=== PATIENT | female | born 1940 | race Two or more races ===

== ENCOUNTER 2021-09-07 09:07 | Outpatient (AMB) | payer OTHER, MEDICAID, SELFPAY ==
--- NOTE | 2021-09-07 09:08 | UROVISIT ---
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 Required: No Is patient in pain?: No Allergy Allergies amoxicillin Allergy (Severe, Verified 09/07/21 09:09) Rash Home Meds Medication Reconciliation atorvastatin 80 mg tablet 80 mg PO HS 04/15/18 [History Confirmed 09/07/21] calcitriol 0.25 mcg capsule 0.25 mcg PO EVERYOTHERDAY 04/15/18 [History Confirmed 09/07/21] clonidine HCl 0.2 mg tablet 0.2 mg PO BID 04/15/18 [History Confirmed 09/07/21] doxazosin 2 mg tablet 1 mg PO HS 04/15/18 [History Confirmed 09/07/21] glipizide 10 mg tablet 5 mg PO BID 04/16/18 [History Confirmed 09/07/21] allopurinol 300 mg tablet 300 mg PO QDAY 03/27/19 [History Confirmed 09/07/21] tramadol 50 mg tablet 50 mg PO PRN PRN 03/27/19 [History Confirmed 09/07/21] furosemide 40 mg tablet (Lasix) 40 mg PO EVERYOTHERDAY 05/02/19 [History Confirmed 09/07/21] docusate sodium 100 mg capsule (Colace) 100 mg PO DAILY 10/04/20 [History Confirmed 09/07/21] ferrous sulfate 325 mg (65 mg iron) tablet 325 mg PO DAILY 10/04/20 [History Confirmed 09/07/21] insulin glargine U-300 conc 300 unit/mL (3 mL) subcutaneous pen (Toujeo Max U-300 SoloStar) 40 unit SUBCUT DAILY 10/04/20 [History Confirmed 09/07/21] labetalol 200 mg tablet 200 mg PO BID 10/04/20 [History Confirmed 09/07/21] pantoprazole 40 mg tablet,delayed release 40 mg PO QDAY 10/04/20 [History Confirmed 09/07/21] dulaglutide 3 mg/0.5 mL subcutaneous pen injector (Trulicity) 3 mg SUBCUT QWEEK 10/06/20 [History Confirmed 09/07/21] amiodarone 200 mg tablet 200 mg PO BID 06/09/21 [History Confirmed 09/07/21] apixaban 2.5 mg tablet (Eliquis) 2.5 mg PO BID 06/09/21 [History Confirmed 09/07/21] aspirin 81 mg tablet,delayed release 81 mg PO QDAY 06/09/21 [History Confirmed 09/07/21] clopidogrel 75 mg tablet 75 mg PO DAILY 06/09/21 [History Confirmed 09/07/21] diltiazem HCl 30 mg tablet 30 mg PO QID 06/09/21 [History Confirmed 09/07/21] estradiol 10 mcg vaginal tablet (Vagifem) 10 mcg VAGINAL DIRECTED tab 09/07/21 [History Confirmed 09/07/21] gabapentin 100 mg capsule 100 mg PO QDAY 09/07/21 [History Confirmed 09/07/21] Nurse Note: Patient and daughter had phone consult with Dr Schwab. Patient to be scheduled for kidney ultrasound in 3 months. mvp Fall Screening Do you have a fear of falling?: Yes Have you had a fall in the last 2 months?: No Do you use an assistive device for ambulation?: Yes (walker) Current Vital Signs Height Height Method Weight Weight Measurement Method Body Mass Index 1.57 m Stated 77.111 kg Estimated by Patient 31.1 09/07/21 09:10 09/07/21 09:10 09/07/21 09:10 09/07/21 09:10 09/07/21 09:10 Nursing Documentation Social History Living Situation History Lives With: Children and Family Housing: House Tobacco History Smoking Status: Former smoker Second Hand Smoke Exposure: No Alcohol History Alcohol Intake: Never Alcohol Intake Frequency: holidays/special occasions only Office Procedures Uro Level of Care Nursing/Assessment/Reassessment Patient Status: Established Patient Nursing Assessment/Reassessment: Update [facility] data in EMR and Medication Reconciliation Coordination of Care: Ref for ancillary service Established Patient Point Assignment: 35 Uro Telephone call w/Clinical staff: 21-30 min Urology Clinic Office Visit Office Visit Urology Verbal Consent obtained for Telemed Visit: Yes Date of visit:: September 07, 2021 09:07 Allergies & Home Medications: Allergies amoxicillin Allergy (Severe, Verified 06/09/21 16:13) Rash Visit: Reason for visit: [] Office Visit findings: []
[2021-09-07 09:10] VITALS: BMI 31.1
--- NOTE | 2021-09-08 05:55 | URONOTEN_ITS ---
RE: AMINATA VALIENTE : 1940 DATE: 09/07/2021 Because of emergency mandate, a [id number] visit is not possible; therefore, this medical necessary visit is conducted via a telephonic communication. ESTABLISHED DIAGNOSES: 1. N184, chronic kidney disease. 2. E782, mixed hyperlipidemia. 3. E11.22, diabetes mellitus type 2 with diabetic chronic kidney disease. 4. R809, proteinuria. 5. N250, renal osteodystrophy. 6. E875, hyperkalemia. 7. R600, localized edema. 8. F330, major depressive disorder, recurrent. 9. I129, hypertensive chronic kidney disease. 10. 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 11. Urgency incontinence and recurrent urinary tract infection. HISTORY OF PRESENT ILLNESS: Ms. Valiente is an 81-year-old female. I was talking to her daughter and this patient has history of urinary tract infection, which was treated with antibiotics. She has frequency of urination x4 at night, 2-3 times during the day. This patient is COVID positive at this time. She is 4, para 4, no hysterectomy. There is no bulge in the vaginal area. She had UTI, which was treated with antibiotics. Past medical history, family history, review of systems, and personal history, please refer to patient history form dated, 09/07/2021. It is in HPI, in EMR. VARIOUS LABS: BUN is 27, creatinine is 2.0, GFR is 26. She had CAT scan done in 2019. It was reviewed by me. She had small stone in both kidneys without hydronephrosis. Renal parenchyma and cortex is good. IMPRESSION: 1. Urgency incontinence. 2. Urinary tract infection. RECOMMENDATION: 1. Literature regarding prevention of UTI has been sent to the patient. 2. I am doing ultrasound of the kidney to make sure the stones are not causing hydronephrosis. 3. For her recurrent UTI, I am putting her on Vagifem 2 grams per vagina twice a week. All above issues were discussed with daughter in great detail. I answered her questions to her satisfaction. She verbalized understanding. Half an hour was spent in counseling and coordination of the care of the patient. It was a telephone encounter and the patient is COVID positive. DT: 10:21:47 TT: 11:19:00 Ref: [id number] - TID: [id number]
== END 2021-09-07 10:01 | disposition home or self-care (01) ==
LOC: HODURO 09:07
PROVIDERS: PCP Family Medicine; Visit Provider Urology

== ENCOUNTER 2024-07-02 09:57 | Observation (INO) | payer OTHER, SELFPAY ==
[2024-07-02] VITALS (10 sets, daily range): BP systolic 125–184; BP diastolic 52–80; PULSE 51–67; RESP 14–99; TEMP 36.4–36.7; O2SAT 95–99; BMI 23.4
--- NOTE | 2024-07-02 11:54 | EKG_ITS ---
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
--- NOTE | 2024-07-02 11:56 | XR_ITS ---
Examination: AP chest single view Technique one AP portable semiupright chest single view Exam date and time: July 02, 2024 1221 hours INDICATIONS: Chest pain today. FINDINGS: Normal heart size Moderate elevation right hemidiaphragm. No pneumonia or pulmonary edema Prominent osteopenia IMPRESSION: No pneumonia or pulmonary edema
--- NOTE | 2024-07-02 12:02 | EDNOTE_ITS ---
ED General RME/HPI General Chief complaint: General Adult/Misc Complain Stated complaint: WEAKNESS Time Seen by Provider: 07/02/24 11:31 Arrival date/time: 07/02/24 09:57 RME / HPI RME / HPI narrative: An 83-year-old female patient with past medical history of ESRD on dialysis, following up with Kori Barry on Eliquis, hypertension, coronary artery disease, hyperlipidemia, diabetes mellitus, hypothyroidism, was brought from the dialysis center after she felt warm and sweaty. Her symptoms started suddenly toward the end of her dialysis session. Patient also reported palpitation and chest pressure however she denied any chest pain. She also reported that she was shaking vigorously however she did not loss of consciousness. Patient reported that she has never had such symptoms in the past. Related Data Home Medications ?Medication ?Instructions ?Recorded ?Confirmed aspirin 81 mg tablet,delayed 81 mg PO QDAY 12/29/21 08/23/22 release ergocalciferol (vitamin D2) 1,250 1 cap PO QWEEK 03/21/22 08/23/22 mcg (50,000 unit) capsule (Vitamin D2) levothyroxine 50 mcg tablet 1 tab PO DAILY 03/21/22 08/23/22 furosemide 40 mg tablet 1 tab PO QDAY 05/02/22 08/23/22 valsartan 160 mg tablet 1 tab PO QDAY 05/11/22 08/23/22 pantoprazole 40 mg tablet,delayed 40 mg PO HS 05/29/22 08/23/22 release amiodarone 200 mg tablet 200 mg PO BID 08/07/22 08/23/22 dulaglutide 1.5 mg/0.5 mL 4.5 mg subcut QWEEK 08/07/22 08/23/22 subcutaneous pen injector (Trulicity) insulin glargine U-300 conc 300 14 unit subcut QDAY 08/07/22 08/23/22 unit/mL (3 mL) subcutaneous pen (Toujeo Max U-300 SoloStar) midodrine 10 mg tablet See Rx Instructions .Route .COMPLEX 08/07/22 08/23/22 albuterol sulfate 90 mcg/actuation 1 puff inhalation Q4HR PRN 08/08/22 08/23/22 aerosol inhaler BREATHING apixaban 2.5 mg tablet (Eliquis) 2.5 mg PO BID 08/08/22 08/23/22 benzonatate 100 mg capsule 100 mg PO BID PRN Cough 08/08/22 08/23/22 lactulose 10 gram/15 mL oral 30 ml PO TID PRN Constipation 08/08/22 08/23/22 solution (Constulose) tramadol 50 mg tablet 50 mg PO Q8HR PRN Pain 08/08/22 08/23/22 atorvastatin 80 mg tablet 80 mg DAILY 08/23/22 08/23/22 docusate sodium 100 mg tablet 100 mg PO BID 08/23/22 08/23/22 ferrous sulfate 325 mg (65 mg 325 mg DAILY 08/23/22 08/23/22 iron) tablet (FeroSul) zolpidem 5 mg tablet 2.5 mg HS PRN Insomnia 08/23/22 08/23/22 Allergies Allergy/AdvReac Type Severity Reaction Status Date / Time amoxicillin Allergy Severe Rash Verified 07/25/22 15:01 ED Exam Narrative Physical exam: GEN: AOx3, able to speak full sentences HEENT: NC/AC, oral mucosa moist, neck supple CVS: RRR, S1-S2 present, no murmurs appreciated, normal JVD RESP: CTAB GI: soft,non distended, non tender, NBS MSK: able to move all 4 limbs, no lower extremity edema SKIN: warm and dry MAINTENANCE SHOP WELDER: CN II-XII and Sensation grossly intact. Course Quality Measures none Orders Category Date Time Status Application Dba STAT Care 07/02/24 11:56 Active Continuous Pulse Oximetry ONCE Care 07/02/24 11:56 Active EKG (ED ONLY) *Do not use* NOW Care 07/02/24 11:55 Completed Insert IV NOW Care 07/02/24 11:56 Active Diet Cardiac Diet 07/02/24 Lunch Active EKG (ED Only) Stat Exams 07/02/24 11:54 Draft XR chest 1V portable Stat Exams 07/02/24 11:56 Completed BNP [B-Type Natriuretic Peptide] Stat Lab 07/02/24 12:05 Completed CBC Stat Lab 07/02/24 12:05 Completed Comprehensive Metabolic Panel Stat Lab 07/02/24 12:05 Completed Mag [Magnesium] Stat Lab 07/02/24 12:05 Completed Phosphorous Stat Lab 07/02/24 12:05 Completed Troponin I Stat Lab 07/02/24 12:05 Completed Ondansetron Inj [Zofran Inj] Med 07/02/24 11:56 Discontinued 4 mg IV Q1HR PRN Oxygen Delivery NOW RT 07/02/24 11:56 Active Vital Signs Vital signs: Vital Signs Temperature 98.0 F 07/02/24 10:49 Pulse Rate 64 07/02/24 10:49 Respiratory Rate 18 07/02/24 10:49 Blood Pressure 184/80 H 07/02/24 10:49 Pulse Oximetry (%) 95 07/02/24 10:49 Oxygen Delivery Method Room Air 07/02/24 10:49 [facility] Patient data External records reviewed:: [facility] previous records Clinical information provided by:: patient and family Social determinants that could affect healthcare access:: none Patient has the following chronic illnesses:: ESRD CVA Coronary artery disease status post 4 stents placements A-fib Hypothyroidism Diabetes mellitus Hypertension How is presenting disease/condition affected by chronic disease/condition?: c aused by Evaluation data The following diagnostics were reviewed and interpreted by me:: lab results, radiology exam(s) and EKG tracing(s) Lab and/or radiology exams considered but not ordered:: None Interpretation Summary: Heart block Medications Medications considered but not ordered:: None Medication administrations:: Medication Administration History Discontinued Medications Ondansetron HCl (Ondansetron Inj 2 Mg/Ml Inj 2 Ml) 4 mg IV Q1HR PRN PRN Reason: PERSISTENT NAUSEA OR VOMITING None Consultations Consultation(s) initiated? (list below): Yes Diagnosis Differential Diagnosis ED Complaint MDM: Symptomatic bradycardia, hypovolemic hypotension, electrolyte imbalance Most likely diagnosis given after review of the tests above:: Symptomatic bradycardia Admission Indicated Admission indicated?: indicated Explain why admission is indicated or not indicated:: For observation for symptomatic bradycardia Admission Request Was there a request for admission?: Yes Admission Attestation Admission request attestation: Discussed case with [] from Hospitalist service regarding admission. Discussed patients ED course, exam findings, labs, and radiology results. The Hospitalist [agrees,declines] to accept the patient for admission. Disposition Plan Disposition Plan: Admit Medical Decision Making MDM Narrative MDM Narrative: On evaluation patient was found to have blood pressure of 162/64, pulse rate of 57, CBC within normal limits, sodium, potassium, magnesium, phosphate are all within normal limits, BMP was found to be 328, troponin within normal limits, we believe that the patient symptoms most likely secondary to episodes of bradycardia. On review of the patient's chart we noticed that she has multiple EKGs with heart rate below 60 at the history of admission secondary to bradycardia. Today's EKG showed sinus bradycardia with first-degree heart block, possible right bundle branch block, and prolonged QTc interval to 527. We contacted the parachute accessories attacher Dr. Moore and he recommended to admit the patient for observation for 24 hours. The hospitalist team was contacted and the patient will be admitted in telemetry. Differential Diagnosis Differential Diagnosis: Symptomatic bradycardia, hypovolemic hypotension, electrolyte imbalance Lab Data 07/02/24 12:05 07/02/24 12:05 Labs: Lab Results 07/02/24 Range/Units 12:05 WBC 6.4 (3.6-11.0) Thou/mm3 RBC 3.87 L (4.00-5.20) Miln/mm3 Hgb 12.1 (12.0-16.0) g/dL Hct 37.0 (36.0-46.0) % MCV 96 (80-100) fL MCH 31.3 (25.0-35.0) pg MCHC 32.7 (31.0-37.0) g/dl RDW Std Deviation 58.6 H (36.4-46.3) fL Plt Count 161 (140-440) Thou/mm3 Neut % (Auto) 75 (37-80) % Lymph % (Auto) 16 (10-50) % Wake % (Auto) 8 (0-12) % Eos % (Auto) 0 (0-10) % Baso % (Auto) 1 (0-2.5) % Neut # (Auto) 4.8 (1.8-7.7) Thou/mm3 Lymph # (Auto) 1.0 (1.0-4.8) Thou/mm3 Wake # (Auto) 0.5 (0.0-0.8) Thou/mm3 Eos # (Auto) 0.0 (0.0-0.5) Thou/mm3 Baso # (Auto) 0.1 (0.0-0.2) Thou/mm3 Immature Gran # (Auto) 0.01 H (0.00-0.00) Thou/mm3 Absolute Nucleated RBC 0.00 (0.00-0.00) Thou/mm3 Immature Gran % 0 (0-0) % Nucleated RBC % 0 (0) /100 WBC Sodium 136 (136-145) mMol/L Potassium 4.3 (3.4-5.1) mMol/L Chloride 101 (98-107) mMol/L Carbon Dioxide 32.7 H (20.0-31.0) mMol/L Anion Gap 2 L (7-16) BUN 12 (9-23) mg/dL Creatinine 2.4 H (0.6-1.3) mg/dL Estim Creat Clear Calc 13.6 L (>60) mL/min eGFR 20 L (60 - ) See Note BUN/Creatinine Ratio 5 L (12-20) Ratio Glucose 114 H (74-106) mg/dL Calculated Osmolality 272 L (275-295) Calcium 9.4 (8.3-10.6) mg/dL Corrected Calcium 9.4 (8.5-10.1) mg/dL Phosphorus 2.5 (2.4-5.1) mg/dL Magnesium 2.1 (1.6-2.6) mg/dL Total Bilirubin 0.9 (0.3-1.2) mg/dL AST 18 (0-34) U/L ALT 12 (10-49) U/L Alkaline Phosphatase 118 H (46-116) U/L Troponin I < 0.020 (0.0-0.045) ng/mL B-Natriuretic Peptide 328 H (0-100) pg/mL Total Protein 7.0 (5.7-8.2) gm/dL Albumin 4.3 (3.4-4.8) gm/dL Globulin 2.7 (2.3-3.5) gm/dL Albumin/Globulin Ratio 1.6 (1.2-2.2) Discharge Plan Plan Patient Disposition: Admit Acute Care w/in Hospital Prescriptions/Referrals Prescriptions/Med Rec: No Action aspirin 81 mg Tablet,Delayed Release (Dr/Ec) 81 mg PO QDAY levothyroxine 50 mcg tablet 1 tab PO DAILY ergocalciferol (vitamin D2) [Vitamin D2] 1,250 mcg (50,000 unit) capsule 1 cap PO QWEEK Patient Comments: take 1 capsule by mouth every week Rx Instructions: SATURDAY furosemide 40 mg tablet 1 tab PO QDAY pantoprazole 40 mg tablet,delayed release (DR/EC) 40 mg PO HS amiodarone 200 mg Tablet 200 mg PO BID midodrine 10 mg Tablet See Rx Instructions .ROUTE .COMPLEX Rx Instructions: 10 mg orally ;//-DAIALYSIS DAYS ONLY Trulicity 1.5 mg/0.5 mL Pen Injector 4.5 mg SUBCUT QWEEK Rx Instructions: SATURDAY MORNING Toujeo Max U-300 SoloStar 300 unit/mL (3 mL) Insulin Pen 14 unit SUBCUT QDAY benzonatate 100 mg Capsule 100 mg PO BID PRN (Reason: Cough) Eliquis 2.5 mg Tablet 2.5 mg PO BID tramadol 50 mg Tablet 50 mg PO Q8HR PRN (Reason: Pain) albuterol sulfate 90 mcg/actuation HFA aerosol inhaler 1 puff INHALATION Q4HR PRN (Reason: BREATHING) Patient Comments: inhale 1 puff by mouth and INTO THE LUNGS every 4 hours if needed lactulose [Constulose] 10 gram/15 mL solution 30 ml PO TID PRN (Reason: Constipation) Rx Instructions: UP TO 3X A DAY NEEDED FOR CONTIPATION valsartan 160 mg tablet 1 tab PO QDAY Patient Comments: take 1 tablet by mouth once daily atorvastatin 80 mg tablet 80 mg DAILY Patient Comments: take 1 tablet by mouth once daily ferrous sulfate [FeroSul] 325 mg (65 mg iron) tablet 325 mg DAILY zolpidem 5 mg tablet 2.5 mg HS PRN (Reason: Insomnia) Patient Comments: 1/2 tablet by mouth at bedtime if needed for insomnia docusate sodium 100 mg Tablet 100 mg PO BID Referrals: Andrew Zhou MD [Primary Care Provider] - In 1 week Problem List Clinical Impression: Bradycardia Patient/Caregiver Discharge Instructions Print Language: Yoruba Stand Alone Forms: Rachel Award Info., Patient Portal Info Letter
[2024-07-02 12:13] LABS: Basophils # (Auto) 0.1 Thou/mm3 (0.0-0.2); Basophils % (Auto) 1 % (0-2.5); Eosinophils % (Auto) 0 % (0-10); Hemoglobin 12.1 g/dL (12.0-16.0); Immature Granulocytes % (Auto) 0 % (0-0); Immature Granulocytes Auto 0.01 Thou/mm3 (0.00-0.00); Lymphocytes % (Auto) 16 % (10-50); Mean Corpuscular HGB Conc 32.7 g/dl (31.0-37.0); Mean Corpuscular Hemoglobin 31.3 pg (25.0-35.0); Mean Corpuscular Volume 96 fL (80-100); Monocytes # (Auto) 0.5 Thou/mm3 (0.0-0.8); Monocytes % (Auto) 8 % (0-12); Neutrophils # (Auto) 4.8 Thou/mm3 (1.8-7.7); Neutrophils % (Auto) 75 % (37-80); Nucleated Red Blood Cell % 0 /100 WBC (0); Platelet Count 161 Thou/mm3 (140-440); RDW Standard Deviation 58.6 fL (36.4-46.3); Red Blood Count 3.87 Miln/mm3 (4.00-5.20); White Blood Count 6.4 Thou/mm3 (3.6-11.0)
[2024-07-02 12:38] LABS: B-Type Natriuretic Peptide 328 pg/mL (0-100)
[2024-07-02 12:53] LABS: Alanine Aminotransferase 12 U/L (10-49); Albumin, Serum 4.3 gm/dL (3.4-4.8); Albumin/Globulin Ratio 1.6 (1.2-2.2); Alkaline Phosphatase 118 U/L (46-116); Anion Gap 2 (7-16); Aspartate Amino Transferase 18 U/L (0-34); BUN/Creatinine Ratio 5 Ratio (12-20); Bilirubin,Total 0.9 mg/dL (0.3-1.2); Blood Urea Nitrogen 12 mg/dL (9-23); Calcium 9.4 mg/dL (8.3-10.6); Calcium (Corrected) 9.4 mg/dL (8.5-10.1); Carbon Dioxide 32.7 mMol/L (20.0-31.0); Chloride 101 mMol/L (98-107); Creatinine (Component) 2.4 mg/dL (0.6-1.3); Estimated Creatinine Clearance 13.6 mL/min (>60); Globulin 2.7 gm/dL (2.3-3.5); Glucose 114 mg/dL (74-106); Magnesium 2.1 mg/dL (1.6-2.6); Osmolality,Calculated 272 (275-295); Phosphorous 2.5 mg/dL (2.4-5.1); Potassium 4.3 mMol/L (3.4-5.1); Sodium 136 mMol/L (136-145); Troponin I < 0.020 ng/mL (0.0-0.045); eGFR 20 See Note
--- NOTE | 2024-07-02 14:28 | ESHP_ITS ---
<Statement entered by Belen Childers DO - 07/02/24 20:42> Senior attestation: Patient was examined and case was reviewed with team including attending physician. Note reviewed, I agree with most of its contents and agree with the patient's care. Belen Childers DO PGY-3 <Statement entered by Donis Beck MD - 07/02/24 18:37> Senior Resident Attestation: I supervised/discussed management plan with academic intern physician Dr. Alan, and was involved in the care of this patient. I personally saw and examined the patient and discussed the assessment and plan with the entire medicine team, including my attending. I agree with the assessment and plan as documented. Patient is a 83 years old female with past medical history of ESRD on HD, A-fib on Eliquis, DM type 2, hypothyroidism, hypertension, CAD, and hyperlipidemia presented to the ED after she developed shakiness and weakness during HD session. Her HR was noted to be in 50s. EKG showed QTc prolongation and first degree AV block. Her amiodarone and lasix were held and she was started on amlodipine for BP control. Patient's care was discussed with attending physician, Dr. León. Donis Beck MD PGY-2. Documentation for date of: 07/02/24 HPI History of Present Illness Chief complaint: Weakness, dizzyness, nausea History of present illness: 83-year-old female with past medical history of ESRD (dialysis Saturday, , Saturdays), A-fib (on Eliquis), DM 2, hypothyroidism, hypertension, CAD, and hyperlipidemia was admitted to the hospital after coming to the ED from dialysis center due to feeling of weakness, dizziness, nausea, sweating, and flushing around 15 minutes before her dialysis was done. Patient mentioned that she also felt some mild chest pain and palpitations during this time as well and had dry heaves, but did not vomit. She mentioned that yesterday she got VERONA and had been with poor oral intake since the day prior until yesterday at evening around 4 to 5 PM. She she also stated that she did not take her medications yesterday morning as she could not have anything by mouth as she was going to have the VERONA, therefore she did not take her levothyroxine or amiodarone yesterday. She denied any loss of conscious during this episode in dialysis today and took her midodrine this morning as well as her amiodarone. ER spoke with patient's auto [employer] travel counselor Dr. Moore given that patient's EKG showed a first-degree AV block and patient's blood pressure initially was 184/80. [employer] Supervisor recommendation was to place patient under observation and to hold all QTc prolonging medication at this time given the patient's QTc was prolonged at 521. ED course: Initially patient came in hypertensive and afebrile. Vital signs were BP 184/80, pulse 64, O2 sats 95% on room air. Initial labs were relevant for mild metabolic alkalosis, azotemia, and mildly elevated BNP at 328. Initial imaging included chest x-ray which was negative for any active disease and EKG which showed first-degree AV block with sinus bradycardia. ER contacted auto club travel counselor Dr. Moore who recommended to admit the patient for observation and a telemetry bed. PMH: As above Allergies: Amoxicillin Review of Systems Review of Systems Narrative Review of Systems: Constitutional: Admits sweats, Denies weight loss/gain, Denies fever, Denies chills. HEENT: Denies hearing loss, Denies ear pain, Denies postnasal drip, Denies double vision, Denies blurry vision. Respiratory: Denies shortness of breath, Denies cough, Denies wheezing. Cardiovascular: Admits chest pain, Admits palpitations, Denies sudden loss of consciousness. GI: Denies blood in stool, Denies constipation, Denies abdominal pain, Denies difficulty swallowing, Admits nausea, Denies vomit. : Denies urinary incontinence, Denies pain while urinating, Denies increased urinary frequency. MSK: Denies joint pain, Denies joint swelling, Denies numbness. Skin: Denies rash, Denies itching, Denies easy bruising. Neuro: Denies headaches, Admits dizziness, Denies seizures. Past Medical History Past Medical History NEUROLOGIC: Positive Neurological Disorders, Cerebrovascular Accident and Transient Ischemic Attacks (TIA); Negative Dementia, Alzheimer's Disease, Parkinson's Disease, Brain Tumor, Meningitis, Seizures, Epilepsy, Multiple Sclerosis, Cerebral Palsy, Amyotrophic Lateral Sclerosis (ALS/Erna Gehrig's), Guillain-Deadwood Syndrome, Spina Bifida, Paralysis, Peripheral Neuropathy, Stark's Palsy, Subdural Hematoma, Migraine, Head Trauma, Spinal Cord Injury or Traumatic Brain Injury CARDIAC: Positive Cardiac Disorders, Myocardial Infarction, Cardiac Arrhythmia, Atrial Fibrillation, Angina, Heart Murmur, Coronary Artery Disease, Peripheral Vascular Disease, Hypercholesterolemia, Congestive Heart Failure, Edema and Hypertension; Negative Atherosclerotic Heart Disease, Aneurysm, Congenital Heart Disease, Valvular Heart Disease, Rheumatic Fever, Cardiomyopathy, Pericarditis, Cellulitis, Deep Vein Thrombosis, Hypotension or Varicose Veins RESPIRATORY: Positive Pneumonia; Negative Chronic Obstructive Pulmonary Disease (COPD), Asthma, Bronchitis, Emphysema, Pulmonary Fibrosis, Cystic Fibrosis, Tuberculosis, Pulmonary Embolism, Pulmonary Edema or Sleep Apnea GASTROINTESTINAL: Negative Gastrointestinal Disorders, Hepatitis, Cirrhosis, Pancreatitis, Celiac Disease, Gall Bladder Disease, Gastrointestinal Bleed, Esophageal Varices, Huerta's Esophagus, Colitis, Ulcerative Colitis, Diverticulitis, Diverticulosis, Ulcer, Colorectal Cancer, Irritable Bowel, Crohn's Disease, Obstructive Bowel, Hiatal Hernia, Hemorrhoids, Gastroesophageal Reflux Disease or Obesity GENITOURINARY: Positive Genitourinary Disorders, Renal Disease and Dialysis; Negative Kidney Stones, Polycystic Kidney Disease, Neurogenic Bladder or Inguinal Hernia REPRODUCTIVE: Positive Previous Pregnancies; Negative Breast Cancer, Endometriosis, Pelvic Inflammatory Disease or Uterine Prolapse MUSCULOSKELETAL: Positive Musculoskeletal Disorders, Arthritis, Rheumatoid Arthritis, Degenerative Disk Disease and Gout; Negative Muscular Dystrophy, Myasthenia Gravis, Marfan's Syndrome, Bone Cancer, Osteoporosis, Scoliosis, Carpal Tunnel Syndrome, Fibromyalgia, Fractures, Degenerative Joint Disease, Osteomyelitis or Poliovirus ENT: Positive Cataracts; Negative Glaucoma, Blind, Retinal Detachment, Macular Degeneration, Ear Infection, Deafness, Head Trauma or Eye Prosthesis ENDOCRINE: Positive Endocrine Disorders, Diabetes Mellitus Type 2 and Hypothyroidism; Negative Diabetes Mellitus Type 1, Hypoglycemia, Stanislav's Syndrome, Alexander's Disease, Hyperthyroidism, Parathyroid Disease, Pituitary Disease, Systemic Lupus Erythematosus, Syndrome of Inappropriate Antidiuretic Hormone (SIADH), Adrenal Disease or Graves' Disease HEMATOLOGIC: Negative Blood Disorders, Anemia, Leukemia, Hemophilia, Thalassemia, Sickle Cell Disease or Clotting Problems PSYCHO/SOCIAL: Negative Psychiatric Problems, Schizophrenia, Recreational Drug Use, Bipolar Disorder, Depression, Anxiety, Behavior Problems, Self-Mutilation, Attention Deficit Disorder, Attention Deficit Hyperactivity Disorder, Depression, Post Traumatic Stress Disorder or Eating Disorder OTHER HISTORY: Positive Hospitalization, Chicken Pox, Measles, Mumps and Clostridium Difficile; Negative Autoimmune Disease, Down Syndrome, Autism, Developmental Delay, Shingles, Falls, Blood Transfusions, Blood Transfusion Reaction, Anesthesia Reactions, Organ Transplant, Chemotherapy, Radiation Therapy, Hyperbaric Therapy, MRSA, VRSA, Vancomycin-Resistant Enterococci, Human Immunodeficiency Virus (HIV), Rubella (Maldivian Measles), Pertussis, Cancer, Breast Cancer, Cervical Cancer, Colorectal Cancer, Lung Cancer or Ovarian Cancer Family History FAMILY HISTORY: Positive Family Cardiac Disorders, Family Cancer and Family Surgery; Negative Family Psychiatric Problems, Family Respiratory Disorders, Family Gastrointestinal Problems or Family Anesthesia Reaction Surgical History SURGICAL: Positive Cardiac Surgery, Coronary Stent, Cardiac Catheterization, Angiogram and Eye Surgery; Negative Open Heart Surgery, Coronary Artery Bypass Graft, Valve Replacement, Vascular Surgery, Pacemaker, Auto Implanted Cardiovert Defib, Carotid Endarterectomy, Endocrine Surgery, Thyroidectomy, Ear Surgery, Tympanostomy Tube, Nose Surgery, Oral Surgery, Tonsillectomy, Adenoidectomy, Cochlear Implant, Corneal Transplant, Throat Surgery, Abdominal Surgery, Tracheostomy, Gastric Bypass Surgery, Gastrostomy, Bowel Surgery, Nephrectomy, Transurethral Resection, Joint Replacement, Amputation, Open Reduction Internal Fixation, Arthroscopy, Neurologic Surgery, Brain Shunt, Mastectomy, Lumpectomy, Hysterectomy, Tubal Ligation, Section or Organ Transplant Social History SMOKING STATUS: Never smoker SECOND HAND EXPOSURE: No SUBSTANCE USE: does not use Exam Vital Signs Temp Pulse Resp BP Pulse Ox O2 Del Method 98.0 F 58 L 16 161/61 H 99 Room Air 07/02/24 12:17 07/02/24 13:16 07/02/24 13:16 07/02/24 12:17 07/02/24 12:17 07/02/24 12:17 Narrative Exam General: A/O x3, no acute distress, thin Eyes: PERRL, EOMI. Anicteric, vision grossly intact. Ears: No ear pain, no ear discharge, Hearing grossly intact. Nose: No nasal discharge. Mouth/Throat: Moist mucous membranes with dentures, no redness, no lesions. Neck: Neck supple, non-tender, no cervical lymphadenopathy. Lungs: Clear MILAGROS to auscultation and percussion, No accessory muscle use. Cardio: Normal S1/S2, regular rhythm, no murmurs, no JVD Abdomen: Soft, non-tender, no palpable masses, peristalsis present, no guarding or rebound. Extremities: Symmetrical, no significant deformities, no peripheral edema , non-tender, peripheral pulses presents. dialysis fistula in L UE Skin: No rashes, no lesions, warm to touch. Neuro: No focal neurological deficits. motor and sensory intact Psych: Cooperative, appropriate mood and effect. Results: Labs 07/03/24 04:20 07/03/24 04:20 Labs: Short CBC 07/02/24 Range/Units 12:05 WBC 6.4 (3.6-11.0) Thou/mm3 Hgb 12.1 (12.0-16.0) g/dL Hct 37.0 (36.0-46.0) % Plt Count 161 (140-440) Thou/mm3 BMP 07/02/24 12:05 Sodium 136 Potassium 4.3 Chloride 101 Carbon Dioxide 32.7 H BUN 12 Creatinine 2.4 H Glucose 114 H Calcium 9.4 Cardiac Enzymes 07/02/24 Range/Units 12:05 Troponin I < 0.020 (0.0-0.045) ng/mL Liver Function 07/02/24 Range/Units 12:05 Total Bilirubin 0.9 (0.3-1.2) mg/dL AST 18 (0-34) U/L ALT 12 (10-49) U/L Alkaline Phosphatase 118 H (46-116) U/L Albumin 4.3 (3.4-4.8) gm/dL Quality Measures Quality Measures none Advance care planning discussed with:: patient Medications Home Medications and Allergies Home Medications ?Medication ?Instructions ?Recorded ?Confirmed ?Type levothyroxine 50 mcg tablet 1 tab PO DAILY 03/21/22 07/03/24 History furosemide 40 mg tablet 1 tab PO QDAY 05/02/22 07/03/24 History pantoprazole 40 mg tablet,delayed 40 mg PO HS 05/29/22 07/03/24 History release insulin glargine U-300 conc 300 14 unit subcut QDAY 08/07/22 07/03/24 History unit/mL (3 mL) subcutaneous pen (Toujeo Max U-300 SoloStar) albuterol sulfate 90 mcg/actuation 1 puff inhalation Q4HR PRN 08/08/22 07/03/24 History aerosol inhaler BREATHING apixaban 2.5 mg tablet (Eliquis) 2.5 mg PO HS 08/08/22 07/02/24 History lactulose 10 gram/15 mL oral 30 ml PO TID PRN Constipation 08/08/22 07/02/24 History solution (Constulose) tramadol 50 mg tablet 50 mg PO Q8HR PRN Pain 08/08/22 07/03/24 History docusate sodium 100 mg tablet 100 mg PO DAILY 08/23/22 07/03/24 History dulaglutide 1.5 mg/0.5 mL 0.5 mg subcut QWEEK 07/03/24 07/03/24 History subcutaneous pen injector (Trulicity) galcanezumab-gnlm 120 mg/mL 120 mg subcut Q1M 07/03/24 07/03/24 History subcutaneous pen injector (Emgality Pen) Allergies Allergy/AdvReac Type Severity Reaction Status Date / Time amoxicillin Allergy Severe Rash Verified 07/25/22 15:01 Visit Medications Acetaminophen (Acetaminophen 325 Mg Tablet) 650 mg PO Q6H PRN PRN Reason: pain and Fever >100.4 Stop: 08/01/24 14:20 Discontinued Medications Ondansetron HCl (Ondansetron Inj 2 Mg/Ml Inj 2 Ml) 4 mg IV Q1HR PRN PRN Reason: PERSISTENT NAUSEA OR VOMITING Assessment & Plan Plan 83-year-old female with past medical history of ESRD (dialysis Saturday, , Saturdays), A-fib (on ), DM 2, hypothyroidism, hypertension, CAD, and hyperlipidemia was admitted to the hospital on 07/02/2024 for symptomatic bradycardia with first-degree AV block and hypertensive urgency #Symptomatic bradycardia #First-degree AV block #Presyncope ?Patient stated that she was feeling weak and dizzy about 15 minutes prior to finishing her dialysis today. She also mentions she felt palpitations as well as swelling. ?DDx medication induced given patient uses amiodarone for A-fib and had anesthesia day prior for VERONA versus due to thyroid hormone imbalance versus poor oral intake as patient was n.p.o. day prior to dialysis given that she had a VERONA. ?EKG showed first-degree AV block and sinus bradycardia with a prolonged QTc Plan: ?Avoid QTc prolongation medications such as amiodarone and Zofran ?Holding amiodarone for now ?TSH ordered ?Keep potassium above 4 and magnesium above 2 ?Cardiology consulted Dr. Moore, recommended to place patient in observation telemetry bed. #Hypertensive urgency #Hx of HTN ?Patient's initial blood pressure on admission was 184/80 ?This could have been a component of patient taking midodrine today in the morning given that she was cannot have dialysis. ?Blood pressure a before my assessment was 161/61 Plan: ?Start amlodipine 5 mg daily ?Holding Lasix for now #ESRD (HD Saturday, , Saturday) ?Patient received last hemodialysis on day of admission ?BUN 12, creatinine 2.4 on admission ?Patient takes midodrine on the days that he gets dialysis, therefore she took midodrine today Plan: ?IV fluids ?Avoid nephrotoxic agents ?Renally dose medications ?Nephrology consulted (Dr. Alvarado), appreciate recommendations ?Continue to monitor #Hx of DM2 ?Patient last A1c 6.4 Plan: ?ISS ? Accu-Cheks and hypoglycemic protocol ordered ? Will continue to monitor #Hx of hypothyroidism ?Restarted patient's levothyroxine 50 mcg daily ?TSH ordered ?Will continue to monitor #Hx of A-fib ?Restarted patient's Eliquis 2.5 mg twice daily ?Holding amiodarone given patient's first-degree block and symptomatic bradycardia Disposition: Patient admitted to telemetry for observation of symptomatic bradycardia and 1st degree AV block. Diet: Carb consistent low GI prophylaxis: protonix DVT prophylaxis: Already on Eliquis 2.5mg BID Code:DNR Case disclosed with Attending Dr. León and My senior Dr. Beck PGY2, and Dr. Childers PGY3. Vishnu Mancini PGY1 Attending Provider Attestation/Addendum I reviewed labs, imaging, EKG, home medications and prior available records. Face to face evaluation was performed by me. I have personally examined the patient and discussed assessment and plan with the IM team. I reviewed the resident note and agree with the plan with exceptions as below. Please see my addendum in the separate note for the date of 07/02.
--- NOTE | 2024-07-02 15:14 | ESHP_ITS ---
Addendum History & Physical Addendum Date of report being addended: 07/02/24 Narrative: Attending's attestation: I reviewed labs, imaging, EKG, home medications and prior available records. Face to face evaluation was performed by me. I have personally examined the patient and discussed assessment and plan with the IM team. I reviewed the resident note and agree with the plan with exceptions as below. 83-year-old female with history of ESRD on hemodialysis, CAD status post stentin g, A-fib on Eliquis, and hypertension, who presented with a chief complaint of near syncope, weakness, sweating, and nausea. She was found to have hypertensive crisis and symptomatic bradycardia. Presyncope/sweating/nausea: Differential diagnosis includes symptomatic bradycardia versus hypertensive encephalopathy. Patient did not eat well for the last 24 hours prior to her symptoms and the symptoms happened at the end of dialysis. Both factors can also be contributing. She had VERONA yesterday with anesthesia which could be contributing. Management of the underlying conditions as below. Symptomatic bradycardia: Heart rate is in the 50s. EKG showed sinus bradycardia with first-degree AV block. QTc is prolonged. Consulted cardiology Dr. Moore: Recommended admitting the patient to observation/telemetry and will consult. Avoid beta-blockers. Stop home amiodarone. Avoid QTc prolonging agents. Send TSH. Hypertensive crisis: SBP was in the 220s on presentation. Improved to 160?180 at the time of my evaluation. In the setting of known history of hypertension however patient is also on midodrine during dialysis. Stop midodrine. Restart oral home BP medications. Monitor BP. Hypothyroidism: Resume home levothyroxine. Order TSH as hypothyroidism can cause bradycardia. ESRD on hemodialysis: Consult nephrology for the next session of hemodialysis. Dose medications based on ESRD.
--- NOTE | 2024-07-02 16:00 | PC.CC ---
Patient is an 83 year-old female BIBA from Dialysis for 1st Degree Block, QTC Prolong, Presyncope. Deepti CAGE introduced self, role, and reason for visit to the patient and discussed limits of confidentiality. At bedside was patient's daughter Cheryl Catalan who patient provided consent to remain in the room. Patient confirmed information on demographics and reports to living with daughter Cheryl and her family. Per patient, prior to hospitalization she would ambulate with a 4-wheel walker and is able to complete her own ADLs. The patient's daughter reported the patient has a walk-in bath tub to bathe herself. Patient's primary care provider is Dr. Zhou and for medication uses [facility] on [address]. Upon discharge patient plans to return home with her family. volunteer services coordinator to remain available for any discharge needs.
--- NOTE | 2024-07-02 18:04 | ESCONSULT_ITS ---
HPI Data of Consult Consult date: 07/02/24 Requesting Physician: Edin León MD Admitting Provider: Edin León MD Attending Provider: José Alvarado MD Primary Care Provider: Andrew Zhou MD Consult Narrative Reason for consult: ESRD requiring dialysis History of present illness: 83 y/o F with PMHx significant for ESRD (dialysis Saturday, , Saturdays), A-fib (on Eliquis), DM 2, hypothyroidism, hypertension, CAD, and hyperlipidemia was admitted to the hospital after coming to the ED from dialysis center due to feeling of weakness, dizziness, nausea, sweating, and flushing around 15 minutes before her dialysis was done. Patient mentioned that she also felt some mild chest pain and palpitations during this time as well and had dry heaves, but did not vomit. She mentioned that yesterday she got VERONA and had been with poor oral intake since the day prior until yesterday at evening around 4 to 5 PM. She she also stated that she did not take her medications yesterday morning as she could not have anything by mouth as she was going to have the VERONA, therefore she did not take her levothyroxine or amiodarone yesterday. She denied any loss of conscious during this episode in dialysis today and took her midodrine this morning as well as her amiodarone. ER spoke with patient's metal forger's assistant Dr. Moore given that patient's EKG showed a first-degree AV block and patient's blood pressure initially was 184/80. Education Analyst recommendation was to place patient under observation and to hold all QTc prolonging medication at this time given the patient's QTc was prolonged at 521. Initially patient came in hypertensive and afebrile. Vital signs were BP 184/80, pulse 64, O2 sats 95% on room air. Initial labs were relevant for mild metabolic alkalosis, azotemia, and mildly elevated BNP at 328. Initial imaging included chest x-ray which was negative for any active disease and EKG which showed first-degree AV block with sinus bradycardia. ER contacted metal forger's assistant Dr. Moore who recommended to admit the patient for observation and a telemetry bed. Nephrology was consulted due to patient's ESRD on dialysis. Patient seen and examined in ED. Patient resting comfortably, in no distress. No edema, patient lungs clear to auscultation. Labs showed sodium 136, potassium 4.3, bicarb 32.7, creatinine 2.4, BUN 12, eGFR 20. No plans for further dialysis today, will keep to patient's regular dialysis schedule. Patient mucous membranes dry, will give patient half liter D5W half-normal saline. cc:: cc: Edin León MD Review of Systems Review of Systems Systems Reviewed: All systems reviewed, normal except as documented Past Medical History Past Medical History NEUROLOGIC: Positive Neurological Disorders, Cerebrovascular Accident and Transient Ischemic Attacks (TIA); Negative Dementia, Alzheimer's Disease, Parkinson's Disease, Brain Tumor, Meningitis, Seizures, Epilepsy, Multiple Sclerosis, Cerebral Palsy, Amyotrophic Lateral Sclerosis (ALS/Enra Gehrig's), Guillain-[place] Syndrome, Spina Bifida, Paralysis, Peripheral Neuropathy, Stark's Palsy, Subdural Hematoma, Migraine, Head Trauma, Spinal Cord Injury or Traumatic Brain Injury CARDIAC: Positive Cardiac Disorders, Myocardial Infarction, Cardiac Arrhythmia, Atrial Fibrillation, Angina, Heart Murmur, Coronary Artery Disease, Peripheral Vascular Disease, Hypercholesterolemia, Congestive Heart Failure, Edema and Hypertension; Negative Atherosclerotic Heart Disease, Aneurysm, Congenital Heart Disease, Valvular Heart Disease, Rheumatic Fever, Cardiomyopathy, Pericarditis, Cellulitis, Deep Vein Thrombosis, Hypotension or Varicose Veins RESPIRATORY: Positive Pneumonia; Negative Chronic Obstructive Pulmonary Disease (COPD), Asthma, Bronchitis, Emphysema, Pulmonary Fibrosis, Cystic Fibrosis, Tuberculosis, Pulmonary Embolism, Pulmonary Edema or Sleep Apnea GASTROINTESTINAL: Negative Gastrointestinal Disorders, Hepatitis, Cirrhosis, Pancreatitis, Celiac Disease, Gall Bladder Disease, Gastrointestinal Bleed, Esophageal Varices, Huerta's Esophagus, Colitis, Ulcerative Colitis, Diverticulitis, Diverticulosis, Ulcer, Colorectal Cancer, Irritable Bowel, Crohn's Disease, Obstructive Bowel, Hiatal Hernia, Hemorrhoids, Gastroesophageal Reflux Disease or Obesity GENITOURINARY: Positive Genitourinary Disorders, Renal Disease and Dialysis; Negative Kidney Stones, Polycystic Kidney Disease, Neurogenic Bladder or Inguinal Hernia REPRODUCTIVE: Positive Previous Pregnancies; Negative Breast Cancer, Endometriosis, Pelvic Inflammatory Disease or Uterine Prolapse MUSCULOSKELETAL: Positive Musculoskeletal Disorders, Arthritis, Rheumatoid Arthritis, Degenerative Disk Disease and Gout; Negative Muscular Dystrophy, Myasthenia Gravis, Marfan's Syndrome, Bone Cancer, Osteoporosis, Scoliosis, Carpal Tunnel Syndrome, Fibromyalgia, Fractures, Degenerative Joint Disease, Osteomyelitis or Poliovirus ENT: Positive Cataracts; Negative Glaucoma, Blind, Retinal Detachment, Macular Degeneration, Ear Infection, Deafness, Head Trauma or Eye Prosthesis ENDOCRINE: Positive Endocrine Disorders, Diabetes Mellitus Type 2 and Hypothyroidism; Negative Diabetes Mellitus Type 1, Hypoglycemia, Wainwright's Syndrome, Otis's Disease, Hyperthyroidism, Parathyroid Disease, Pituitary Disease, Systemic Lupus Erythematosus, Syndrome of Inappropriate Antidiuretic Hormone (SIADH), Adrenal Disease or Graves' Disease HEMATOLOGIC: Negative Blood Disorders, Anemia, Leukemia, Hemophilia, Thalassemia, Sickle Cell Disease or Clotting Problems PSYCHO/SOCIAL: Negative Psychiatric Problems, Schizophrenia, Recreational Drug Use, Bipolar Disorder, Depression, Anxiety, Behavior Problems, Self-Mutilation, Attention Deficit Disorder, Attention Deficit Hyperactivity Disorder, Depression, Post Traumatic Stress Disorder or Eating Disorder OTHER HISTORY: Positive Hospitalization, Chicken Pox, Measles, Mumps and Clostridium Difficile; Negative Autoimmune Disease, Down Syndrome, Autism, Developmental Delay, Shingles, Falls, Blood Transfusions, Blood Transfusion Reaction, Anesthesia Reactions, Organ Transplant, Chemotherapy, Radiation Therapy, Hyperbaric Therapy, MRSA, VRSA, Vancomycin-Resistant Enterococci, Human Immunodeficiency Virus (HIV), Rubella (Upper [place] Measles), Pertussis, Cancer, Breast Cancer, Cervical Cancer, Colorectal Cancer, Lung Cancer or Ovarian Cancer Family History FAMILY HISTORY: Positive Family Cardiac Disorders, Family Cancer and Family Surgery; Negative Family Psychiatric Problems, Family Respiratory Disorders, Family Gastrointestinal Problems or Family Anesthesia Reaction Surgical History SURGICAL: Positive Cardiac Surgery, Coronary Stent, Cardiac Catheterization, Angiogram and Eye Surgery; Negative Open Heart Surgery, Coronary Artery Bypass Graft, Valve Replacement, Vascular Surgery, Pacemaker, Auto Implanted Cardiovert Defib, Carotid Endarterectomy, Endocrine Surgery, Thyroidectomy, Ear Surgery, Tympanostomy Tube, Nose Surgery, Oral Surgery, Tonsillectomy, Adenoidectomy, Cochlear Implant, Corneal Transplant, Throat Surgery, Abdominal Surgery, Tracheostomy, Gastric Bypass Surgery, Gastrostomy, Bowel Surgery, Nephrectomy, Transurethral Resection, Joint Replacement, Amputation, Open Reduction Internal Fixation, Arthroscopy, Neurologic Surgery, Brain Shunt, Mastectomy, Lumpectomy, Hysterectomy, Tubal Ligation, Section or Organ Transplant Social History SMOKING STATUS: Never smoker SECOND HAND EXPOSURE: No SUBSTANCE USE: does not use Exam Vital Signs Temp Pulse Resp BP Pulse Ox O2 Del Method 98.0 F 58 L 16 161/61 H 99 Room Air 07/02/24 12:17 07/02/24 13:16 07/02/24 13:16 07/02/24 12:17 07/02/24 12:17 07/02/24 12:17 Narrative Exam PE: Gen: Well-developed and well-nourished. HEENT: NCAT, PERRLA, EOMI, anicteric conjunctivae. Dry mucous membranes. CVS: normal S1 and S2. RRR. No M/R/G. Resp: CTA B/L. No rhonchi, rales, crackles or wheezing. Abd: soft, non-tender, non-distended. MSK: Good ROM in BUE & BLE. No edema or rash. Left upper arm fistula. Neuro: CN II-XII grossly intact. Strength 5/5 in BUE & BLE. Alert and oriented x3. Psych: appropriate mood and affect. Results Labs 07/02/24 12:05 07/02/24 12:05 Labs: Short CBC 07/02/24 Range/Units 12:05 WBC 6.4 (3.6-11.0) Thou/mm3 Hgb 12.1 (12.0-16.0) g/dL Hct 37.0 (36.0-46.0) % Plt Count 161 (140-440) Thou/mm3 BMP 07/02/24 12:05 Sodium 136 Potassium 4.3 Chloride 101 Carbon Dioxide 32.7 H BUN 12 Creatinine 2.4 H Glucose 114 H Calcium 9.4 Cardiac Enzymes 07/02/24 Range/Units 12:05 Troponin I < 0.020 (0.0-0.045) ng/mL Liver Function 07/02/24 Range/Units 12:05 Total Bilirubin 0.9 (0.3-1.2) mg/dL AST 18 (0-34) U/L ALT 12 (10-49) U/L Alkaline Phosphatase 118 H (46-116) U/L Albumin 4.3 (3.4-4.8) gm/dL Quality Measures Quality Measures VTE prophylaxis Advance care planning discussed with:: patient and child Medications Home Medications and Allergies Home Medications ?Medication ?Instructions ?Recorded ?Confirmed ?Type aspirin 81 mg tablet,delayed 81 mg PO QDAY 12/29/21 08/23/22 History release ergocalciferol (vitamin D2) 1,250 1 cap PO QWEEK 03/21/22 08/23/22 History mcg (50,000 unit) capsule (Vitamin D2) levothyroxine 50 mcg tablet 1 tab PO DAILY 03/21/22 08/23/22 History furosemide 40 mg tablet 1 tab PO QDAY 05/02/22 08/23/22 History valsartan 160 mg tablet 1 tab PO QDAY 05/11/22 08/23/22 History pantoprazole 40 mg tablet,delayed 40 mg PO HS 05/29/22 08/23/22 History release amiodarone 200 mg tablet 200 mg PO BID 08/07/22 08/23/22 History dulaglutide 1.5 mg/0.5 mL 4.5 mg subcut QWEEK 08/07/22 08/23/22 History subcutaneous pen injector (Trulicity) insulin glargine U-300 conc 300 14 unit subcut QDAY 08/07/22 08/23/22 History unit/mL (3 mL) subcutaneous pen (Toujeo Max U-300 SoloStar) midodrine 10 mg tablet See Rx Instructions .Route .COMPLEX 08/07/22 08/23/22 History albuterol sulfate 90 mcg/actuation 1 puff inhalation Q4HR PRN 08/08/22 08/23/22 History aerosol inhaler BREATHING apixaban 2.5 mg tablet (Eliquis) 2.5 mg PO BID 08/08/22 08/23/22 History benzonatate 100 mg capsule 100 mg PO BID PRN Cough 08/08/22 08/23/22 History lactulose 10 gram/15 mL oral 30 ml PO TID PRN Constipation 08/08/22 08/23/22 History solution (Constulose) tramadol 50 mg tablet 50 mg PO Q8HR PRN Pain 08/08/22 08/23/22 History atorvastatin 80 mg tablet 80 mg DAILY 08/23/22 08/23/22 History docusate sodium 100 mg tablet 100 mg PO BID 08/23/22 08/23/22 History ferrous sulfate 325 mg (65 mg 325 mg DAILY 08/23/22 08/23/22 History iron) tablet (FeroSul) zolpidem 5 mg tablet 2.5 mg HS PRN Insomnia 08/23/22 08/23/22 History Allergies Allergy/AdvReac Type Severity Reaction Status Date / Time amoxicillin Allergy Severe Rash Verified 07/25/22 15:01 Visit Medications Acetaminophen (Acetaminophen 325 Mg Tablet) 650 mg PO Q6H PRN PRN Reason: pain and Fever >100.4 Stop: 08/01/24 14:20 Amlodipine Besylate (Amlodipine Besylate 5 Mg Tablet) 5 mg PO QDAY ALL Stop: 08/01/24 15:59 Apixaban (Apixaban 2.5 Mg Tablet) 2.5 mg PO BID ALL Stop: 08/01/24 20:59 Dextrose (Dextrose 50%-Water Inj 50 Ml Syringe) 25 ml IV Q15MIN PRN PRN Reason: BG 50-70 responsive npo pt Stop: 08/01/24 17:10 Dextrose (Dextrose 50%-Water Inj 50 Ml Syringe) 50 ml IV Q15MIN PRN PRN Reason: BG <50 OR BG <70 & pt unresponsive Stop: 08/01/24 17:10 Glucagon (Glucagon Inj 1 Mg Vial) 1 mg IM Q15MIN PRN PRN Reason: BG <70, and no IV access Dextrose/Sodium Chloride (D5-1/2ns) 500 mls @ 100 mls/hr IV X1 ONE Stop: 07/02/24 23:02 Insulin Human Lispro (Insulin Lispro (Admelog) 1 Unit/0.01 Ml Unit) 0 unit SC [facility]; Protocol Stop: 08/01/24 20:59 Lactulose (Lactulose Syrup 20 Gm/30 Ml Udc) 30 gm PO TID PRN; Protocol PRN Reason: constipation Stop: 08/01/24 21:59 Levothyroxine Sodium (Levothyroxine Sodium 25 Mcg Tablet) 50 mcg PO ACBR [facility] Stop: 08/02/24 05:59 Pantoprazole Sodium (Pantoprazole 40 Mg Tablet) 40 mg PO QDAY [facility] Stop: 08/02/24 08:59 Prochlorperazine Maleate (Prochlorperazine Maleate 5 Mg Tablet) 5 mg PO Q6HR PRN PRN Reason: NAUSEA OR VOMITING Stop: 08/01/24 17:02 Discontinued Medications Ondansetron HCl (Ondansetron Inj 2 Mg/Ml Inj 2 Ml) 4 mg IV Q1HR PRN PRN Reason: PERSISTENT NAUSEA OR VOMITING Assessment & Plan Plan 83 y/o F with PMHx significant for ESRD (dialysis Saturday, , Saturdays), A-fib (on Eliquis), DM 2, hypothyroidism, hypertension, CAD, and hyperlipidemia was admitted to the hospital on 07/02/2024 for symptomatic bradycardia with first-degree AV block and hypertensive urgency #ESRD (HD Saturday, , Saturday) Patient received last hemodialysis on day of admission. BUN 12, creatinine 2.4 on admission. Patient takes midodrine on the days that he gets dialysis, therefore she took midodrine today. Plan: ?IVF: D5W/half NS at 100 mL/h x 500 mL -Dialysis as per patient's usual schedule ?Avoid nephrotoxic agents ?Renally dose medications ?Continue to monitor #Symptomatic bradycardia #First-degree AV block #Presyncope #Hypertensive urgency #Hx of HTN #Hx of DM2 #Hx of hypothyroidism #Hx of A-fib DVT prophylaxis: Eliquis GI prophylaxis: Protonix Diet: Cardiac/diabetic Lines: Peripheral IV Code status: DNR Thank you for allowing me to participate in the care of this patient. Plan of care discussed with attending Dr. Alvarado. Tye Elizondo MD PGY-1 Attending Provider Attestation/Addendum Patient seen and examined with resident physician Dr. Elizondo. Note reviewed, agree with findings and recommendations. Patient clinically looks rather dehydrated. Had 2.4 L of fluid removed today. Will give her gentle IV fluids. Plan of care discussed with daughter at bedside. Thank you Dr. León for allowing me to participate in the care of Ms. Catalan
[2024-07-02] MEDS: DEXTROSE 5%-0.45% NS 500 ML 100 ML IV (19:25)
--- NOTE | 2024-07-02 19:28 | PC.NURSE ---
rEPORT CALLED TO ][facility]
[2024-07-02] MEDS: APIXABAN 2.5 MG TABLET PO (21:00)
[2024-07-02] MEDS: INSULIN LISPRO (AdmeLOG) 1 UNIT/0.01 ML UNIT SC (21:00)
[2024-07-03] VITALS (8 sets, daily range): BP systolic 124–152; BP diastolic 55–70; PULSE 50–69; RESP 15–97; TEMP 36.1–36.5; O2SAT 95–99; BMI 23.3
[2024-07-03] MEDS: LEVOTHYROXINE SODIUM 25 MCG TABLET 50 MCG PO (05:17)
[2024-07-03 06:00] LABS: Basophils % (Auto) 1 % (0-2.5); Eosinophils # (Auto) 0.1 Thou/mm3 (0.0-0.5); Eosinophils % (Auto) 2 % (0-10); Hematocrit 33.7 % (36.0-46.0); Hemoglobin 10.8 g/dL (12.0-16.0); Immature Granulocytes % (Auto) 0 % (0-0); Immature Granulocytes Auto 0.01 Thou/mm3 (0.00-0.00); Lymphocytes # (Auto) 1.6 Thou/mm3 (1.0-4.8); Lymphocytes % (Auto) 38 % (10-50); Mean Corpuscular Hemoglobin 30.9 pg (25.0-35.0); Mean Corpuscular Volume 97 fL (80-100); Monocytes # (Auto) 0.5 Thou/mm3 (0.0-0.8); Monocytes % (Auto) 11 % (0-12); Neutrophils % (Auto) 48 % (37-80); Nucleated Red Blood Cell % 0 /100 WBC (0); Platelet Count 145 Thou/mm3 (140-440); RDW Standard Deviation 59.8 fL (36.4-46.3); Red Blood Count 3.49 Miln/mm3 (4.00-5.20); White Blood Count 4.3 Thou/mm3 (3.6-11.0)
[2024-07-03 06:27] LABS: Alanine Aminotransferase 10 U/L (10-49); Albumin, Serum 3.7 gm/dL (3.4-4.8); Albumin/Globulin Ratio 1.6 (1.2-2.2); Alkaline Phosphatase 102 U/L (46-116); Anion Gap 5 (7-16); Aspartate Amino Transferase 19 U/L (0-34); BUN/Creatinine Ratio 7 Ratio (12-20); Bilirubin,Total 0.8 mg/dL (0.3-1.2); Blood Urea Nitrogen 23 mg/dL (9-23); Calcium 8.7 mg/dL (8.3-10.6); Calcium (Corrected) 8.9 mg/dL (8.5-10.1); Carbon Dioxide 32.3 mMol/L (20.0-31.0); Chloride 98 mMol/L (98-107); Creatinine (Component) 3.4 mg/dL (0.6-1.3); Estimated Creatinine Clearance 9.6 mL/min (>60); Globulin 2.3 gm/dL (2.3-3.5); Glucose 99 mg/dL (74-106); Magnesium 2.2 mg/dL (1.6-2.6); Osmolality,Calculated 273 (275-295); Phosphorous 4.4 mg/dL (2.4-5.1); Sodium 135 mMol/L (136-145); eGFR 13 See Note
--- NOTE | 2024-07-03 08:26 | PD.IMCONS ---
HPI Data of Consult Requesting Physician: Edin León MD Primary Care Provider: Andrew Zhou MD Consult Narrative History of present illness: This is a 83-year-old female with past medical history of ESRD (dialysis Saturday, , Saturdays), A-fib (on Eliquis), DM 2, hypothyroidism, hypertension, CAD, and hyperlipidemia pt was admitted form dialysis ; she says during dialysis she felt dizzy and shakey with nausea , diaphoresis with flushing and was brought to the ER pt is know to me form out pt f/u EKG shows HR 57 with BBB pt denies chest pain or sob cc:: cc: Edin León MD Meds Home Medications and Allergies Home Medications ?Medication ?Instructions ?Recorded ?Confirmed ?Type levothyroxine 50 mcg tablet 1 tab PO DAILY 03/21/22 07/03/24 History furosemide 40 mg tablet 1 tab PO QDAY 05/02/22 07/03/24 History pantoprazole 40 mg tablet,delayed 40 mg PO HS 05/29/22 07/03/24 History release amiodarone 200 mg tablet 200 mg PO DAILY 08/07/22 07/02/24 History insulin glargine U-300 conc 300 14 unit subcut QDAY 08/07/22 07/03/24 History unit/mL (3 mL) subcutaneous pen (Toujeo Max U-300 SoloStar) midodrine 10 mg tablet See Rx Instructions .Route .COMPLEX 08/07/22 07/03/24 History albuterol sulfate 90 mcg/actuation 1 puff inhalation Q4HR PRN 08/08/22 07/03/24 History aerosol inhaler BREATHING apixaban 2.5 mg tablet (Eliquis) 2.5 mg PO HS 08/08/22 07/02/24 History lactulose 10 gram/15 mL oral 30 ml PO TID PRN Constipation 08/08/22 07/02/24 History solution (Constulose) tramadol 50 mg tablet 50 mg PO Q8HR PRN Pain 08/08/22 07/03/24 History docusate sodium 100 mg tablet 100 mg PO DAILY 08/23/22 07/03/24 History dulaglutide 1.5 mg/0.5 mL 0.5 mg subcut QWEEK 07/03/24 07/03/24 History subcutaneous pen injector (Trulicity) galcanezumab-gnlm 120 mg/mL 120 mg subcut Q1M 07/03/24 07/03/24 History subcutaneous pen injector (Emgality Pen) Allergies Allergy/AdvReac Type Severity Reaction Status Date / Time amoxicillin Allergy Severe Rash Verified 07/25/22 15:01 Exam Vital Signs Temp Pulse Resp BP Pulse Ox O2 Del Method 97.4 F 69 16 128/64 97 Room Air 07/03/24 04:00 07/03/24 07:56 07/03/24 07:56 07/03/24 04:00 07/03/24 04:00 07/03/24 04:00 Routine HEENT Exam Head: Present normocephalic and atraumatic Eye: Present EOMI and PERRL ENT: Present mucous membranes moist Routine Neck Exam Neck: Present supple and trachea midline Routine Respiratory Exam Respiratory: Present chest non-tender, lungs clear, normal breath sounds and no resp distress Routine Cardiovascular Exam Cardiovascular: Present RRR Routine Abdominal Exam Abdominal: Present soft and normoactive bowel sounds Routine Extremities Exam Extremities: Present full ROM Routine Skin Exam Skin: Present intact, dry and warm Routine Neurological Exam Neurological: Present alert, oriented X3 and CN II-XII intact Routine Psychiatric Exam Psychiatric: Present normal affect and normal thought process Results Labs 07/03/24 04:20 07/03/24 04:20 Labs: Short CBC 07/02/24 07/03/24 Range/Units 12:05 04:20 WBC 6.4 4.3 (3.6-11.0) Thou/mm3 Hgb 12.1 10.8 L (12.0-16.0) g/dL Hct 37.0 33.7 L (36.0-46.0) % Plt Count 161 145 (140-440) Thou/mm3 BMP 07/02/24 07/03/24 12:05 04:20 Sodium 136 135 L Potassium 4.3 4.0 Chloride 101 98 Carbon Dioxide 32.7 H 32.3 H BUN 12 23 Creatinine 2.4 H 3.4 H D Glucose 114 H 99 Calcium 9.4 8.7 Cardiac Enzymes 07/02/24 Range/Units 12:05 Troponin I < 0.020 (0.0-0.045) ng/mL Liver Function 11/14/24 11/15/24 Range/Units 12:05 04:20 Total Bilirubin 0.9 0.8 (0.3-1.2) mg/dL AST 18 19 (0-34) U/L ALT 12 10 (10-49) U/L Alkaline Phosphatase 118 H 102 (46-116) U/L Albumin 4.3 3.7 D (3.4-4.8) gm/dL Assessment and Plan Assessment and plan (1) ESRD on dialysis: Status: Acute (2) Carotid stenosis: Status: Acute Additional Assessment & Plan Additional Plan: pt feels well today hemodynamically stable troponin negative EKG unremarkable ok to d/c home for out pt f/u
[2024-07-03] MEDS: PANTOPRAZOLE 40 MG TABLET PO (09:00)
[2024-07-03] MEDS: APIXABAN 2.5 MG TABLET PO (09:00)
[2024-07-03] MEDS: amLODIPine BESYLATE 5 MG TABLET PO (09:00)
[2024-07-03] MEDS: INSULIN LISPRO (AdmeLOG) 1 UNIT/0.01 ML UNIT SC (12:11)
[2024-07-03 15:24] LABS: Thyroid Stimulating Hormone 1.03 uIU/mL (0.55-4.78)
--- NOTE | 2024-07-03 16:20 | ESDS_ITS ---
<Statement entered by Jr Godwin MD - 07/09/24 17:30> Attending attestation: I reviewed above note and agree with findings and plans. I have also personally examined the patient with medicine team and went over assessment and plan with medical team including international specialist and resident physician. <Statement entered by Belen Childers DO - 07/03/24 21:49> Senior attestation: Patient was examined and case was reviewed with team including attending physician. Note reviewed, I agree with most of its contents and agree with the patient's care. Belen Childers DO PGY-3 Planned Discharge Date 07/03/24 DS: Providers Provider Date of admission: 07/02/24 14:22 Primary care physician: Andrew Zhou MD Admitting Provider: Edin León MD Attending Provider on Admission: Edin León MD Consults: 07/02/24 14:35 Consult to Cardiology Routine Comment: Consulting Provider: Iliana Moore Consult to Nephrology Routine Comment: Consulting Provider: José Alvarado Attending Provider on DC: Isidro Molina MD Discharging Provider: Isidro Molina MD DS: Diagnosis Problem List Completed Was Problem List Reviewed/Reconciled?: Yes Hospital Course Hospital Course Hospital course: Ms. Catalan is a 83-year-old female with past medical history significant for hypertension, hyperlipidemia, diabetes, CAD, A-fib, ESRD, hypothyroidism presented to [facility] ED from dialysis clinic because of weakness, dizziness, nausea, sweating. Patient underwent VERONA on July 01, 2014 and had poor oral intake since the procedure and n.p.o. prior to the procedure. Her peoplesoft programmer Dr. Moore was consulted and recommended for the patient to be admitted for observation given that patient's EKG showed a first- degree AV block and patient's blood pressure initially was 184/80 and to hold all QTc prolonging medication at this time given the patient's QTc was prolonged at 521. Initial imaging included chest x-ray which was negative for any active disease and EKG which showed first-degree AV block with sinus bradycardia. During hospitalization patient's amiodarone and midodrine was held and patient underwent a session of dialysis. Patient is back to baseline and hemodynamically stable and ready to be discharged home. Follow up with PCP within 1 week. Follow up with peoplesoft programmer Dr. Moore within 2 weeks of discharge. Continue home medications as prescribed. Continue hemodialysis as scheduled. Stop taking Midodrine due to high risk of bradycardia. #Hypertensive urgency #Hx of HTN #Hx of A-fib #Hx of DM2 #ESRD (HD Saturday, , Saturday) #Hx of hypothyroidism Assessment and plan discussed with my senior resident Dr. Childers & attending physician Dr. Tato Molina (PGY-1)- Internal medicine resident Time Spent with Patient Time attestation: Total time spent providing and/or coordinating discharge services: Exam Vital Signs Temp Pulse Resp BP Pulse Ox O2 Del Method 97.7 F 59 L 17 124/56 L 96 Room Air 07/03/24 11:58 07/03/24 12:00 07/03/24 11:58 07/03/24 11:58 07/03/24 11:58 07/03/24 11:58 Narrative Exam GENERAL: A&Ox3 . Awake, Not in acute distress NEURO: harvest crew supervisor grossly intact, moves extremities x4 HEENT: Atraumatic, Normocephalic. mucous membranes moist. Eyes open, symmetrical, & clear HEART: Normal Heart Sounds LUNGS: Clear to auscultation with no wheezing or crackles. ABDOMEN: soft, non-distended, non-tender, bowel sounds heard, no guarding or rebound tenderness SKIN: No Rash or ecchymoses EXTREMITIES: No edema, tenderness, able to move all 4 extremities, pedal pulses palpated Discharge Plan Plan Patient Disposition: HOME (Self Care) Prescriptions/Referrals Prescriptions/Med Rec: Continued levothyroxine 50 mcg tablet 1 tab PO DAILY furosemide 40 mg tablet 1 tab PO QDAY pantoprazole 40 mg tablet,delayed release (DR/EC) 40 mg PO HS insulin glargine U-300 conc [Toujeo Max U-300 SoloStar] 300 unit/mL (3 mL) Insulin Pen 14 unit SUBCUT QDAY Eliquis 2.5 mg Tablet 2.5 mg PO HS tramadol 50 mg Tablet 50 mg PO Q8HR PRN (Reason: Pain) albuterol sulfate 90 mcg/actuation HFA aerosol inhaler 1 puff INHALATION Q4HR PRN (Reason: BREATHING) Patient Comments: inhale 1 puff by mouth and INTO THE LUNGS every 4 hours if needed lactulose [Constulose] 10 gram/15 mL solution 30 ml PO TID PRN (Reason: Constipation) Rx Instructions: UP TO 3X A DAY NEEDED FOR CONTIPATION Emgality Pen 120 mg/mL pen injector 120 mg SUBCUT Q1M Trulicity 1.5 mg/0.5 mL pen injector 0.5 mg SUBCUT QWEEK Patient Comments: INJECT 1.5MG SUBCUTANEOUSLY ONCE A WEEK amiodarone 200 mg Tablet 200 mg PO DAILY Qty: 30 0RF docusate sodium 100 mg Tablet 100 mg PO DAILY Discontinued midodrine 10 mg Tablet See Rx Instructions .ROUTE .COMPLEX Rx Instructions: 10 mg orally ;//-DAIALYSIS DAYS ONLY Referrals: Andrew Zhou MD [Primary Care Provider] - Iliana Moore MD [Physician] - Patient/Caregiver Discharge Instructions Discharge Activity: activity as tolerated Other Discharge Activity Instructions:: Follow up with PCP within 1 week. Follow up with peoplesoft programmer Dr. Moore within 2 weeks of discharge. Continue home medications as prescribed. Continue hemodialysis as scheduled. Stop taking Midodrine due to high risk of bradycardia. Education Materials: Checking Your Own Blood Pressure, Understanding Bradycardia Print Language: [place] Stand Alone Forms: Rachel Award Info., Patient Portal Info Letter, Work/Release Restrictions Discharge Order Discharge Orders: Discharge (Routine); Ordered 07/03/24 Ordered By: Donis Beck Quality Discharge Quality Measures VTE therapy
--- NOTE | 2024-07-03 16:24 | PC.NURSE ---
Patient and family verbalized understanding of follow up appointments with cardiology and PCP. Will follow up with Dr. Alvarado at dialysis.
== END 2024-07-03 14:15 | disposition home or self-care (01) ==
LOC: SERX 13:18 → SERHOLD 07-03 06:39 → S2NX 07-03 06:41
PROVIDERS: Student in an Organized Health Care Education/Training Program; Admitting Provider Student in an Organized Health Care Education/Training Program; Emergency Provider Emergency Medicine; PCP Family Medicine; Visit Provider Student in an Organized Health Care Education/Training Program
DX: I16.0 Hypertensive urgency (principal); I44.0 Atrioventricular block, first degree; I48.91 Unspecified atrial fibrillation; E11.22 Type 2 diabetes mellitus with diabetic chronic kidney disease; I13.2 Hypertensive heart and chronic kidney disease with heart failure and with stage 5 chronic kidney disease, or end stage renal disease; I50.9 Heart failure, unspecified; N18.6 End stage renal disease; Z99.2 Dependence on renal dialysis; R01.1 Cardiac murmur, unspecified; E11.51 Type 2 diabetes mellitus with diabetic peripheral angiopathy without gangrene; E78.00 Pure hypercholesterolemia, unspecified; I25.2 Old myocardial infarction; I25.10 Atherosclerotic heart disease of native coronary artery without angina pectoris; E03.9 Hypothyroidism, unspecified; E78.5 Hyperlipidemia, unspecified; Z79.52 Long term (current) use of systemic steroids; E87.3 Alkalosis; E86.0 Dehydration; E11.36 Type 2 diabetes mellitus with diabetic cataract
CPT/HCPCS: 36415; 71045; 80053; 83735; 83880; 84100; 84443; 84484; 85025; 87081; 93005; 99285; G0378; J1815; J7042; A9270

== ENCOUNTER → 2024-07-20 | Outpatient (CLI) | payer OTHER, MEDICAID, SELFPAY ==
[2024-07-20 10:59] LABS: Basophils % (Auto) 1 % (0-2.5); Eosinophils # (Auto) 0.1 Thou/mm3 (0.0-0.5); Eosinophils % (Auto) 1 % (0-10); Hematocrit 31.2 % (36.0-46.0); Hemoglobin 9.8 g/dL (12.0-16.0); Immature Granulocytes % (Auto) 0 % (0-0); Immature Granulocytes Auto 0.02 Thou/mm3 (0.00-0.00); Lymphocytes # (Auto) 1.6 Thou/mm3 (1.0-4.8); Lymphocytes % (Auto) 30 % (10-50); Mean Corpuscular HGB Conc 31.4 g/dl (31.0-37.0); Mean Corpuscular Hemoglobin 31.8 pg (25.0-35.0); Mean Corpuscular Volume 101 fL (80-100); Monocytes # (Auto) 0.4 Thou/mm3 (0.0-0.8); Monocytes % (Auto) 8 % (0-12); Neutrophils # (Auto) 3.2 Thou/mm3 (1.8-7.7); Neutrophils % (Auto) 60 % (37-80); Nucleated Red Blood Cell % 0 /100 WBC (0); Platelet Count 153 Thou/mm3 (140-440); RDW Standard Deviation 60.3 fL (36.4-46.3); Red Blood Count 3.08 Miln/mm3 (4.00-5.20); White Blood Count 5.3 Thou/mm3 (3.6-11.0)
[2024-07-20 11:08] LABS: Partial Thromboplastin Time 26.6 Seconds (22.0-36.0); Prothrombin Time 11.2 Seconds (9.0-12.2)
[2024-07-20 12:11] LABS: BUN/Creatinine Ratio 9 Ratio (12-20); Blood Urea Nitrogen 38 mg/dL (9-23); Calcium 9.1 mg/dL (8.3-10.6); Carbon Dioxide 31.1 mMol/L (20.0-31.0); Creatinine (Component) 4.2 mg/dL (0.6-1.3); Glucose 342 mg/dL (74-106); eGFR 10 See Note
[2024-07-20 12:14] LABS: Anion Gap 6 (7-16); Chloride 105 mMol/L (98-107); Osmolality,Calculated 306 (275-295); Sodium 142 mMol/L (136-145)
== END | disposition home or self-care (01) ==
PROVIDERS: PCP Family Medicine; Referring Provider Internal Medicine; Visit Provider Internal Medicine
DX: I25.10 Atherosclerotic heart disease of native coronary artery without angina pectoris (principal); I48.91 Unspecified atrial fibrillation
CPT/HCPCS: 36415; 80048; 85025; 85610; 85730

== ENCOUNTER 2024-07-26 22:06 | Emergency (ER) | payer OTHER, MEDICAID, SELFPAY ==
[2024-07-26 22:12] VITALS: BMI 23.6
[2024-07-26 22:14] VITALS: BP 146/64; PULSE 65; RESP 18; TEMP 36.7; O2SAT 98
--- NOTE | 2024-07-26 22:23 | PC.NURSE ---
Pt BIBA from home for c/o left chest pressure like pain, (points to her L breast area) that began after she ate dinner and laid down, now 40 mins ago. Pt also endorsed nausea that has now subsided. Pt had cardiac stent placed on in [place]. Last dialysis was Saturday.
--- NOTE | 2024-07-26 22:25 | EDNOTE_ITS ---
ED Chest Pain RME/HPI General Chief Complaint: Chest Pain Stated Complaint: ISAAC PAIN Time Seen by Provider: 07/26/24 22:22 Arrival date/time: 07/26/24 22:06 Limitations: no limitations RME / HPI RME / HPI narrative: Dr. León's Main ED Evaluation: 83yo female with pmhx hypertension, hyperlipidemia, diabetes, CAD with stent placement, A-fib, ESRD (T//Sat), hypothyroidism BIBA presents to the ED for a chief complaint of constant chest pain. Patient states she's had chest heaviness for the last 3 hours, reporting it radiates to her left arm. She states her pain was a 6-7 out of 10 in severit y, so she came in for evaluation. She denies any cough, shortness of breath, fever, chills or any other associated symptoms. She states she has experienced similar symptoms in the past. Patient is on blood thinners, but did not take them today (Plavix and Aspirin). Patient was just discharged from [facility] on Saturday. Related Data Home Medications ?Medication ?Instructions ?Recorded ?Confirmed levothyroxine 50 mcg tablet 1 tab PO DAILY 03/21/22 07/03/24 furosemide 40 mg tablet 1 tab PO QDAY 05/02/22 07/03/24 pantoprazole 40 mg tablet,delayed 40 mg PO HS 05/29/22 07/03/24 release insulin glargine U-300 conc 300 14 unit subcut QDAY 08/07/22 07/03/24 unit/mL (3 mL) subcutaneous pen (Toujeo Max U-300 SoloStar) albuterol sulfate 90 mcg/actuation 1 puff inhalation Q4HR PRN 08/08/22 07/03/24 aerosol inhaler BREATHING apixaban 2.5 mg tablet (Eliquis) 2.5 mg PO HS 08/08/22 07/02/24 lactulose 10 gram/15 mL oral 30 ml PO TID PRN Constipation 08/08/22 07/02/24 solution (Constulose) tramadol 50 mg tablet 50 mg PO Q8HR PRN Pain 08/08/22 07/03/24 docusate sodium 100 mg tablet 100 mg PO DAILY 08/23/22 07/03/24 dulaglutide 1.5 mg/0.5 mL 0.5 mg subcut QWEEK 07/03/24 07/03/24 subcutaneous pen injector (Trulicity) galcanezumab-gnlm 120 mg/mL 120 mg subcut Q1M 07/03/24 07/03/24 subcutaneous pen injector (Emgality Pen) Previous Rx's ?Medication ?Instructions ?Recorded amiodarone 200 mg tablet 200 mg PO DAILY #30 tabs 07/03/24 Allergies Allergy/AdvReac Type Severity Reaction Status Date / Time amoxicillin Allergy Severe Rash Verified 07/25/22 15:01 Review of Systems Review of Systems Systems Reviewed: All systems reviewed, normal except as documented Past Medical History Past Medical History NEUROLOGIC: Positive Neurological Disorders, Cerebrovascular Accident and Transient Ischemic Attacks (TIA); Negative Dementia, Alzheimer's Disease, Parkinson's Disease, Brain Tumor, Me ningitis, Seizures, Epilepsy, Multiple Sclerosis, Cerebral Palsy, Amyotrophic Lateral Sclerosis (ALS/Erna Gehrig's), Guillain-[place] Syndrome, Spina Bifida, Paralysis, Peripheral Neuropathy, Stark's Palsy, Subdural Hematoma, Migraine, Head Trauma, Spinal Cord Injury or Traumatic Brain Injury CARDIAC: Positive Cardiac Disorders, Myocardial Infarction, Cardiac Arrhythmia, Atrial Fibrillation, Angina, Heart Murmur, Coronary Artery Disease, Peripheral Vascular Disease, Hypercholesterolemia, Congestive Heart Failure, Edema and Hypertension; Negative Atherosclerotic Heart Disease, Aneurysm, Congenital Heart Disease, Valvular Heart Disease, Rheumatic Fever, Cardiomyopathy, Pericarditis, Cellulitis, Deep Vein Thrombosis, Hypotension or Varicose Veins RESPIRATORY: Positive Pneumonia; Negative Chronic Obstructive Pulmonary Disease (COPD), Asthma, Bronchitis, Emphysema, Pulmonary Fibrosis, Cystic Fibrosis, Tuberculosis, Pulmonary Embolism, Pulmonary Edema or Sleep Apnea GASTROINTESTINAL: Negative Gastrointestinal Disorders, Hepatitis, Cirrhosis, Pancreatitis, Celiac Disease, Gall Bladder Disease, Gastrointestinal Bleed, Esophageal Varices, Huerta's Esophagus, Colitis, Ulcerative Colitis, Dive rticulitis, Diverticulosis, Ulcer, Colorectal Cancer, Irritable Bowel, Crohn's Disease, Obstructive Bowel, Hiatal Hernia, Hemorrhoids, Gastroesophageal Reflux Disease or Obesity GENITOURINARY: Positive Genitourinary Disorders, Renal Disease and Dialysis (TUE/THUR/SAT); Negative Kidney Stones, Polycystic Kidney Disease, Neurogenic Bladder or Inguinal Hernia REPRODUCTIVE: Positive Previous Pregnancies; Negative Breast Cancer, Endometriosis, Pelvic Inflammatory Disease or Uterine Prolapse MUSCULOSKELETAL: Positive Musculoskeletal Disorders, Arthritis, Rheumatoid Arthritis, Degenerative Disk Disease and Gout; Negative Muscular Dystrophy, Myasthenia Gravis, Marfan's Syndrome, Bone Cancer, Osteoporosis, Scoliosis, Carpal Tunnel Syndrome, Fibromyalgia, Fractures, Degenerative Joint Disease, Osteomyelitis or Poliovirus ENT: Positive Cataracts; Negative Glaucoma, Blind, Retinal Detachment, Macular Degeneration, Ear Infection, Deafness, Head Trauma or Eye Prosthesis ENDOCRINE: Positive Endocrine Disorders, Diabetes Mellitus Type 2 and Hypothyroidism; Negative Diabetes Mellitus Type 1, Hypoglycemia, Stanislav's Syndrome, Alexander's Disease, Hyperthyroidism, Parathyroid Disease, Pituitary Disease, Systemic Lupus Erythematosus, Syndrome of Inappropriate Antidiuretic Hormone (SIADH), Adrenal Disease or Graves' Disease HEMATOLOGIC: Negative Blood Disorders, Anemia, Leukemia, Hemophilia, Baltazar lassemia, Sickle Cell Disease or Clotting Problems PSYCHO/SOCIAL: Negative Psychiatric Problems, Schizophrenia, Recreational Drug Use, Bipolar Disorder, Depression, Anxiety, Behavior Problems, Self-Mutilation, Attention Deficit Disorder, Attention Deficit Hyperactivity Disorder, Depression, Post Traumatic Stress Disorder or Eating Disorder OTHER HISTORY: Positive Hospitalization, Chicken Pox, Measles, Mumps and Clostridium Difficile; Negative Autoimmune Disease, Down Syndrome, Autism, Developmental Delay, Shingles, Falls, Blood Transfusions, Blood Transfusion Reaction, Anesthesia R eactions, Organ Transplant, Chemotherapy, Radiation Therapy, Hyperbaric Therapy, MRSA, VRSA, Vancomycin-Resistant Enterococci, Human Immunodeficiency Virus (HIV), Rubella (Swedish Measles), Pertussis, Cancer, Breast Cancer, Cervical Cancer, Colorectal Cancer, Lung Cancer or Ovarian Cancer Family History FAMILY HISTORY: Positive Family Cardiac Disorders, Family Cancer and Family Surgery; Negative Family Psychiatric Problems, Family Respiratory Disorders, Family Gastrointestinal Problems or Family Anesthesia Reaction Surgical History SURGICAL: Positive Cardiac Surgery, Coronary Stent, Cardiac Catheterization, Angiogram and Eye Surgery; Negative Open Heart Surgery, Coronary Artery Bypass Graft, Valve Replacement, Vascular Surgery, Pacemaker, Auto Implanted Cardiovert Defib, Carotid Endarterectomy, Endocrine Surgery, Thyroidectomy, Ear Surgery, Tympanostomy Tube, Nose Surgery, Oral Surgery, Tonsillectomy, Adenoidectomy, Cochlear Implant, Corneal Transplant, Throat Surgery, Abdominal Surgery, Tracheostomy, Gastric Bypass Surgery, Gastrostomy, Bowel Surgery, Nephrectomy, Transurethral Resection, Joint Replacement, Amputation, Open Reduction Internal Fixation, Arthroscopy, Neurologic Surgery, Brain Shunt, Mastectomy, Lumpectomy, Hysterectomy, Tubal Ligation, Section or Organ Transplant Social History SMOKING STATUS: Never smoker SECOND HAND EXPOSURE: No SUBSTANCE USE: does not use ED Exam General Limitations: Present no limitations General appearance: Present alert and in no apparent distress Head Head exam: Present atraumatic Eye Eye exam: Present normal appearance, PERRL and EOMI ENT ENT exam: Present normal exam, normal oropharynx and mucous membranes moist Neck Neck exam: Present normal inspection, full ROM and trachea midline Chest Chest inspection: Present normal inspection and symmetric chest wall rise Respiratory Respiratory exam: Present normal lung sounds bilaterally Cardiovascular Cardiovascular exam: Present regular rate, normal rhythm and normal heart sounds Abdominal Exam Abdominal exam: Present soft and normal bowel sounds Extremities Exam Extremities exam: Present normal inspection and full ROM Back Exam Back exam: Present normal inspection and full ROM Neurological Exam Neurological exam: Present alert, oriented X3 and CN II-XII intact Psychiatric Psychiatric exam: Present normal affect and normal mood Skin Skin exam: Present warm, dry, intact and normal color Course Course Course Narrative: CXR is ordered for determining the etiology of chest pain. Quality Measures none Orders Category Date Time Status Karate Teacher STAT Care 07/26/24 22:23 Active EKG (ED ONLY) *Do not use* NOW Care 07/26/24 22:16 Completed EKG (ED ONLY) *Do not use* NOW Care 07/26/24 22:23 Completed EKG (ED Only) Stat Exams 07/26/24 22:16 Ordered EKG (ED Only) Stat Exams 07/26/24 22:23 Ordered XR chest 1V portable Stat Exams 07/26/24 22:23 Completed B-Type Natriuretic Peptide Stat Lab 07/26/24 22:57 Completed CBC Stat Lab 07/27/24 01:49 Completed Comprehensive Metabolic Panel Stat Lab 07/26/24 22:57 Completed Lipase Stat Lab 07/26/24 22:57 Completed Magnesium Stat Lab 07/26/24 22:57 Completed Partial Thromboplastin Time Stat Lab 07/26/24 22:57 Completed Troponin I Stat Lab 07/26/24 22:57 Completed Troponin I Stat Lab 07/27/24 01:49 Completed Aspirin Chew Med 07/27/24 03:03 Discontinued 81 mg PO X1 ONE Clopidogrel [Plavix] Med 07/27/24 03:03 Discontinued 75 mg PO X1 ONE Ondansetron Inj [Zofran Inj] Med 07/26/24 22:23 Active 4 mg IV Q1HR PRN Vital Signs Vital signs: Vital Signs Temperature 98.1 F 07/26/24 22:14 Pulse Rate 65 07/26/24 22:14 Respiratory Rate 18 07/26/24 22:14 Blood Pressure 146/64 H 07/26/24 22:14 Pulse Oximetry (%) 98 07/26/24 22:14 Oxygen Delivery Method Room Air 07/26/24 22:14 Pulse ox is 98% on room air, which is normal according to my interpretation. Chest Pain MDM Narrative MDM Narrative:: 83-year-old female with multiple medical problems to include end-stage renal disease, atrial fibrillation, CHF, diabetes status post stent 3 days ago at [facility], who presents to the emergency department with chest pain. The patient states that she is not sure if she should take her Plavix and aspirin and did not take her dose today. Patient and the daughter report that they do not feel comfortable taking the Plavix and aspirin unless Dr. Moore okays it . In the emergency department the patient is pain-free. Patient states she took aspirin tonight after EMS gave it to her. Patient data External records reviewed:: [facility] previous records (Per chart review, patient was seen and admitted here on 07/02/24 for bradycardia.) Clinical information provided by:: patient and family (daughter) Social determinants that could affect healthcare access:: none Patient has the following chronic illnesses:: hypertension, hyperlipidemia, diabetes, CAD, A-fib, ESRD, hypothyroidism How is presenting disease/condition affected by chronic disease/condition?: uneffected by Evaluation data The following diagnostics were reviewed and interpreted by me:: lab results, radiology exam(s) and EKG tracing(s) Lab and/or radiology exams considered but not ordered:: none Interpretation Summary: WBC count is normal, HnH is stable, Potassium is slightly elevated at 5.2, Creatinine is elevated at 4.5, Troponin is elevated at 0.817, Repeat troponin is slightly lower at 0.815, BNP is elevated at 299, Lipase is slightly elevated at 83, according to my interpretation. EKG done at 2218, NSR, rate of 62, RBBB, no ST elevations or depressions, according to my interpretation. --------- [facility] Report Signed Patient: [place]ABLAIRISA Machado. Record#: [id number] Birthdate: 1940 Age/Sex: 83 / F Location: [facility] Attending Dr: Ordering Physician: Yuridia Aggarwal MD Date of Service: 07/26/24 Procedure(s): XR chest 1V portable Accession Number(s): [id number] cc: Adonis Damon MD; Yuridia Aggarwal MD~ Examination: AP chest single view Technique one AP portable upright chest single view Exam date and time: July 26, 2024 10:40 PM Comparison July 02, 2024 Indications: Chest pain today. Findings: Normal heart size Mild to moderate elevation right hemidiaphragm with subsegmental atelectasis right base No lobar pneumonia or pulmonary edema Prominent osteopenia Impression: No interval pneumonia or pulmonary edema Dictated By: Adonis Damon MD Signed By: <Electronically signed by Adonis Damon MD in OV> 07/26/24 2300 Medications / Prescriptions Medications or Prescriptions considered but not ordered:: none Medication administrations:: Medication Administration History Ondansetron HCl (Ondansetron Inj 2 Mg/Ml Inj 2 Ml) 4 mg IV Q1HR PRN PRN Reason: PERSISTENT NAUSEA OR VOMITING Discontinued Medications Aspirin (Aspirin 81 Mg Chew) 81 mg PO X1 ONE Stop: 07/27/24 03:04 Last Admin: 07/27/24 03:14 Dose: Not Given Documented By: AC Non-Admin Reason: Cancelled by Provider Clopidogrel Bisulfate (Clopidogrel Bisulfate 75 Mg Tablet) 75 mg PO X1 ONE Stop: 07/27/24 03:04 Last Admin: 07/27/24 03:16 Dose: 75 mg Documented By: GB see above Consultations Consultation(s) initiated? (list below): Yes Consultation #1 (Physician, Specialty, Details): Discussed case with [Dr. Moore] from [cardiology] regarding [consultation]. Discussed patients ED course, exam findings, labs, and radiology results. States the patient needs to continue her medications. Time: 03:02 Diagnosis Chest Pain Differential Diagnosis: st elevation myocardial infarction and other (NSTEMI, coronary artery syndrome, pneumonia) Most likely diagnosis given after review of the tests above:: see below Admission Indicated Admission indicated?: not indicated Admission Request Was there a request for admission?: No Disposition Plan Disposition Plan: Discharge Discharge Attestation Discharge Attestation: The patient and all family members were given an opportunity to ask questions and understood the discharge instructions. Discharge instructions specifically effects, indications for sooner follow up or return to the emergency department, and the expected course of current diagnosis. Patient condition: Stable Critical Care Time Critical Care Time Critical Care Time: Yes Total Critical Care Time (min.): 35 Attestation: The high probability of sudden, clinically significant deterioration in the patient?s condition required the highest level of my preparedness to intervene urgently. The services I provided to this patient were to treat and/or prevent clinically significant deterioration. Services included the following: chart data review, r eviewing nursing notes and/or old charts, documentation time, databases software consultant collaboration regarding findings and treatment options, medication orders and management, direct patient care, vital sign assessments and ordering, interpreting and reviewing diagnostic studies and lab tests. Aggregate critical care time includes only time during which I was engaged in work directly related to the patient?s care, as described above, whether at bedside or elsewhere in the Emergency Department. It did not include time spent performing other reported procedures or the services of residents, students, nurses or physician assistants. Discharge Plan Plan Patient Disposition: HOME (Self Care) Patient condition on transfer: Stable Prescriptions/Referrals Prescriptions/Med Rec: No Action levothyroxine 50 mcg tablet 1 tab PO DAILY furosemide 40 mg tablet 1 tab PO QDAY pantoprazole 40 mg tablet,delayed release (DR/EC) 40 mg PO HS insulin glargine U-300 conc [Toujeo Max U-300 SoloStar] 300 unit/mL (3 mL) Insulin Pen 14 unit SUBCUT QDAY Eliquis 2.5 mg Tablet 2.5 mg PO HS tramadol 50 mg Tablet 50 mg PO Q8HR PRN (Reason: Pain) albuterol sulfate 90 mcg/actuation HFA aerosol inhaler 1 puff INHALATION Q4HR PRN (Reason: BREATHING) Patient Comments: inhale 1 puff by mouth and INTO THE LUNGS every 4 hours if needed lactulose [Constulose] 10 gram/15 mL solution 30 ml PO TID PRN (Reason: Constipation) Rx Instructions: UP TO 3X A DAY NEEDED FOR CONTIPATION Emgality Pen 120 mg/mL pen injector 120 mg SUBCUT Q1M Trulicity 1.5 mg/0.5 mL pen injector 0.5 mg SUBCUT QWEEK Patient Comments: INJECT 1.5MG SUBCUTANEOUSLY ONCE A WEEK amiodarone 200 mg Tablet 200 mg PO DAILY Qty: 30 0RF docusate sodium 100 mg Tablet 100 mg PO DAILY Referrals: Andrew Zhou MD [Primary Care Provider] - In 1 week Problem List Clinical Impression: Atypical chest pain Patient/Caregiver Discharge Instructions Education Materials: ED Chest Pain, Uncertain Cause Additional Instructions: I spoke to your securities analyst who would like you to restart your Plavix and aspirin and take it so that your stent does not close. Please follow-up with your securities analyst as scheduled. Return to emergency department worsening symptoms or any other concerns. Print Language: Malay Stand Alone Forms: Rachel Award Info., Patient Portal Info Letter
[2024-07-26 23:36] LABS: Partial Thromboplastin Time 27.8 Seconds (22.0-36.0)
[2024-07-26 23:40] LABS: B-Type Natriuretic Peptide 299 pg/mL (0-100)
[2024-07-26 23:45] LABS: Alanine Aminotransferase 11 U/L (10-49); Albumin, Serum 3.6 gm/dL (3.4-4.8); Albumin/Globulin Ratio 1.4 (1.2-2.2); Alkaline Phosphatase 105 U/L (46-116); Anion Gap 6 (7-16); Aspartate Amino Transferase 23 U/L (0-34); BUN/Creatinine Ratio 6 Ratio (12-20); Bilirubin,Total 0.4 mg/dL (0.3-1.2); Blood Urea Nitrogen 29 mg/dL (9-23); Calcium 8.9 mg/dL (8.3-10.6); Calcium (Corrected) 9.2 mg/dL (8.5-10.1); Carbon Dioxide 30.8 mMol/L (20.0-31.0); Chloride 102 mMol/L (98-107); Creatinine (Component) 4.5 mg/dL (0.6-1.3); Estimated Creatinine Clearance 7.3 mL/min (>60); Globulin 2.5 gm/dL (2.3-3.5); Glucose 100 mg/dL (74-106); Lipase 83 U/L (12-53); Magnesium 2.1 mg/dL (1.6-2.6); Osmolality,Calculated 283 (275-295); Potassium 5.2 mMol/L (3.4-5.1); Sodium 139 mMol/L (136-145); Total Protein 6.1 gm/dL (5.7-8.2); eGFR 9 See Note
[2024-07-26 23:55] LABS: Troponin I 0.817 ng/mL (0.0-0.045)
[2024-07-27 00:30] VITALS: BP 109/54; PULSE 53; RESP 13; O2SAT 95
[2024-07-27 02:16] VITALS: BP 136/54; PULSE 51; RESP 13; O2SAT 94
[2024-07-27 02:43] LABS: Troponin I 0.815 ng/mL (0.0-0.045)
[2024-07-27 02:47] LABS: Basophils % (Auto) 1 % (0-2.5); Eosinophils # (Auto) 0.1 Thou/mm3 (0.0-0.5); Eosinophils % (Auto) 2 % (0-10); Hematocrit 28.9 % (36.0-46.0); Hemoglobin 9.2 g/dL (12.0-16.0); Immature Granulocytes % (Auto) 0 % (0-0); Immature Granulocytes Auto 0.01 Thou/mm3 (0.00-0.00); Lymphocytes % (Auto) 34 % (10-50); Mean Corpuscular HGB Conc 31.8 g/dl (31.0-37.0); Mean Corpuscular Hemoglobin 31.7 pg (25.0-35.0); Mean Corpuscular Volume 100 fL (80-100); Monocytes # (Auto) 0.6 Thou/mm3 (0.0-0.8); Monocytes % (Auto) 10 % (0-12); Neutrophils # (Auto) 3.2 Thou/mm3 (1.8-7.7); Neutrophils % (Auto) 54 % (37-80); Nucleated Red Blood Cell % 0 /100 WBC (0); Platelet Count 121 Thou/mm3 (140-440); RDW Standard Deviation 58.4 fL (36.4-46.3); White Blood Count 5.9 Thou/mm3 (3.6-11.0)
[2024-07-27] MEDS: CLOPIDOGREL BISULFATE 75 MG TABLET PO (03:16)
[2024-07-27 04:05] VITALS: BP 139/57; PULSE 51; RESP 15; O2SAT 94
== END 2024-07-27 04:06 | disposition home or self-care (01) ==
PROVIDERS: Emergency Provider Emergency Medicine; PCP Family Medicine
DX: R07.89 Other chest pain (principal); I13.2 Hypertensive heart and chronic kidney disease with heart failure and with stage 5 chronic kidney disease, or end stage renal disease; E11.22 Type 2 diabetes mellitus with diabetic chronic kidney disease; N18.6 End stage renal disease; I48.91 Unspecified atrial fibrillation; I25.10 Atherosclerotic heart disease of native coronary artery without angina pectoris; Z95.5 Presence of coronary angioplasty implant and graft; Z79.01 Long term (current) use of anticoagulants; Z79.4 Long term (current) use of insulin; Z79.85 Long-term (current) use of injectable non-insulin antidiabetic drugs
CPT/HCPCS: 36415; 71045; 80053; 83690; 83735; 83880; 84484; 85025; 85730; 93005; 99291; A9270

== ENCOUNTER 2024-10-14 09:45 | Day surgery (SDC) | payer OTHER, MEDICAID, SELFPAY ==
[2024-10-14] VITALS (10 sets, daily range): BP systolic 96–166; BP diastolic 44–65; PULSE 60–75; RESP 11–18; TEMP 36.1–36.7; O2SAT 93–100; BMI 23.6
[2024-10-14] MEDS: fentaNYL CIT INJ 50 mCg/ML AMP 2ML (ASD USE ONLY) IV (11:36)
[2024-10-14] MEDS: MIDAZOLAM INJ 1 MG/ML VIAL 2 ML (ASD USE ONLY) 2 MG IV (11:37)
[2024-10-14] MEDS: ONDANSETRON INJ 2 MG/ML INJ 2 ML 4 MG IV (11:55)
== END 2024-10-14 12:55 | disposition home or self-care (01) ==
PROVIDERS: PCP Family Medicine; Referring Provider Specialist; Visit Provider Specialist
PROC: (CPT 43239; principal; 2024-10-14 12:00)
DX: K22.11 Ulcer of esophagus with bleeding (principal); K29.71 Gastritis, unspecified, with bleeding; K31.7 Polyp of stomach and duodenum; K29.51 Unspecified chronic gastritis with bleeding; K31.89 Other diseases of stomach and duodenum
CPT/HCPCS: 43251; 43239; A4649; J2250; J2405; J3010

== ENCOUNTER → 2024-11-02 | Outpatient (CLI) | payer MEDICARE, MEDICAID, SELFPAY ==
[2024-11-02 08:28] LABS: Basophils % (Auto) 1 % (0-2.5); Eosinophils # (Auto) 0.1 Thou/mm3 (0.0-0.5); Eosinophils % (Auto) 1 % (0-10); Hematocrit 36.2 % (36.0-46.0); Hemoglobin 11.3 g/dL (12.0-16.0); Immature Granulocytes % (Auto) 0 % (0-0); Immature Granulocytes Auto 0.02 Thou/mm3 (0.00-0.00); Lymphocytes # (Auto) 1.8 Thou/mm3 (1.0-4.8); Lymphocytes % (Auto) 33 % (10-50); Mean Corpuscular HGB Conc 31.2 g/dl (31.0-37.0); Mean Corpuscular Hemoglobin 30.1 pg (25.0-35.0); Mean Corpuscular Volume 97 fL (80-100); Monocytes # (Auto) 0.5 Thou/mm3 (0.0-0.8); Monocytes % (Auto) 9 % (0-12); Neutrophils % (Auto) 56 % (37-80); Nucleated Red Blood Cell % 0 /100 WBC (0); Platelet Count 162 Thou/mm3 (140-440); RDW Standard Deviation 58.1 fL (36.4-46.3); Red Blood Count 3.75 Miln/mm3 (4.00-5.20); White Blood Count 5.3 Thou/mm3 (3.6-11.0)
[2024-11-02 08:40] LABS: Glucose Estimated Average 134 mg/dL (80-131); Hemoglobin A1C 6.3 % Hgb (4.8-6.0)
[2024-11-02 09:18] LABS: Alanine Aminotransferase 26 U/L (10-49); Albumin, Serum 3.8 gm/dL (3.4-4.8); Albumin/Globulin Ratio 1.6 (1.2-2.2); Alkaline Phosphatase 124 U/L (46-116); Anion Gap 11 (7-16); Aspartate Amino Transferase 36 U/L (0-34); BUN/Creatinine Ratio 9 Ratio (12-20); Bilirubin,Total 0.6 mg/dL (0.3-1.2); Blood Urea Nitrogen 38 mg/dL (9-23); Calcium 8.6 mg/dL (8.3-10.6); Calcium (Corrected) 8.8 mg/dL (8.5-10.1); Cardiac Risk Estimate 1.8 RATIO (3.7-5.6); Chloride 101 mMol/L (98-107); Cholesterol 115 mg/dL (132-200); Creatinine (Component) 4.1 mg/dL (0.6-1.3); Globulin 2.4 gm/dL (2.3-3.5); Glucose 102 mg/dL (74-106); HDL Cholesterol 64 mg/dL (40-60); LDL Cholesterol,Calculated 40 mg/dL (0-130); Osmolality,Calculated 292 (275-295); Potassium 4.6 mMol/L (3.4-5.1); Sodium 142 mMol/L (136-145); Total Protein 6.2 gm/dL (5.7-8.2); Triglycerides 53 mg/dL (30-150); eGFR 10 See Note
[2024-11-02 09:45] LABS: Creatinine MALB Rnd Ur 109 mg/dL (30-125); Microalbumin Creat Ratio 109 mg/gCrea (<30); Microalbumin, Random Urine 119 mg/L (0-300)
== END | disposition home or self-care (01) ==
PROVIDERS: PCP Family Medicine; Referring Provider Internal Medicine Endocrinology, Diabetes & Metabolism; Visit Provider Internal Medicine Endocrinology, Diabetes & Metabolism
DX: E11.22 Type 2 diabetes mellitus with diabetic chronic kidney disease (principal)
CPT/HCPCS: 36415; 80053; 80061; 82043; 82570; 83036; 85025

== ENCOUNTER 2024-12-01 23:20 | Emergency (ER) | payer MEDICARE, MEDICAID, SELFPAY ==
[2024-12-01 23:25] VITALS: BP 175/64; PULSE 71; RESP 19; TEMP 36.9; O2SAT 97; BMI 24.0
--- NOTE | 2024-12-02 00:09 | PD.EDADULT ---
ED General RME/HPI General Chief complaint: General Adult/Misc Complain Stated complaint: LEFT UPPER ARM FISTULA BLEEDING Time Seen by Provider: 12/02/24 00:03 Arrival date/time: 12/01/24 23:20 84F with extensive PMH including Afib (on blood thinner) and ESRD presents to ED with L dialysis fistula bleeding. Patient had dialysis today. Limitations: no limitations Related Data Home Medications ?Medication ?Instructions ?Recorded ?Confirmed levothyroxine 50 mcg tablet 1 tab PO DAILY 03/21/22 10/14/24 pantoprazole 40 mg tablet,delayed 40 mg PO HS 05/29/22 10/14/24 release insulin glargine U-300 conc 300 10 unit subcut QDAY 08/07/22 10/14/24 unit/mL (3 mL) subcutaneous pen (Toujeo Max U-300 SoloStar) albuterol sulfate 90 mcg/actuation 1 puff inhalation Q4HR PRN 08/08/22 10/14/24 aerosol inhaler BREATHING lactulose 10 gram/15 mL oral 30 ml PO TID PRN Constipation 08/08/22 10/14/24 solution (Constulose) tramadol 50 mg tablet 50 mg PO Q6H PRN Pain 08/08/22 10/14/24 docusate sodium 100 mg tablet 100 mg PO DAILY 08/23/22 10/14/24 dulaglutide 1.5 mg/0.5 mL 0.5 mg subcut QWEEK 07/03/24 10/14/24 subcutaneous pen injector (Trulicity) galcanezumab-gnlm 120 mg/mL 120 mg subcut Q1M 07/03/24 10/14/24 subcutaneous pen injector (Emgality Pen) aspirin 81 mg chewable tablet 1 tab PO DAILY 10/14/24 10/14/24 atorvastatin 80 mg tablet 80 mg PO DAILY 10/14/24 10/14/24 clopidogrel 75 mg tablet 75 mg PO DAILY 10/14/24 10/14/24 Held on 10/14/24. Instructions: Resume on 10/19/24. please hold for 5 days. furosemide 40 mg tablet (Lasix) 40 mg PO QDAY 10/14/24 10/14/24 insulin glargine U-300 conc 300 30 unit subcut Q24H 10/14/24 10/14/24 unit/mL (3 mL) subcutaneous pen (Toujeo Max U-300 SoloStar) isosorbide mononitrate 60 mg 60 mg PO DAILY 10/14/24 10/14/24 tablet,extended release 24 hr nitroglycerin 0.4 mg sublingual See Rx Instructions buccal .COMPLEX 10/14/24 10/14/24 tablet Previous Rx's ?Medication ?Instructions ?Recorded amiodarone 200 mg tablet 200 mg PO DAILY #30 tabs 07/03/24 Allergies Allergy/AdvReac Type Severity Reaction Status Date / Time amoxicillin Allergy Severe Rash Verified 10/14/24 10:20 Review of Systems Review of Systems Systems Reviewed: All systems reviewed, normal except as documented Constitutional Constitutional: Reports system reviewed and no additional complaints, except as documented, Denies fever(s) and Denies headache(s) ENT Ears, Nose, Mouth, and Throat: Denies disequilibrium and Denies headache(s) Cardiovascular Cardiovascular: Reports system reviewed and no additional complaints, except as documented, Denies chest pain and Denies dyspnea Respiratory Respiratory: Reports system reviewed and no additional complaints, except as documented, Denies cough and Denies dyspnea Gastrointestinal Gastrointestinal: Reports system reviewed and no additional complaints, except as documented, Denies abdominal pain, Denies nausea and Denies vomiting Integumentary/Breasts Skin/Breast: Reports as per HPI Neurologic Neurologic: Reports system reviewed and no additional complaints, except as documented, Denies confusion, Denies disequilibrium and Denies headache(s) Psychiatric Psychiatric: Denies confusion Past Medical History Past Medical History NEUROLOGIC: Positive Neurological Disorders, Cerebrovascular Accident and Transient Ischemic Attacks (TIA); Negative Dementia, Alzheimer's Disease, Parkinson's Disease, Brain Tumor, Meningitis, Seizures, Epilepsy, Multiple Sclerosis, Cerebral Palsy, Amyotrophic Lateral Sclerosis (ALS/Erna Gehrig's), Guillain-[place] Syndrome, Spina Bifida, Paralysis, Peripheral Neuropathy, Stark's Palsy, Subdural Hematoma, Migraine, Head Trauma, Spinal Cord Injury or Traumatic Brain Injury CARDIAC: Positive Cardiac Disorders, Myocardial Infarction, Cardiac Arrhythmia (BRADYCARDIA), Atrial Fibrillation, Angina, Heart Murmur, Coronary Artery Disease, Peripheral Vascular Disease, Hypercholesterolemia, Edema and Hypertension; Negative Atherosclerotic Heart Disease, Aneurysm, Congestive Heart Failure, Congenital Heart Disease, Valvular Heart Disease, Rheumatic Fever, Cardiomyopathy, Pericarditis, Cellulitis, Deep Vein Thrombosis, Hypotension or Varicose Veins RESPIRATORY: Positive Asthma and Pneumonia; Negative Chronic Obstructive Pulmonary Disease (COPD), Bronchitis, Emphysema, Pulmonary Fibrosis, Cystic Fibrosis, Tuberculosis, Pulmonary Embolism, Pulmonary Edema or Sleep Apnea GASTROINTESTINAL: Positive Gastrointestinal Disorders (CONSTIPATION) and Gastroesophageal Reflux Disease; Negative Hepatitis, Cirrhosis, Pancreatitis, Celiac Disease, Gall Bladder Disease, Gastrointestinal Bleed, Esophageal Varices, Huerta's Esophagus, Colitis, Ulcerative Colitis, Diverticulitis, Diverticulosis, Ulcer, Colorectal Cancer, Irritable Bowel, Crohn's Disease, Obstructive Bowel, Hiatal Hernia, Hemorrhoids or Obesity GENITOURINARY: Positive Genitourinary Disorders, Renal Disease and Dialysis (T,Th,S); Negative Kidney Stones, Polycystic Kidney Disease, Neurogenic Bladder or Inguinal Hernia REPRODUCTIVE: Positive Previous Pregnancies; Negative Breast Cancer, Endometriosis, Pelvic Inflammatory Disease or Uterine Prolapse MUSCULOSKELETAL: Positive Musculoskeletal Disorders, Arthritis, Rheumatoid Arthritis, Degenerative Disk Disease and Gout; Negative Muscular Dystrophy, Myasthenia Gravis, Marfan's Syndrome, Bone Cancer, Osteoporosis, Scoliosis, Carpal Tunnel Syndrome, Fibromyalgia, Fractures, Degenerative Joint Disease, Osteomyelitis or Poliovirus ENT: Positive Cataracts; Negative Glaucoma, Blind, Retinal Detachment, Macular Degeneration, Ear Infection, Deafness, Head Trauma or Eye Prosthesis ENDOCRINE: Positive Endocrine Disorders, Diabetes Mellitus Type 2 and Hypothyroidism; Negative Diabetes Mellitus Type 1, Hypoglycemia, Stanislav's Syndrome, [place]'s Disease, Hyperthyroidism, Parathyroid Disease, Pituitary Disease, Systemic Lupus Erythematosus, Syndrome of Inappropriate Antidiuretic Hormone (SIADH), Adrenal Disease or Graves' Disease HEMATOLOGIC: Positive Clotting Problems; Negative Blood Disorders, Anemia, Leukemia, Hemophilia, Thalassemia or Sickle Cell Disease PSYCHO/SOCIAL: Negative Psychiatric Problems, Schizophrenia, Recreational Drug Use, Bipolar Disorder, Depression, Anxiety, Behavior Problems, Self-Mutilation, Attention Deficit Disorder, Attention Deficit Hyperactivity Disorder, Depression, Post Traumatic Stress Disorder or Eating Disorder OTHER HISTORY: Positive Hospitalization, Chicken Pox, Measles, Mumps and Clostridium Difficile; Negative Autoimmune Disease, Down Syndrome, Autism, Developmental Delay, Shingles, Falls, Blood Transfusions, Anesthesia Reactions, Organ Transplant, Chemotherapy, Radiation Therapy, Hyperbaric Therapy, MRSA, VRSA, Vancomycin-Resistant Enterococci, Human Immunodeficiency Virus (HIV), Rubella ([place] Measles), Pertussis, Cancer, Breast Cancer, Cervical Cancer, Colorectal Cancer, Lung Cancer or Ovarian Cancer Family History FAMILY HISTORY: Positive Family Cardiac Disorders, Family Cancer and Family Surgery; Negative Family Psychiatric Problems, Family Respiratory Disorders, Family Gastrointestinal Problems or Family Anesthesia Reaction Surgical History SURGICAL: Positive Cardiac Surgery, Coronary Stent (X6), Cardiac Catheterization, Angiogram and Eye Surgery; Negative Open Heart Surgery, Coronary Artery Bypass Graft, Valve Replacement, Vascular Surgery, Pacemaker, Auto Implanted Cardiovert Defib, Carotid Endarterectomy, Endocrine Surgery, Thyroidectomy, Ear Surgery, Tympanostomy Tube, Nose Surgery, Oral Surgery, Tonsillectomy, Adenoidectomy, Cochlear Implant, Corneal Transplant, Throat Surgery, Abdominal Surgery, Tracheostomy, Gastric Bypass Surgery, Gastrostomy, Bowel Surgery, Nephrectomy, Transurethral Resection, Joint Replacement, Amputation, Open Reduction Internal Fixation, Arthroscopy, Neurologic Surgery, Brain Shunt, Mastectomy, Lumpectomy, Hysterectomy, Tubal Ligation, Section or Organ Transplant Social History SMOKING STATUS: Never smoker SECOND HAND EXPOSURE: No SUBSTANCE USE: does not use ED Exam General Limitations: Present no limitations General appearance: Present alert and in no apparent distress Head Head exam: Present atraumatic Eye Eye exam: Present normal appearance, PERRL and EOMI ENT ENT exam: Present normal exam, normal oropharynx and mucous membranes moist Neck Neck exam: Present normal inspection, full ROM and trachea midline Chest Chest inspection: Present normal inspection and symmetric chest wall rise Respiratory Respiratory exam: Present normal lung sounds bilaterally Cardiovascular Cardiovascular exam: Present regular rate, normal rhythm and normal heart sounds Abdominal Exam Abdominal exam: Present soft and normal bowel sounds Extremities Exam Extremities exam: Present normal inspection and full ROM Back Exam Back exam: Present normal inspection and full ROM Neurological Exam Neurological exam: Present alert, oriented X3 and CN II-XII intact Psychiatric Psychiatric exam: Present normal affect and normal mood Skin Skin exam: Present warm, dry, intact and normal color Course Course Course Narrative: 84F with extensive PMH including Afib (on blood thinner) and ESRD presents to ED with L dialysis fistula bleeding. Patient had dialysis today. Physical exam reveals wrap around L upper arm, which was in place for 30 min. Patient is afebrile, calm, and alert. After bandage removed, no more active bleeding. New dressing put in place. Quality Measures none Orders Category Date Time Status Wound Care NOW Care 12/02/24 00:03 Active Vital Signs Vital signs: Vital Signs Temperature 98.4 F 12/01/24 23:25 Pulse Rate 71 12/01/24 23:25 Respiratory Rate 19 12/01/24 23:25 Blood Pressure 175/64 H 12/01/24 23:25 Pulse Oximetry (%) 97 12/01/24 23:25 Oxygen Delivery Method Room Air 12/01/24 23:25 O2 at 97% on RA and WNLs MDM Patient data External records reviewed:: [facility] previous records Clinical information provided by:: patient Social determinants that could affect healthcare access:: none Patient has the following chronic illnesses:: ESRD and afib How is presenting disease/condition affected by chronic disease/condition?: exacerbated by Evaluation data The following diagnostics were reviewed and interpreted by me:: other (specify) (none) Lab and/or radiology exams considered but not ordered:: not ordered Interpretation Summary: n/a Medications Medications considered but not ordered:: not ordered Medication administrations:: n/a Consultations Consultation(s) initiated? (list below): No Diagnosis Differential Diagnosis ED Complaint MDM: fistula disorder, ESRD, medical screening Most likely diagnosis given after review of the tests above:: fistula disorder Admission Indicated Admission indicated?: not indicated Explain why admission is indicated or not indicated:: not ordered Admission Request Was there a request for admission?: No Disposition Plan Disposition Plan: Discharge Discharge Attestation Discharge Attestation: The patient and all family members were given an opportunity to ask questions and understood the discharge instructions. Discharge instructions specifically effects, indications for sooner follow up or return to the emergency department, and the expected course of current diagnosis. Patient condition: Stable Medical Decision Making Differential Diagnosis Differential Diagnosis: fistula disorder, ESRD, medical screening Discharge Plan Plan Patient Disposition: HOME (Self Care) Disposition Comment: Stable Prescriptions/Referrals Prescriptions/Med Rec: No Action levothyroxine 50 mcg tablet 1 tab PO DAILY pantoprazole 40 mg tablet,delayed release (DR/EC) 40 mg PO HS insulin glargine U-300 conc [Toujeo Max U-300 SoloStar] 300 unit/mL (3 mL) Insulin Pen 10 unit SUBCUT QDAY tramadol 50 mg Tablet 50 mg PO Q6H PRN (Reason: Pain) albuterol sulfate 90 mcg/actuation HFA aerosol inhaler 1 puff INHALATION Q4HR PRN (Reason: BREATHING) Patient Comments: inhale 1 puff by mouth and INTO THE LUNGS every 4 hours if needed lactulose [Constulose] 10 gram/15 mL solution 30 ml PO TID PRN (Reason: Constipation) Rx Instructions: UP TO 3X A DAY NEEDED FOR CONTIPATION Emgality Pen 120 mg/mL pen injector 120 mg SUBCUT Q1M Trulicity 1.5 mg/0.5 mL pen injector 0.5 mg SUBCUT QWEEK Patient Comments: INJECT 1.5MG SUBCUTANEOUSLY ONCE A WEEK amiodarone 200 mg Tablet 200 mg PO DAILY Qty: 30 0RF docusate sodium 100 mg Tablet 100 mg PO DAILY aspirin 81 mg tablet,chewable 1 tab PO DAILY atorvastatin 80 mg tablet 80 mg PO DAILY Patient Comments: take 1 tablet by mouth once daily clopidogrel 75 mg tablet 75 mg PO DAILY Patient Comments: take 1 tablet by mouth once daily isosorbide mononitrate 60 mg tablet extended release 24 hr 60 mg PO DAILY Patient Comments: take 1 tablet by mouth every morning furosemide [Lasix] 40 mg tablet 40 mg PO QDAY nitroglycerin 0.4 mg tablet, sublingual See Rx Instructions BUCCAL .COMPLEX Patient Comments: place 1 tablet under the tongue AT FIRST SIGN OF ATTACK; MAY REPE... (REFER TO PRESCRIPTION NOTES). 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 Print Language: Yemeni Stand Alone Forms: Patient Portal Info Letter EVA/KILO Supervising Physician EVA/KILO Supervising Physician: Dr. Rosales
[2024-12-02 00:43] VITALS: RESP 18; O2SAT 98
== END 2024-12-02 00:45 | disposition home or self-care (01) ==
LOC: SERX 12-02 00:27
PROVIDERS: Emergency Provider Emergency Medicine; PCP Family Medicine
DX: T82.838A Hemorrhage due to vascular prosthetic devices, implants and grafts, initial encounter (principal); I12.0 Hypertensive chronic kidney disease with stage 5 chronic kidney disease or end stage renal disease; N18.6 End stage renal disease; Z99.2 Dependence on renal dialysis
CPT/HCPCS: 99281

== ENCOUNTER 2024-12-22 14:20 | Inpatient (IN) | payer MEDICARE, MEDICAID, SELFPAY ==
[2024-12-22] VITALS (8 sets, daily range): BP systolic 58–162; BP diastolic 31–69; PULSE 58–70; RESP 14–98; TEMP 36.6–37.2; O2SAT 96–99; BMI 24.5
--- NOTE | 2024-12-22 15:03 | PD.EDRECHK ---
ED Recheck Abnl Lab Rx-RME/HPI General Chief Complaint: General Adult/Misc Complain Stated Complaint: BLEEDING FROM DIALYSIS PORT Time Seen by Provider: 12/22/24 14:43 Arrival date/time: 12/22/24 14:20 Limitations: no limitations RME / HPI RME / HPI narrative: DR. LARA MAIN ED EVALUATION: 84 year old female presents to the Emergency Department with complaint of left arm dialysis fistula bleed today at 1010 AM upon completion of dialysis session. Patient goes to dialysis T//SAT. Today, she had a full session lasting 3 hours that ended at 1010 AM, since it has bleeding. Per daughter, patient is on Eliquis 5 mg and ASA. No other complaints reported. PMHx: Hypertension, hyperlipidemia, diabetes, CAD with stent placement, A-fib, ESRD (//Sat), and hypothyroidism. Social Hx: No tobacco, alcohol, or substance use. Related Data Home Medications ?Medication ?Instructions ?Recorded ?Confirmed levothyroxine 50 mcg tablet 1 tab PO DAILY 03/21/22 10/14/24 pantoprazole 40 mg tablet,delayed 40 mg PO HS 05/29/22 10/14/24 release insulin glargine U-300 conc 300 10 unit subcut QDAY 08/07/22 10/14/24 unit/mL (3 mL) subcutaneous pen (Toujeo Max U-300 SoloStar) albuterol sulfate 90 mcg/actuation 1 puff inhalation Q4HR PRN 08/08/22 10/14/24 aerosol inhaler BREATHING lactulose 10 gram/15 mL oral 30 ml PO TID PRN Constipation 08/08/22 10/14/24 solution (Constulose) tramadol 50 mg tablet 50 mg PO Q6H PRN Pain 08/08/22 10/14/24 docusate sodium 100 mg tablet 100 mg PO DAILY 08/23/22 10/14/24 dulaglutide 1.5 mg/0.5 mL 0.5 mg subcut QWEEK 07/03/24 10/14/24 subcutaneous pen injector (Trulicity) galcanezumab-gnlm 120 mg/mL 120 mg subcut Q1M 07/03/24 10/14/24 subcutaneous pen injector (Emgality Pen) aspirin 81 mg chewable tablet 1 tab PO DAILY 10/14/24 10/14/24 atorvastatin 80 mg tablet 80 mg PO DAILY 10/14/24 10/14/24 clopidogrel 75 mg tablet 75 mg PO DAILY 10/14/24 10/14/24 Held on 10/14/24. Instructions: Resume on 10/19/24. please hold for 5 days. furosemide 40 mg tablet (Lasix) 40 mg PO QDAY 10/14/24 10/14/24 insulin glargine U-300 conc 300 30 unit subcut Q24H 10/14/24 10/14/24 unit/mL (3 mL) subcutaneous pen (Toujeo Max U-300 SoloStar) isosorbide mononitrate 60 mg 60 mg PO DAILY 10/14/24 10/14/24 tablet,extended release 24 hr nitroglycerin 0.4 mg sublingual See Rx Instructions buccal .COMPLEX 10/14/24 10/14/24 tablet Previous Rx's ?Medication ?Instructions ?Recorded amiodarone 200 mg tablet 200 mg PO DAILY #30 tabs 07/03/24 Allergies Allergy/AdvReac Type Severity Reaction Status Date / Time amoxicillin Allergy Severe Rash Verified 12/22/24 14:34 Review of Systems Review of Systems Systems Reviewed: All systems reviewed, normal except as documented Narrative Review of Systems: GEN: No fever, no chills, no weight loss, + left arm fistula bleed (see HPI) EYES: No discharge, no visual changes, no pain HEENT: No ear pain, no congestion, no sore throat PULM: No shortness of breath, no cough, no congestion CV: No chest pain, no dyspnea on exertion, no palpitations GI: No nausea, no vomiting, no diarrhea, no pain, no constipation : No frequency, no urgency and no dysuria MUSC/SKEL: No joint pain, no back pain SKIN: No rash PSYCH: No hallucinations, no depression HEME/LYMPH: No easy bleeding or bruising tendencies NEURO: No weakness, no headache Past Medical History Past Medical History NEUROLOGIC: Positive Neurological Disorders, Cerebrovascular Accident and Transient Ischemic Attacks (TIA) CARDIAC: Positive Cardiac Disorders, Myocardial Infarction, Cardiac Arrhythmia (BRADYCARDIA), Atrial Fibrillation, Angina, Heart Murmur, Coronary Artery Disease, Peripheral Vascular Disease, Hypercholesterolemia, Edema and Hypertension RESPIRATORY: Positive Asthma and Pneumonia GASTROINTESTINAL: Positive Gastrointestinal Disorders (CONSTIPATION) and Gastroesophageal Reflux Disease GENITOURINARY: Positive Genitourinary Disorders, Renal Disease and Dialysis (T,Th,S) REPRODUCTIVE: Positive Previous Pregnancies MUSCULOSKELETAL: Positive Musculoskeletal Disorders, Arthritis, Rheumatoid Arthritis, Degenerative Disk Disease and Gout ENT: Positive Cataracts ENDOCRINE: Positive Endocrine Disorders, Diabetes Mellitus Type 2 and Hypothyroidism HEMATOLOGIC: Positive Clotting Problems OTHER HISTORY: Positive Hospitalization, Chicken Pox, Measles, Mumps and Clostridium Difficile Family History FAMILY HISTORY: Positive Family Cardiac Disorders, Family Cancer and Family Surgery Surgical History SURGICAL: Positive Cardiac Surgery, Coronary Stent (X6), Cardiac Catheterization, Angiogram and Eye Surgery Social History SMOKING STATUS: Never smoker SECOND HAND EXPOSURE: No SUBSTANCE USE: does not use ALCOHOL: Never ED Exam General Limitations: Present no limitations General appearance: Present alert and in no apparent distress Head Head exam: Present atraumatic, normocephalic and normal inspection Eye Eye exam: Present normal appearance, PERRL and EOMI ENT ENT exam: Present normal exam, normal oropharynx and mucous membranes moist Neck Neck exam: Present normal inspection, full ROM and trachea midline Chest Chest inspection: Present normal inspection and symmetric chest wall rise Respiratory Respiratory exam: Present normal lung sounds bilaterally Cardiovascular Cardiovascular exam: Present regular rate, normal rhythm and normal heart sounds Abdominal Exam Abdominal exam: Present soft and normal bowel sounds Extremities Exam Extremities exam: Present other (Left arm dialysis fistula bleed) Back Exam Back exam: Present normal inspection and full ROM Neurological Exam Neurological exam: Present alert, oriented X3 and CN II-XII intact Psychiatric Psychiatric exam: Present normal affect and normal mood Skin Skin exam: Present warm, dry, intact and normal color Course Quality Measures none Orders Category Date Time Status EKG (ED ONLY) *Do not use* NOW Care 12/22/24 15:42 Completed EKG (ED Only) Stat Exams 12/22/24 15:42 Draft CBC [CBC] Stat Lab 12/22/24 15:36 Completed CMP [Comprehensive Metabolic Panel] Stat Lab 12/22/24 15:36 Completed PT [Prothrombin Time with INR] Stat Lab 12/22/24 15:36 Completed PTT [Partial Thromboplastin Time] Stat Lab 12/22/24 15:36 Completed Troponin I Stat Lab 12/22/24 15:36 Completed Sodium Chloride 0.9% 500 ml [Ns] 500 ml Med 12/22/24 15:56 Discontinued IV 999 mls/hr Sodium Chloride 0.9% 500 ml [Ns] 500 ml Med 12/22/24 15:57 Discontinued IV 999 mls/hr Vital Signs Vital signs: Vital Signs Temperature 98.3 F 12/22/24 14:38 Pulse Rate 70 12/22/24 14:38 Respiratory Rate 18 12/22/24 14:38 Blood Pressure 162/69 H 12/22/24 14:38 Pulse Oximetry (%) 96 12/22/24 14:38 Oxygen Delivery Method Room Air 12/22/24 14:38 Procedures -ED Procedure Comment Left arm dialysis fistula bleed was closed with 3 rows of sutures, 3-0 ethilon. Tourniquet applied and bleeding controlled, reduced. EKG Interpretation #1: Date of EK12/22/24 Time of EK:58 Rate: 59 Interpretation: Interpreted by me Additional EKG comment: sinus bradycardia, rate 59, right bundle branch block, LVH changes, right axis deviation, no ischemia Recheck / Abnormal Lab / Rx MDM Narrative MDM Narrative:: I, Debbie Marino am scribing for and in the presence of Dr. Lara. Left arm dialysis fistula bleed was closed with 3 rows of sutures, 3-0 ethilon. Tourniquet applied and bleeding controlled, reduced. Plan to order CBCs, CMPs, PTT, PT, and reevaluate. 1551: Patient is hypertensive likely secondary to bleeding prior to arrival. Tourniquet was removed and no more bleeding. 500cc saline will be given. Elevated troponin Patient workup showed no anemia She does have elevated troponin which is out of the range which she used to be at Troponin can be elevated in ESRD patient but her level today is higher than before This could be explained upon hypotension and due to the bleeding This could be just troponin leak due to demand ischemia secondary to the hypotensive episode that she had possibly due to the bleeding She did have episode episode of hypotension here in the ER However we will need to monitor her troponin level during next 24 hours Suturing was enough to stop the bleeding I will keep the dressing for now until tomorrow Patient needs to have her fistula looked at by IR and do fistulogram and open the central stenosis I spoke with the hospitalist to admit the patient to monitor her troponin Blood pressure was controlled after the fluid bolus of 500 cc Please also to watch her CBC to make sure that she does not drop She did not bleed profusely here in the ER but she might have lost a lot of blood prior to coming here to the ER Final assessment Hypertensive episode secondary to bleeding Elevated troponin AV fistula bleeding Plan Admit for troponin and CBC monitoring Patient will need fistulogram Total critical care time for this patient was 90 minutes Patient data External records reviewed:: [facility] previous records (Reviewed last ED visit dated 12/02/24 discharged with the following: Disorder as sequela of surgically created arteriovenous fistula) Clinical information provided by:: patient and family Social determinants that could affect healthcare access:: none Patient has the following chronic illnesses:: Hypertension, hyperlipidemia, diabetes, CAD with stent placement, A-fib, ESRD (T//Sat), and hypothyroidism. How is presenting disease/condition affected by chronic disease/condition?: exacerbated by Evaluation data The following diagnostics were reviewed and interpreted by me:: lab results and EKG tracing(s) Lab and/or radiology exams considered but not ordered:: none Interpretation Summary: See above under MDM narrative. Medications / Prescriptions Medications or Prescriptions considered but not ordered:: none Medication administrations:: Medication Administration History Discontinued Medications Sodium Chloride (Ns) 500 mls @ 999 mls/hr IV .Q31M ONE Stop: 12/22/24 16:26 Last Infusion: 12/22/24 16:30 Dose: Infused Documented By: Admin: 12/22/24 15:58 Dose: 999 mls/hr Documented By: YUE Sodium Chloride (Ns) 500 mls @ 999 mls/hr IV .Q31M ONE Stop: 12/22/24 16:20 Last Admin: 12/22/24 16:53 Dose: Not Given Documented By: VG Non-Admin Reason: Duplicate Medication on eMAR see above if any Consultations Consultation(s) initiated? (list below): Yes Consultation #1 (Physician, Specialty, Details): Discussed test HPI, PMHx, lab, radiology results and/or management with hospitalist. Will admit for further evaluation and management. Accepts patient for admission. Time: 17:54 Diagnosis Recheck Differential Diagnosis: other (stenosis, infection, or aneurysm formation) Most likely diagnosis given after review of the tests above:: Troponin elevation Fistula bleed Admission Indicated Admission indicated?: indicated Admission Request Was there a request for admission?: Yes Admission Attestation Admission request attestation: Discussed case with [] from Hospitalist service regarding admission. Discussed patients ED course, exam findings, labs, and radiology results. The Hospitalist [agrees,declines] to accept the patient for admission. Disposition Plan Disposition Plan: Admit Critical Care Time Critical Care Time Critical Care Time: Yes Total Critical Care Time (min.): 60 Attestation: The high probability of sudden, clinically significant deterioration in the patient?s condition required the highest level of my preparedness to intervene urgently. The services I provided to this patient were to treat and/or prevent clinically significant deterioration. Services included the following: chart data review, reviewing nursing notes and/or old charts, documentation time, security sales consultant collaboration regarding findings and treatment options, medication orders and management, direct patient care, vital sign assessments and ordering, interpreting and reviewing diagnostic studies and lab tests. Aggregate critical care time includes only time during which I was engaged in work directly related to the patient?s care, as described above, whether at bedside or elsewhere in the Emergency Department. It did not include time spent performing other reported procedures or the services of residents, students, nurses or physician assistants. Discharge Plan Prescriptions/Referrals Prescriptions/Med Rec: No Action levothyroxine 50 mcg tablet 1 tab PO DAILY pantoprazole 40 mg tablet,delayed release (DR/EC) 40 mg PO HS insulin glargine U-300 conc [Toujeo Max U-300 SoloStar] 300 unit/mL (3 mL) Insulin Pen 10 unit SUBCUT QDAY tramadol 50 mg Tablet 50 mg PO Q6H PRN (Reason: Pain) albuterol sulfate 90 mcg/actuation HFA aerosol inhaler 1 puff INHALATION Q4HR PRN (Reason: BREATHING) Patient Comments: inhale 1 puff by mouth and INTO THE LUNGS every 4 hours if needed lactulose [Constulose] 10 gram/15 mL solution 30 ml PO TID PRN (Reason: Constipation) Rx Instructions: UP TO 3X A DAY NEEDED FOR CONTIPATION Emgality Pen 120 mg/mL pen injector 120 mg SUBCUT Q1M Trulicity 1.5 mg/0.5 mL pen injector 0.5 mg SUBCUT QWEEK Patient Comments: INJECT 1.5MG SUBCUTANEOUSLY ONCE A WEEK amiodarone 200 mg Tablet 200 mg PO DAILY Qty: 30 0RF docusate sodium 100 mg Tablet 100 mg PO DAILY aspirin 81 mg tablet,chewable 1 tab PO DAILY atorvastatin 80 mg tablet 80 mg PO DAILY Patient Comments: take 1 tablet by mouth once daily clopidogrel 75 mg tablet 75 mg PO DAILY Patient Comments: take 1 tablet by mouth once daily isosorbide mononitrate 60 mg tablet extended release 24 hr 60 mg PO DAILY Patient Comments: take 1 tablet by mouth every morning furosemide [Lasix] 40 mg tablet 40 mg PO QDAY nitroglycerin 0.4 mg tablet, sublingual See Rx Instructions BUCCAL .COMPLEX Patient Comments: place 1 tablet under the tongue AT FIRST SIGN OF ATTACK; DECEMBER REPE... (REFER TO PRESCRIPTION NOTES). Rx Instructions: buccally; insulin glargine U-300 conc [Toujeo Max U-300 SoloStar] 300 unit/mL (3 mL) insulin pen 30 unit subcut Q24H Referrals: Andrew Zhou MD [Primary Care Provider] - In 1 week Problem List Clinical Impression: Elevated troponin, Hemorrhage of arteriovenous fistula Patient/Caregiver Discharge Instructions Print Language: Chinese
--- NOTE | 2024-12-22 15:42 | EKG_ITS ---
[facility] Test Date: 2024-12-22 Pat Name: BLAIR VALIENTE Department: Room: - Gender: Female Research Administrator: : 1940 Requested By: Keyonna Rincon Order Number: [id number] Reading MD: Keyonna Rincon Measurements Intervals [place] Rate: 59 P: 105 MD: 229 QRS: 111 QRSD: 158 T: 0 QT: 492 QTc: 490 Interpretive Statements SINUS BRADYCARDIA WITH FIRST DEGREE AV BLOCK ARM LEADS REVERSED [INVERTED P AND QRS IN I] Compared to ECG 07/02/2024 12:19:52 Intraventricular conduction delay no longer present /store/S0/[id number]/ecg/[id number].pdf
--- NOTE | 2024-12-22 15:45 | PC.NURSE ---
pt c/o numbness to right arm and seeing black , bp dropped to 105/54, HR dropped to 58. provider notified.
--- NOTE | 2024-12-22 15:49 | PC.NURSE ---
pt diaphoretic, bp dropped to 58/31, provider notified. orders received and initiated.
[2024-12-22 15:51] LABS: Basophils % (Auto) 1 % (0-2.5); Eosinophils % (Auto) 1 % (0-10); Hematocrit 28.1 % (36.0-46.0); Hemoglobin 9.3 g/dL (12.0-16.0); Immature Granulocytes % (Auto) 0 % (0-0); Immature Granulocytes Auto 0.01 Thou/mm3 (0.00-0.00); Lymphocytes # (Auto) 1.6 Thou/mm3 (1.0-4.8); Lymphocytes % (Auto) 31 % (10-50); Mean Corpuscular HGB Conc 33.1 g/dl (31.0-37.0); Mean Corpuscular Hemoglobin 30.5 pg (25.0-35.0); Mean Corpuscular Volume 92 fL (80-100); Monocytes # (Auto) 0.5 Thou/mm3 (0.0-0.8); Monocytes % (Auto) 9 % (0-12); Neutrophils % (Auto) 58 % (37-80); Nucleated Red Blood Cell % 0 /100 WBC (0); Platelet Count 148 Thou/mm3 (140-440); RDW Standard Deviation 59.5 fL (36.4-46.3); Red Blood Count 3.05 Miln/mm3 (4.00-5.20); White Blood Count 5.2 Thou/mm3 (3.6-11.0)
[2024-12-22] MEDS: SODIUM CHLORIDE 0.9% 500 ML 500 ML 999 ML IV (15:58)
[2024-12-22 16:06] LABS: INR 1.1 (0.9-1.3); Partial Thromboplastin Time 31.3 Seconds (22.0-36.0); Prothrombin Time 11.5 Seconds (9.0-12.2)
[2024-12-22 16:17] LABS: Alanine Aminotransferase 20 U/L (10-49); Albumin, Serum 3.8 gm/dL (3.4-4.8); Albumin/Globulin Ratio 1.7 (1.2-2.2); Alkaline Phosphatase 128 U/L (46-116); Anion Gap 7 (7-16); Aspartate Amino Transferase 45 U/L (0-34); BUN/Creatinine Ratio 9 Ratio (12-20); Bilirubin,Total 0.6 mg/dL (0.3-1.2); Blood Urea Nitrogen 22 mg/dL (9-23); Calcium 8.4 mg/dL (8.3-10.6); Calcium (Corrected) 8.6 mg/dL (8.5-10.1); Carbon Dioxide 29.8 mMol/L (20.0-31.0); Chloride 97 mMol/L (98-107); Creatinine (Component) 2.5 mg/dL (0.6-1.3); Estimated Creatinine Clearance 14.1 mL/min (>60); Globulin 2.2 gm/dL (2.3-3.5); Glucose 230 mg/dL (74-106); Osmolality,Calculated 278 (275-295); Potassium 3.5 mMol/L (3.4-5.1); Sodium 134 mMol/L (136-145); eGFR 19 See Note
[2024-12-22 16:23] LABS: Troponin I 3.507 ng/mL (0.0-0.045)
--- NOTE | 2024-12-22 18:35 | PD.RESHP ---
Documentation for date of: 12/22/24 HPI History of Present Illness Chief complaint: Bleeding from dialysis fistula History of present illness: HPI: A 84-year-old female patient with past medical history of coronary artery disease status post 5 stent placement, A-fib on Eliquis, hypertension, ESRD on dialysis T/TH/S following up with Dr. Alvarado, diabetes mellitus type 2, was brought to the ED after she had bleeding from her dialysis fistula this morning. Patient reported that she finished her session of dialysis today and when she got home she noticed there was bleeding from the fistula site. She went back to the dialysis center in which they applied pressure and and was wrapped. Patient continued to bleed and went back to the dialysis center 2 times third time she became dizzy and had blurry vision in which she was informed to go to the ED immediately.. Patient reported that last week she reported that she was on aspirin and Plavix and her Plavix was switched to Eliquis. She reported that she is taking Eliquis for her A-fib as she was scheduled for Watchman however she still pending for her casing wringer operator to do the procedure. Patient denied any chest pain, palpitation, abdominal pain, however she reported mild nausea. Patient reported that she is scheduled for a visit with her vascular surgeon as she has had previous episode of bleeding from dialysis fistula. Home medications: Pending med [facility] ED course: On presentation patient was noticed to have blood pressure of 58/31, pulse was 70, respiratory rate of 18, her labs showed hemoglobin level of 9.3 which is her baseline, platelets 148, coagulation panel was within normal limits, CMP showed sodium of 134, potassium 3.5, serum creatinine 2.5, glucose 230, AST 45, troponin 3.507, EKG showed sinus bradycardia with first-degree AV block. Patient was given 1L of IV fluids in the ED. Repeat blood pressure was 141/60. PMH: As above Social hx: Alcohol: Denied Tobacco: Denied Illicit drugs: Denied Allergies: No known allergies Review of Systems Review of Systems Systems Reviewed: All systems reviewed, normal except as documented Exam Vital Signs Temp Pulse Resp BP Pulse Ox O2 Del Method 98.2 F 65 17 141/60 H 99 Room Air 12/22/24 18:26 12/22/24 18:26 12/22/24 18:26 12/22/24 18:26 12/22/24 18:26 12/22/24 18:26 Narrative Exam GEN: AOx3, able to speak full sentences her left side of the upper body covered with dry blood. HEENT: NC/AC, oral mucosa moist, neck supple CVS: RRR, S1-S2 present, no murmurs appreciated RESP: CTAB GI: soft,non distended, non tender, NBS MSK: Left-sided fistula, wrapped with gauze, bleeding all over her close. Able to move all 4 limbs, no lower extremity edema SKIN: warm and dry, pulse intact bilaterally, upper and lower extremities. SOLAR PANEL INSTALLER: CN II-XII and Sensation grossly intact. Results: Labs 12/23/24 02:29 12/23/24 02:29 Labs: Short CBC 12/22/24 Range/Units 15:36 WBC 5.2 (3.6-11.0) Thou/mm3 Hgb 9.3 L (12.0-16.0) g/dL Hct 28.1 L (36.0-46.0) % Plt Count 148 (140-440) Thou/mm3 BMP 12/22/24 15:36 Sodium 134 L Potassium 3.5 Chloride 97 L Carbon Dioxide 29.8 BUN 22 Creatinine 2.5 H Glucose 230 H Calcium 8.4 Cardiac Enzymes 12/22/24 Range/Units 15:36 Troponin I 3.507 H* (0.0-0.045) ng/mL Liver Function 12/22/24 Range/Units 15:36 Total Bilirubin 0.6 (0.3-1.2) mg/dL AST 45 H (0-34) U/L ALT 20 (10-49) U/L Alkaline Phosphatase 128 H (46-116) U/L Albumin 3.8 (3.4-4.8) gm/dL Quality Measures Quality Measures none Advance care planning discussed with:: patient and spouse Medications Home Medications and Allergies Home Medications ?Medication ?Instructions ?Recorded ?Confirmed ?Type levothyroxine 50 mcg tablet 1 tab PO DAILY 03/21/22 12/23/24 History pantoprazole 40 mg tablet,delayed 40 mg PO HS 05/29/22 12/23/24 History release insulin glargine U-300 conc 300 10 unit subcut QDAY 08/07/22 12/23/24 History unit/mL (3 mL) subcutaneous pen (Toujeo Max U-300 SoloStar) albuterol sulfate 90 mcg/actuation 1 puff inhalation Q4HR PRN 08/08/22 12/23/24 History aerosol inhaler BREATHING lactulose 10 gram/15 mL oral 30 ml PO TID PRN Constipation 08/08/22 12/23/24 History solution (Constulose) tramadol 50 mg tablet 50 mg PO Q6H PRN Pain 08/08/22 12/23/24 History docusate sodium 100 mg tablet 100 mg PO DAILY 08/23/22 12/23/24 History dulaglutide 1.5 mg/0.5 mL 0.5 mg subcut QWEEK 07/03/24 12/23/24 History subcutaneous pen injector (Trulicity) galcanezumab-gnlm 120 mg/mL 120 mg subcut Q1M 07/03/24 12/23/24 History subcutaneous pen injector (Emgality Pen) aspirin 81 mg chewable tablet 1 tab PO DAILY 10/14/24 12/23/24 History atorvastatin 80 mg tablet 80 mg PO DAILY 10/14/24 12/23/24 History clopidogrel 75 mg tablet 75 mg PO DAILY 10/14/24 12/23/24 History Held on 10/14/24. Instructions: Resume on 10/19/24. please hold for 5 days. furosemide 40 mg tablet (Lasix) 40 mg PO QDAY 10/14/24 12/23/24 History insulin glargine U-300 conc 300 30 unit subcut Q24H 10/14/24 12/23/24 History unit/mL (3 mL) subcutaneous pen (Toujeo Max U-300 SoloStar) isosorbide mononitrate 60 mg 60 mg PO DAILY 10/14/24 12/23/24 History tablet,extended release 24 hr nitroglycerin 0.4 mg sublingual See Rx Instructions buccal .COMPLEX 10/14/24 12/23/24 History tablet Allergies Allergy/AdvReac Type Severity Reaction Status Date / Time amoxicillin Allergy Severe Rash Verified 12/22/24 14:34 Visit Medications Acetaminophen (Acetaminophen 325 Mg Tablet) 650 mg PO Q6H PRN PRN Reason: Fever >101.5 Stop: 01/21/25 18:27 Acetaminophen (Acetaminophen 325 Mg Tablet) 650 mg PO Q6H PRN PRN Reason: PAIN SCALE 1-3 (mild Stop: 01/21/25 18:27 Dextrose (Dextrose 50%-Water Inj 50 Ml Syringe) 25 ml IV Q15MIN PRN PRN Reason: BG 50-70 responsive npo pt Stop: 01/21/25 18:31 Dextrose (Dextrose 50%-Water Inj 50 Ml Syringe) 50 ml IV Q15MIN PRN PRN Reason: BG <50 OR BG <70 & pt unresponsive Stop: 01/21/25 18:31 Glucagon (Glucagon Inj 1 Mg Vial) 1 mg IM Q15MIN PRN PRN Reason: BG <70, and no IV access Hydralazine HCl (Hydralazine Inj 20 Mg/Ml Vial) 10 mg IV Q2H PRN PRN Reason: SBP >180 Stop: 01/21/25 18:33 Insulin Human Lispro (Insulin Lispro (Admelog) 1 Unit/0.01 Ml Unit) 0 unit SC AC ALL; Protocol Stop: 01/22/25 07:29 Ondansetron HCl (Ondansetron Inj 2 Mg/Ml Inj 2 Ml) 4 mg IV Q6H PRN; Protocol PRN Reason: NAUSEA OR VOMITING Stop: 01/21/25 18:27 Pantoprazole Sodium (Pantoprazole Inj 40 Mg Vial) 40 mg IVP QDAY ALL Stop: 01/22/25 08:59 Discontinued Medications Sodium Chloride (Ns) 500 mls @ 999 mls/hr IV .Q31M ONE Stop: 12/22/24 16:26 Last Infusion: 12/22/24 16:30 Dose: Infused Sodium Chloride (Ns) 500 mls @ 999 mls/hr IV .Q31M ONE Stop: 12/22/24 16:20 Last Admin: 12/22/24 16:53 Dose: Not Given Assessment & Plan Plan Assessment and plan Summary: A 84-year-old female patient with past medical history of coronary artery disease status post 5 stent placement, A-fib on Eliquis, heart block, hypertension, ESRD on dialysis T// following up with Dr. Alvarado, diabetes mellitus type 2, was brought to the ED after she had bleeding from her dialysis fistula this morning. Patient was found to have troponin of 3.547, patient was admitted for monitoring of elevated troponin and further observation for any blood loss. Assessment and plan #Elevated troponin #History of CAD #History of A-fib #History of sinus bradycardia/heart block Patient is history of CAD status post 5 stents placements, following up with Dr. Moore On presentation blood pressure was low, labs showed troponin of 3.507, patient denied any chest pain, palpitation, shortness of breath. EKG showed sinus bradycardia with first-degree AV block, no ischemic changes. Patient reported that she is scheduled for Watchman procedure in [place]. Plan ? Admit to telemetry ? Troponin every 6 hours ? Repeat EKG after 2 hours ? Consider consulting casing wringer operator if troponin continue to increase or patient started experiencing chest pain. #Left dialysis fistula bleeding #History of ESRD T//S follow-up with Dr. Alvarado Patient presented with multiple episode of bleeding after she finished her dialysis today. Hemoglobin stable at 9.3, however patient reported dizziness, blurry vision and nausea. Blood pressure was on the soft side it was 58/31 however all the blood pressure reads after that was within normal limits. 1 week ago patient reported switching her blood thinners from aspirin and Plavix to aspirin and Eliquis. She is pending Watchman procedure. Plan ? Hold Eliquis and aspirin for now ? Repeat H&H at 12 AM ? Continue to apply pressure without compromising peripheral circulation ? Consider consulting fire crew worker Dr. Alvarado if the patient continues to stay in the hospital for dialysis. ? Upon discharge consider changing her blood thinners. #History of diabetes mellitus type 2 Plan ? Put patient on insulin sliding scale ? Hypoglycemia protocol in place #History of hypothyroidism Plan ? Resume home medication after med reconciliation Hospital Maintenance: FEN: Carb consistent diet DVT ppx: SCD GI ppx: Protonix IV lines: PIV Merrill: None Code status: Full code Dispo: Telemetry - Patient's plan and care discussed with my attending, Dr. Blair Valdez MD Internal Medicine PGY-2 Attending Provider Attestation/Addendum I attest that I was physically present for the evaluation, physical examination, lab and imaging review of the patient with the residents. I discussed the case with the residents and agree with the findings and plans of care as documented above. Patient is an 84 years old female with past medical history of CAD status post 5 stents, A-fib on Eliquis, hypertension, ESRD on hemodialysis, diabetes who presented to the ED after she had bleeding from her fistula. After finishing her dialysis session, patient went home and started having bleeding from the fistula for which she went back to the dialysis center, pressure was applied and wound was wrapped, patient went back home and had another bleeding episode. After the third episode, she started feeling dizzy and decided to visit the ED. Patient was previously on dual antiplatelets, and was recently switched to clopidogrel and Eliquis as patient has A-fib. In the ED, her blood pressure was low, 58/31. Lab results show hemoglobin of 9.3, potassium 3.5, creatinine 2.5, glucose 230, troponin 3.507. EKG showed sinus bradycardia with first-degree AV block and patient denied any chest pain or palpitation at that time. Patient received IV fluid bolus in the ED following which her blood pressure improved. She also received sutures and pressure bandage in the ED following which hemostasis was obtained on her fistula. We will admit the patient for further evaluation and management of elevated troponin. We will trend the troponin and EKG, monitor closely for any symptoms. We will hold her Eliquis and antiplatelet for now because of the bleeding from fistula. Also started on insulin regimen for diabetes. Brooke Manuel MD
--- NOTE | 2024-12-22 20:00 | EKG_ITS ---
[facility] Test Date: 2024-12-22 Pat Name: BLAIR VALIENTE Department: Room: - Gender: Female Voice Network Administrator: : 1940 Requested By: Eyal Valdez Order Number: [id number] Reading MD: Eyal Valdez Measurements Intervals [place] Rate: 66 P: 93 NE: 219 QRS: 118 QRSD: 159 T: -59 QT: 501 QTc: 527 Interpretive Statements SINUS RHYTHM WITH FIRST DEGREE AV BLOCK RIGHT BUNDLE BRANCH BLOCK [120+ ms QRS DURATION, UPRIGHT V1, 40+ ms S IN I/aVL/V4/V5/V6] LEFT POSTERIOR FASCICULAR BLOCK [QRS AXIS > 109, INFERIOR Q] Compared to ECG 12/22/2024 15:58:15 Right bundle-branch block now present Left posterior fascicular block now present Sinus bradycardia no longer present /store/S0/[id number].pdf
[2024-12-22 21:45] LABS: Troponin I 3.273 ng/mL (0.0-0.045)
[2024-12-23] VITALS (15 sets, daily range): BP systolic 109–150; BP diastolic 54–76; PULSE 58–76; RESP 14–96; TEMP 36–37.1; O2SAT 97–99; BMI 23.3
[2024-12-23 00:38] LABS: Hematocrit 31.6 % (36.0-46.0); Hemoglobin 11.1 g/dL (12.0-16.0)
[2024-12-23 02:38] LABS: Basophils # (Auto) 0.1 Thou/mm3 (0.0-0.2); Basophils % (Auto) 1 % (0-2.5); Eosinophils # (Auto) 0.1 Thou/mm3 (0.0-0.5); Eosinophils % (Auto) 1 % (0-10); Hematocrit 23.8 % (36.0-46.0); Immature Granulocytes % (Auto) 0 % (0-0); Immature Granulocytes Auto 0.02 Thou/mm3 (0.00-0.00); Lymphocytes # (Auto) 1.5 Thou/mm3 (1.0-4.8); Lymphocytes % (Auto) 30 % (10-50); Mean Corpuscular HGB Conc 33.2 g/dl (31.0-37.0); Mean Corpuscular Volume 91 fL (80-100); Monocytes # (Auto) 0.5 Thou/mm3 (0.0-0.8); Monocytes % (Auto) 10 % (0-12); Neutrophils # (Auto) 2.9 Thou/mm3 (1.8-7.7); Neutrophils % (Auto) 58 % (37-80); Nucleated Red Blood Cell % 0 /100 WBC (0); Platelet Count 102 Thou/mm3 (140-440); RDW Standard Deviation 57.8 fL (36.4-46.3); Red Blood Count 2.63 Miln/mm3 (4.00-5.20)
[2024-12-23 02:43] LABS: Hemoglobin 7.9 g/dL (12.0-16.0)
[2024-12-23 03:05] LABS: Alanine Aminotransferase 16 U/L (10-49); Albumin, Serum 3.3 gm/dL (3.4-4.8); Albumin/Globulin Ratio 1.7 (1.2-2.2); Alkaline Phosphatase 112 U/L (46-116); Anion Gap 8 (7-16); Aspartate Amino Transferase 36 U/L (0-34); BUN/Creatinine Ratio 9 Ratio (12-20); Bilirubin,Total 0.4 mg/dL (0.3-1.2); Blood Urea Nitrogen 28 mg/dL (9-23); Calcium 7.7 mg/dL (8.3-10.6); Calcium (Corrected) 8.3 mg/dL (8.5-10.1); Carbon Dioxide 29.9 mMol/L (20.0-31.0); Chloride 101 mMol/L (98-107); Creatinine (Component) 3.2 mg/dL (0.6-1.3); Glucose 185 mg/dL (74-106); Magnesium 2.1 mg/dL (1.6-2.6); Osmolality,Calculated 288 (275-295); Phosphorous 3.8 mg/dL (2.4-5.1); Sodium 139 mMol/L (136-145); Thyroid Stimulating Hormone 1.61 uIU/mL (0.55-4.78); Total Protein 5.3 gm/dL (5.7-8.2); eGFR 14 See Note
--- NOTE | 2024-12-23 03:14 | PC.NURSE ---
accessed pt's chart to assist main RN, main RN taking lunch. Lab called to let main RN know that pt's troponin is 3.280. Dr. Miguel was made aware, no new orders for pt at this time.
--- NOTE | 2024-12-23 08:58 | PC.SS ---
Follow up note: Trending troponins. Will receive 1 unit of blood.
[2024-12-23] MEDS: AMIODARONE HCL 200 MG TABLET PO (09:30)
[2024-12-23] MEDS: LEVOTHYROXINE SODIUM 25 MCG TABLET 50 MCG PO (09:30)
--- NOTE | 2024-12-23 09:30 | PC.PT ---
PT eval witheld. Patient will be receiving Blood transfusion today. Will try tomorrow.
[2024-12-23] MEDS: PANTOPRAZOLE INJ 40 MG VIAL IVP (09:34)
--- NOTE | 2024-12-23 09:36 | PC.NURSE ---
Called to check pts right upper arm fistula, good bruit and thrill. Hand swolled and cold. Rewrapped fistula loosely due to small amount of bleeding. Informed MADELINE Riddle to call vascular surgeon to follow up on plan of action.
[2024-12-23] MEDS: ACETAMINOPHEN 325 MG TABLET 650 MG PO (09:38)
--- NOTE | 2024-12-23 09:57 | EKG_ITS ---
[facility] Test Date: 2024-12-23 Pat Name: BLAIR VALIENTE Department: Room: S261A Gender: Female Clinical Psychology Professor: GURINDER : 1940 Requested By: Eyal Valdez Order Number: [id number] Reading MD: Eyal Valdez Measurements Intervals [place] Rate: 79 P: 48 SC: 212 QRS: 212 QRSD: 173 T: 30 QT: 437 QTc: 503 Interpretive Statements SINUS RHYTHM WITH FIRST DEGREE AV BLOCK MARKED RIGHT AXIS DEVIATION RIGHT BUNDLE BRANCH BLOCK ST DEPRESSION, CONSIDER SUBENDOCARDIAL INJURY Compared to ECG 12/22/2024 19:59:27 Right-axis deviation now present ST (T wave) deviation now present Left posterior fascicular block no longer present /store/S0/[id number].pdf
--- NOTE | 2024-12-23 10:15 | PC.NURSE ---
After receiving morning medications pt complaining of new onset chest pain at center/epigastric of chest. Dr. Valdez notified and ordered troponin and ekg. Notified Dr. Valdez when ekg finished. Pt still complaining of chest pain but subsiding.
--- NOTE | 2024-12-23 11:22 | EKG_ITS ---
[facility] Test Date: 2024-12-23 Pat Name: BLAIR VALIENTE Department: Room: 61A Gender: Female Drone Operator: GURINDER : 1940 Requested By: Eyal Valdez Order Number: [id number] Reading MD: Eyal Valdez Measurements Intervals [place] Rate: 72 P: [place]: QRS: 210 QRSD: 158 T: 30 QT: 459 QTc: 504 Interpretive Statements UNCERTAIN REGULAR RHYTHM RIGHT BUNDLE BRANCH BLOCK LEFT POSTERIOR FASCICULAR BLOCK Compared to ECG 12/23/2024 10:14:18 Left posterior fascicular block now present Sinus rhythm no longer present First degree AV block no longer present Right-axis deviation no longer present ST (T wave) deviation no longer present /store/S0/[id number]
[2024-12-23 11:33] LABS: Troponin I 3.005 ng/mL (0.0-0.045)
[2024-12-23] MEDS: HYDROmorphone INJ 2 MG/ML VIAL 0.25 MG IVP (11:43)
--- NOTE | 2024-12-23 11:51 | ESPR_ITS ---
<Statement entered by Eyal Valdez MD - 12/24/24 17:10> Patient was seen and examined at bedside. Agree on the assessment and plan on this note. - Patient's plan and care discussed with my attending, Dr. Blair Valdez MD Internal Medicine PGY-2 Documentation for date of: 12/23/24 Subjective Subjective Interval history: Patient was seen and examined at bedside this AM. No acute exents overnight. Patient tolerating diet, no urine output and mentation is at baseline. Patient complains of central crushing chest pain radiating to bilateral shoulders. Started approximately 9 AM this a.m. and constant. EKG showed rate 92, first-degree AV block, ST depression in lateral leads. No acute ST elevation noted Troponin down trended to 3.005 from 3.28. Dilaudid 0.25 Mg IV x 1 given. Cardiology, Dr. Moore consulted. Her left arm swollen and decreased radial pulse. Minimal oozing of blood from left AV fistula. On-call vascular surgery, Dr. Nova Kiran was consulted. Around 2 PM patient complained of new onset headache and dizziness. Was found to have left-sided facial droop, NIHSS +1. Stroke protocol was activated Exam Vital Signs Temp Pulse Resp BP Pulse Ox O2 Del Method 98.8 F 72 17 138/68 H 97 Room Air 12/23/24 11:30 12/23/24 11:30 12/23/24 11:30 12/23/24 11:30 12/23/24 11:30 12/23/24 08:00 Narrative Exam Constitutional Alert, oriented x 3 and comfortable. Elderly female. HEENT Vision grossly intact. Patent nares. Trachea midline Respiratory Chest normal on inspection and clear auscultation bilaterally Cardiovascular S1 and S2 audible, RRR. No murmurs carotid bruit. No gross JVD. Abdominal Soft and non tender to palpation in all quadrants. BS + Genitourinary No bladder tenderness, no flank pain. Normal to palpation Musculoskeletal Extremities tone within normal limits. No LE edema. Left arm edema Skin Warm, dry and intact. Left brachial cephalic fistula with [address], minimal slow ooze of blood, weak radial pulse on left Psychiatric Patient has good affect, is cooperative Neurological CN II - XII grossly intact. Extremity motor and sensation grossly intact. 1A: Level of Consciousness - Appropriate + 0 1B: Ask Month and Age -both correct + 0 1C: Blink Eyes & Squeeze Hands - Performs Both Tasks + 0 2: Test Horizontal Extraocular Movements - Normal + 0 3: Test Visual Perla -intact + 0 4: Test Facial Palsy (Use Grimace if Obtunded) - Minor paralysis (flat nasolabial fold, smile asymmetry) + 1 5A: Test Left Arm Motor Drift - No Drift for 10 Seconds + 0 5B: Test Right Arm Motor Drift - No Drift for 10 Seconds + 0 6A: Test Left Leg Motor Drift - No Drift for 5 Seconds + 0 6B: Test Right Leg Motor Drift - No Drift for 5 Seconds + 0 7: Test Limb Ataxia (FNF/Heel-Brewer) - No Ataxia + 0 8: Test Sensation - Normal; No sensory loss + 0 9: Test Language/Aphasia -no aphasia + 0 10: Test Dysarthria - Normal + 0 11: Test Extinction/Inattention - No abnormality + 0 NIHSS Score: 1 Objective Labs 12/24/24 05:10 12/24/24 05:10 Labs: Laboratory Results - last 24 hr 12/22/24 12/22/24 12/22/24 00:25 15:36 20:55 WBC 5.2 RBC 3.05 L Hgb 11.1 L 9.3 L Hct 31.6 L 28.1 L MCV 92 MCH 30.5 MCHC 33.1 RDW Std Deviation 59.5 H Plt Count 148 Neut % (Auto) 58 Lymph % (Auto) 31 Amelia % (Auto) 9 Eos % (Auto) 1 Baso % (Auto) 1 Neut # (Auto) 3.0 Lymph # (Auto) 1.6 Amelia # (Auto) 0.5 Eos # (Auto) 0.0 Baso # (Auto) 0.0 Immature Gran # (Auto) 0.01 H Absolute Nucleated RBC 0.00 Immature Gran % 0 Nucleated RBC % 0 PT 11.5 INR 1.1 APTT 31.3 Sodium 134 L Potassium 3.5 Chloride 97 L Carbon Dioxide 29.8 Anion Gap 7 BUN 22 Creatinine 2.5 H Estim Creat Clear Calc 14.1 L eGFR 19 L BUN/Creatinine Ratio 9 L Glucose 230 H Calculated Osmolality 278 Calcium 8.4 Corrected Calcium 8.6 Phosphorus Magnesium Total Bilirubin 0.6 AST 45 H ALT 20 Alkaline Phosphatase 128 H Troponin I 3.507 H* 3.273 H* D Total Protein 6.0 Albumin 3.8 Globulin 2.2 L Albumin/Globulin Ratio 1.7 TSH Blood Type Antibody Screen Crossmatch Blood Bank Wristband ID 12/23/24 12/23/24 12/23/24 02:29 09:06 10:39 WBC 5.0 RBC 2.63 L Hgb 7.9 L Hct 23.8 L MCV 91 MCH 30.0 MCHC 33.2 RDW Std Deviation 57.8 H Plt Count 102 L D Neut % (Auto) 58 Lymph % (Auto) 30 Amelia % (Auto) 10 Eos % (Auto) 1 Baso % (Auto) 1 Neut # (Auto) 2.9 Lymph # (Auto) 1.5 Amelia # (Auto) 0.5 Eos # (Auto) 0.1 Baso # (Auto) 0.1 Immature Gran # (Auto) 0.02 H Absolute Nucleated RBC 0.00 Immature Gran % 0 Nucleated RBC % 0 PT INR APTT Sodium 139 Potassium 4.0 D Chloride 101 Carbon Dioxide 29.9 Anion Gap 8 BUN 28 H Creatinine 3.2 H D Estim Creat Clear Calc 11.0 L eGFR 14 L* BUN/Creatinine Ratio 9 L Glucose 185 H Calculated Osmolality 288 Calcium 7.7 L Corrected Calcium 8.3 L Phosphorus 3.8 Magnesium 2.1 Total Bilirubin 0.4 AST 36 H ALT 16 Alkaline Phosphatase 112 Troponin I 3.280 H* 3.005 H* D Total Protein 5.3 L Albumin 3.3 L D Globulin 2.0 L Albumin/Globulin Ratio 1.7 TSH 1.61 Blood Type A Positive Antibody Screen NEGATIVE Crossmatch See Detail Blood Bank Wristband ID Yes Quality Measures Quality Measures none Advance care planning discussed with:: patient Assessment & Plan Assessment Current Active Medications: Generic Name Dose Route Start Last Admin Trade Name Freq PRN Reason Stop Dose Admin Acetaminophen 650 mg 12/22/24 18:28 Acetaminophen 325 Mg Tablet PO 01/21/25 18:27 Q6H PRN Fever >101.5 Acetaminophen 650 mg 12/22/24 18:28 12/23/24 09:38 Acetaminophen 325 Mg Tablet PO 01/21/25 18:27 650 mg Q6H PRN Administration PAIN SCALE 1-3 (mild Amiodarone HCl 200 mg 12/23/24 09:00 12/23/24 09:30 Amiodarone Hcl 200 Mg Tablet PO 01/22/25 08:59 200 mg DAILY ALL Administration Atorvastatin Calcium 80 mg 12/23/24 21:00 Atorvastatin Calcium 20 Mg Tablet PO 01/22/25 20:59 HS ALL Dextrose 25 ml 12/22/24 18:32 Dextrose 50%-Water Inj 50 Ml Syringe IV 01/21/25 18:31 Q15MIN PRN BG 50-70 responsive npo pt Dextrose 50 ml 12/22/24 18:32 Dextrose 50%-Water Inj 50 Ml Syringe IV 01/21/25 18:31 Q15MIN PRN BG <50 OR BG <70 & pt unresponsive Glucagon 1 mg 12/22/24 18:32 Glucagon Inj 1 Mg Vial IM Q15MIN PRN BG <70, and no IV access Hydralazine HCl 10 mg 12/23/24 08:04 Hydralazine Inj 20 Mg/Ml Vial IV 01/21/25 18:33 Q6HR PRN SBP >180 Insulin Human Lispro 0 unit 12/23/24 07:30 12/23/24 07:25 Insulin Lispro (Admelog) 1 Unit/0.01 Ml Unit SC 01/22/25 07:29 Not Given AC ALL Protocol Levothyroxine Sodium 50 mcg 12/23/24 07:45 12/23/24 09:30 Levothyroxine Sodium 25 Mcg Tablet PO 01/22/25 07:44 50 mcg ACBR ALL Administration Ondansetron HCl 4 mg 12/22/24 18:28 Ondansetron Inj 2 Mg/Ml Inj 2 Ml IV 01/21/25 18:27 Q6H PRN NAUSEA OR VOMITING Protocol Pantoprazole Sodium 40 mg 12/23/24 09:00 12/23/24 09:34 Pantoprazole Inj 40 Mg Vial IVP 01/22/25 08:59 40 mg QDAY ALL Administration Plan A 84-year-old female patient with past medical history of coronary artery disease status post 5 stent placement, A-fib on Eliquis, heart block, hypertension, ESRD on dialysis T//S following up with Dr. Alvarado, diabetes mellitus type 2, was brought to the ED after she had bleeding from her dialysis fistula this morning. Patient was found to have troponin of 3.547, patient was admitted for monitoring of elevated troponin and further observation for any blood loss. #Acute blood loss anemia secondary to anticoagulation and access of AV fistula #Symptomatic anemia Following patient's dialysis session last Saturday she had profuse bleeding from her AV fistula access site. She began to feel dizzy and had blurry vision On admission Hb 11.1. This a.m. Hb 7.9 As patient has CAD to maintain adequate cardiac perfusion is recommended to maintain her hemoglobin greater than 8 Plan: ? Type and screen stat ? 2 units PRBC ordered ? Will transfuse 1 unit PRBC - Post transfusion H&H ordered #Left arm edema #Bleeding AV fistula DDx: Dependent edema, stenosis of AV fistula, upper limb DVT This a.m. patient's AV fistula site has minimal blood oozing. Left arm is swollen and radial pulses weaker on the left. Plan: ? Elevate arm ? Change compressive dressing ? On-call vascular surgeon, Dr. Nova Kiran consulted. Appreciate recommendations #Stroke rule out #Facial droop DDx: Stark's palsy, stroke,GBS, multiple sclerosis Around 2 PM patient was eating her lunch when she complained of a posterior headache and dizziness. On exam NIHSS was +1 for facial droop on the left. 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 Negative for acute hemorrhage, mass effect or midline shift. Plan: - Patient is started on stroke protocol - Neuro checks q 4H - Head of bed elevated to 30 degrees - Swallow eval and bedside swallow screen ordered - PT/OT referrals placed - Seizure precautions in place - ECHO with bubble study ordered - PRN Acetaminophen 650mg to avoid hyperthermia - DVT Prophylaxis with Heparin 5000 U SC BID - ASA 300mg NH x 1 - Dr Mattson consulted, pending in-house Neurology recommendations #ACS rule out [place] #Elevated troponin?resolving #History of CAD s/p 5 stents #History of A-fib previously on Eliquis #History of sinus bradycardia/heart block Patient complains of central crushing chest pain radiating to bilateral shoulders. Started approximately 9 AM this a.m. and constant. EKG showed rate 92, first-degree AV block, ST depression in lateral leads. No acute ST elevation noted Troponin down trended to 3.005 from 3.28. Dilaudid 0.25 Mg IV x 1 given. Cardiology, Dr. Moore consulted. Plan ? No need to further trend tropes as it is down trended. ? To consider restarting anticoagulation once hemoglobin stable and no further episodes of bleeding. ? Cardiology, Dr. Moore consulted and closely following the case. Appreciate recommendations # ESRD on HD via left AV fistula T// follow-up with Dr. Alvarado Patient presented with multiple episode of bleeding after she finished her dialysis today. Hemoglobin stable at 9.3, however patient reported dizziness, blurry vision and nausea. Blood pressure was on the soft side it was 58/31 however all the blood pressure reads after that was within normal limits. 1 week ago patient reported switching her blood thinners from aspirin and Plavix to aspirin and Eliquis. She is pending Watchman procedure. Plan ? Continue to hold Eliquis and aspirin for now ? Nephrology, Dr. Al consulted. Appreciate recommendations #History of diabetes mellitus type 2 Plan ? Insulin sliding scale ? Hypoglycemia protocol in place #History of hypothyroidism Plan ? Continue home medication levothyroxine 50 mcg p.o. daily Health maintenance: Disposition: Pending in-house neuro recs. PT and speech eval. Cardiac echo Diet: Consistent carb Lines: pIVs GI Prophylaxis: Pantoprazole Thrombo Prophylaxis: SCDs Code status: FULL CODE Plan of care discussed with Attending Dr. Manuel and PGY 2 Dr. José Miguel Shankar MD PGY 1 Disclaimer: This note was dictated by speech recognition. Minor errors in gas meter prover may be present due to voice recognition software. Attending Provider Attestation/Addendum I attest that I was physically present for the evaluation, physical examination, lab and imaging review of the patient with the residents. I discussed the case with the residents and agree with the findings and plans of care as documented above. Patient had a rapid response this afternoon, due to new onset headache and dizziness. Patient was alert and oriented but complaining of persistent and new onset severe headache, the at bedside stated that her face also looks a symmetrical on the left side. Stroke alert was called, CT brain, CTA head/neck and teleneurology consult were obtained. Unable to start antiplatelets in setting of bleeding fistula, we will obtain echocardiography, MRI and obtain in- house neurology consult. Patient also complained of chest pain this morning, with radiation to her bilateral shoulders. EKG was obtained shows first-degree AV block, ST depression in lateral leads. Troponin noted to be 3.005, down trended from prior studies. Consulted cardiology. Unable to start anticoagulation due to bleeding. Left arm was swollen, decreased radial pulse on the left side but warm to touch, minimal bleeding from AV fistula. We will obtain vascular surgery consult, elevate arm and change the dressing. Patient noted to have decrease in hemoglobin, 7.9 today, we will transfuse her 1 unit of PRBC with goal of hemoglobin more than 8 due to history of CAD. Also consulted nephrology for continuation of dialysis. Continues to be on levothyroxine and insulin regimen for hypothyroidism and diabetes. Brooke Manuel MD
[2024-12-23] MEDS: INSULIN LISPRO (AdmeLOG) 1 UNIT/0.01 ML UNIT SC ×2 (12:16→17:30)
--- NOTE | 2024-12-23 14:21 | PD.IMCONS ---
HPI Data of Consult Requesting Physician: Brooke Manuel MD Primary Care Provider: Andrew Zhou MD Consult Narrative History of present illness: This is a 84-year-old female patient with past medical history of coronary artery disease status post 5 stent placement, A-fib on Eliquis, hypertension, ESRD on dialysis T//S following up with Dr. Alvarado, diabetes mellitus type 2, Recent PCI-RCA in 08/11 seen in the ER with bleeding form the A-V fistula today she complained of chest pain ; EKG non specific Troponin increased to 3 currently c/o of chest pain cc:: cc: Brooke Manuel MD Meds Home Medications and Allergies Home Medications ?Medication ?Instructions ?Recorded ?Confirmed ?Type levothyroxine 50 mcg tablet 1 tab PO DAILY 03/21/22 12/23/24 History pantoprazole 40 mg tablet,delayed 40 mg PO HS 05/29/22 12/23/24 History release insulin glargine U-300 conc 300 10 unit subcut QDAY 08/07/22 12/23/24 History unit/mL (3 mL) subcutaneous pen (Toujeo Max U-300 SoloStar) albuterol sulfate 90 mcg/actuation 1 puff inhalation Q4HR PRN 08/08/22 12/23/24 History aerosol inhaler BREATHING lactulose 10 gram/15 mL oral 30 ml PO TID PRN Constipation 08/08/22 12/23/24 History solution (Constulose) tramadol 50 mg tablet 50 mg PO Q6H PRN Pain 08/08/22 12/23/24 History docusate sodium 100 mg tablet 100 mg PO DAILY 08/23/22 12/23/24 History dulaglutide 1.5 mg/0.5 mL 0.5 mg subcut QWEEK 07/03/24 12/23/24 History subcutaneous pen injector (Trulicity) galcanezumab-gnlm 120 mg/mL 120 mg subcut Q1M 07/03/24 12/23/24 History subcutaneous pen injector (Emgality Pen) aspirin 81 mg chewable tablet 1 tab PO DAILY 10/14/24 12/23/24 History atorvastatin 80 mg tablet 80 mg PO DAILY 10/14/24 12/23/24 History clopidogrel 75 mg tablet 75 mg PO DAILY 10/14/24 12/23/24 History Held on 10/14/24. Instructions: Resume on 10/19/24. please hold for 5 days. furosemide 40 mg tablet (Lasix) 40 mg PO QDAY 10/14/24 12/23/24 History insulin glargine U-300 conc 300 30 unit subcut Q24H 10/14/24 12/23/24 History unit/mL (3 mL) subcutaneous pen (Toujeo Max U-300 SoloStar) isosorbide mononitrate 60 mg 60 mg PO DAILY 10/14/24 12/23/24 History tablet,extended release 24 hr nitroglycerin 0.4 mg sublingual See Rx Instructions buccal .COMPLEX 10/14/24 12/23/24 History tablet Allergies Allergy/AdvReac Type Severity Reaction Status Date / Time amoxicillin Allergy Severe Rash Verified 12/22/24 14:34 Exam Vital Signs Temp Pulse Resp BP Pulse Ox O2 Del Method 97.4 F 64 17 125/63 97 Room Air 12/23/24 14:00 12/23/24 14:00 12/23/24 14:00 12/23/24 14:00 12/23/24 14:00 12/23/24 12:00 Routine HEENT Exam Head: Present normocephalic and atraumatic Eye: Present EOMI and PERRL ENT: Present mucous membranes moist Routine Neck Exam Neck: Present supple and trachea midline Routine Respiratory Exam Respiratory: Present chest non-tender, lungs clear, normal breath sounds and no resp distress Routine Cardiovascular Exam Cardiovascular: Present RRR Routine Abdominal Exam Abdominal: Present soft and normoactive bowel sounds Routine Extremities Exam Extremities: Present full ROM Routine Skin Exam Skin: Present intact, dry and warm Routine Neurological Exam Neurological: Present alert, oriented X3 and CN II-XII intact Routine Psychiatric Exam Psychiatric: Present normal affect and normal thought process Results Labs 12/23/24 02:29 12/23/24 02:29 Labs: Short CBC 12/22/24 12/22/24 12/23/24 Range/Units 00:25 15:36 02:29 WBC 5.2 5.0 (3.6-11.0) Thou/mm3 Hgb 11.1 L 9.3 L 7.9 L (12.0-16.0) g/dL Hct 31.6 L 28.1 L 23.8 L (36.0-46.0) % Plt Count 148 102 L D (140-440) Thou/mm3 BMP 12/22/24 12/23/24 15:36 02:29 Sodium 134 L 139 Potassium 3.5 4.0 D Chloride 97 L 101 Carbon Dioxide 29.8 29.9 BUN 22 28 H Creatinine 2.5 H 3.2 H D Glucose 230 H 185 H Calcium 8.4 7.7 L Cardiac Enzymes 12/22/24 12/22/24 12/23/24 Range/Units 15:36 20:55 02:29 Troponin I 3.507 H* 3.273 H* D 3.280 H* (0.0-0.045) ng/mL 12/23/24 Range/Units 10:39 Troponin I 3.005 H* D (0.0-0.045) ng/mL Liver Function 12/22/24 12/23/24 Range/Units 15:36 02:29 Total Bilirubin 0.6 0.4 (0.3-1.2) mg/dL AST 45 H 36 H (0-34) U/L ALT 20 16 (10-49) U/L Alkaline Phosphatase 128 H 112 (46-116) U/L Albumin 3.8 3.3 L D (3.4-4.8) gm/dL Assessment and Plan Assessment and plan (1) Hemorrhage of arteriovenous fistula: Status: Acute (2) Elevated troponin: Status: Acute (3) ESRD on dialysis: Status: Acute (4) Atrial fibrillation with rapid ventricular response: Status: Acute Additional Assessment & Plan Additional Plan: continue current treatment hold eliquis may need heart cath
--- NOTE | 2024-12-23 14:38 | XR_ITS ---
Examination: AP chest single view Technique one AP portable sitting chest single view Exam date and time: December 23, 2024 1516 hours Comparison July 26, 2024 INDICATIONS: Stroke alert today FINDINGS: Normal heart size. No aspiration pneumonia Moderate elevation right hemidiaphragm Prominent osteopenia IMPRESSION: No aspiration pneumonia
--- NOTE | 2024-12-23 14:39 | XR_ITS ---
Examination: CT brain head without contrast. 2-D sagittal coronal reconstructions Date and time of exam:December 23, 2024 1446 hours Comparison January 24, 2022 INDICATIONS: Onset stroke alert, left-sided facial numbness and paresthesias today CTDI: vol (mGy):7.6 DLP: (mGycm):951 Technique: Multiple CT axial sections of the brain have been obtained, 5 mm slice thickness. Contrast has not been administered. 2-D sagittal, coronal reconstructions have been obtained Low dose protocols were performed. One or more of the following dose reduction techniques were used; automated exposure control, adjustment of the mA and/or KV according to patient size, use of iterative reconstruction technique. Findings: No significant ventricular enlargement. Again noted old infarcts right and left cerebellar hemispheres and right parietal lobe Intra-axial or extra-axial hemorrhage density is not seen. No mass effect or midline shift Basal cisterns are not remarkable. Fourth ventricle is midline. Cranial vault intact. Impression: Negative for acute hemorrhage, mass effect or midline shift
--- NOTE | 2024-12-23 14:49 | EVENTNT_ITS ---
Documentation for date of: 12/23/24 Event Note Event Note: At approximately 2 PM I was informed by the nurse that patient started to experience new onset headaches and dizziness. Upon arrival and assessment of the patient she was alert and oriented x 3, however she complained of a persistent new onset posterior headache. On exam she had a noticeable left facial droop. NIHSS +1 for facial droop. Plan: ? Rapid response team called ? Stroke alert called ? CT brain without contrast and CTA head/neck ordered ? Teleneurology consulted Plan of care discussed with Attending Dr. Manuel and PGY 2 Dr. José Miguel Shankar MD PGY 1 Disclaimer: This note was dictated by speech recognition. Minor errors in mercerizing range controller may be present due to voice recognition software.
--- NOTE | 2024-12-23 15:17 | PD.TNEURO ---
Tele Neuro Consultation Consultation Date 12/23/24 Most Recent Vital Signs Last Vital Signs Temp 97.4 F 12/23/24 14:00 Pulse 64 12/23/24 14:00 Resp 17 12/23/24 14:00 BP 125/63 12/23/24 14:00 Pulse Ox 97 12/23/24 14:00 O2 Del Method Room Air 12/23/24 12:00 Laboratory-Coagulation Panel PT 11.5 Seconds (9.0-12.2) 12/22/24 15:36 INR 1.1 (0.9-1.3) 12/22/24 15:36 APTT 31.3 Seconds (22.0-36.0) 12/22/24 15:36 Consultation Narrative [facility] Tele[facility]urology Consult Services Patient Name:???Yenni Catalan Date of :???1940 Identification Number:??? Date of Service:???12/23/2024 14:37:17 Diagnosis:?I69.392 - Facial weakness following cerebral infarction Impression: ?Left facial weakness in the setting of prior history of right parietal ischemic stroke; clinical presentation is most consistent with recrudescence. IV thrombolysis was not recommended due to low NIHSS score, suspected non-acute stroke etiology, and Xarelto in the past 48 hours. ? ?Recommendations: ?- Check ESR given headaches ?- Metabolic/infectious workup ?- Continue vascular risk factor management. Resume antithrombotic/anticoagulation when otherwise medically appropriate Our recommendations are outlined below. Recommendations: ? Stroke/Telemetry Floor ? Neuro Checks ? Bedside Swallow Eval ? DVT Prophylaxis ? IV Fluids, Normal Saline ? Head of Bed 30 Degrees ? Euglycemia and Avoid Hyperthermia (PRN Acetaminophen) Sign Out: ? Discussed with Rapid Response Team Advanced Imaging: Advanced Imaging Deferred because: Stroke not suspected with clinical presentation and exam Metrics: Last Known Well: 12/23/2024 14:00:00 Dispatch Time: 12/23/2024 14:37:17 Initial Response Time: 12/23/2024 14:45:15Symptoms: dizziness, chest pain, headache, left facial droop. Initial patient interaction: 12/23/2024 14:52:57 NIHSS Assessment Completed: 12/23/2024 14:59:34Patient is not a candidate for Thrombolytic. Thrombolytic Medical Decision: 12/23/2024 15:00:44Patient was not deemed candidate for Thrombolytic because of following reasons: Use of NOAC in last 48 hrs. . I personally Reviewed the CT Head and it Showed no acute hemorrhage. Chronic right parietal encephalomalacia, chronic bilateral cerebellar infarcts Primary Provider Notified of Diagnostic Impression and Management Plan on: 12/23/2024 15:02:00 Spoke With: Dr. Shankar at bedside Able to Reach 12/23/2024 15:02:00 History of Present Illness:Patient is a 84 year old Female. Inpatient stroke alert was called for symptoms of dizziness, chest pain, headache, left facial droop. Patient is an 84 year old woman admitted 12/22/24 due to bleeding from her AV fistula after dialysis. She had recently been changed from clopidogrel to Eliquis due to atrial fibrillation. She was hypotensive on arrival to the ED. She was last known to be at her neurological baseline at 2pm today, however shortly after that reported worsening headache, and was found to have left facial droop on exam. No other weakness, no visual changes, no aphasia. She reported having had significant chest pain at about 9am today. Hgb 7.9 this morning (from 11.1 on admission) Past Medical History: ?Hypertension ?Diabetes Mellitus ?Atrial Fibrillation ?Coronary Artery Disease ?Stroke Other PMH:? ESRD on HD Medications: Anticoagulant use:??Yes?Eliquis - held on admission but less than 48 hours Antiplatelet use:?Yes?aspirin - on hold Reviewed EMR for current medications Other Medications Pertinent To Assessment Include: Dilaudid 0.25mg IV at 11:43am, insulin, pantoprazole, levothyroxine, amiodarone, atorvastatin Allergies:? Reviewed Description:?amoxicillin Social History: Smoking: No Alcohol Use: No Drug Use: No Family History: There is no family history of premature cerebrovascular disease pertinent to this consultation ROS : 14 Points Review of Systems was performed and was negative except mentioned in HPI. Past Surgical History: There Is No Surgical History Contributory To Today?s Visit There Is Surgical History of:? PCI, AV fistula Examination: BP(125/63),?Pulse(64),?Blood Glucose(230) 1A: Level of Consciousness - Alert; keenly responsive?+ 0 1B: Ask Month and Age - Both Questions Right?+ 0 1C: Blink Eyes & Squeeze Hands - Performs Both Tasks?+ 0 2: Test Horizontal Extraocular Movements - Normal?+ 0 3: Test Visual Perla - No Visual Loss?+ 0 4: Test Facial Palsy (Use Grimace if Obtunded) - Minor paralysis (flat nasolabial fold, smile asymmetry)?+ 1 5A: Test Left Arm Motor Drift - No Drift for 10 Seconds?+ 0 5B: Test Right Arm Motor Drift - No Drift for 10 Seconds?+ 0 6A: Test Left Leg Motor Drift - No Drift for 5 Seconds?+ 0 6B: Test Right Leg Motor Drift - No Drift for 5 Seconds?+ 0 7: Test Limb Ataxia (FNF/Heel-Brewer) - No Ataxia?+ 0 8: Test Sensation - Normal; No sensory loss?+ 0 9: Test Language/Aphasia - Normal; No aphasia?+ 0 10: Test Dysarthria - Normal?+ 0 11: Test Extinction/Inattention - No abnormality?+ 0 NIHSS Score:?1 NIHSS Free Text :?mild left facial droop Pre-Morbid Modified [place] Scale:2 Points = Slight disability; unable to carry out all previous activities, but able to look after own affairs without assistance Spoke with :?Dr. Shankar at bedside This consult was conducted in real time using interactive audio and video technology. Patient was informed of the technology being used for this visit and agreed to proceed. Patient located in hospital and provider located at home/office setting. Patient is being evaluated for possible acute neurologic impairment and high probability of imminent or life-threatening deterioration. I spent total of 35 minutes providing care to this patient, including time for face to face visit via telemedicine, review of medical records, imaging studies and discussion of findings with providers, the patient and/or family. Dr Roslyn He [facility] For Inpatient follow-up with [facility] physician please call [facility] at . As we are not an outpatient service for any post hospital discharge needs please contact the hospital for assistance. If you have any questions for the [facility] physicians or need to reconsult for clinical or diagnostic changes please contact us via [facility] at .
[2024-12-23 15:39] LABS: Hematocrit 29.5 % (36.0-46.0); Hemoglobin 10.1 g/dL (12.0-16.0)
[2024-12-23 15:54] LABS: Sed Rate (ESR) 14 mm/hr (0-30)
--- NOTE | 2024-12-23 16:08 | ESCONSULT_ITS ---
HPI Data of Consult Patient: new to practice Consult date: 12/23/24 Requesting Physician: Brooke Manuel MD Admitting Provider: Brooke Manuel MD Attending Provider: Brooke Manuel MD Primary Care Provider: Andrew Zhou MD Consult Narrative History of present illness: A 84-year-old female patient with past medical history of coronary artery disease status post 5 stent placement, A-fib on Eliquis, hypertension, ESRD on dialysis T// following up with Dr. Alvarado, diabetes mellitus type 2, was brought to the ED after she had bleeding from her dialysis fistula this morning. Patient reported that she finished her session of dialysis today and when she got home she noticed there was bleeding from the fistula site. She went back to the dialysis center in which they applied pressure and and was wrapped. Patient continued to bleed and went back to the dialysis center 2 times third time she became dizzy and had blurry vision in which she was informed to go to the ED immediately.. Patient reported that last week she reported that she was on aspirin and Plavix and her Plavix was switched to Eliquis. She reported that she is taking Eliquis for her A-fib as she was scheduled for Watchman however she still pending for her coin machine operator to do the procedure. Patient denied any chest pain, palpitation, abdominal pain, however she reported mild nausea. Patient reported that she is scheduled for a visit with her vascular surgeon as she has had previous episode of bleeding from dialysis fistula. ED course: On presentation patient was noticed to have blood pressure of 58/31, pulse was 70, respiratory rate of 18, her labs showed hemoglobin level of 9.3 which is her baseline, platelets 148, coagulation panel was within normal limits, CMP showed sodium of 134, potassium 3.5, serum creatinine 2.5, glucose 230, AST 45, troponin 3.507, EKG showed sinus bradycardia with first-degree AV block. Patient was given 1L of IV fluids in the ED. Repeat blood pressure was 141/60. Nephrology consulted in setting of ESRD on hemodialysis with left AV fistula. Patient is awaiting vascular consult. cc:: cc: Brooke Manuel MD Review of Systems Review of Systems Systems Reviewed: All systems reviewed, normal except as documented Past Medical History Past Medical History NEUROLOGIC: Positive Neurological Disorders, Cerebrovascular Accident and Transient Ischemic Attacks (TIA) CARDIAC: Positive Cardiac Disorders, Myocardial Infarction, Cardiac Arrhythmia (BRADYCARDIA), Atrial Fibrillation, Angina, Heart Murmur, Coronary Artery Disease, Peripheral Vascular Disease, Hypercholesterolemia, Edema and Hypertension RESPIRATORY: Positive Asthma and Pneumonia GASTROINTESTINAL: Positive Gastrointestinal Disorders (CONSTIPATION) and Gastroesophageal Reflux Disease GENITOURINARY: Positive Genitourinary Disorders, Renal Disease and Dialysis (T,Th,S) REPRODUCTIVE: Positive Previous Pregnancies MUSCULOSKELETAL: Positive Musculoskeletal Disorders, Arthritis, Rheumatoid Arthritis, Degenerative Disk Disease and Gout ENT: Positive Cataracts ENDOCRINE: Positive Endocrine Disorders, Diabetes Mellitus Type 2 and Hypothyroidism HEMATOLOGIC: Positive Clotting Problems OTHER HISTORY: Positive Hospitalization, Chicken Pox, Measles, Mumps and Clostridium Difficile Family History FAMILY HISTORY: Positive Family Cardiac Disorders, Family Cancer and Family Surgery Surgical History SURGICAL: Positive Cardiac Surgery, Coronary Stent (X6), Cardiac Catheterization, Angiogram and Eye Surgery Social History SMOKING STATUS: Never smoker SECOND HAND EXPOSURE: No SUBSTANCE USE: does not use ALCOHOL: Never Exam Vital Signs Temp Pulse Resp BP Pulse Ox O2 Del Method 97.4 F 64 17 125/63 97 Room Air 12/23/24 14:00 12/23/24 14:00 12/23/24 14:12/23/24 14:12/23/24 14:12/23/24 12:00 Narrative Exam Constitutional: Alert, oriented x 3 and comfortable. Elderly female. HEENT: Vision grossly intact. Patent nares. Trachea midline Respiratory: Chest normal on inspection and clear auscultation bilaterally Cardiovascular: S1 and S2 audible, RRR. No murmurs carotid bruit. No gross JVD. Abdominal: Soft and non tender to palpation in all quadrants. BS + Genitourinary: No bladder tenderness, no flank pain. Normal to palpation Musculoskeletal: Extremities tone within normal limits. No LE edema. Left arm edema Skin: Warm, dry and intact. Left brachial cephalic fistula with [address], minimal slow ooze of blood, weak radial pulse on left Psychiatric: Patient has good affect, is cooperative Neurological: CN II - XII grossly intact. Extremity motor and sensation grossly intact. Results Labs 12/26/24 05:56 12/26/24 05:56 Labs: Short CBC 12/22/24 12/22/24 12/23/24 Range/Units 00:25 15:36 02:29 WBC 5.0 (3.6-11.0) Thou/mm3 Hgb 11.1 L 9.3 L 7.9 L (12.0-16.0) g/dL Hct 31.6 L 28.1 L 23.8 L (36.0-46.0) % Plt Count 102 L D (140-440) Thou/mm3 12/23/24 Range/Units 15:15 WBC (3.6-11.0) Thou/mm3 Hgb 10.1 L D (12.0-16.0) g/dL Hct 29.5 L (36.0-46.0) % Plt Count (140-440) Thou/mm3 BMP 12/22/24 12/23/24 15:36 02:29 Sodium 134 L 139 Potassium 3.5 4.0 D Chloride 97 L 101 Carbon Dioxide 29.8 29.9 BUN 22 28 H Creatinine 2.5 H 3.2 H D Glucose 230 H 185 H Calcium 8.4 7.7 L Cardiac Enzymes 12/22/24 12/22/24 12/23/24 Range/Units 15:36 20:55 02:29 Troponin I 3.507 H* 3.273 H* D 3.280 H* (0.0-0.045) ng/mL 12/23/24 Range/Units 10:39 Troponin I 3.005 H* D (0.0-0.045) ng/mL Liver Function 12/22/24 12/23/24 Range/Units 15:36 02:29 Total Bilirubin 0.6 0.4 (0.3-1.2) mg/dL AST 45 H 36 H (0-34) U/L ALT 20 16 (10-49) U/L Alkaline Phosphatase 128 H 112 (46-116) U/L Albumin 3.8 3.3 L D (3.4-4.8) gm/dL Quality Measures Quality Measures none Advance care planning discussed with:: patient Medications Home Medications and Allergies Home Medications ?Medication ?Instructions ?Recorded ?Confirmed ?Type levothyroxine 50 mcg tablet 1 tab PO DAILY 03/21/22 History pantoprazole 40 mg tablet,delayed 40 mg PO HS 05/29/22 12/23/24 History release insulin glargine U-300 conc 300 10 unit subcut QDAY 12/23/24 History unit/mL (3 mL) subcutaneous pen (Toujeo Max U-300 SoloStar) albuterol sulfate 90 mcg/actuation 1 puff inhalation Q 4HR PRN 08/08/22 12/23/24 History aerosol inhaler BREATHING lactulose 10 gram/15 mL oral 30 ml PO TID PRN Constipa tion 08/08/22 12/23/24 History solution (Constulose) tramadol 50 mg tablet 50 mg PO Q6H PRN Pain 12/23/24 History docusate sodium 100 mg tablet 100 mg PO DAILY 08/23/22 12/23/24 History dulaglutide 1.5 mg/0.5 mL 0.5 mg subcut QWEEK 07/03/24 12/23/24 History subcutaneous pen injector (Trulicity) galcanezumab-gnlm 120 mg/mL 120 mg subcut Q1M 07/03/24 12/23/24 History subcutaneous pen injector (Emgality Pen) aspirin 81 mg chewable tablet 1 tab PO DAILY 10/14/24 12/23/24 History atorvastatin 80 mg tablet 80 mg PO DAILY 10/14/2403/12 History clopidogrel 75 mg tablet 75 mg PO DAILY 10/14/2403/12 History Held on 10/14/24. Instructions: Resume on 10/19/24. please hold for 5 days. furosemide 40 mg tablet (Lasix) 40 mg PO QDAY 10/14/24 12/23/24 History insulin glargine U-300 conc 300 30 unit subcut Q24H 12/23/24 History unit/mL (3 mL) subcutaneous pen (Toujeo Max U-300 SoloStar) isosorbide mononitrate 60 mg 60 mg PO DAILY 10/14/24 0 12/23/24 History tablet,extended release 24 hr nitroglycerin 0.4 mg sublingual See Rx Instructions bu ccal .COMPLEX 10/14/24 12/23/24 History tablet Allergies Allergy/AdvReac Type Severity Reaction Status Date / Time amoxicillin Allergy Severe Rash Verified 12/22/24 14:34 Visit Medications Acetaminophen (Acetaminophen 325 Mg Tablet) 650 mg PO Q6H PRN PRN Reason: Fever >101.5 Stop: 01/21/25 18:27 Acetaminophen (Acetaminophen 325 Mg Tablet) 650 mg PO Q6H PRN PRN Reason: PAIN SCALE 1-3 (mild Stop: 01/21/25 18:27 Last Admin: 12/23/24 09:38 Dose: 650 mg Amiodarone HCl (Amiodarone Hcl 200 Mg Tablet) 200 mg PO DAILY [facility] Stop: 01/22/25 08:59 Last Admin: 12/23/24 09:30 Dose: 200 mg Atorvastatin Calcium (Atorvastatin Calcium 20 Mg Tablet) 80 mg PO HS [facility] Stop: 01/22/25 20:59 Dextrose (Dextrose 50%-Water Inj 50 Ml Syringe) 25 ml IV Q15MIN PRN PRN Reason: BG 50-70 responsive npo pt Stop: 01/21/25 18:31 Dextrose (Dextrose 50%-Water Inj 50 Ml Syringe) 50 ml IV Q15MIN PRN PRN Reason: BG <50 OR BG <70 & pt unresponsive Stop: 01/21/25 18:31 Glucagon (Glucagon Inj 1 Mg Vial) 1 mg IM Q15MIN PRN PRN Reason: BG <70, and no IV access Hydralazine HCl (Hydralazine Inj 20 Mg/Ml Vial) 10 mg IV Q6HR PRN PRN Reason: SBP >180 Stop: 01/21/25 18:33 Insulin Human Lispro (Insulin Lispro (Admelog) 1 Unit/0.01 Ml Unit) 0 unit SC AC [facility]; Protocol Stop: 01/22/25 07:29 Last Admin: 12/23/24 12:16 Dose: 2 unit Levothyroxine Sodium (Levothyroxine Sodium 25 Mcg Tablet) [facility]cg [facility] Stop: 01/22/25 07:44 Last Admin: 12/23/24 09:30 Dose: 50 mcg Ondansetron HCl (Ondansetron Inj 2 Mg/Ml Inj 2 Ml) 4 mg IV Q6H PRN; Protocol PRN Reason: NAUSEA OR VOMITING Stop: 01/21/25 18:27 Pantoprazole Sodium (Pantoprazole Inj 40 Mg Vial) 40 mg IVP QDAY [facility] Stop: 01/22/25 08:59 Last Admin: 12/23/24 09:34 Dose: 40 mg Discontinued Medications Hydralazine HCl (Hydralazine Inj 20 Mg/Ml Vial) 10 mg IV Q2H PRN PRN Reason: SBP >180 Stop: 01/21/25 18:33 Hydromorphone HCl (Hydromorphone Inj 2 Mg/Ml Vial) 0.25 mg IVP X1 ONE Stop: 12/23/24 11:26 Last Admin: 12/23/24 11:43 Dose: 0.25 mg Sodium Chloride (Ns) 500 mls @ 999 mls/hr IV .Q31M ONE Stop: 12/22/24 16:26 Last Infusion: 12/22/24 16:30 Dose: Infused Sodium Chloride (Ns) 500 mls @ 999 mls/hr IV .Q31M ONE Stop: 12/22/24 16:20 Last Admin: 12/22/24 16:53 Dose: Not Given Assessment & Plan Plan A 84-year-old female patient with past medical history of coronary artery disease status post 5 stent placement, A-fib on Eliquis, heart block, hypertension, ESRD on dialysis T/TH/S following up with Dr. Alvarado, diabetes mellitus type 2, was brought to the ED after she had bleeding from her dialysis fistula this morning. Patient was found to have troponin of 3.547, patient was admitted for monitoring of elevated troponin and further observation for any blood loss. #ESRD on HD via left AV fistula T//S follow-up with Dr. 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 Hemoglobin stable at 9.3, however patient reported dizziness, blurry vision and nausea. Blood pressure was on the soft side it was 58/31 however all the blood pressure reads after that was within normal limits. 1 week ago patient reported switching her blood thinners from aspirin and Plavix to aspirin and Eliquis. She is pending Watchman procedure. Plan -Patient currently has nonfunctioning fistula, will possibly need dialysis catheter placement to continue dialysis while inpatient -Patient is scheduled for cardiac catheterization in a.m., will have IR place dialysis catheter post as needed -Will continue with inpatient dialysis -Avoid nephrotoxic agents -Renally dose medications #Left arm edema #Bleeding AV fistula Patient's AV fistula site has minimal blood oozing. Left arm is swollen and radial pulses weaker on the left. ? On-call vascular surgeon, Dr. Nova Kiran consulted. Appreciate recommendations #Acute blood loss anemia secondary to anticoagulation and access of AV fistula #Symptomatic anemia #Stroke rule out #Facial droop #ACS rule out NC #Elevated troponin?resolving #History of CAD s/p 5 stents #History of A-fib previously on Eliquis #History of sinus bradycardia/heart block #History of diabetes mellitus type 2 #History of hypothyroidism - Management as per primary team, cardiology and teleneurology were consulted Case discussed with Attending Dr. Al. Kenneth Bowers PGY1 Disclaimer: This note was dictated by speech recognition. Minor errors in pmp may be present due to voice recognition software. Attending Provider Attestation/Addendum Pt is seen and examined. Labs and investigations are reviewed. Agree witth assessment and plan by resident. agree with findings. Xavier Al MD
--- NOTE | 2024-12-23 16:13 | PC.SS ---
SS met with patient's dtr, Indigo regarding patient's d/c plan.? Pt is alert/oriented.? Pt was admitted for LT Dialysis Graft Bleed.? Dtr confirmed patient's demographic and contact information is correct on facesheet.? Pt resides with her dtr, Cheryl and son in law.? Pt ambulates independently without assistance or DME.? Pt is ok with all ADLs.? Pt has a 4 wheel with seat, rollator walker.? Pt utilizes [facility].? Dtr, Cherylsana Catalan is patient's medical decision maker if she is unable.? SS provided dtr with patient's d/c options.? Daughter's choice is for pt to return home upon d/c.? Pt is established with [facility] and chair time is Saturday, , and Saturday at 6am.? Son is law provides transportation.? Pt followed up last week with PCP.? [facility]tr[facility], phone# [phone] [place] provide transportation at [place] D/C plan:? Return home Next of Kin:? Cheryl Catalan, daughter, phone# [phone] PCP:? Dr. Andrew Zhou Address:? Correct on facesheet
[2024-12-23] MEDS: ATORVASTATIN CALCIUM 20 MG TABLET 80 MG PO (20:12)
[2024-12-23] MEDS: MG HYD/AL HYD/SIME (Maalox Reg) SUSP 30 ML UDC 15 ML PO (20:18)
[2024-12-24] VITALS (9 sets, daily range): BP systolic 112–160; BP diastolic 50–70; PULSE 58–70; RESP 16–96; TEMP 36.1–36.7; O2SAT 94–98; BMI 24.6
[2024-12-24] MEDS: ONDANSETRON INJ 2 MG/ML INJ 2 ML 4 MG IV (04:07)
[2024-12-24] MEDS: MG HYD/AL HYD/SIME (Maalox Reg) SUSP 30 ML UDC 15 ML PO ×2 (04:07→21:14)
[2024-12-24] MEDS: LEVOTHYROXINE SODIUM 25 MCG TABLET 50 MCG PO (05:45)
[2024-12-24 06:46] LABS: Basophils # (Auto) 0.1 Thou/mm3 (0.0-0.2); Basophils % (Auto) 1 % (0-2.5); Eosinophils # (Auto) 0.1 Thou/mm3 (0.0-0.5); Eosinophils % (Auto) 2 % (0-10); Hematocrit 29.6 % (36.0-46.0); Hemoglobin 9.9 g/dL (12.0-16.0); Immature Granulocytes % (Auto) 0 % (0-0); Immature Granulocytes Auto 0.01 Thou/mm3 (0.00-0.00); Lymphocytes # (Auto) 1.4 Thou/mm3 (1.0-4.8); Lymphocytes % (Auto) 27 % (10-50); Mean Corpuscular HGB Conc 33.4 g/dl (31.0-37.0); Mean Corpuscular Hemoglobin 30.7 pg (25.0-35.0); Mean Corpuscular Volume 92 fL (80-100); Monocytes # (Auto) 0.5 Thou/mm3 (0.0-0.8); Monocytes % (Auto) 9 % (0-12); Neutrophils # (Auto) 3.4 Thou/mm3 (1.8-7.7); Neutrophils % (Auto) 62 % (37-80); Nucleated Red Blood Cell % 0 /100 WBC (0); Platelet Count 103 Thou/mm3 (140-440); RDW Standard Deviation 56.7 fL (36.4-46.3); Red Blood Count 3.22 Miln/mm3 (4.00-5.20); White Blood Count 5.4 Thou/mm3 (3.6-11.0)
[2024-12-24 07:14] LABS: Alanine Aminotransferase 16 U/L (10-49); Albumin, Serum 3.4 gm/dL (3.4-4.8); Albumin/Globulin Ratio 1.5 (1.2-2.2); Alkaline Phosphatase 116 U/L (46-116); Anion Gap 9 (7-16); Aspartate Amino Transferase 31 U/L (0-34); BUN/Creatinine Ratio 12 Ratio (12-20); Bilirubin,Total 0.6 mg/dL (0.3-1.2); Blood Urea Nitrogen 45 mg/dL (9-23); Calcium 8.1 mg/dL (8.3-10.6); Calcium (Corrected) 8.6 mg/dL (8.5-10.1); Carbon Dioxide 28.5 mMol/L (20.0-31.0); Chloride 100 mMol/L (98-107); Creatinine (Component) 3.9 mg/dL (0.6-1.3); Globulin 2.2 gm/dL (2.3-3.5); Glucose 179 mg/dL (74-106); Magnesium 2.2 mg/dL (1.6-2.6); Osmolality,Calculated 289 (275-295); Phosphorous 4.1 mg/dL (2.4-5.1); Potassium 4.3 mMol/L (3.4-5.1); Sodium 137 mMol/L (136-145); Total Protein 5.6 gm/dL (5.7-8.2); eGFR 11 See Note
[2024-12-24] MEDS: INSULIN LISPRO (AdmeLOG) 1 UNIT/0.01 ML UNIT SC ×3 (07:35→17:07)
--- NOTE | 2024-12-24 07:48 | ESPR_ITS ---
Documentation for date of: 12/24/24 Subjective Subjective Interval history: no facscial weakness CT negative pt says she is ok ; c/o of chestt pain troponin Positive will plan for heart cath tomorrow Exam Vital Signs Temp Pulse Resp BP Pulse Ox O2 Del Method 97.1 F 66 17 143/60 H 97 Room Air 12/24/24 04:00 12/24/24 04:00 12/24/24 04:00 12/24/24 04:00 12/24/24 04:00 12/24/24 04:00 Routine HEENT Exam Head: Present normocephalic and atraumatic Eye: Present EOMI and PERRL ENT: Present mucous membranes moist Routine Neck Exam Neck: Present supple and trachea midline Routine Respiratory Exam Respiratory: Present chest non-tender, lungs clear, normal breath sounds and no resp distress Routine Cardiovascular Exam Cardiovascular: Present RRR Routine Abdominal Exam Abdominal: Present soft and normoactive bowel sounds Routine Extremities Exam Extremities: Present full ROM Routine Skin Exam Skin: Present intact, dry and warm Routine Neurological Exam Neurological: Present alert, oriented X3 and CN II-XII intact Routine Psychiatric Exam Psychiatric: Present normal affect and normal thought process Objective Labs 12/24/24 05:10 12/24/24 05:10 Labs: Laboratory Results - last 24 hr 12/23/24 12/23/24 12/23/24 09:06 10:39 15:15 WBC RBC Hgb 10.1 L D Hct 29.5 L MCV MCH MCHC RDW Std Deviation Plt Count Neut % (Auto) Lymph % (Auto) [place] % (Auto) Eos % (Auto) Baso % (Auto) Neut # (Auto) Lymph # (Auto) [place] # (Auto) Eos # (Auto) Baso # (Auto) Immature Gran # (Auto) Absolute Nucleated RBC Immature Gran % Nucleated RBC % ESR 14 Sodium Potassium Chloride Carbon Dioxide Anion Gap BUN Creatinine Estim Creat Clear Calc eGFR BUN/Creatinine Ratio Glucose Calculated Osmolality Calcium Corrected Calcium Phosphorus Magnesium Total Bilirubin AST ALT Alkaline Phosphatase Troponin I 3.005 H* D Total Protein Albumin Globulin Albumin/Globulin Ratio Blood Type A Positive Antibody Screen NEGATIVE Crossmatch See Detail Blood Bank Wristband ID Yes 12/24/24 05:10 WBC 5.4 RBC 3.22 L Hgb 9.9 L Hct 29.6 L MCV 92 MCH 30.7 MCHC 33.4 RDW Std Deviation 56.7 H Plt Count 103 L Neut % (Auto) 62 Lymph % (Auto) 27 [place] % (Auto) 9 Eos % (Auto) 2 Baso % (Auto) 1 Neut # (Auto) 3.4 Lymph # (Auto) 1.4 [place] # (Auto) 0.5 Eos # (Auto) 0.1 Baso # (Auto) 0.1 Immature Gran # (Auto) 0.01 H Absolute Nucleated RBC 0.00 Immature Gran % 0 Nucleated RBC % 0 ESR Sodium 137 Potassium 4.3 Chloride 100 Carbon Dioxide 28.5 Anion Gap 9 BUN 45 H Creatinine 3.9 H D Estim Creat Clear Calc 9.0 L eGFR 11 L* BUN/Creatinine Ratio 12 Glucose 179 H Calculated Osmolality 289 Calcium 8.1 L Corrected Calcium 8.6 Phosphorus 4.1 Magnesium 2.2 Total Bilirubin 0.6 AST 31 ALT 16 Alkaline Phosphatase 116 Troponin I Total Protein 5.6 L Albumin 3.4 Globulin 2.2 L Albumin/Globulin Ratio 1.5 Blood Type Antibody Screen Crossmatch Blood Bank Wristband ID Assessment & Plan A&P Narrative continue current treatment hold eliquis may need heart cath Time Spent With Patient Time: Total time spent is greater than 50% in coordination of care (as documented) at patient's floor/unit and/or counseling patient:
[2024-12-24] MEDS: PANTOPRAZOLE INJ 40 MG VIAL IVP (08:30)
[2024-12-24] MEDS: AMIODARONE HCL 200 MG TABLET PO (08:30)
--- NOTE | 2024-12-24 09:40 | ESPR_ITS ---
<Statement entered by Eyal Valdez MD - 12/24/24 16:22> Patient was seen and examined at bedside. Patient reported significant improvement of her headache and dizziness from yesterday, she denied any chest pain at this time. She denied any weakness or sensory abnormalities and denied any double vision or dizziness. Her facial droop still apparent however she denied any salivary drooling and denied any choking. Dr Mattson was consulted after she had she had facial droop she mentions that does not need any MRI. At this time patient is scheduled for cardiac catheterization by Dr Moore, and also possible dialysis catheter placement by Dr. Meraz and decision of dialysis if indicated by Dr. Meraz, patient after that will be transferred to vascular surgical services to reassess and possible another placement of vascular graft. For dialysis. - Patient's plan and care discussed with my attending, Dr. Blair Valdez MD Internal Medicine PGY-2 Documentation for date of: 12/24/24 Subjective Subjective Interval history: Patient was seen and examined at bedside this AM. No acute exents overnight. Patient tolerating diet, adequate urine output and mentation is at baseline. Patient endorses improvement of headache. Still has mild left facial droop. Pending in-house neurology recommendations. Cardiology, Dr. Moore schedule patient for cardiac catheterization tomorrow. Nephrology, Dr. Meraz assessed patient's AV fistula and deemed it to be nonfunctional. He Sided vascular surgeon, Dr. Mai who recommended patient be transferred to a tertiary center for repair of nonfunctional/bleeding AV fistula. For placement of IR guided dialysis catheter tomorrow Exam Vital Signs Temp Pulse Resp BP Pulse Ox O2 Del Method 97.2 F 68 18 127/54 L 96 Room Air 12/24/24 07:42 12/24/24 09:38 12/24/24 09:38 12/24/24 08:30 12/24/24 07:42 12/24/24 07:42 Narrative Exam Constitutional Alert, oriented x 3 and comfortable. Elderly female. HEENT Vision grossly intact. Patent nares. Trachea midline Respiratory Chest normal on inspection and clear auscultation bilaterally Cardiovascular S1 and S2 audible, RRR. No murmurs carotid bruit. No gross JVD. Abdominal Soft and non tender to palpation in all quadrants. BS + Genitourinary No bladder tenderness, no flank pain. Normal to palpation Musculoskeletal Extremities tone within normal limits. No LE edema. Left arm edema - improving Skin Warm, dry and intact. Left brachial cephalic fistula with [address], thrill palpated, minimal slow ooze of blood Psychiatric Patient has good affect, is cooperative Neurological CN II - XII grossly intact. Extremity motor and sensation grossly intact. 1A: Level of Consciousness - Appropriate + 0 1B: Ask Month and Age -both correct + 0 1C: Blink Eyes & Squeeze Hands - Performs Both Tasks + 0 2: Test Horizontal Extraocular Movements - Normal + 0 3: Test Visual Perla -intact + 0 4: Test Facial Palsy (Use Grimace if Obtunded) - Minor paralysis (flat nasolabial fold, smile asymmetry) + 1 5A: Test Left Arm Motor Drift - No Drift for 10 Seconds + 0 5B: Test Right Arm Motor Drift - No Drift for 10 Seconds + 0 6A: Test Left Leg Motor Drift - No Drift for 5 Seconds + 0 6B: Test Right Leg Motor Drift - No Drift for 5 Seconds + 0 7: Test Limb Ataxia (FNF/Heel-Brewer) - No Ataxia + 0 8: Test Sensation - Normal; No sensory loss + 0 9: Test Language/Aphasia -no aphasia + 0 10: Test Dysarthria - Normal + 0 11: Test Extinction/Inattention - No abnormality + 0 NIHSS Score: 1 Objective Labs 12/24/24 05:10 12/24/24 05:10 Labs: Laboratory Results - last 24 hr 12/23/24 12/23/24 12/23/24 09:06 10:39 15:15 WBC RBC Hgb 10.1 L D Hct 29.5 L MCV MCH MCHC RDW Std Deviation Plt Count Neut % (Auto) Lymph % (Auto) [place] % (Auto) Eos % (Auto) Baso % (Auto) Neut # (Auto) Lymph # (Auto) [place] # (Auto) Eos # (Auto) Baso # (Auto) Immature Gran # (Auto) Absolute Nucleated RBC Immature Gran % Nucleated RBC % ESR 14 Sodium Potassium Chloride Carbon Dioxide Anion Gap BUN Creatinine Estim Creat Clear Calc eGFR BUN/Creatinine Ratio Glucose Calculated Osmolality Calcium Corrected Calcium Phosphorus Magnesium Total Bilirubin AST ALT Alkaline Phosphatase Troponin I 3.005 H* D Total Protein Albumin Globulin Albumin/Globulin Ratio Blood Type A Positive Antibody Screen NEGATIVE Crossmatch See Detail Blood Bank Wristband ID Yes 12/24/24 05:10 WBC 5.4 RBC 3.22 L Hgb 9.9 L Hct 29.6 L MCV 92 MCH 30.7 MCHC 33.4 RDW Std Deviation 56.7 H Plt Count 103 L Neut % (Auto) 62 Lymph % (Auto) 27 [place] % (Auto) 9 Eos % (Auto) 2 Baso % (Auto) 1 Neut # (Auto) 3.4 Lymph # (Auto) 1.4 [place] # (Auto) 0.5 Eos # (Auto) 0.1 Baso # (Auto) 0.1 Immature Gran # (Auto) 0.01 H Absolute Nucleated RBC 0.00 Immature Gran % 0 Nucleated RBC % 0 ESR Sodium 137 Potassium 4.3 Chloride 100 Carbon Dioxide 28.5 Anion Gap 9 BUN 45 H Creatinine 3.9 H D Estim Creat Clear Calc 9.0 L eGFR 11 L* BUN/Creatinine Ratio 12 Glucose 179 H Calculated Osmolality 289 Calcium 8.1 L Corrected Calcium 8.6 Phosphorus 4.1 Magnesium 2.2 Total Bilirubin 0.6 AST 31 ALT 16 Alkaline Phosphatase 116 Troponin I Total Protein 5.6 L Albumin 3.4 Globulin 2.2 L Albumin/Globulin Ratio 1.5 Blood Type Antibody Screen Crossmatch Blood Bank Wristband ID Quality Measures Quality Measures none Advance care planning discussed with:: patient Assessment & Plan Assessment Current Active Medications: Generic Name Dose Route Start Last Admin Trade Name Freq PRN Reason Stop Dose Admin Acetaminophen 650 mg 12/22/24 18:28 Acetaminophen 325 Mg Tablet PO 01/21/25 18:27 Q6H PRN Fever >101.5 Acetaminophen 650 mg 12/22/24 18:28 12/23/24 09:38 Acetaminophen 325 Mg Tablet PO 01/21/25 18:27 650 mg Q6H PRN Administration PAIN SCALE 1-3 (mild Amiodarone HCl 200 mg 12/23/24 09:00 12/24/24 08:30 Amiodarone Hcl 200 Mg Tablet PO 01/22/25 08:59 200 mg DAILY ALL Administration Atorvastatin Calcium 80 mg 12/23/24 21:00 12/23/24 20:12 Atorvastatin Calcium 20 Mg Tablet PO 01/22/25 20:59 80 mg HS ALL Administration Dextrose 25 ml 12/22/24 18:32 Dextrose 50%-Water Inj 50 Ml Syringe IV 01/21/25 18:31 Q15MIN PRN BG 50-70 responsive npo pt Dextrose 50 ml 12/22/24 18:32 Dextrose 50%-Water Inj 50 Ml Syringe IV 01/21/25 18:31 Q15MIN PRN BG <50 OR BG <70 & pt unresponsive Glucagon 1 mg 12/22/24 18:32 Glucagon Inj 1 Mg Vial IM Q15MIN PRN BG <70, and no IV access Hydralazine HCl 10 mg 12/23/24 08:04 Hydralazine Inj 20 Mg/Ml Vial IV 01/21/25 18:33 Q6HR PRN SBP >180 Insulin Glargine 5 unit 12/24/24 09:30 Insulin Glargine (Lantus) 5 Unit/0.05 Ml (Per 5 Units) SC 01/23/25 09:29 QDAY ALL Insulin Human Lispro 0 unit 12/23/24 07:30 12/24/24 07:35 Insulin Lispro (Admelog) 1 Unit/0.01 Ml Unit SC 01/22/25 07:29 1 unit AC ALL Administration Protocol Levothyroxine Sodium 50 mcg 12/23/24 07:45 12/24/24 05:45 Levothyroxine Sodium 25 Mcg Tablet PO 01/22/25 07:44 50 mcg ACBR ALL Administration Ondansetron HCl 4 mg 12/22/24 18:28 12/24/24 04:07 Ondansetron Inj 2 Mg/Ml Inj 2 Ml IV 01/21/25 18:27 4 mg Q6H PRN Administration NAUSEA OR VOMITING Protocol Pantoprazole Sodium 40 mg 12/23/24 09:00 12/24/24 08:30 Pantoprazole Inj 40 Mg Vial IVP 01/22/25 08:59 40 mg QDAY ALL Administration Plan A 84-year-old female patient with past medical history of coronary artery disease status post 5 stent placement, A-fib on Eliquis, heart block, hypertension, ESRD on dialysis T// following up with Dr. Alvarado, diabetes mellitus type 2, was brought to the ED after she had bleeding from her dialysis fistula this morning. Patient was found to have troponin of 3.547, patient was admitted for monitoring of elevated troponin and further observation for any blood loss. #Acute blood loss anemia secondary to anticoagulation and access of AV fistula - resolving #Symptomatic anemia - resolving Following patient's dialysis session last Saturday she had profuse bleeding from her AV fistula access site. She began to feel dizzy and had blurry vision On admission Hb 11.1. This a.m. Hb 7.9 As patient has CAD to maintain adequate cardiac perfusion is recommended to maintain her hemoglobin greater than 8 Post transfusion Hb 9.9 Plan: ? Monitor hemoglobin on a.m. labs #Left arm edema?resolving #Bleeding AV fistula?resolving DDx: Dependent edema, stenosis of AV fistula, upper limb DVT Nephrology, Dr. Meraz assessed patient's AV fistula and deemed it to be nonfunctional. He curb-sided vascular surgeon, Dr. Mai who recommended patient be transferred to a tertiary center for repair of nonfunctional/bleeding AV fistula. Plan: ? Continue to elevate arm ? On-call vascular surgeon, Dr. Nova Kiran consulted. Still awaiting recommendations - Transfer initiated to tertiary center for vascular surgery intervention after placement of dialysis catheter tomorrow. # ESRD on HD via left AV fistula T// follow-up with Dr. Alvarado Patient presented with multiple episode of bleeding after she finished her dialysis today. Hemoglobin stable at 9.3, however patient reported dizziness, blurry vision and nausea. Blood pressure was on the soft side it was 58/31 however all the blood pressure reads after that was within normal limits. 1 week ago patient reported switching her blood thinners from aspirin and Plavix to aspirin and Eliquis. She is pending Watchman procedure. Plan ? Continue to hold Eliquis and aspirin for now - Nephrology, Dr. Al assessed patient's AV fistula and deemed it to be nonfunctional. He curb-sided vascular surgeon, Dr. Mai who recommended patient be transferred to a tertiary center for repair of nonfunctional/bleeding AV fistula. #Stroke rule out #Facial droop DDx: Recrudescence of stroke, Stark's palsy, stroke,GBS, multiple sclerosis Around 2 PM patient was eating her lunch when she complained of a posterior headache and dizziness. On exam NIHSS was +1 for facial droop on the left. 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 Negative for acute hemorrhage, mass effect or midline shift. Patient passed speech eval. Pending PT and echo Plan: - Neuro checks q 4H - Head of bed elevated to 30 degrees - Swallow eval and bedside swallow screen ordered - PT/OT referrals placed - Seizure precautions in place - ECHO with bubble study ordered - PRN Acetaminophen 650mg to avoid hyperthermia - Dr Mattson consulted, pending in-house Neurology recommendations #ACS -resolved #Elevated troponin?resolving #History of CAD s/p 5 stents #History of A-fib previously on Eliquis #History of sinus bradycardia/heart block Patient complains of central crushing chest pain radiating to bilateral shoulders. Started approximately 9 AM this a.m. and constant. EKG showed rate 92, first-degree AV block, ST depression in lateral leads. No acute ST elevation noted Troponin down trended to 3.005 from 3.28. Dilaudid 0.25 Mg IV x 1 given. Cardiology, Dr. Moore consulted. Plan ? No need to further trend trops as it is down trended. ? To consider restarting anticoagulation once hemoglobin stable and no further episodes of bleeding. - For left heart catheterization tomorrow ? Cardiology, Dr. Moore consulted and closely following the case. Appreciate recommendations #History of diabetes mellitus type 2 Plan ? Insulin sliding scale ? Hypoglycemia protocol in place #History of hypothyroidism Plan ? Continue home medication levothyroxine 50 mcg p.o. daily Health maintenance: Disposition: Pending in-house neuro recs. Echo. IR dialysis catheter tomorrow, heart cath. Pending transfer to tertiary center Diet: Consistent carb Lines: pIVs GI Prophylaxis: Pantoprazole Thrombo Prophylaxis: SCDs Code status: FULL CODE Plan of care discussed with Attending Dr. Manuel and PGY 2 Dr. José Miguel Shankar MD PGY 1 Disclaimer: This note was dictated by speech recognition. Minor errors in diesel motor mechanic may be present due to voice recognition software. Attending Provider Attestation/Addendum I attest that I was physically present for the evaluation, physical examination, lab and imaging review of the patient with the residents. I discussed the case with the residents and agree with the findings and plans of care as documented above. At bedside today, patient states he is feeling better compared to yesterday. Her dizziness have resolved and headache has improved. Continues to be alert and oriented, able to answer questions and follow commands appropriately. Cardiology following, patient is planned for cardiac catheterization tomorrow. Nephrology following regarding hemodialysis, stated that AV fistula is currently nonfunctional to be used for hemodialysis, he had discussion with vascular surgeon, Dr. Mai, who recommended transfer to tertiary center for repair of her AV fistula. We will plan for IR guided dialysis catheter placement tomorrow for continuation of hemodialysis. We will start the transfer process once patient gets IR dialysis catheter and cardiac catheterization tomorrow. Hemoglobin today is 9.9, stable after transfusion. Diabetes fistula has minimal bleeding/bruising. We will continue with pressure dressing. Awaiting neurology recommendation, brain MRI, echocardiography. Holding antiplatelets and anticoagulation due to concern for bleeding from AV fistula. Brooke Manuel MD
--- NOTE | 2024-12-24 09:40 | PC.SS ---
Upate: Neurology recommendations are pending. Angiogram pending.
[2024-12-24] MEDS: INSULIN GLARGINE (Lantus) 5 UNIT/0.05 ML (PER 5 UNITS) SC (10:20)
--- NOTE | 2024-12-24 10:48 | PD.RESPRO ---
Documentation for date of: 12/24/24 Subjective Subjective Interval history: A 84-year-old female patient with past medical history of coronary artery disease status post 5 stent placement, A-fib on Eliquis, hypertension, ESRD on dialysis T// following up with Dr. Alvarado, diabetes mellitus type 2, was brought to the ED after she had bleeding from her dialysis fistula this morning. Patient reported that she finished her session of dialysis today and when she got home she noticed there was bleeding from the fistula site. She went back to the dialysis center in which they applied pressure and and was wrapped. Patient continued to bleed and went back to the dialysis center 2 times third time she became dizzy and had blurry vision in which she was informed to go to the ED immediately.. Patient reported that last week she reported that she was on aspirin and Plavix and her Plavix was switched to Eliquis. She reported that she is taking Eliquis for her A-fib as she was scheduled for Watchman however she still pending for her nut blanker operator to do the procedure. Patient denied any chest pain, palpitation, abdominal pain, however she reported mild nausea. Patient reported that she is scheduled for a visit with her vascular surgeon as she has had previous episode of bleeding from dialysis fistula. ED course: On presentation patient was noticed to have blood pressure of 58/31, pulse was 70, respiratory rate of 18, her labs showed hemoglobin level of 9.3 which is her baseline, platelets 148, coagulation panel was within normal limits, CMP showed sodium of 134, potassium 3.5, serum creatinine 2.5, glucose 230, AST 45, troponin 3.507, EKG showed sinus bradycardia with first-degree AV block. Patient was given 1L of IV fluids in the ED. Repeat blood pressure was 141/60. Nephrology consulted in setting of ESRD on hemodialysis with left AV fistula. Patient is awaiting vascular consult. 12/24/2024: Patient seen and examined at bedside, patient resting comfortably in bed, eating lunch. Patient's left AV fistula examined, had a stitch placed on the left arm in the emergency department on 12/22/2024, called patient's vascular surgeon in [place], vascular surgery recommended not to use the fistula for now and transferred to [facility] for further evaluation. Patient is scheduled for dialysis today, made patient n.p.o. stat, ordered permanent tunneled dialysis catheter placement by interventional radiology today. Discussed with IR department, as staff is only available for limited time, might not be able to place catheter today. Patient is otherwise stable, catheter can be placed in a.m. as well. Patient is scheduled for cardiac catheterization in the morning, will keep n.p.o. after midnight. Exam Vital Signs Temp Pulse Resp BP Pulse Ox O2 Del Method 97.2 F 68 18 127/54 L 96 Room Air 12/24/24 07:42 12/24/24 09:38 12/24/24 09:38 12/24/24 08:30 12/24/24 07:42 12/24/24 07:42 Narrative Exam Constitutional: Alert, oriented x 3 and comfortable. Elderly female. HEENT: Vision grossly intact. Patent nares. Trachea midline Respiratory: Chest normal on inspection and clear auscultation bilaterally Cardiovascular: S1 and S2 audible, RRR. No murmurs carotid bruit. No gross JVD. Abdominal: Soft and non tender to palpation in all quadrants. BS + Genitourinary: No bladder tenderness, no flank pain. Normal to palpation Musculoskeletal: Extremities tone within normal limits. No LE edema. Left arm edema Skin: Warm, dry and intact. Left brachial cephalic fistula with [address], minimal slow ooze of blood, weak radial pulse on left Psychiatric: Patient has good affect, is cooperative Neurological: CN II - XII grossly intact. Extremity motor and sensation grossly intact. Objective Labs 12/26/24 05:56 12/26/24 05:56 Labs: Laboratory Results - last 24 hr 12/23/24 12/23/24 12/23/24 09:06 10:39 15:15 WBC RBC Hgb 10.1 L D Hct 29.5 L MCV MCH MCHC RDW Std Deviation Plt Count Neut % (Auto) Lymph % (Auto) [place] % (Auto) Eos % (Auto) Baso % (Auto) Neut # (Auto) Lymph # (Auto) [place] # (Auto) Eos # (Auto) Baso # (Auto) Immature Gran # (Auto) Absolute Nucleated RBC Immature Gran % Nucleated RBC % ESR 14 Sodium Potassium Chloride Carbon Dioxide Anion Gap BUN Creatinine Estim Creat Clear Calc eGFR BUN/Creatinine Ratio Glucose Calculated Osmolality Calcium Corrected Calcium Phosphorus Magnesium Total Bilirubin AST ALT Alkaline Phosphatase Troponin I 3.005 H* D Total Protein Albumin Globulin Albumin/Globulin Ratio Blood Type A Positive Antibody Screen NEGATIVE Crossmatch See Detail Blood Bank Wristband ID Yes 12/24/24 05:10 WBC 5.4 RBC 3.22 L Hgb 9.9 L Hct 29.6 L MCV 92 MCH 30.7 MCHC 33.4 RDW Std Deviation 56.7 H Plt Count 103 L Neut % (Auto) 62 Lymph % (Auto) 27 [place] % (Auto) 9 Eos % (Auto) 2 Baso % (Auto) 1 Neut # (Auto) 3.4 Lymph # (Auto) 1.4 [place] # (Auto) 0.5 Eos # (Auto) 0.1 Baso # (Auto) 0.1 Immature Gran # (Auto) 0.01 H Absolute Nucleated RBC 0.00 Immature Gran % 0 Nucleated RBC % 0 ESR Sodium 137 Potassium 4.3 Chloride 100 Carbon Dioxide 28.5 Anion Gap 9 BUN 45 H Creatinine 3.9 H D Estim Creat Clear Calc 9.0 L eGFR 11 L* BUN/Creatinine Ratio 12 Glucose 179 H Calculated Osmolality 289 Calcium 8.1 L Corrected Calcium 8.6 Phosphorus 4.1 Magnesium 2.2 Total Bilirubin 0.6 AST 31 ALT 16 Alkaline Phosphatase 116 Troponin I Total Protein 5.6 L Albumin 3.4 Globulin 2.2 L Albumin/Globulin Ratio 1.5 Blood Type Antibody Screen Crossmatch Blood Bank Wristband ID Quality Measures Quality Measures none Advance care planning discussed with:: patient Assessment & Plan Assessment Current Active Medications: Generic Name Dose Route Start Last Admin Trade Name Freq PRN Reason Stop Dose Admin Acetaminophen 650 mg 12/22/24 18:28 Acetaminophen 325 Mg Tablet PO 01/21/25 18:27 Q6H PRN Fever >101.5 Acetaminophen 650 mg 12/22/24 18:28 12/23/24 09:38 Acetaminophen 325 Mg Tablet PO 01/21/25 18:27 650 mg Q6H PRN Administration PAIN SCALE 1-3 (mild Amiodarone HCl 200 mg 12/23/24 09:00 12/24/24 08:30 Amiodarone Hcl 200 Mg Tablet PO 01/22/25 08:59 200 mg DAILY ALL Administration Atorvastatin Calcium 80 mg 12/23/24 21:00 12/23/24 20:12 Atorvastatin Calcium 20 Mg Tablet PO 01/22/25 20:59 80 mg HS ALL Administration Dextrose 25 ml 12/22/24 18:32 Dextrose 50%-Water Inj 50 Ml Syringe IV 01/21/25 18:31 Q15MIN PRN BG 50-70 responsive npo pt Dextrose 50 ml 12/22/24 18:32 Dextrose 50%-Water Inj 50 Ml Syringe IV 01/21/25 18:31 Q15MIN PRN BG <50 OR BG <70 & pt unresponsive Glucagon 1 mg 12/22/24 18:32 Glucagon Inj 1 Mg Vial IM Q15MIN PRN BG <70, and no IV access Hydralazine HCl 10 mg 12/23/24 08:04 Hydralazine Inj 20 Mg/Ml Vial IV 01/21/25 18:33 Q6HR PRN SBP >180 Insulin Glargine 5 unit 12/24/24 09:30 12/24/24 10:20 Insulin Glargine (Lantus) 5 Unit/0.05 Ml (Per 5 Units) SC 01/23/25 09:29 5 unit QDAY ALL Administration Insulin Human Lispro 0 unit 12/23/24 07:30 12/24/24 07:35 Insulin Lispro (Admelog) 1 Unit/0.01 Ml Unit SC 01/22/25 07:29 1 unit AC ALL Administration Protocol Levothyroxine Sodium 50 mcg 12/23/24 07:45 12/24/24 05:45 Levothyroxine Sodium 25 Mcg Tablet PO 01/22/25 07:44 50 mcg ACBR ALL Administration Ondansetron HCl 4 mg 12/22/24 18:28 12/24/24 04:07 Ondansetron Inj 2 Mg/Ml Inj 2 Ml IV 01/21/25 18:27 4 mg Q6H PRN Administration NAUSEA OR VOMITING Protocol Pantoprazole Sodium 40 mg 12/23/24 09:00 12/24/24 08:30 Pantoprazole Inj 40 Mg Vial IVP 01/22/25 08:59 40 mg QDAY ALL Administration Plan A 84-year-old female patient with past medical history of coronary artery disease status post 5 stent placement, A-fib on Eliquis, heart block, hypertension, ESRD on dialysis T//S following up with Dr. Alvarado, diabetes mellitus type 2, was brought to the ED after she had bleeding from her dialysis fistula this morning. Patient was found to have troponin of 3.547, patient was admitted for monitoring of elevated troponin and further observation for any blood loss. #ESRD on HD via left AV fistula T//S follow-up with Dr. 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 Hemoglobin stable at 9.3, however patient reported dizziness, blurry vision and nausea. Blood pressure was on the soft side it was 58/31 however all the blood pressure reads after that was within normal limits. 1 week ago patient reported switching her blood thinners from aspirin and Plavix to aspirin and Eliquis. She is pending Watchman procedure. Plan -Patient's AV fistula assessed at bedside, case discussed with vascular surgeon Dr. Lyle, Dr. Lyle recommends transfer to [facility] for possible fistulogram and further evaluation of AV fistula. -Ordered permanent dialysis catheter placement by interventional radiology, patient made n.p.o. patient to receive dialysis after catheter placement. -Patient is scheduled for cardiac catheterization in a.m., patient should have cardiac cath placed in a.m. if unable to place today. -Will continue with inpatient dialysis -Avoid nephrotoxic agents -Renally dose medications #Left arm edema #Bleeding AV fistula Patient's AV fistula site has minimal blood oozing. Left arm is swollen and radial pulses weaker on the left. ? On-call vascular surgeon, Dr. Nova Kiran consulted. ? Patient's AV fistula assessed at bedside, case discussed with vascular surgeon Dr. Lyle, Dr. Lyle recommends transfer to [facility] for possible fistulogram and further evaluation of AV fistula. #Acute blood loss anemia secondary to anticoagulation and access of AV fistula #Symptomatic anemia #Stroke rule out #Facial droop #ACS rule out [facility] #Elevated troponin?resolving #History of CAD s/p 5 stents #History of A-fib previously on Eliquis #History of sinus bradycardia/heart block #History of diabetes mellitus type 2 #History of hypothyroidism - Management as per primary team, cardiology and teleneurology were consulted Case discussed with Attending Dr. Al. Kenneth Bowers PGY1 Disclaimer: This note was dictated by speech recognition. Minor errors in instructor product inspection may be present due to voice recognition software. Attending Provider Attestation/Addendum Pt is seen and examined. Labs and investigations are reviewed. Agree witth assessment and plan by resident. agree with findings. Xavier Al MD
--- NOTE | 2024-12-24 11:00 | ESCONSULT_ITS ---
HPI Data of Consult Requesting Physician: Brooke Manuel MD Admitting Provider: Brooke Manuel MD Attending Provider: Brooke Manuel MD Primary Care Provider: Andrew Zhou MD Consult Narrative Reason for consult: left lower facial droop History of present illness: Patient is a 84-year-old female with a previous medical history of CAD status post stent placement, CVA with no residual deficits, A-fib on Eliquis, hypertension, type 2 diabetes, end-stage renal disease on dialysis T//sat who was admitted to the hospital due to bleeding from dialysis AV fistula. She reports that she has had bleeding from her fistula previously but it stopped after applying pressure or suturing. She finished her dialysis session and had bleeding from the fistula, which did not stop and patient was sent to the ED. she was initially on aspirin and Plavix but was recently changed to Eliquis. After admission, Eliquis was put on hold. On admission, Troponin I was elevated, peaked at 3.280, downtrended. She also had chest pain. Hat Marker Dr. Moore was consulted, pain. EKG showed sinus rhythm with right bundle branch block. Coronary angiogram is planned. Nephrology was also consulted, due to non- functioning fistula she would require dialysis catheter placement. On 12/23/24 patient was noted to have left lower facial droop. Stroke alert was caled, teleneuro consulted. Head CT was negative for acute intracranial pathology. Neurology was consulted for acute stroke rule out. cc:: cc: Brooke Manuel MD Review of Systems Review of Systems Systems Reviewed: All systems reviewed, normal except as documented Exam Vital Signs Temp Pulse Resp BP Pulse Ox O2 Del Method 97.2 F 68 18 127/54 L 96 Room Air 12/24/24 07:42 12/24/24 09:38 12/24/24 09:38 12/24/24 08:30 12/24/24 07:42 12/24/24 07:42 Narrative Exam Gen: Well-developed and well-nourished. HEENT: NCAT, PERRLA, EOMI, MMM, anicteric conjunctivae. CVS: normal S1 and S2. RRR. No M/R/G. Resp: CTA B/L. No rhonchi, rales, crackles or wheezing. Abd: soft, non-tender, non-distended. BS+ in all 4 quadrants. MSK: Good ROM in BUE & BLE. No edema or rash. Neuro: Mild left lower facial droop. Strength 5/5 in BUE & BLE. Alert and oriented x3. Psych: appropriate mood and affect. Results Labs 12/24/24 05:10 12/24/24 05:10 Labs: Short CBC 12/23/24 12/24/24 Range/Units 15:15 05:10 WBC 5.4 (3.6-11.0) Thou/mm3 Hgb 10.1 L D 9.9 L (12.0-16.0) g/dL Hct 29.5 L 29.6 L (36.0-46.0) % Plt Count 103 L (140-440) Thou/mm3 BMP 12/24/24 05:10 Sodium 137 Potassium 4.3 Chloride 100 Carbon Dioxide 28.5 BUN 45 H Creatinine 3.9 H D Glucose 179 H Calcium 8.1 L Cardiac Enzymes 12/23/24 Range/Units 10:39 Troponin I 3.005 H* D (0.0-0.045) ng/mL Liver Function 12/24/24 Range/Units 05:10 Total Bilirubin 0.6 (0.3-1.2) mg/dL AST 31 (0-34) U/L ALT 16 (10-49) U/L Alkaline Phosphatase 116 (46-116) U/L Albumin 3.4 (3.4-4.8) gm/dL Quality Measures Quality Measures VTE prophylaxis Advance care planning discussed with:: other Medications Home Medications and Allergies Home Medications ?Medication ?Instructions ?Recorded ?Confirmed ?Type levothyroxine 50 mcg tablet 1 tab PO DAILY 03/21/22 History pantoprazole 40 mg tablet,delayed 40 mg PO HS 05/29/22 12/23/24 History release insulin glargine U-300 conc 300 10 unit subcut QDAY 12/23/24 History unit/mL (3 mL) subcutaneous pen (Toujeo Max U-300 SoloStar) albuterol sulfate 90 mcg/actuation 1 puff inhalation Q 4HR PRN 08/08/22 12/23/24 History aerosol inhaler BREATHING lactulose 10 gram/15 mL oral 30 ml PO TID PRN Constipa tion 08/08/22 12/23/24 History solution (Constulose) tramadol 50 mg tablet 50 mg PO Q6H PRN Pain 12/23/24 History docusate sodium 100 mg tablet 100 mg PO DAILY 08/23/22 12/23/24 History dulaglutide 1.5 mg/0.5 mL 0.5 mg subcut QWEEK 07/03/24 12/23/24 History subcutaneous pen injector (Trulicity) galcanezumab-gnlm 120 mg/mL 120 mg subcut Q1M 07/03/24 12/23/24 History subcutaneous pen injector (Emgality Pen) aspirin 81 mg chewable tablet 1 tab PO DAILY 10/14/24 12/23/24 History atorvastatin 80 mg tablet 80 mg PO DAILY 10/14/2403/12 History clopidogrel 75 mg tablet 75 mg PO DAILY 10/14/2403/12 History Held on 10/14/24. Instructions: Resume on 10/19/24. please hold for 5 days. furosemide 40 mg tablet (Lasix) 40 mg PO QDAY 10/14/24 12/23/24 History insulin glargine U-300 conc 300 30 unit subcut Q24H 12/23/24 History unit/mL (3 mL) subcutaneous pen (Toujeo Max U-300 SoloStar) isosorbide mononitrate 60 mg 60 mg PO DAILY 10/14/24 0 12/23/24 History tablet,extended release 24 hr nitroglycerin 0.4 mg sublingual See Rx Instructions bu ccal .COMPLEX 10/14/24 12/23/24 History tablet Allergies Allergy/AdvReac Type Severity Reaction Status Date / Time amoxicillin Allergy Severe Rash Verified 12/22/24 14:34 Visit Medications Acetaminophen (Acetaminophen 325 Mg Tablet) 650 mg PO Q6H PRN PRN Reason: Fever >101.5 Stop: 01/21/25 18:27 Acetaminophen (Acetaminophen 325 Mg Tablet) 650 mg PO Q6H PRN PRN Reason: PAIN SCALE 1-3 (mild Stop: 01/21/25 18:27 Last Admin: 12/23/24 09:38 Dose: 650 mg Amiodarone HCl (Amiodarone Hcl 200 Mg Tablet) 200 mg PO DAILY [facility] Stop: 01/22/25 08:59 Last Admin: 12/24/24 08:30 Dose: 200 mg Atorvastatin Calcium (Atorvastatin Calcium 20 Mg Tablet) 80 mg PO HS [facility] Stop: 01/22/25 20:59 Last Admin: 12/23/24 20:12 Dose: 80 mg Dextrose (Dextrose 50%-Water Inj 50 Ml Syringe) 25 ml IV Q15MIN PRN PRN Reason: BG 50-70 responsive npo pt Stop: 01/21/25 18:31 Dextrose (Dextrose 50%-Water Inj 50 Ml Syringe) 50 ml IV Q15MIN PRN PRN Reason: BG <50 OR BG <70 & pt unresponsive Stop: 01/21/25 18:31 Glucagon (Glucagon Inj 1 Mg Vial) 1 mg IM Q15MIN PRN PRN Reason: BG <70, and no IV access Hydralazine HCl (Hydralazine Inj 20 Mg/Ml Vial) 10 mg IV Q6HR PRN PRN Reason: SBP >180 Stop: 01/21/25 18:33 Insulin Glargine (Insulin Glargine (Lantus) 5 Unit/0.05 Ml (Per 5 Units)) 5 unit SC QDAY [facility] Stop: 01/23/25 09:29 Last Admin: 12/24/24 10:20 Dose: 5 unit Insulin Human Lispro (Insulin Lispro (Admelog) 1 Unit/0.01 Ml Unit) 0 unit SC [facility]; Protocol Stop: 01/22/25 07:29 Last Admin: 12/24/24 07:35 Dose: 1 unit Levothyroxine Sodium (Levothyroxine Sodium 25 Mcg Tablet) 50 mcg PO [facility] Stop: 01/22/25 07:44 Last Admin: 12/24/24 05:45 Dose: 50 mcg Ondansetron HCl (Ondansetron Inj 2 Mg/Ml Inj 2 Ml) 4 mg IV Q6H PRN; Protocol PRN Reason: NAUSEA OR VOMITING Stop: 01/21/25 18:27 Last Admin: 12/24/24 04:07 Dose: 4 mg Pantoprazole Sodium (Pantoprazole Inj 40 Mg Vial) 40 mg IVP QDAY [facility] Stop: 01/22/25 08:59 Last Admin: 12/24/24 08:30 Dose: 40 mg Discontinued Medications Al Hydrox/Mg Hydrox/Simethicone (Mg Hyd/Al Hyd/Nikole (Maalox Reg) Susp 30 Ml Udc) 15 ml PO X1 ONE Stop: 12/23/24 20:12 Last Admin: 12/23/24 20:18 Dose: 15 ml Al Hydrox/Mg Hydrox/Simethicone (Mg Hyd/Al Hyd/Nikole (Maalox Reg) Susp 30 Ml Udc) 15 ml PO X1 ONE Stop: 12/24/24 03:58 Last Admin: 12/24/24 04:07 Dose: 15 ml Hydralazine HCl (Hydralazine Inj 20 Mg/Ml Vial) 10 mg IV Q2H PRN PRN Reason: SBP >180 Stop: 01/21/25 18:33 Hydromorphone HCl (Hydromorphone Inj 2 Mg/Ml Vial) 0.25 mg IVP X1 ONE Stop: 12/23/24 11:26 Last Admin: 12/23/24 11:43 Dose: 0.25 mg Sodium Chloride (Ns) 500 mls @ 999 mls/hr IV .Q31M ONE Stop: 12/22/24 16:26 Last Infusion: 12/22/24 16:30 Dose: Infused Sodium Chloride (Ns) 500 mls @ 999 mls/hr IV .Q31M ONE Stop: 12/22/24 16:20 Last Admin: 12/22/24 16:53 Dose: Not Given Assessment & Plan Plan Patient is a 84-year-old female with a previous medical history of CAD status post stent placement, A-fib on Eliquis, hypertension, type 2 diabetes, end-stage renal disease on dialysis T//sat who was admitted to the hospital due to bleeding from dialysis AV fistula. #Acute stroke rule out #S/p CVA #Left sided facial droop Ddx: acute stroke vs stroke recudescence in the setting of acute blood loss anemia On 12/24/24 patient was noted to have an left lower facial droop. CT head 12/24/24: Encephalomalacia in the right and left cerebellar hemispheres and right parietal lobe. Negative for acute intracranial pathology. Plan: - Will hold anticoagulation in the setting of acute bleeding - Telemetry - Euglycemia and nermothermia - HOB elevation 30 degrees - Continue atorvastatin 80 mg qday - Aspirin 81 mg qday and Eliquis 2.5 mg BID 72 hours after bleeding has stopped and if no contraindications to anticoagulation #Acute blood loss anemia secondary to anticoagulation and access of AV fistula #Symptomatic anemia #Left arm edema #Bleeding AV fistula - management per primary team Plan of care discussed with attending Dr. Mattson. Chrissie Whaley MD, PGY 1. Attending Provider Attestation/Addendum I personally have seen and examined the patient at the bedside and I agree with resident's findings, assessment and plan of care the facial weakness is not appreciated. She is going for angiogram and fistula replacement continuing hemodialysis. Will hold off on Eliquis until the fistula is redone.
--- NOTE | 2024-12-24 14:31 | PC.SS ---
Rounding Note: Transfer request submitted for vascular surgery. Plan is for the patient to obtain dialysis catheter and cardiac cath tomorrow.
--- NOTE | 2024-12-24 14:52 | PC.CC ---
Was made aware by Dr. Marcial patient will need transfer for vascular services for malfunctioning and bleeding dialysis fistula. Patient is scheduled to get dialysis catheter placed by IR tomorrow (12/25/24) and Cardiac cath done as well. After both procedures patient will then need to be transferred, would like to send to [facility] for Dr. Mai.
[2024-12-24] MEDS: ATORVASTATIN CALCIUM 20 MG TABLET 80 MG PO (20:04)
[2024-12-24] MEDS: ACETAMINOPHEN 325 MG TABLET 650 MG PO (23:24)
[2024-12-25] VITALS (38 sets, daily range): BP systolic 98–157; BP diastolic 34–100; PULSE 60–111; RESP 12–96; TEMP 36.3–37.2; O2SAT 93–100; BMI 24.5
--- NOTE | 2024-12-25 | XR_ITS ---
Ultrasound-guided needle placement left internal jugular vein Permanent tunneled dialysis catheter insertion, percutaneous Fluoroscopy AP chest, portable, single view. Date and time of procedure: December 25, 2024 1204 hours INDICATIONS: Renal failure, need for stat and long-term dialysis with permanent tunneled dialysis catheter Informed consent provided Technique: A timeout was completed verifying correct patient, procedure, site, positioning, and special equipment if applicable. The patient was placed in a dependent position appropriate for dialysis catheter placement based on the vein to be cannulated. The patient'sleft neck was prepped and draped in sterile fashion. Maximum Sterile Barrier Technique used including cap, mask, sterile gown, sterile gloves, and sterile full body drape. If ultrasound technique used: sterile gel and sterile probe covers. Hand Hygiene performed using proper scrub, soap and water, or alcohol-based hand rub. 1% lidocaine was used to anesthetize the surrounding skin area The [facility] [place] portable ultrasound apparatus utilized to confirm patency of the left internal jugular vein Utilizing ultrasonographic guidance successful 21-gauge needle puncture into the left internal jugular vein Ultrasound images were recorded and stored. Vessel micropuncture was performed with 21-gauge needle. 0.18 wire guide is introduced into the vein. 0.18 wire is introduced into the vena cava under fluoroscopy. Subcutaneous tunnel formed in the upper chest. Permanent tunneled dialysis catheter placed in the subcutaneous tunnel. Dilators were introduced over the J-wire guide. Tunneled dialysis catheter is introduced through a dilator with venous sheath into the superior vena cava under fluoroscopic guidance. The catheter is sutured in place to the skin and a sterile dressing applied. Perfusion to the extremity distal to the point of catheter insertion is checked and found to be adequate Attending radiologist was present for the entire procedure Estimated blood loss2 cc. The patient tolerated the procedure well and there were no complications Impression: Successful ultrasound-guided needle placement left internal jugular vein Successful permanent tunneled dialysis catheter insertion, percutaneous Fluoroscopy 0.1 minute radiation dose 0.48 milligray 1 spot fluoroscopic chest film. AP chest performed at completion procedure demonstrates satisfactory position dialysis catheter. May use dialysis catheter.
[2024-12-25] MEDS: LEVOTHYROXINE SODIUM 25 MCG TABLET 50 MCG PO (06:12)
[2024-12-25 06:23] LABS: Basophils % (Auto) 1 % (0-2.5); Eosinophils # (Auto) 0.1 Thou/mm3 (0.0-0.5); Eosinophils % (Auto) 1 % (0-10); Hemoglobin 9.5 g/dL (12.0-16.0); Immature Granulocytes % (Auto) 0 % (0-0); Immature Granulocytes Auto 0.02 Thou/mm3 (0.00-0.00); Lymphocytes # (Auto) 1.7 Thou/mm3 (1.0-4.8); Lymphocytes % (Auto) 27 % (10-50); Mean Corpuscular HGB Conc 32.8 g/dl (31.0-37.0); Mean Corpuscular Hemoglobin 30.4 pg (25.0-35.0); Mean Corpuscular Volume 93 fL (80-100); Monocytes # (Auto) 0.6 Thou/mm3 (0.0-0.8); Monocytes % (Auto) 10 % (0-12); Neutrophils % (Auto) 62 % (37-80); Nucleated Red Blood Cell % 0 /100 WBC (0); Platelet Count 102 Thou/mm3 (140-440); RDW Standard Deviation 56.9 fL (36.4-46.3); Red Blood Count 3.13 Miln/mm3 (4.00-5.20); White Blood Count 6.4 Thou/mm3 (3.6-11.0)
[2024-12-25 06:55] LABS: Alanine Aminotransferase 32 U/L (10-49); Albumin, Serum 3.6 gm/dL (3.4-4.8); Anion Gap 6 (7-16); Aspartate Amino Transferase 50 U/L (0-34); BUN/Creatinine Ratio 13 Ratio (12-20); Bilirubin,Total 0.5 mg/dL (0.3-1.2); Blood Urea Nitrogen 59 mg/dL (9-23); Calcium 8.3 mg/dL (8.3-10.6); Calcium (Corrected) 8.6 mg/dL (8.5-10.1); Carbon Dioxide 30.1 mMol/L (20.0-31.0); Chloride 101 mMol/L (98-107); Creatinine (Component) 4.6 mg/dL (0.6-1.3); Estimated Creatinine Clearance 7.6 mL/min (>60); Globulin 2.2 gm/dL (2.3-3.5); Glucose 189 mg/dL (74-106); Magnesium 2.5 mg/dL (1.6-2.6); Osmolality,Calculated 295 (275-295); Phosphorous 4.5 mg/dL (2.4-5.1); Potassium 5.4 mMol/L (3.4-5.1); Sodium 137 mMol/L (136-145); Total Protein 5.8 gm/dL (5.7-8.2); eGFR 9 See Note
[2024-12-25 06:56] LABS: Albumin/Globulin Ratio 1.6 (1.2-2.2); Alkaline Phosphatase 122 U/L (46-116)
[2024-12-25 07:25] LABS: Partial Thromboplastin Time 27.4 Seconds (22.0-36.0); Prothrombin Time 10.7 Seconds (9.0-12.2)
--- NOTE | 2024-12-25 07:47 | PC.NURSE ---
per Manager Reimbursement MADELINE MARCUS to give AM PO meds amiodarone and protonix. New order entered for Dialysis cath insertion
--- NOTE | 2024-12-25 07:50 | PC.NURSE ---
Dr. Manuel aware of potassium level 5.4, Dr. rider per lab manager RN Donna pt. will go for dialysis cath insertion around 1230, then cardiac cath, then dialysis. Cardiac cath was pushed back by Dr. Moore. Dr. Manuel calling down to IR to inquire about gettin dialysis cath now and then dialysis before cardiac cath.
[2024-12-25] MEDS: AMIODARONE HCL 200 MG TABLET PO (08:00)
[2024-12-25] MEDS: PANTOPRAZOLE 40 MG TABLET PO (08:00)
--- NOTE | 2024-12-25 08:00 | PC.NURSE ---
Pt. reports headache but denies tylenol at this time.
--- NOTE | 2024-12-25 08:37 | PC.NURSE ---
Called to RT campos to make aware of x1 albuterol, Chris coming to do treatment. Dr. Manuel confirms to only do D50 and insulin now, no other meds for now.
[2024-12-25] MEDS: DEXTROSE 50%-WATER INJ 50 ML SYRINGE IV (08:41)
[2024-12-25] MEDS: INSULIN HUM REGULAR 1 UNIT/0.01 ML (PER UNIT) 10 UNIT IV (08:42)
--- NOTE | 2024-12-25 08:43 | PC.SS ---
Update: Transfer pending. Plan is for the patient to obtain dialysis catheter and cardiac catheter.
[2024-12-25] MEDS: ALBUTEROL RT 2.5 MG/0.5 ML NEBU 5 MG INH (08:48)
--- NOTE | 2024-12-25 09:12 | PC.CC ---
Addendum entered by Kumar Tee RN 12/25/24 18:36: 1815: Packet with 2 CD's taken to the floor. mat roller and bedside nurse informed of plan of care and need RN rider for transport in the morning. 1728: spoke to Dr. Moore to clarify Heparin gtt. stated he prefers for the patient to be transferred with the Heparin gtt. Informed staffing, need RN rider for transport in the morning Addendum entered by Alexis Hoover RN 12/25/24 16:14: 1450 received call from Laverne at [facility] that pt is accepted. Accepted by Sharron Gardner. Laverne stated pt will be transferred in the morning and room information will also be given in am. Original Note: 1447 received call from Laverne at [facility], she wants me to work on insurance auth. I informed her pt has [employer] and it is contracted with [facility]. Laverne stated to still inform the insurance. 1430 clinicals sent to [facility]. 1411 received call from Laverne at [facility] inquiring about the transfer for the pt. I informed her I will send the transfer packet. 1401 received call from Sherly at dye lab technician that per Dr. Moore, pt needs to be transferred to [facility] for open heart. She stated Dr. Moore already signed the pink paper. [address] Manuel, he stated he spoke to pt family and fistula was placed by Dr. Angeles in [place] and family trying to contact the clinic but unable to speak with the Dr. [address] Manuel regarding transfer orders. Per Dr. Zavala pt has cardiac cath procedure and dialysis catheter insertion at 1300. Pt need to be transferred for repair of bleeding/non-functional AV fistula after the procedures. I asked if he is aware of the performed the fistula. He stated he will find out and call me back.
--- NOTE | 2024-12-25 10:09 | CHAP ---
Patient expressed gratitude for visit and prayer,
[2024-12-25] MEDS: HEPARIN SOD LOCK SYR 100 UNIT/ML 500 UNIT STFIELD (12:40)
[2024-12-25] MEDS: fentaNYL CIT INJ 50 mCg/ML AMP 2ML IVP (12:41)
[2024-12-25 12:44] LABS: Albumin, Serum 3.4 gm/dL (3.4-4.8); Anion Gap 6 (7-16); BUN/Creatinine Ratio 14 Ratio (12-20); Blood Urea Nitrogen 61 mg/dL (9-23); Calcium (Corrected) 8.5 mg/dL (8.5-10.1); Carbon Dioxide 28.7 mMol/L (20.0-31.0); Chloride 102 mMol/L (98-107); Creatinine (Component) 4.4 mg/dL (0.6-1.3); Glucose 155 mg/dL (74-106); Osmolality,Calculated 294 (275-295); Phosphorous 3.7 mg/dL (2.4-5.1); Potassium 4.3 mMol/L (3.4-5.1); Sodium 137 mMol/L (136-145); eGFR 9 See Note
[2024-12-25] MEDS: LIDOCAINE INJ PF 1% 30 ML VIAL 10 ML INFL (12:58)
[2024-12-25] MEDS: HEPARIN SOD INJ 1000 UNIT/ML VIAL 3500 UNIT INDWELLCAT (13:22)
--- NOTE | 2024-12-25 13:22 | ESPR_ITS ---
Documentation for date of: 12/25/24 Subjective Subjective Interval history: Patient comfortable No chest pain Heart catheter today Exam Vital Signs Temp Pulse Resp BP Pulse Ox O2 Del Method 98.3 F 72 18 156/63 H 98 Room Air 12/25/24 10:25 12/25/24 10:25 12/25/24 10:25 12/25/24 10:25 12/25/24 10:12/25/24 10:25 Routine HEENT Exam Head: Present normocephalic and atraumatic Eye: Present EOMI and PERRL ENT: Present mucous membranes moist Routine Neck Exam Neck: Present supple and trachea midline Routine Respiratory Exam Respiratory: Present chest non-tender, lungs clear, normal breath sounds and no resp distress Routine Cardiovascular Exam Cardiovascular: Present RRR Routine Abdominal Exam Abdominal: Present soft and normoactive bowel sounds Routine Extremities Exam Extremities: Present full ROM Routine Skin Exam Skin: Present intact, dry and warm Routine Neurological Exam Neurological: Present alert, oriented X3 and CN II-XII intact Routine Psychiatric Exam Psychiatric: Present normal affect and normal thought process Objective Labs 12/25/24 06:03 12/25/24 12:15 Labs: Laboratory Results - last 24 hr 12/25/24 12/25/24 06:03 12:15 WBC 6.4 RBC 3.13 L Hgb 9.5 L Hct 29.0 L MCV 93 MCH 30.4 MCHC 32.8 RDW Std Deviation 56.9 H Plt Count 102 L Neut % (Auto) 62 Lymph % (Auto) 27 [place] % (Auto) 10 Eos % (Auto) 1 Baso % (Auto) 1 Neut # (Auto) 4.0 Lymph # (Auto) 1.7 [place] # (Auto) 0.6 Eos # (Auto) 0.1 Baso # (Auto) 0.0 Immature Gran # (Auto) 0.02 H Absolute Nucleated RBC 0.00 Immature Gran % 0 Nucleated RBC % 0 PT 10.7 INR 1.0 APTT 27.4 Sodium 137 137 Potassium 5.4 H D 4.3 D Chloride 101 102 Carbon Dioxide 30.1 28.7 Anion Gap 6 L 6 L BUN 59 H 61 H Creatinine 4.6 H* D 4.4 H* Estim Creat Clear Calc 7.6 L 8.0 L eGFR 9 L* 9 L* BUN/Creatinine Ratio 13 14 Glucose 189 H 155 H Calculated Osmolality 295 294 Calcium 8.3 8.0 L Corrected Calcium 8.6 8.5 Phosphorus 4.5 3.7 Magnesium 2.5 Total Bilirubin 0.5 AST 50 H ALT 32 Alkaline Phosphatase 122 H Total Protein 5.8 Albumin 3.6 3.4 Globulin 2.2 L Albumin/Globulin Ratio 1.6 Assessment & Plan A&P Narrative continue current treatment hold eliquis Heart catheter today Time Spent With Patient Time: Total time spent is greater than 50% in coordination of care (as documented) at patient's floor/unit and/or counseling patient:
--- NOTE | 2024-12-25 13:56 | PD.CARDCATH ---
Cardiac Cath Procedure Procedure Narrative Procedure date 12/25/2024 Title of the procedure 1.left heart catheterization 2.left coronary angiogram 3.right coronary angiogram 4.left ventriculogram 5.conscious sedation 6.radiographic interpretation supervision 7.ultrasound guidance for right radial access Indication for the procedure This is a 84-year-old female with past medical history of hypertension diabetes hyperlipidemia coronary artery disease Prior history of multiple coronary stents Admitted with atypical chest pain Ruled in for non-ST elevation [place] peak troponin 3.6 Therefore cardiac catheter and cholangiogram recommed Procedure This is done in the cardiac lab under current electrocardiographic monitoring intermittent blood pressure monitoring Right radial access obtained using modified Seldinger technique and radial sheath was placed TIG 4 catheter used for selective in the left coronary artery TIG 4 catheter used for selective right coronary artery Findings Hemodynamics Left ventriculogram not done Coronary anatomy 1.left main coronary artery appears to have a 99% stenosis of the ostium 2.left anterior descending artery has a stent in the proximal region the stent appears to be widely patent 3.circumflex appears to have a stent in the proximal region the stent appears to be widely patent with distal luminal irregularities 4.obtuse marginal appears to be widely patent 5.right coronary is a dominant vessel that has stent starting at the proximal all the way up to the origin of the PDA There is an in-stent restenosis in the mid RCA noted Conclusion Left main coronary artery disease In-stent restenosis of the mid RCA Recommendation Coronary artery bypass surgery Patient to be transferred to [facility] as soon as possible
--- NOTE | 2024-12-25 14:23 | ESDS_ITS ---
Planned Discharge Date 12/25/24 DS: Providers Provider Date of admission: 12/23/24 14:20 Primary care physician: Andrew Zhou MD Admitting Provider: Brooke Manuel MD Attending Provider on Admission: Brooke Manuel MD Consults: 12/22/24 22:49 Referral Physical Therapy Routine Comment: Physician Instructions: Instructions: Stroke eval. 12/23/24 11:25 Consult to Cardiology Stat Comment: ACS, R/O RI Consulting Provider: Iliana Moore 12/23/24 11:49 Consult to General Surgery Stat Comment: L AV fistula, swollen arm, decreased pulses Consulting Provider: Nova Kiran Instructions: Vascular Consult 12/23/24 14:18 Consult to Nephrology Urgent Comment: ESRD on HD Consulting Provider: Xavier Al 12/23/24 15:34 Referral Speech Therapy Routine Comment: Stroke rule out 12/23/24 15:57 Consult to Neurology / Tele-Neurology Routine Comment: Stroke rule out. Facial droop Consulting Provider: Alejandro Mattson Attending Provider on DC: Brooke Manuel MD Discharging Provider: Brooke Manuel MD Diagnosis Problem List Completed Was Problem List Reviewed/Reconciled?: Yes Hospital Course - Hospitalist Hospital Course Hospital course: Patient is an 84 years old female with past medical history of coronary artery disease status post 5 stent placement, atrial fibrillation on Eliquis, hypertension, ESRD on hemodialysis (Saturday//Saturday), diabetes mellitus who presented to the ED after having bleeding episodes from her dialysis fistula. Hemostasis was attempted at the dialysis center multiple times but was unsuccessful and patient decided to present the ED after she started having dizziness and blurry vision. In the ED, sutures were placed and hemostasis was obtained. Her hemoglobin at that time was 9.3. At the same time, she was also noted to found elevated troponin at 3.507. Patient denied chest pain or palpitations at that time. EKG showed sinus bradycardia with first-degree AV block but no ST elevation. Patient was admitted to telemetry to rule out NSTEMI type I. But during hospitalization, patient continued to have mild oozing of blood from her fistula site. Troponin started downtrending. But, the following morning, patient started having chest pain, cardiology was consulted. Patient also had drop on her hemoglobin level at 7.9, received 1 unit of PRBC, following which her hemoglobin level has stabilized. She could not be started on antiplatelet or anticoagulation due to her ongoing bleeding. Next day, patient complained of posterior severe headache and dizziness, stroke alert was called and patient underwent stroke workup including neurology consult. 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 Recommended starting aspirin and Eliquis after bleeding stops. Patient received left internal jugular hemodialysis catheter with IR today. Patient also underwent cardiac catheterization today with cardiology, was found to have multivessel disease. Patient is recommended to transfer to [facility] for evaluation of need for CABG. Her vitals are stable this afternoon, she is saturating well on room air. Lab results this morning have been stable except for her kidney function secondary to ESRD. Patient is currently stable for transfer. #ACS #Multivessel coronary disease #History of CAD s/p 5 stents #History of A-fib previously on Eliquis #History of sinus bradycardia/heart block #Acute blood loss anemia secondary to anticoagulation and access of AV fistula #Symptomatic anemia #Left arm edema #Bleeding AV fistula #ESRD on HD via left AV fistula T//S #Stroke rule out #Facial droop #History of diabetes mellitus type 2 #History of hypothyroidism Brooke Manuel MD Time Spent with Patient Time attestation: Total time spent providing and/or coordinating discharge services: Time spent: Greater than 30 minutes Discharge Results Labs Diagrams: 12/25/24 06:03 12/25/24 12:15 Labs: Short CBC 12/25/24 Range/Units 06:03 WBC 6.4 (3.6-11.0) Thou/mm3 Hgb 9.5 L (12.0-16.0) g/dL Hct 29.0 L (36.0-46.0) % Plt Count 102 L (140-440) Thou/mm3 BMP 12/25/24 12/25/24 06:03 12:15 Sodium 137 137 Potassium 5.4 H D 4.3 D Chloride 101 102 Carbon Dioxide 30.1 28.7 BUN 59 H 61 H Creatinine 4.6 H* D 4.4 H* Glucose 189 H 155 H Calcium 8.3 8.0 L Liver Function 05/09/25 05/09/25 Range/Units 06:03 12:15 Total Bilirubin 0.5 (0.3-1.2) mg/dL AST 50 H (0-34) U/L ALT 32 (10-49) U/L Alkaline Phosphatase 122 H (46-116) U/L Albumin 3.6 3.4 (3.4-4.8) gm/dL Exam Vital Signs Temp Pulse Resp BP Pulse Ox O2 Del Method O2 Flow Rate 97.9 F 72 12 126/34 L 93 L Room Air 3 12/25/24 14:00 12/25/24 13:10 12/25/24 14:00 12/25/24 14:00 12/25/24 14:00 12/25/24 14:00 12/25/24 13:10 Discharge Plan Plan Patient Disposition: Xfer Other Patient condition on transfer: Stable Prescriptions/Referrals Prescriptions/Med Rec: No Action levothyroxine 50 mcg tablet 1 tab PO DAILY pantoprazole 40 mg tablet,delayed release (DR/EC) 40 mg PO HS insulin glargine U-300 conc [Toujeo Max U-300 SoloStar] 300 unit/mL (3 mL) Insulin Pen 10 unit SUBCUT QDAY tramadol 50 mg Tablet 50 mg PO Q6H PRN (Reason: Pain) albuterol sulfate 90 mcg/actuation HFA aerosol inhaler 1 puff INHALATION Q4HR PRN (Reason: BREATHING) Patient Comments: inhale 1 puff by mouth and INTO THE LUNGS every 4 hours if needed lactulose [Constulose] 10 gram/15 mL solution 30 ml PO TID PRN (Reason: Constipation) Rx Instructions: UP TO 3X A DAY NEEDED FOR CONTIPATION Emgality Pen 120 mg/mL pen injector 120 mg SUBCUT Q1M Trulicity 1.5 mg/0.5 mL pen injector 0.5 mg SUBCUT QWEEK Patient Comments: INJECT 1.5MG SUBCUTANEOUSLY ONCE A WEEK amiodarone 200 mg Tablet 200 mg PO DAILY Qty: 30 0RF docusate sodium 100 mg Tablet 100 mg PO DAILY aspirin 81 mg tablet,chewable 1 tab PO DAILY atorvastatin 80 mg tablet 80 mg PO DAILY Patient Comments: take 1 tablet by mouth once daily clopidogrel 75 mg tablet 75 mg PO DAILY Patient Comments: take 1 tablet by mouth once daily isosorbide mononitrate 60 mg tablet extended release 24 hr 60 mg PO DAILY Patient Comments: take 1 tablet by mouth every morning furosemide [Lasix] 40 mg tablet 40 mg PO QDAY nitroglycerin 0.4 mg tablet, sublingual See Rx Instructions BUCCAL .COMPLEX Patient Comments: place 1 tablet under the tongue AT FIRST SIGN OF ATTACK; DECEMBER REPE... (REFER TO PRESCRIPTION NOTES). Rx Instructions: buccally; insulin glargine U-300 conc [Toujeo Max U-300 SoloStar] 300 unit/mL (3 mL) insulin pen 30 unit subcut Q24H Referrals: Andrew Zhou MD [Primary Care Provider] - Patient/Caregiver Discharge Instructions Print Language: Czech Stand Alone Forms: Rachel Award Info., Patient Portal Info Letter Quality Discharge Quality Measures VTE prophylaxis
--- NOTE | 2024-12-25 14:32 | PC.SS ---
Rounding Note: Plan is for the patient to be transferred to [facility].
--- NOTE | 2024-12-25 15:44 | PC.CC ---
[address] Laresn, pt needs to be transferred for T9 and T12 fracture needs neuro-surgical services. Pt is on Prednisone and gas poor bone density.
[2024-12-25] MEDS: HEPARIN SOD INJ 1000 UNIT/ML VIAL 10 ML 3550 UNIT IV (16:12)
--- NOTE | 2024-12-25 16:13 | ECHO_ITS ---
Transthoracic Echo Report Ht (in): 61 Wt (lb): 130 Exam Location: Portable Status: Inpatient Tunnel Inspector: NEWTON Brandie^^^^ Indications: Procedure Performed: BP: / HR: 84 Technical Quality: Technically difficult study MEASUREMENTS (Male / Female) Normal Values 2D ECHO LV Diastolic Diameter PLAX 4.2 cm 4.2 - 5.9 / 3.9 - 5.3 cm LV Systolic Diameter PLAX 3.3 cm IVS Diastolic Thickness 1.3 cm 0.6 - 1.0 / 0.6 - 0.9 cm LVPW Diastolic Thickness 1.3 cm 0.6 - 1.0 / 0.6 - 0.9 cm LV Relative Wall Thickness 0.6 LVOT Diameter 1.6 cm Aortic Root Diameter 3.3 cm LA Systolic Diameter LX 3.6 cm 3.0 - 4.0 / 2.7 - 3.8 cm LV Ejection Fraction MOD BP 57.6 % >= 55 % LV Cardiac Index MOD BP 3318.8 cm?/min?m? LV Ejection Fraction MOD 4C 50.2 % LV Cardiac Index MOD 4C 3941.7 cm?/min?m? LV Ejection Fraction 4C AL 52.8 % LV Cardiac Index 4C AL 4327.7 cm?/min?m? LV Ejection Fraction MOD 2C 65.7 % LV Cardiac Index MOD 2C 2538.8 cm?/min?m? LV Ejection Fraction 2C AL 65.5 % LV Cardiac Index 2C AL 2566.9 cm?/min?m? LA Volume Index 34.3 cm?/m? 16 - 28 cm?/m? DOPPLER AV Peak Velocity 157.0 cm/s AV Peak Gradient 9.9 mmHg AV Mean Gradient 5.0 mmHg AV Velocity Time Integral 37.0 cm AI Peak Velocity 293.0 cm/s AI Peak Gradient 34.3 mmHg AI Pressure Half Time 520.0 ms LVOT Peak Velocity 95.1 cm/s LVOT Peak Gradient 3.6 mmHg LVOT Velocity Time Integral 22.2 cm LVOT Cardiac Index 2336.6 cm?/min?m? AV Area Cont Eq vti 1.2 cm? AV Area Cont Eq pk 1.2 cm? MV Peak Velocity 151.0 cm/s MV Peak Gradient 9.1 mmHg MV Mean Velocity 101.0 cm/s MV Mean Gradient 5.0 mmHg MV Area PHT 2.6 cm? Mitral E Point Velocity 154.0 cm/s Mitral A Point Velocity 89.9 cm/s Mitral E to A Ratio 1.7 LV E' Lateral Velocity 4.9 cm/s Mitral E to LV E' Lateral Ratio 31.6 LV E' Septal Velocity 4.0 cm/s Mitral E to LV E' Septal Ratio 38.3 TR Peak Velocity 293.0 cm/s TR Peak Gradient 34.3 mmHg PV Peak Velocity 106.0 cm/s PV Peak Gradient 4.5 mmHg RVOT Peak Velocity 76.9 cm/s FINDINGS Left Ventricle Normal left ventricular size, wall thickness, systolic function with no obvious regional wall motion abnormalities. There is grade II diastolic dysfunction of the left ventricle (pseudonormal filling pattern).the left ventricular ejection fraction is normal, estimated at 55-60%. The left ventricular wall thickness is mildly increased. Right Ventricle The right ventricle is normal in size and systolic function. The estimated right ventricular systolic pressure, 40 mmHg. Left Atrium The left atrium is normal by two-dimensional, color flow and Doppler imaging with no structural abnormalities, no thrombus formation present. Right Atrium The right atrium is normal by two-dimensional imaging, color flow and Doppler imaging with no structural abnormalities, no thrombus formation present. Atrial Septum The interatrial septum appears normal with no evidence of a shunt. Aorta The aorta is normal by two-dimensional, color flow and Doppler interrogation. Mitral Valve Mild mitral regurgitation. Mild mitral annular calcification. Mild thickening of the mitral valve leaflets. Aortic Valve Aortic valve sclerosis. Diffuse calcification of the aortic valve. Tricuspid Valve There is mild tricuspid valve regurgitation. Pulmonic Valve Trivial pulmonic valve regurgitation. Vessels The pulmonary artery appears normal. The inferior vena cava pulmonary and hepatic veins appear normal. Pericardium The pericardium is normal by two-dimensional imaging. There is no significant pericardial effusion. CONCLUSIONS Indication: stroke/ Bubble not performed patients line not working LV appears normal with EF 55-60%. Diastolic Dysfunction II & LVH RV appears normal with RVSP 40 mmHg. Mild MR & MAC Mild TR AOV sclerosis Ozzie Moore (Electronically Signed) Final Date: 28 Dec 2024 08:23
[2024-12-25] MEDS: Heparin/D5w 25K 250 ML Ivpb 25,000 UNIT/250 ML BAG 7.076 UNIT IV (16:20)
--- NOTE | 2024-12-25 16:36 | PC.NURSE ---
1500 patient awake, alert, breathing unlabored, s/p perm cath insertion and LHC. no bleeding TR band present to right wrist, dry blood noted, no active bleeding or hematoma noted. Report received from Moni CORREA, patient to recover until TR band removed and heparin drip started per protocol 1610 TR band removed, no bleeding or hematoma noted 1612 heparin bolus administered per protocol 1620 heparin drip started per protocol stat PTT orfered for 2219 162 patient awake, alert, breathing unlabored, no bleeding noted to right wrist or perm cath site, report given to Gianna CORREA, patient transferred to room 261 accompanied by family and Moni CORREA
--- NOTE | 2024-12-25 16:58 | PC.NURSE ---
patient transfered via gurney back to room. patient alert and oriented. RN assessed dressings. dressings are clean dry and intact.
[2024-12-25] MEDS: INSULIN LISPRO (AdmeLOG) 1 UNIT/0.01 ML UNIT SC (17:01)
[2024-12-25] MEDS: ACETAMINOPHEN 325 MG TABLET 650 MG PO (17:03)
[2024-12-25] MEDS: HYDROcodone/APAP 5/325 TABLET 1 TAB PO ×2 (19:27→20:37)
--- NOTE | 2024-12-25 20:12 | EVENTNT_ITS ---
Documentation for date of: 12/25/24 Event Note Event Note: INDUSTRIAL RELATIONS DIRECTOR was called for chest pain. CT angiogram today showed left main coronary artery disease and in-stent restenosis of the mid RCA. Recommendation: coronary artery bypass surgery. EKG reviewed?no STEMI, new-onset atrial fibrillation. Patient is already on a heparin drip. Check troponin.
--- NOTE | 2024-12-25 20:12 | EKG_ITS ---
[facility] Test Date: 2024-12-25 Pat Name: BLAIR VALIENTE Department: Room: S261A Gender: Female Infection Control Specialist: FREDDIE : 1940 Requested By: Narciso Blount Order Number: [id number] Reading MD: Narciso Blount Measurements Intervals [place] Rate: 102 P: [place]: QRS: 106 QRSD: 166 T: -32 QT: 352 QTc: 460 Interpretive Statements ATRIAL FIBRILLATION WITH RAPID VENTRICULAR RESPONSE MARKED RIGHT AXIS DEVIATION RIGHT BUNDLE BRANCH BLOCK Compared to ECG 12/23/2024 11:44:13 Right-axis deviation now present Left posterior fascicular block no longer present /store/S0/[id number].pdf
[2024-12-25] MEDS: HEPARIN SOD INJ 1000 UNIT/ML VIAL 10 ML 3500 UNIT INDWELLCAT (20:14)
--- NOTE | 2024-12-25 20:30 | PC.NURSE ---
patient came back from dialysis. alert and oriented, not on distress, with stable vital signs with chests pain of 5 out of 10 which is getting better as per the patient.
[2024-12-25] MEDS: ATORVASTATIN CALCIUM 20 MG TABLET 80 MG PO (20:37)
[2024-12-25 21:27] LABS: Troponin I 3.848 ng/mL (0.0-0.045)
--- NOTE | 2024-12-25 21:40 | PD.EVENT ---
Documentation for date of: 12/25/24 Event Note Event Note: Patient was re-evaluated at the bedside. Chest pain has improved.
[2024-12-25 23:04] LABS: Partial Thromboplastin Time 85.7 Seconds (22.0-36.0)
--- NOTE | 2024-12-25 23:42 | PD.NEUROPROG ---
Documentation for date of: 12/25/24 Subjective Subjective Interval history: Patient was seen in telemetry today with her daughters at the bedside. She mentioned to be about the rapid response after she complained about the chest pain and plan of transferring to [facility] for stenting/open heart surgery as needed tomorrow. She did have dialysis catheter placed and cardiac cath today here. At present she does not have any complaints of chest pain or shortness of breath Exam - Neurology Vital Signs Temp Pulse Resp BP Pulse Ox O2 Del Method O2 Flow Rate 98.2 F 77 17 118/43 L 98 Room Air 2 12/25/24 20:20 12/25/24 20:20 12/25/24 20:20 12/25/24 20:20 12/25/24 20:20 12/25/24 16:41 12/25/24 20:20 Narrative Exam GENERAL APPEARANCE: Well hydrated, well-nourished in no acute distress. HEENT: Normocephalic, atraumatic, extraocular movements intact. Pupils: Equal reacting to light and accommodation NECK: Supple, no JVD or bruits. CARDIOVASULAR: Heart: S1, S2 heard, irregular without S3-S4 or murmur no rubs or gallops. LUNGS/CHEST: Clear to auscultation bilaterally. No rails, rhonchi, or wheezing. Normal inspection. ABDOMEN: Soft, nontender, with normal bowel sounds. No pulsatile masses. No rebound, rigidity, or guarding. Normal inspection and palpation. EXTREMITIES: Normal inspection and palpation. No edema, clubbing or cyanosis. SKIN: Warm and dry without rashes. Normal inspection. MUSCULOSKELETAL: No cervical, thoracic, lumbar or midline bony tenderness. Normal inspection. NEURO: Alert, awake and oriented x3. Cranial nerves: II through XII grossly intact. Speech and language: Normal with no dysarthria or dysphasia. Motor system: Tone and bulk: Normal: Strength: 5 out of 5 in all 4 extremities; No pronator drift noted. Deep tendon reflexes: 2+ bilaterally symmetrical. Plantar reflex: Downgoing bilaterally. Sensory system: Intact to all modalities of sensation bilaterally. Coordination: Intact to [id number]-osmuw and ihmm-pyqw-cwfc test bilaterally. No ataxia, no dysmetria, or dysdiadochokinesia noted. No intention tremors noted. Gait: Not tested. No signs of meningeal irritation noted. PSYCHIATRIC: Normal mood and affect. Objective Labs 12/26/24 05:56 12/26/24 05:56 Labs: Laboratory Results - last 24 hr 12/25/24 12/25/24 12/25/24 06:03 12:15 20:35 WBC 6.4 RBC 3.13 L Hgb 9.5 L Hct 29.0 L MCV 93 MCH 30.4 MCHC 32.8 RDW Std Deviation 56.9 H Plt Count 102 L Neut % (Auto) 62 Lymph % (Auto) 27 [place] % (Auto) 10 Eos % (Auto) 1 Baso % (Auto) 1 Neut # (Auto) 4.0 Lymph # (Auto) 1.7 [place] # (Auto) 0.6 Eos # (Auto) 0.1 Baso # (Auto) 0.0 Immature Gran # (Auto) 0.02 H Absolute Nucleated RBC 0.00 Immature Gran % 0 Nucleated RBC % 0 PT 10.7 INR 1.0 APTT 27.4 Sodium 137 137 Potassium 5.4 H D 4.3 D Chloride 101 102 Carbon Dioxide 30.1 28.7 Anion Gap 6 L 6 L BUN 59 H 61 H Creatinine 4.6 H* D 4.4 H* Estim Creat Clear Calc 7.6 L 8.0 L eGFR 9 L* 9 L* BUN/Creatinine Ratio 13 14 Glucose 189 H 155 H Calculated Osmolality 295 294 Calcium 8.3 8.0 L Corrected Calcium 8.6 8.5 Phosphorus 4.5 3.7 Magnesium 2.5 Total Bilirubin 0.5 AST 50 H ALT 32 Alkaline Phosphatase 122 H Troponin I 3.848 H* Total Protein 5.8 Albumin 3.6 3.4 Globulin 2.2 L Albumin/Globulin Ratio 1.6 12/25/24 22:24 WBC RBC Hgb Hct MCV MCH MCHC RDW Std Deviation Plt Count Neut % (Auto) Lymph % (Auto) [place] % (Auto) Eos % (Auto) Baso % (Auto) Neut # (Auto) Lymph # (Auto) [place] # (Auto) Eos # (Auto) Baso # (Auto) Immature Gran # (Auto) Absolute Nucleated RBC Immature Gran % Nucleated RBC % PT INR APTT 85.7 H D Sodium Potassium Chloride Carbon Dioxide Anion Gap BUN Creatinine Estim Creat Clear Calc eGFR BUN/Creatinine Ratio Glucose Calculated Osmolality Calcium Corrected Calcium Phosphorus Magnesium Total Bilirubin AST ALT Alkaline Phosphatase Troponin I Total Protein Albumin Globulin Albumin/Globulin Ratio Assessment & Plan Assessment and plan (1) Hemorrhage of arteriovenous fistula: Status: Resolved Assessment and plan: Will keep her off of her anticoagulant (2) Elevated troponin: Status: Acute Assessment and plan: Going for stenting/CABG as needed tomorrow upon transfer to [facility] as the cardiac cath here showed multivessel blockage (3) ESRD on dialysis: Status: Chronic Assessment and plan: Continue with the maintenance hemodialysis with the dialysis catheter in place (4) Atrial fibrillation with rapid ventricular response: Status: Chronic Assessment and plan: Continue with rate control but hold off on anticoagulation for now
[2024-12-26] VITALS: BP 126/59; PULSE 106; PULSE 91; RESP 13; TEMP 36.3; O2SAT 96
[2024-12-26] MEDS: MORPHINE SULF INJ 10 MG/ML VIAL IVP (03:57)
[2024-12-26 04:00] VITALS: BP 121/78; PULSE 104; PULSE 110; RESP 19; TEMP 36.1; O2SAT 97
[2024-12-26] MEDS: LEVOTHYROXINE SODIUM 25 MCG TABLET 50 MCG PO (05:10)
[2024-12-26 06:13] LABS: Basophils % (Auto) 1 % (0-2.5); Eosinophils % (Auto) 1 % (0-10); Hematocrit 30.2 % (36.0-46.0); Immature Granulocytes % (Auto) 1 % (0-0); Immature Granulocytes Auto 0.03 Thou/mm3 (0.00-0.00); Lymphocytes # (Auto) 1.4 Thou/mm3 (1.0-4.8); Lymphocytes % (Auto) 21 % (10-50); Mean Corpuscular HGB Conc 33.1 g/dl (31.0-37.0); Mean Corpuscular Volume 94 fL (80-100); Monocytes # (Auto) 0.6 Thou/mm3 (0.0-0.8); Monocytes % (Auto) 9 % (0-12); Neutrophils # (Auto) 4.5 Thou/mm3 (1.8-7.7); Neutrophils % (Auto) 69 % (37-80); Nucleated Red Blood Cell % 0 /100 WBC (0); Platelet Count 104 Thou/mm3 (140-440); RDW Standard Deviation 58.1 fL (36.4-46.3); Red Blood Count 3.23 Miln/mm3 (4.00-5.20); White Blood Count 6.5 Thou/mm3 (3.6-11.0)
[2024-12-26 06:49] LABS: Alanine Aminotransferase 33 U/L (10-49); Albumin, Serum 3.6 gm/dL (3.4-4.8); Albumin/Globulin Ratio 1.5 (1.2-2.2); Alkaline Phosphatase 127 U/L (46-116); Anion Gap 8 (7-16); Aspartate Amino Transferase 59 U/L (0-34); BUN/Creatinine Ratio 11 Ratio (12-20); Bilirubin,Total 0.7 mg/dL (0.3-1.2); Blood Urea Nitrogen 29 mg/dL (9-23); Calcium 8.2 mg/dL (8.3-10.6); Calcium (Corrected) 8.5 mg/dL (8.5-10.1); Carbon Dioxide 30.2 mMol/L (20.0-31.0); Chloride 102 mMol/L (98-107); Creatinine (Component) 2.7 mg/dL (0.6-1.3); Globulin 2.4 gm/dL (2.3-3.5); Glucose 168 mg/dL (74-106); Magnesium 2.3 mg/dL (1.6-2.6); Osmolality,Calculated 289 (275-295); Phosphorous 3.6 mg/dL (2.4-5.1); Potassium 5.1 mMol/L (3.4-5.1); Sodium 140 mMol/L (136-145); eGFR 17 See Note
[2024-12-26] MEDS: HEPARIN SOD INJ 5000 UNIT/ML VIAL 1750 UNIT IV (06:57)
[2024-12-26 07:00] VITALS: BP 124/71; PULSE 94; RESP 19; TEMP 36.6; O2SAT 95
--- NOTE | 2024-12-26 07:00 | ESPR_ITS ---
Documentation for date of: 12/26/24 Subjective Subjective Interval history: A 84-year-old female patient with past medical history of coronary artery disease status post 5 stent placement, A-fib on Eliquis, hypertension, ESRD on dialysis T// following up with Dr. Alvarado, diabetes mellitus type 2, was brought to the ED after she had bleeding from her dialysis fistula this morning. Patient reported that she finished her session of dialysis today and when she got home she noticed there was bleeding from the fistula site. She went back to the dialysis center in which they applied pressure and and was wrapped. Patient continued to bleed and went back to the dialysis center 2 times third time she became dizzy and had blurry vision in which she was informed to go to the ED immediately.. Patient reported that last week she reported that she was on aspirin and Plavix and her Plavix was switched to Eliquis. She reported that she is taking Eliquis for her A-fib as she was scheduled for Watchman however she still pending for her hadoop application developer to do the procedure. Patient denied any chest pain, palpitation, abdominal pain, however she reported mild nausea. Patient reported that she is scheduled for a visit with her vascular surgeon as she has had previous episode of bleeding from dialysis fistula. ED course: On presentation patient was noticed to have blood pressure of 58/31, pulse was 70, respiratory rate of 18, her labs showed hemoglobin level of 9.3 which is her baseline, platelets 148, coagulation panel was within normal limits, CMP showed sodium of 134, potassium 3.5, serum creatinine 2.5, glucose 230, AST 45, troponin 3.507, EKG showed sinus bradycardia with first-degree AV block. Patient was given 1L of IV fluids in the ED. Repeat blood pressure was 141/60. Nephrology consulted in setting of ESRD on hemodialysis with left AV fistula. Patient is awaiting vascular consult. 12/24/2024: Patient seen and examined at bedside, patient resting comfortably in bed, eating lunch. Patient's left AV fistula examined, had a stitch placed on the left arm in the emergency department on 12/22/2024, called patient's vascular surgeon in [place], vascular surgery recommended not to use the fistula for now and transferred to [facility] for further evaluation. Patient is scheduled for dialysis today, made patient n.p.o. stat, ordered permanent tunneled dialysis catheter placement by interventional radiology today. Discussed with IR department, as staff is only available for limited time, might not be able to place catheter today. Patient is otherwise stable, catheter can be placed in a.m. as well. Patient is scheduled for cardiac catheterization in the morning, will keep n.p.o. after midnight. 12/26/2024: Patient is being transferred to [facility] today. Patient had cardiac catheterization done yesterday showed left main coronary artery, multivessel coronary disease recognized. Plan was made to transfer patient stat to [facility] for evaluation for CABG. Patient also did have placement of permanent tunneled dialysis catheter. Patient will be transferred today Exam Vital Signs Temp Pulse Resp BP Pulse Ox O2 Del Method O2 Flow Rate 97.9 F 94 19 124/71 95 Room Air 1 12/26/24 07:00 12/26/24 07:00 12/26/24 07:00 12/26/24 07:00 12/26/24 07:00 12/26/24 07:00 12/26/24 04:00 Narrative Exam Constitutional: Alert, oriented x 3 and comfortable. Elderly female. HEENT: Vision grossly intact. Patent nares. Trachea midline, pulmonary dialysis catheter noted. Respiratory: Chest normal on inspection and clear auscultation bilaterally Cardiovascular: S1 and S2 audible, RRR. No murmurs carotid bruit. No gross JVD. Abdominal: Soft and non tender to palpation in all quadrants. BS + Genitourinary: No bladder tenderness, no flank pain. Normal to palpation Musculoskeletal: Extremities tone within normal limits. No LE edema. Left arm edema Skin: Warm, dry and intact. Left brachial cephalic fistula with [address], minimal slow ooze of blood, weak radial pulse on left Psychiatric: Patient has good affect, is cooperative Neurological: CN II - XII grossly intact. Extremity motor and sensation grossly intact. Objective Labs 12/26/24 05:56 12/26/24 05:56 Labs: Laboratory Results - last 24 hr 12/23/24 12/25/24 12/25/24 09:06 12:15 20:35 WBC RBC Hgb Hct MCV MCH MCHC RDW Std Deviation Plt Count Neut % (Auto) Lymph % (Auto) Banks % (Auto) Eos % (Auto) Baso % (Auto) Neut # (Auto) Lymph # (Auto) Banks # (Auto) Eos # (Auto) Baso # (Auto) Immature Gran # (Auto) Absolute Nucleated RBC Immature Gran % Nucleated RBC % APTT Sodium 137 Potassium 4.3 D Chloride 102 Carbon Dioxide 28.7 Anion Gap 6 L BUN 61 H Creatinine 4.4 H* Estim Creat Clear Calc 8.0 L eGFR 9 L* BUN/Creatinine Ratio 14 Glucose 155 H Calculated Osmolality 294 Calcium 8.0 L Corrected Calcium 8.5 Phosphorus 3.7 Magnesium Total Bilirubin AST ALT Alkaline Phosphatase Troponin I 3.848 H* Total Protein Albumin 3.4 Globulin Albumin/Globulin Ratio Crossmatch See Detail 12/25/24 12/26/24 22:24 05:56 WBC 6.5 RBC 3.23 L Hgb 10.0 L Hct 30.2 L MCV 94 MCH 31.0 MCHC 33.1 RDW Std Deviation 58.1 H Plt Count 104 L Neut % (Auto) 69 Lymph % (Auto) 21 Banks % (Auto) 9 Eos % (Auto) 1 Baso % (Auto) 1 Neut # (Auto) 4.5 Lymph # (Auto) 1.4 Banks # (Auto) 0.6 Eos # (Auto) 0.0 Baso # (Auto) 0.0 Immature Gran # (Auto) 0.03 H Absolute Nucleated RBC 0.00 Immature Gran % 1 H Nucleated RBC % 0 APTT 85.7 H D 43.0 H D Sodium 140 Potassium 5.1 D Chloride 102 Carbon Dioxide 30.2 Anion Gap 8 BUN 29 H Creatinine 2.7 H D Estim Creat Clear Calc 13.0 L eGFR 17 L BUN/Creatinine Ratio 11 L Glucose 168 H Calculated Osmolality 289 Calcium 8.2 L Corrected Calcium 8.5 Phosphorus 3.6 Magnesium 2.3 Total Bilirubin 0.7 AST 59 H ALT 33 Alkaline Phosphatase 127 H Troponin I Total Protein 6.0 Albumin 3.6 Globulin 2.4 Albumin/Globulin Ratio 1.5 Crossmatch Quality Measures Quality Measures VTE prophylaxis Advance care planning discussed with:: patient Assessment & Plan Assessment Current Active Medications: Generic Name Dose Route Start Last Admin Trade Name Freq PRN Reason Stop Dose Admin Acetaminophen 650 mg 12/22/24 18:28 Acetaminophen 325 Mg Tablet PO 01/21/25 18:27 Q6H PRN Fever >101.5 Acetaminophen 650 mg 12/22/24 18:28 12/23/24 09:38 Acetaminophen 325 Mg Tablet PO 01/21/25 18:27 650 mg Q6H PRN Administration PAIN SCALE 1-3 (mild Amiodarone HCl 200 mg 12/23/24 09:00 12/24/24 08:30 Amiodarone Hcl 200 Mg Tablet PO 01/22/25 08:59 200 mg DAILY ALL Administration Atorvastatin Calcium 80 mg 12/23/24 21:00 12/23/24 20:12 Atorvastatin Calcium 20 Mg Tablet PO 01/22/25 20:59 80 mg HS ALL Administration Dextrose 25 ml 12/22/24 18:32 Dextrose 50%-Water Inj 50 Ml Syringe IV 01/21/25 18:31 Q15MIN PRN BG 50-70 responsive npo pt Dextrose 50 ml 12/22/24 18:32 Dextrose 50%-Water Inj 50 Ml Syringe IV 01/21/25 18:31 Q15MIN PRN BG <50 OR BG <70 & pt unresponsive Glucagon 1 mg 12/22/24 18:32 Glucagon Inj 1 Mg Vial IM Q15MIN PRN BG <70, and no IV access Hydralazine HCl 10 mg 12/23/24 08:04 Hydralazine Inj 20 Mg/Ml Vial IV 01/21/25 18:33 Q6HR PRN SBP >180 Insulin Glargine 5 unit 12/24/24 09:30 12/24/24 10:20 Insulin Glargine (Lantus) 5 Unit/0.05 Ml (Per 5 Units) SC 01/23/25 09:29 5 unit QDAY ALL Administration Insulin Human Lispro 0 unit 12/23/24 07:30 12/24/24 07:35 Insulin Lispro (Admelog) 1 Unit/0.01 Ml Unit SC 01/22/25 07:29 1 unit AC ALL Administration Protocol Levothyroxine Sodium 50 mcg 12/23/24 07:45 12/24/24 05:45 Levothyroxine Sodium 25 Mcg Tablet PO 01/22/25 07:44 50 mcg ACBR ALL Administration Ondansetron HCl 4 mg 12/22/24 18:28 12/24/24 04:07 Ondansetron Inj 2 Mg/Ml Inj 2 Ml IV 01/21/25 18:27 4 mg Q6H PRN Administration NAUSEA OR VOMITING Protocol Pantoprazole Sodium 40 mg 12/23/24 09:00 12/24/24 08:30 Pantoprazole Inj 40 Mg Vial IVP 01/22/25 08:59 40 mg QDAY ALL Administration Plan A 84-year-old female patient with past medical history of coronary artery disease status post 5 stent placement, A-fib on Eliquis, heart block, hypertension, ESRD on dialysis T/TH/S following up with Dr. Alvarado, diabetes mellitus type 2, was brought to the ED after she had bleeding from her dialysis fistula this morning. Patient was found to have troponin of 3.547, patient was admitted for monitoring of elevated troponin and further observation for any blood loss. #ESRD on HD via left AV fistula T//S #Status post permanent tunneled dialysis catheter insertion follow-up with Dr. Alvarado as her egg crater Patient presented with multiple episode of bleeding after she finished her dialysis today. Hemoglobin stable at 9.3, however patient reported dizziness, blurry vision and nausea. Blood pressure was on the soft side it was 58/31 however all the blood pressure reads after that was within normal limits. 1 week ago patient reported switching her blood thinners from aspirin and Plavix to aspirin and Eliquis. She is pending Watchman procedure. Plan -Patient is being transferred for multivessel coronary artery disease to [facility] today. -Patient's AV fistula assessed at bedside, case discussed with vascular surgeon Dr. Lyle, Dr. Lyle recommends transfer to [facility] for possible fistulogram and further evaluation of AV fistula. -Avoid nephrotoxic agents -Renally dose medications #Left arm edema #Bleeding AV fistula Patient's AV fistula site has minimal blood oozing. Left arm is swollen and radial pulses weaker on the left. ? On-call vascular surgeon, Dr. Nova Kiran consulted. ? Patient's AV fistula assessed at bedside, case discussed with vascular surgeon Dr. Lyle, Dr. Lyle recommends transfer to [facility] for possible fistulogram and further evaluation of AV fistula. #ACS #Multivessel coronary artery disease #Acute blood loss anemia secondary to anticoagulation and access of AV fistula #Symptomatic anemia #Stroke rule out #Facial droop #Elevated troponin #History of CAD s/p 5 stents #History of A-fib previously on Eliquis #History of sinus bradycardia/heart block #History of diabetes mellitus type 2 #History of hypothyroidism - Management as per primary team, cardiology and teleneurology were consulted Case discussed with Attending Dr. Al. Kenneth Bwoers PGY1 Disclaimer: This note was dictated by speech recognition. Minor errors in cloth shrinking supervisor may be present due to voice recognition software. Attending Provider Attestation/Addendum Pt is seen and examined. Labs and investigations are reviewed. Agree witth assessment and plan by resident. agree with findings. Xavier Al MD
--- NOTE | 2024-12-26 07:22 | PC.CC ---
Received report from Fidel Callaway pt transferred to [facility] this morning [id number]
--- NOTE | 2024-12-26 09:00 | EVENTNT_ITS ---
Documentation for date of: 12/26/24 Event Note Event Note: Patient had a rapid response called overnight for chest pain, EKG and troponin were ordered, EKG did not show any ST elevation, troponin was 3.848, worsened compared to 12/23/2024. Her vitals were stable this morning. Lab results showing stable hemoglobin at 10.0, BUN/creatinine 29/2.7, AST 59, ALP 127 rest of the labs were nonconcerning. Patient was planned for transfer to [facility] for evaluation for CABG and repair of bleeding/nonfunctioning left arm AV dialysis fistula. Patient was transported before evaluation. Brooke Manuel MD
== END 2024-12-26 07:00 | disposition other institution (70) | DRG 280 ==
LOC: SERX 14:45 → SERHOLD 19:23 → S2NX 22:27
PROVIDERS: Internal Medicine; Radiology Diagnostic Radiology; Student in an Organized Health Care Education/Training Program; Admitting Provider Student in an Organized Health Care Education/Training Program; Emergency Provider Emergency Medicine; PCP Family Medicine; Visit Provider Student in an Organized Health Care Education/Training Program
PROC: 4A023N7 Measurement of Cardiac Sampling and Pressure, Left Heart, Percutaneous Approach (ICD-10-PCS; principal; 2024-12-25 13:00)
DX: T82.838A Hemorrhage due to vascular prosthetic devices, implants and grafts, initial encounter (principal); N18.6 End stage renal disease; I21.4 Non-ST elevation (NSTEMI) myocardial infarction; I12.0 Hypertensive chronic kidney disease with stage 5 chronic kidney disease or end stage renal disease; D62 Acute posthemorrhagic anemia; E03.9 Hypothyroidism, unspecified; E11.22 Type 2 diabetes mellitus with diabetic chronic kidney disease; E78.5 Hyperlipidemia, unspecified; I48.91 Unspecified atrial fibrillation; I25.10 Atherosclerotic heart disease of native coronary artery without angina pectoris; R79.89 Other specified abnormal findings of blood chemistry; R29.810 Facial weakness; Y84.1 Kidney dialysis as the cause of abnormal reaction of the patient, or of later complication, without mention of misadventure at the time of the procedure; R00.1 Bradycardia, unspecified; I45.9 Conduction disorder, unspecified; T82.855A Stenosis of coronary artery stent, initial encounter; Z95.5 Presence of coronary angioplasty implant and graft; Y83.1 Surgical operation with implant of artificial internal device as the cause of abnormal reaction of the patient, or of later complication, without mention of misadventure at the time of the procedure; Z79.899 Other long term (current) drug therapy; Z88.0 Allergy status to penicillin; Z79.01 Long term (current) use of anticoagulants; I44.0 Atrioventricular block, first degree; Z79.02 Long term (current) use of antithrombotics/antiplatelets; Z79.82 Long term (current) use of aspirin; Z99.2 Dependence on renal dialysis; I45.10 Unspecified right bundle-branch block
CPT/HCPCS: 36415; 70450; 71045; 76937; 77001; 80053; 80069; 83735; 84100; 84132; 84443; 84484; 85014; 85018; 85025; 85610; 85652; 85730; 86850; 86900; 86901; 86923; 92610; 93005; 93306; 94640; 94762; 96360; 97162; 99291; A4216; C1894; G0378; J0153; J0171; J0282; J0461; J0583; J1171; J1642; J1643; J1644; J1815; J2250; J2270; J2310; J2371; J2405; J2470; J3010; J3490; J7040; J7050; P9016; A9270

== ENCOUNTER 2025-01-05 09:56 | Emergency (ER) | payer OTHER, MEDICAID, SELFPAY ==
[2025-01-05 10:26] VITALS: BP 114/60; PULSE 85; RESP 18; TEMP 36.8; O2SAT 97; BMI 23.4
--- NOTE | 2025-01-05 10:40 | XR_ITS ---
Examination: AP chest single view Technique one AP portable sitting chest single view Date and time: January 05, 2025 1103 hours Comparison January 02, 2025 INDICATIONS: Shortness of breath today. FINDINGS: Mild to moderate elevation right hemidiaphragm Minor blunting bilateral costophrenic angle Left internal jugular dialysis catheter tips SVC Cardiac leads satisfactory position Moderate vascular congestion No lobar pneumonia or pulmonary edema IMPRESSION: Moderate vascular congestion
--- NOTE | 2025-01-05 10:40 | EKG_ITS ---
[facility] Test Date: 2025-01-05 Pat Name: BLAIR VALIENTE Department: Room: - Gender: Female Pipe Inspector: : [id number] Requested By: Hector Pérez (FELIPE) Order Number: [id number] Reading MD: Hector Pérez (FELIPE) Measurements Intervals [place] Rate: 95 P: HI: QRS: 264 QRSD: 231 T: 93 QT: 487 QTc: 615 Interpretive Statements ELECTRONIC VENTRICULAR PACEMAKER ABNORMAL RHYTHM ECG Compared to ECG 12/25/2024 20:15:06 Atrial fibrillation no longer present Right-axis deviation no longer present Right bundle-branch block no longer present /store/S0/[id number]/[id number].pdf
--- NOTE | 2025-01-05 10:41 | PD.EDRME ---
Rapid Medical Screening Exam [facility] Arrival date/time: 01/05/25 09:56 84-year-old female with ESRD on dialysis with recent heart catheterization and pacemaker placement presents with daughter. Patient reports that her dialysis catheter is not working Chief Complaint: Shortness of Breath/Dyspnea Vital signs: Vital Signs Temperature 98.3 F 01/05/25 10:26 Pulse Rate 85 01/05/25 10:26 Respiratory Rate 18 01/05/25 10:26 Blood Pressure 114/60 01/05/25 10:26 Pulse Oximetry (%) 97 01/05/25 10:26 Oxygen Delivery Method Room Air 01/05/25 10:26
[2025-01-05 11:20] LABS: Basophils % (Auto) 0 % (0-2.5); Eosinophils % (Auto) 0 % (0-10); Hematocrit 22.7 % (36.0-46.0); Immature Granulocytes % (Auto) 1 % (0-0); Immature Granulocytes Auto 0.04 Thou/mm3 (0.00-0.00); Lymphocytes # (Auto) 0.8 Thou/mm3 (1.0-4.8); Lymphocytes % (Auto) 11 % (10-50); Mean Corpuscular Hemoglobin 32.3 pg (25.0-35.0); Mean Corpuscular Volume 98 fL (80-100); Monocytes # (Auto) 0.9 Thou/mm3 (0.0-0.8); Monocytes % (Auto) 11 % (0-12); Neutrophils # (Auto) 5.9 Thou/mm3 (1.8-7.7); Neutrophils % (Auto) 77 % (37-80); Nucleated Red Blood Cell % 0 /100 WBC (0); Platelet Count 142 Thou/mm3 (140-440); RDW Standard Deviation 64.8 fL (36.4-46.3); Red Blood Count 2.32 Miln/mm3 (4.00-5.20); White Blood Count 7.6 Thou/mm3 (3.6-11.0)
[2025-01-05 11:37] LABS: Hemoglobin 7.5 g/dL (12.0-16.0)
[2025-01-05 11:38] LABS: INR 1.2 (0.9-1.3); Partial Thromboplastin Time 32.6 Seconds (22.0-36.0); Prothrombin Time 13.4 Seconds (9.0-12.2)
[2025-01-05 11:50] LABS: Alanine Aminotransferase 57 U/L (10-49); Albumin, Serum 3.9 gm/dL (3.4-4.8); Albumin/Globulin Ratio 1.6 (1.2-2.2); Alkaline Phosphatase 140 U/L (46-116); Anion Gap 12 (7-16); Aspartate Amino Transferase 175 U/L (0-34); B-Type Natriuretic Peptide > 3280 pg/mL (0-100); BUN/Creatinine Ratio 6 Ratio (12-20); Blood Urea Nitrogen 37 mg/dL (9-23); Calcium 7.8 mg/dL (8.3-10.6); Calcium (Corrected) 7.9 mg/dL (8.5-10.1); Carbon Dioxide 26.2 mMol/L (20.0-31.0); Chloride 97 mMol/L (98-107); Creatinine (Component) 5.9 mg/dL (0.6-1.3); Estimated Creatinine Clearance 5.5 mL/min (>60); Globulin 2.4 gm/dL (2.3-3.5); Glucose 284 mg/dL (74-106); Magnesium 3.7 mg/dL (1.6-2.6); Osmolality,Calculated 288 (275-295); Potassium 5.1 mMol/L (3.4-5.1); Sodium 135 mMol/L (136-145); Total Protein 6.3 gm/dL (5.7-8.2); eGFR 7 See Note
[2025-01-05 11:56] LABS: Troponin I 1.598 ng/mL (0.0-0.045)
[2025-01-05 14:11] VITALS: BP 113/71; PULSE 69; RESP 19; TEMP 36.6; O2SAT 99
--- NOTE | 2025-01-05 14:42 | PD.EDADULT ---
ED General RME/HPI General Chief complaint: Shortness of Breath/Dyspnea Stated complaint: port for dialysis clogged, high blood bp, sob Time Seen by Provider: 01/05/25 14:41 Arrival date/time: 01/05/25 09:56 History: In operative dialysis catheter. HPI patient presents to the ER from the dialysis center stating that it is not working on, it needs to be replaced and the patient needs to be dialyzed. Dr. Alvarado is the termite inspector. Family member states they use [employer] prior to attempting to get it unclogged however it is completely clogged at this time. RME / HPI RME / HPI narrative: 01/05/25 09:56 84-year-old female with ESRD on dialysis with recent heart catheterization and pacemaker placement presents with daughter. Patient reports that her dialysis catheter is not working Related Data Home Medications ?Medication ?Instructions ?Recorded ?Confirmed levothyroxine 50 mcg tablet 1 tab PO DAILY 03/21/22 12/23/24 pantoprazole 40 mg tablet,delayed 40 mg PO HS 05/29/22 12/23/24 release insulin glargine U-300 conc 300 10 unit subcut QDAY 08/07/22 12/23/24 unit/mL (3 mL) subcutaneous pen (Toujeo Max U-300 SoloStar) albuterol sulfate 90 mcg/actuation 1 puff inhalation Q4HR PRN 08/08/22 12/23/24 aerosol inhaler BREATHING lactulose 10 gram/15 mL oral 30 ml PO TID PRN Constipation 08/08/22 12/23/24 solution (Constulose) tramadol 50 mg tablet 50 mg PO Q6H PRN Pain 08/08/22 12/23/24 docusate sodium 100 mg tablet 100 mg PO DAILY 08/23/22 12/23/24 dulaglutide 1.5 mg/0.5 mL 0.5 mg subcut QWEEK 07/03/24 12/23/24 subcutaneous pen injector (Trulicity) galcanezumab-gnlm 120 mg/mL 120 mg subcut Q1M 07/03/24 12/23/24 subcutaneous pen injector (Emgality Pen) aspirin 81 mg chewable tablet 1 tab PO DAILY 10/14/24 12/23/24 atorvastatin 80 mg tablet 80 mg PO DAILY 10/14/24 12/23/24 clopidogrel 75 mg tablet 75 mg PO DAILY 10/14/24 12/23/24 Held on 10/14/24. Instructions: Resume on 10/19/24. please hold for 5 days. furosemide 40 mg tablet (Lasix) 40 mg PO QDAY 10/14/24 12/23/24 insulin glargine U-300 conc 300 30 unit subcut Q24H 10/14/24 12/23/24 unit/mL (3 mL) subcutaneous pen (Toujeo Max U-300 SoloStar) isosorbide mononitrate 60 mg 60 mg PO DAILY 10/14/24 12/23/24 tablet,extended release 24 hr nitroglycerin 0.4 mg sublingual See Rx Instructions buccal .COMPLEX 10/14/24 12/23/24 tablet Previous Rx's ?Medication ?Instructions ?Recorded amiodarone 200 mg tablet 200 mg PO DAILY #30 tabs 07/03/24 Allergies Allergy/AdvReac Type Severity Reaction Status Date / Time amoxicillin Allergy Severe Rash Verified 01/05/25 09:59 ED Exam Narrative Physical exam: [General: Not in any acute distress Head normocephalic HEENT: Within acceptable limits Neck is supple nontender Chest equal chest rise nontender to palpation left anterior chest temporary dialysis catheter clean dry and intact. Respiratory:mildly tachypneic, clear to auscultation no wheezes crackles or rubs CV: Rate rhythm is regular no murmurs rubs or clicks Abdomen is soft nontender no masses positive bowel sounds all 4 quadrants Back: No CVA tenderness no spinous process tenderness from cervical spine thoracic and lumbar spine Skin: Intact no petechiae rash induration ulceration or crepitus Extremities: Moving all extremity against resistance cap refill less than 2 seconds neurosensory intact Neuro: Awake alert oriented x3 Glascow coma 15 no focal deficits] Course Course Course Narrative: Patient is not in any acute distress however mildly tachypneic. Potassium is 5.1, all the laboratory results clinical finding and circumstances regarding in availability of IR to change out the catheter being available at this time was relayed to Dr. Alvarado termite inspector who agrees the patient can wait another 18 hours and retry again in the morning. This was conveyed to the daughter and the patient themselves the backup plan is to return if you are acutely short of breath via 911 to be supported in the ER until the catheter can be changed out for emergent dialysis. The patient is dialyzed on Tuesdays and Saturdays had her last dialysis on Saturday after having a pacemaker placed in the right anterior chest. Patient is awake alert understanding all the situation and agrees to verbalized to her family members if she is acutely short of breath. Quality Measures none Orders Category Date Time Status EKG (ED ONLY) *Do not use* NOW Care 01/05/25 10:40 Completed EKG (ED Only) Stat Exams 01/05/25 10:40 Draft IR dialysis catheter insertion Stat Exams 01/05/25 Ordered XR chest 1V portable Stat Exams 01/05/25 10:40 Completed B-Type Natriuretic Peptide Stat Lab 01/05/25 10:59 Completed CBC Stat Lab 01/05/25 10:59 Completed Comprehensive Metabolic Panel Stat Lab 01/05/25 10:59 Completed Magnesium Stat Lab 01/05/25 10:59 Completed Partial Thromboplastin Time Stat Lab 01/05/25 10:59 Completed Prothrombin Time with INR Stat Lab 01/05/25 10:59 Completed Troponin I Stat Lab 01/05/25 10:59 Completed Vital Signs Vital signs: Vital Signs Temperature 98.3 F 01/05/25 10:26 Pulse Rate 85 01/05/25 10:26 Respiratory Rate 18 01/05/25 10:26 Blood Pressure 114/60 01/05/25 10:26 Pulse Oximetry (%) 97 01/05/25 10:26 Oxygen Delivery Method Room Air 01/05/25 10:26 Discharge Plan Plan Patient Disposition: HOME (Self Care) Patient condition on transfer: Stable Prescriptions/Referrals Prescriptions/Med Rec: No Action levothyroxine 50 mcg tablet 1 tab PO DAILY pantoprazole 40 mg tablet,delayed release (DR/EC) 40 mg PO HS insulin glargine U-300 conc [Toujeo Max U-300 SoloStar] 300 unit/mL (3 mL) Insulin Pen 10 unit SUBCUT QDAY tramadol 50 mg Tablet 50 mg PO Q6H PRN (Reason: Pain) albuterol sulfate 90 mcg/actuation HFA aerosol inhaler 1 puff INHALATION Q4HR PRN (Reason: BREATHING) Patient Comments: inhale 1 puff by mouth and INTO THE LUNGS every 4 hours if needed lactulose [Constulose] 10 gram/15 mL solution 30 ml PO TID PRN (Reason: Constipation) Rx Instructions: UP TO 3X A DAY NEEDED FOR CONTIPATION Emgality Pen 120 mg/mL pen injector 120 mg SUBCUT Q1M Trulicity 1.5 mg/0.5 mL pen injector 0.5 mg SUBCUT QWEEK Patient Comments: INJECT 1.5MG SUBCUTANEOUSLY ONCE A WEEK amiodarone 200 mg Tablet 200 mg PO DAILY Qty: 30 0RF docusate sodium 100 mg Tablet 100 mg PO DAILY aspirin 81 mg tablet,chewable 1 tab PO DAILY atorvastatin 80 mg tablet 80 mg PO DAILY Patient Comments: take 1 tablet by mouth once daily clopidogrel 75 mg tablet 75 mg PO DAILY Patient Comments: take 1 tablet by mouth once daily isosorbide mononitrate 60 mg tablet extended release 24 hr 60 mg PO DAILY Patient Comments: take 1 tablet by mouth every morning furosemide [Lasix] 40 mg tablet 40 mg PO QDAY nitroglycerin 0.4 mg tablet, sublingual See Rx Instructions BUCCAL .COMPLEX Patient Comments: place 1 tablet under the tongue AT FIRST SIGN OF ATTACK; December... (REFER TO PRESCRIPTION NOTES). Rx Instructions: buccally; insulin glargine U-300 conc [Toujeo Max U-300 SoloStar] 300 unit/mL (3 mL) insulin pen 30 unit subcut Q24H Referrals: Andrew Zhou MD [Primary Care Provider] - In 1 week Problem List Clinical Impression: Hemodialysis catheter dysfunction Patient/Caregiver Discharge Instructions Other Activity Instructions:: Please return tomorrow January 06 as soon as possible for temporary dialysis catheter replacement. If there is acute shortness of breath during the middle of the night call 911 and come to the emergency room. Education Materials: Shortness of Breath Coping Print Language: Wolof Stand Alone Forms: Rachel Award Info., Patient Portal Info Letter PA/VARNISHER Supervising Physician PA/VARNISHER Supervising Physician: Rebeca Jenkins ENP MDM Clinical Information Provided by patient and family Medical Records Reviewed [facility] Meds/Rx Considered, not Ordered None Labs/Rad/Tests considered, not Ordered None Lab Interpretation Lab(s) interpretation(s): CBC shows no leukocytosis, H&H is 7.5 and 22.7 respectively no thrombocytopenia Coags show PT of 13.4, INR 1.2 PTT 32.6 CMP shows sodium 135 chloride of 97 BUN of 37 creatinine 5.9 glucose of 284 calcium 7.8 mag 3.7 positive transaminitis no T. bili elevation Troponin at 1.598 note the patient's troponin is been as high as 3 she is chronically care secondary to dialysis BMP is at greater than 3280 Imaging Imaging interpretation: interpreted by me Provider imaging interpretation(s): Moderate vascular congestion as interpreted by radiologist.
== END 2025-01-05 16:04 | disposition home or self-care (01) ==
PROVIDERS: Nurse Practitioner Primary Care; Emergency Provider Emergency Medicine; PCP Family Medicine
DX: T82.41XA Breakdown (mechanical) of vascular dialysis catheter, initial encounter (principal); R06.02 Shortness of breath; N18.6 End stage renal disease; Z99.2 Dependence on renal dialysis
CPT/HCPCS: 36415; 71045; 80053; 83735; 83880; 84484; 85025; 85610; 85730; 93005; 99283

== ENCOUNTER 2025-01-06 07:25 | Observation (INO) | payer MEDICARE, MEDICAID, SELFPAY ==
[2025-01-06] VITALS (22 sets, daily range): BP systolic 96–139; BP diastolic 60–78; PULSE 72–109; RESP 15–19; TEMP 36.1–37.1; O2SAT 94–100; BMI 23.6
--- NOTE | 2025-01-06 08:00 | PC.NURSE ---
Patient came to ED due her HD port not working yesterday. Patient was discharged from [facility] on 01/03/25 s/p pacemaker. Patient is A&O x4, denies pain or SOB. Dr. Bridges at bedside assessing patient and updating on POC. Daughter at bedside.
--- NOTE | 2025-01-06 08:07 | EDNOTE_ITS ---
ED General RME/HPI General Chief complaint: Urogenital-Female Stated complaint: NEEDS DIALYSIS; PORT NOT WORKING, COUGHING BLOOD Time Seen by Provider: 01/06/25 07:48 Arrival date/time: 01/06/25 07:25 RME / HPI RME / HPI narrative: DR. PERSON MAIN ED EVALUATION: 84 yaer old female with past medical history significant for renal disease on dialysis, recent KS presents to the Emergency Department brought in by the alber amor requesting dialysis, patient has mild shortness of breath. Per daughter, last 1-2 weeks the patient had a KS and they transferred her did dialysis there; yesterday they tried to do dialysis but her chest dialysis port was not working. The daughter, states that at 4 AM she had a little shortness of breath and epistaxis. No fevers or chills. No chest pain or leg swelling. No vomiting, diarrhea, bloody stools, or constipation. Last bowel movement was yesterday, normal. PMHx: Recent KS, hypertension, hyperlipidemia, diabetes, CAD with stent placement, A-fib, ESRD (//Sat), and hypothyroidism. Social Hx: No tobacco, alcohol, or substance use. Related Data Home Medications ?Medication ?Instructions ?Recorded ?Confirmed levothyroxine 50 mcg tablet 1 tab PO DAILY 03/21/22 pantoprazole 40 mg tablet,delayed 40 mg PO HS 05/29/22 01/06/25 release insulin glargine U-300 conc 300 10 unit subcut QDAY 12/23/24 unit/mL (3 mL) subcutaneous pen (Toujeo Max U-300 SoloStar) albuterol sulfate 90 mcg/actuation 1 puff inhalation Q 4HR PRN 08/08/22 01/06/25 aerosol inhaler BREATHING lactulose 10 gram/15 mL oral 30 ml PO TID PRN Constipa tion 08/08/22 01/06/25 solution (Constulose) tramadol 50 mg tablet 50 mg PO Q6H PRN Pain 01/06/25 docusate sodium 100 mg tablet 100 mg PO DAILY 08/23/22 12/23/24 dulaglutide 1.5 mg/0.5 mL 0.5 mg subcut QWEEK 07/03/24 12/23/24 subcutaneous pen injector (Trulicity) galcanezumab-gnlm 120 mg/mL 120 mg subcut Q1M 07/03/24 12/23/24 subcutaneous pen injector (Emgality Pen) aspirin 81 mg chewable tablet 1 tab PO DAILY 10/14/24 01/06/25 atorvastatin 80 mg tablet 80 mg PO DAILY 10/14/24 05/09/12 clopidogrel 75 mg tablet 75 mg PO DAILY 10/14/2403/12 Held on 10/14/24. Instructions: Resume on 10/19/24. please hold for 5 days. furosemide 40 mg tablet (Lasix) 40 mg PO QDAY 10/14/24 01/06/25 insulin glargine U-300 conc 300 30 unit subcut Q24H 12/23/24 unit/mL (3 mL) subcutaneous pen (Toujeo Max U-300 SoloStar) isosorbide mononitrate 60 mg 60 mg PO DAILY 10/14/24 0 12/23/24 tablet,extended release 24 hr nitroglycerin 0.4 mg sublingual See Rx Instructions bu ccal .COMPLEX 10/14/24 01/06/25 tablet metoprolol succinate 25 mg 25 mg PO DAILY 01/06/25 tablet,extended release 24 hr ticagrelor 90 mg tablet (Brilinta) 90 mg PO BID 01/06/25 Previous Rx's ?Medication ?Instructions ?Recorded amiodarone 200 mg tablet 200 mg PO DAILY #30 tabs Allergies Allergy/AdvReac Type Severity Reaction Status Date / Time amoxicillin Allergy Severe Rash Verified 01/06/25 07:29 Review of Systems Review of Systems Systems Reviewed: All systems reviewed, normal except as documented Narrative Review of Systems: Constitutional: DENIES: fevers; Eyes: DENIES: loss of vision; Head/Ear/Nose: POSITIVES: epistaxis DENIES: loss of hearing. Throat: DENIES: dysphagia. Cardiovascular: DENIES: chest pain, dyspnea, or syncope. Respiratory: POSTIVES: mild shortness of breath; Gastrointestinal: DENIES: rectal bleeding or melena. Genitourinary: DENIES: dysuria (painful or difficult urination); Musculoskeletal: DENIES: arthralgia (pain in a joint); Skin: DENIES: rash; Neurological: DENIES: loss of function or movement; Psychiatric: DENIES: recent major life stressor, emotional problem, illicit drug use or abuse; Endocrinology: DENIES: weight change,; Hematologic/Lymphatic: DENIES: abnormal bruising. Allergic/Immunologic: DENIES: urticaria (hives). Past Medical History Past Medical History NEUROLOGIC: Positive Neurological Disorders, Cerebrovascular Accident and Transient Ischemic Attacks (TIA) CARDIAC: Positive Cardiac Disorders, Myocardial Infarction, Cardiac Arrhythmia, Atrial Fibrillation, Angina, Heart Murmur, Coronary Artery Disease, Peripheral Vascular Disease, Hypercholesterolemia, Edema and Hypertension RESPIRATORY: Positive Asthma and Pneumonia GASTROINTESTINAL: Positive Gastrointestinal Disorders and Gastroesophageal Reflux Disease GENITOURINARY: Positive Genitourinary Disorders, Renal Disease and Dialysis REPRODUCTIVE: Positive Previous Pregnancies MUSCULOSKELETAL: Positive Musculoskeletal Disorders, Arthritis, Rheumatoid Arthritis, Degenerative Disk Disease and Gout ENT: Positive Cataracts ENDOCRINE: Positive Endocrine Disorders, Diabetes Mellitus Type 2 and Hypothyroidism HEMATOLOGIC: Positive Clotting Problems OTHER HISTORY: Positive Hospitalization, Blood Transfusions, Chicken Pox, Measles, Mumps and Clostridium Difficile Family History FAMILY HISTORY: Positive Family Cardiac Disorders, Family Cancer and Family Surgery Surgical History SURGICAL: Positive Cardiac Surgery, Coronary Stent, Cardiac Catheterization, Pacemaker, Angiogram and Eye Surgery Social History SMOKING STATUS: Never smoker SECOND HAND EXPOSURE: No SUBSTANCE USE: does not use ALCOHOL: Never ED Exam Narrative Physical exam: Physical Exam: General: The vital signs were reviewed. The patient is non-toxic, in no apparent distress and appears healthy with a patent airway, no respiratory distress and has no apparent circulatory problems. Head & Scalp: Normocephalic, atraumatic. Face: Appears normal and is without lesions, deformity. Ears: Left external pinna appears normal. Right external pinna appears normal. Eyes: The sclera is anicteric. No obvious photophobia. The Left and Right Orbit/Lid/Conjunctiva appears normal without swelling, discoloration or injection. Nose: The nose is without deformity, discharge or tenderness; Throat: Appears normal. The mucous membranes are pink and moist without exudates, redness or mass seen. The tongue appears normal. Neck: The neck is supple and no apparent mass or adenopathy. Chest: The chest wall is normal in size and symmetry and has no chest wall tenderness or crepitus. The patient displays normal ventilator effort without retractions, accessory muscle use and has adequate air movement bilaterally with no wheezes and no rales. Cardiovascular: Regular rate and rhythm; No murmurs, rubs, or gallops; Gastrointestinal: The abdomen appears normal. No obvious hernias or mass. The abdomen is soft and benign, non-distended, with no pain, no guarding and no rebound tenderness. Bowel sounds are present and normal sounding. No CVA tenderness. Genitourinary: Back/Spine: Extremities/Musculoskeletal/lymphatic: The bilateral upper and lower extremities are warm. There is no evidence of arterial insufficiency. There is no evidence of venous insufficiency/edema. The patient spontaneously moves bilateral upper and lower extremities with no pain and no limitation of movement. There is no apparent, injury or trauma. Skin: The skin is warm, dry and intact. No rashes. No petechia. No purpura. No abnormal bruising. The color is appropriate with no cyanosis. Mental status/Psychiatric: Mental status is appropriate for age. The patient has no apparent delusions, visual hallucinations, no apparent audible hallucinations. The patient has no apparent suicidal thoughts/ideation and no apparent homicidal thoughts/ideation. Neurological: The patient is awake, alert, interactive, cordial, cooperative and is oriented to name and situation. The patient follows commands and answers historical question with no impairment. There is no visual disturbance apparent. The pupils are equal and reactive bilaterally with normal eye movements and no diplopia The bilateral upper and lower extremities have normal strength, normal range of motion and normal functioning. The gait, station and balance not tested due to acuity Course Quality Measures none Orders Category Date Time Status Patient Condition Routine Admission 01/06/25 09:04 Ordered Dialysis [Hemodialysis] Urgent Care 01/06/25 08:24 Active EKG (ED ONLY) *Do not use* NOW Care 01/06/25 08:10 Completed Notify provider NEEDED Care 01/06/25 09:04 Active EKG (ED Only) Stat Exams 01/06/25 08:10 Draft XR chest 1V portable Stat Exams 01/06/25 08:10 Completed B-Type Natriuretic Peptide Stat Lab 01/06/25 09:48 Completed Blood Culture (Lab) Stat Lab 01/06/25 09:48 Received CBC Stat Lab 01/06/25 09:48 Completed Comprehensive Metabolic Panel Stat Lab 01/06/25 09:48 Completed Lactate (Lactic Acid) Stat Lab 01/06/25 09:48 Completed Troponin I Stat Lab 01/06/25 09:48 Completed Albumin Human 25% Ivpb [Albuminar-25 Ivpb] Med 01/06/25 08:24 Active 25 gm in 100 ml IV PRN Epoetin Juan Inj [Procrit Inj] Med 01/06/25 14:00 Discontinued 10,000 unit SC X1 ONE Code Status Routine Oth 01/06/25 09:04 Ordered Vital Signs Vital signs: Vital Signs Temperature 98.8 F 01/06/25 07:43 Pulse Rate 84 01/06/25 07:43 Respiratory Rate 17 01/06/25 07:43 Blood Pressure 115/61 01/06/25 07:43 Pulse Oximetry (%) 98 01/06/25 07:43 Oxygen Delivery Method Room Air 01/06/25 07:43 Discharge Plan Plan Patient Disposition: Other Care w/in Hosp (SDC/ANALIA) Discharge Disposition comment: Hospitalist admit Dr. Moore to consult Dr. Sage to provide dialysis Problem List Clinical Impression: End stage renal failure on dialysis, Fluid overload, Peritoneal dialysis catheter dysfunction MDM Narrative [facility] hospital course: I, Debbie Marino am scribing for and in the presence of Dr. Person. Patient is a 84-year-old who had a recent myocardial infarction and had stents placed and is put on Brilinta and other medicines post procedure she evidently had some nosebleed which required a dialysis cath placed in her left chest. She also has a new pacemaker in the right chest. She was unable to do her dialysis yesterday but comes back today because she had some blood presenting from her nose that she coughed up. Her route sales representative Dr. Moore who was called and he stated the patient only needs to be on Brilinta and aspirin to stop Eliquis and to stop the Plavix if it was not already stopped. Note there was some confusion with the medicine was actually taking but this was clarified. Dr Alvarado was contacted and she agreed to do dialysis and since the fistula is functioning and not bleeding at this time they could use that as a port and they can get IR to work on the double-lumen catheter that was placed which evidently stopped working in the last 2 days. Patient was comfortable in the ER there was no further bleeding. She was not coughing up blood her lungs were clear and she was having no chest pain. Lab studies show a hemoglobin of 8.0 which is got a chronic anemia white count of 8.6 she is got chronic renal failure indices with creatinine is 7.0 and a BUN of 45 potassium was 5.1 sodium 133 troponin came back elevated at 1.289 presumably residual from her previous or recent heart attack and her BNP is elevated 30-80 probably from being fluid overloaded needing dialysis and/or congestive heart failure nonetheless hospitalist was called and they will be admitting Dr. Sage will be providing dialysis and Dr. Moore stated he would consult as needed. Clinical Information Provided by patient and family (daughter) Medical Records Reviewed [facility] Meds/Rx Considered, not Ordered None Labs/Rad/Tests considered, not Ordered None Chronic Illness/Social Conditions Add or document further as needed: Recent [place], hypertension, hyperlipidemia, diabetes, CAD with stent placement, A- fib, ESRD (T//Sat), and hypothyroidism. EKG Interpretation EKG #1: Date/time of EK01/06/25 0902 am EKG interpretation: Interpreted by me: sinus rhythm, rate 76, no STEMI Lab Interpretation Labs: see narrative above Imaging Imaging interpretation: see narrative above Radiology reports / interpretation(s): Procedure(s): XR chest 1V portable Accession Number(s): [id number] cc: Ap Person MD; Adonis Damon MD; Fanny Zhou MD~ Examination: AP chest single view Technique one AP portable sitting chest single view Date and time: January 06, 2025 0850 hours Comparison January 05, 2025 INDICATIONS: Coughing up blood this morning FINDINGS: Normal heart size Left internal jugular dialysis catheter tips SVC satisfactory position Stable position cardiac leads Atelectasis versus mild pneumonia right base Blunting of the right lateral costophrenic angle Prominent osteopenia IMPRESSION: Atelectasis versus mild pneumonia right base If the patient has true hemoptysis, consider CT chest without contrast follow-up Dictated By: Adonis Damon MD Medication Administration(s) Medication Administration History Acetaminophen (Acetaminophen 325 Mg Tablet) 650 mg PO Q6H PRN PRN Reason: PAIN 1-3 OR FEVER > 100.4 Stop: 02/05/25 09:04 Albuterol (Albuterol Inh 8 Gm) 2 puff INH Q4HR PRN PRN Reason: SHORTNESS OF BREATH OR WHEEZE Stop: 02/05/25 09:06 Atorvastatin Calcium (Atorvastatin Calcium 20 Mg Tablet) 80 mg PO DAILY ALL Stop: 02/06/25 08:59 Dextrose (Dextrose 50%-Water Inj 50 Ml Syringe) 25 ml IV Q15MIN PRN PRN Reason: BG 50-70 responsive npo pt Stop: 02/05/25 16:43 Dextrose (Dextrose 50%-Water Inj 50 Ml Syringe) 50 ml IV Q15MIN PRN PRN Reason: BG <50 OR BG <70 & pt unresponsive Stop: 02/05/25 16:43 Furosemide (Furosemide 40 Mg Tablet) 40 mg PO QDAY ALL Stop: 02/06/25 08:59 Glucagon (Glucagon Inj 1 Mg Vial) 1 mg IM Q15MIN PRN PRN Reason: BG <70, and no IV access Albumin Human (Albuminar-25 Ivpb) 25 gm in 100 mls @ 100 mls/min IV PRN PRN PRN Reason: DIALYSIS Insulin Human Lispro (Insulin Lispro (Admelog) 1 Unit/0.01 Ml Unit) 0 unit SC AC ALL; Protocol Stop: 02/05/25 16:59 Lactulose (Lactulose Syrup 20 Gm/30 Ml Udc) 20 gm PO TID PRN; Protocol PRN Reason: Constipation Stop: 02/05/25 09:11 Levothyroxine Sodium (Levothyroxine Sodium 25 Mcg Tablet) 50 mcg PO ACBR [facility] Stop: 02/06/25 05:59 Metoprolol Succinate (Metoprolol Succinate Xl 25 Mg Tabcr) 25 mg PO DAILY [facility] Stop: 02/06/25 08:59 Nitroglycerin (Nitroglycerin 0.4 Mg Subl Btl #25) 0.4 mg SL Q5M PRN PRN Reason: CHEST PAIN Ondansetron HCl (Ondansetron Inj 2 Mg/Ml Inj 2 Ml) 4 mg IV Q6H PRN; Protocol PRN Reason: NAUSEA OR VOMITING Stop: 02/05/25 09:04 Pantoprazole Sodium (Pantoprazole 40 Mg Tablet) 40 mg PO HS [facility] Stop: 02/05/25 20:59 Tramadol HCl (Tramadol Hcl 50 Mg Tablet) 50 mg PO Q6H PRN PRN Reason: Pain 4-10 Stop: 01/11/25 09:12 Discontinued Medications Albuterol (Albuterol Inh 8 Gm) 1 puff INH Q4HR PRN PRN Reason: BREATHING Stop: 02/05/25 09:11 Epoetin Juan (Epoetin Juan Inj 1,000 Unit/0.05 Ml Unit) 10,000 unit SC X1 ONE Stop: 01/06/25 14:01 Last Admin: 01/06/25 14:11 Dose: 10,000 unit Documented By: BRIA Consultations/Discussions re: Management Consult #1: Date/time: 01/06/25 8:11 am Physician, specialty, service, details: Discussed test HPI, PMHx, lab, radiology results and/or management with Dr. Alvarado. Will consult an admission to the hospitalist. Consult #2: Date/time: 01/06/25 8:15 am Physician, specialty, service, details: Discussed test HPI, PMHx, lab, radiology results and/or management with Dr. Moore. He states the patient should be only on Brilinta and ASA. Will consult an admission to the hospitalist. Diagnosis Differential diagnosis: CHF, PE, pneumonia, dialysis need Dispositon Disposition: Admit
--- NOTE | 2025-01-06 08:10 | EKG_ITS ---
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
--- NOTE | 2025-01-06 08:10 | XR_ITS ---
Examination: AP chest single view Technique one AP portable sitting chest single view Date and time: January 06, 2025 0850 hours Comparison January 05, 2025 INDICATIONS: Coughing up blood this morning FINDINGS: Normal heart size Left internal jugular dialysis catheter tips SVC satisfactory position Stable position cardiac leads Atelectasis versus mild pneumonia right base Blunting of the right lateral costophrenic angle Prominent osteopenia IMPRESSION: Atelectasis versus mild pneumonia right base If the patient has true hemoptysis, consider CT chest without contrast follow-up
[2025-01-06 10:10] LABS: Lactate (Lactic Acid) 1.4 mMol/L (0.4-2.0)
[2025-01-06 10:13] LABS: Basophils % (Auto) 0 % (0-2.5); Eosinophils % (Auto) 0 % (0-10); Hematocrit 23.6 % (36.0-46.0); Immature Granulocytes % (Auto) 1 % (0-0); Immature Granulocytes Auto 0.07 Thou/mm3 (0.00-0.00); Lymphocytes # (Auto) 0.9 Thou/mm3 (1.0-4.8); Lymphocytes % (Auto) 10 % (10-50); Mean Corpuscular HGB Conc 33.9 g/dl (31.0-37.0); Mean Corpuscular Hemoglobin 31.9 pg (25.0-35.0); Mean Corpuscular Volume 94 fL (80-100); Monocytes # (Auto) 0.9 Thou/mm3 (0.0-0.8); Monocytes % (Auto) 10 % (0-12); Neutrophils # (Auto) 6.7 Thou/mm3 (1.8-7.7); Neutrophils % (Auto) 78 % (37-80); Nucleated Red Blood Cell # 0.02 Thou/mm3 (0.00-0.00); Nucleated Red Blood Cell % 0 /100 WBC (0); Platelet Count 149 Thou/mm3 (140-440); RDW Standard Deviation 62.8 fL (36.4-46.3); Red Blood Count 2.51 Miln/mm3 (4.00-5.20); White Blood Count 8.6 Thou/mm3 (3.6-11.0)
[2025-01-06 10:33] LABS: Alanine Aminotransferase 178 U/L (10-49); Albumin, Serum 4.2 gm/dL (3.4-4.8); Albumin/Globulin Ratio 1.6 (1.2-2.2); Alkaline Phosphatase 201 U/L (46-116); Anion Gap 13 (7-16); Aspartate Amino Transferase 436 U/L (0-34); B-Type Natriuretic Peptide > 3280 pg/mL (0-100); BUN/Creatinine Ratio 6 Ratio (12-20); Bilirubin,Total 1.2 mg/dL (0.3-1.2); Blood Urea Nitrogen 45 mg/dL (9-23); Calcium 8.4 mg/dL (8.3-10.6); Calcium (Corrected) 8.4 mg/dL (8.5-10.1); Carbon Dioxide 26.4 mMol/L (20.0-31.0); Chloride 94 mMol/L (98-107); Estimated Creatinine Clearance 4.6 mL/min (>60); Globulin 2.6 gm/dL (2.3-3.5); Glucose 193 mg/dL (74-106); Osmolality,Calculated 282 (275-295); Potassium 5.1 mMol/L (3.4-5.1); Sodium 133 mMol/L (136-145); Total Protein 6.8 gm/dL (5.7-8.2); eGFR 5 See Note
[2025-01-06 10:45] LABS: Troponin I 1.289 ng/mL (0.0-0.045)
--- NOTE | 2025-01-06 13:09 | PD.RESPRO ---
Documentation for date of: 01/06/25 Exam Vital Signs Temp Pulse Resp BP Pulse Ox O2 Del Method 98.2 F 96 18 122/68 98 Room Air 01/06/25 11:27 01/06/25 13:00 01/06/25 11:27 01/06/25 13:00 01/06/25 11:27 01/06/25 10:00 Objective Labs 01/06/25 09:48 01/06/25 09:48 Labs: Laboratory Results - last 24 hr 01/06/25 09:48 WBC 8.6 RBC 2.51 L Hgb 8.0 L Hct 23.6 L MCV 94 MCH 31.9 MCHC 33.9 RDW Std Deviation 62.8 H Plt Count 149 Neut % (Auto) 78 Lymph % (Auto) 10 [place] % (Auto) 10 Eos % (Auto) 0 Baso % (Auto) 0 Neut # (Auto) 6.7 Lymph # (Auto) 0.9 L [place] # (Auto) 0.9 H Eos # (Auto) 0.0 Baso # (Auto) 0.0 Immature Gran # (Auto) 0.07 H Absolute Nucleated RBC 0.02 H Immature Gran % 1 H Nucleated RBC % 0 Sodium 133 L Potassium 5.1 Chloride 94 L Carbon Dioxide 26.4 Anion Gap 13 BUN 45 H Creatinine 7.0 H* D Estim Creat Clear Calc 4.6 L eGFR 5 L* BUN/Creatinine Ratio 6 L Glucose 193 H D Calculated Osmolality 282 Lactic Acid 1.4 Calcium 8.4 Corrected Calcium 8.4 L Total Bilirubin 1.2 AST 436 H ALT 178 H Alkaline Phosphatase 201 H D Troponin I 1.289 H* D B-Natriuretic Peptide > 3280 H* Total Protein 6.8 Albumin 4.2 Globulin 2.6 Albumin/Globulin Ratio 1.6 Quality Measures Quality Measures none Assessment & Plan Assessment Current Active Medications: Generic Name Dose Route Start Last Admin Trade Name Freq PRN Reason Stop Dose Admin Acetaminophen 650 mg 01/06/25 09:05 Acetaminophen 325 Mg Tablet PO 02/05/25 09:04 Q6H PRN PAIN 1-3 OR FEVER > 100.4 Albuterol 2 puff 01/06/25 09:07 Albuterol Inh 8 Gm INH 02/05/25 09:06 Q4HR PRN SHORTNESS OF BREATH OR WHEEZE Atorvastatin Calcium 80 mg 01/07/25 09:00 Atorvastatin Calcium 20 Mg Tablet PO 06/21/25 08:59 DAILY ALL Epoetin Juan 10,000 unit 01/06/25 14:00 Epoetin Juan Inj 1,000 Unit/0.05 Ml Unit SC 01/06/25 14:01 X1 ONE Furosemide 40 mg 01/07/25 09:00 Furosemide 40 Mg Tablet PO 02/06/25 08:59 QDAY ALL Albumin Human 25 gm in 100 mls @ 100 mls/min 01/06/25 08:24 Albuminar-25 Ivpb IV PRN PRN DIALYSIS Lactulose 20 gm 01/06/25 09:12 Lactulose Syrup 20 Gm/30 Ml Udc PO 02/05/25 09:11 TID PRN Constipation Protocol Levothyroxine Sodium 50 mcg 01/07/25 06:00 Levothyroxine Sodium 25 Mcg Tablet PO 02/06/25 05:59 ACBR ALL Metoprolol Succinate 25 mg 01/07/25 09:00 Metoprolol Succinate Xl 25 Mg Tabcr PO 02/06/25 08:59 DAILY [facility] Nitroglycerin 0.4 mg 01/06/25 09:15 Nitroglycerin 0.4 Mg Subl Btl #25 SL Q5M PRN CHEST PAIN Ondansetron HCl 4 mg 01/06/25 09:05 Ondansetron Inj 2 Mg/Ml Inj 2 Ml IV 02/05/25 09:04 Q6H PRN NAUSEA OR VOMITING Protocol Tramadol HCl 50 mg 01/06/25 09:13 Tramadol Hcl 50 Mg Tablet PO 01/11/25 09:12 Q6H PRN Pain 4-10
--- NOTE | 2025-01-06 13:12 | PD.RESHP ---
Documentation for date of: 01/06/25 [facility] History of Present Illness History of present illness: Yenni Catalan is an 84-year-old female with past medical history of multivessel CAD status post stent placement (most recently 12/31/2024 at [facility]), status post pacemaker on 01/01/2025 at [facility], a-fib, ESRD on HD on (follows Dr. Alvarado), type 2 diabetes mellitus, and hypertension who presents after she was unable to undergo hemodialysis via temporary dialysis catheter as well as new onset hemoptysis since this morning. During previous hospitalization this month, patient was admitted after having significant bleeding from her fistula and since has had a temporary catheter placed. However, yesterday on 01/05, she was unable to undergo dialysis as her dialysis catheter was nonfunctioning. She was told to come to the ED for further evaluation but was not able to have her catheter exchanged at that time and was told to come back in the morning today. In the interim, she developed slight hemoptysis and epistaxis as she was discharged from [facility] with aspirin, Brilinta, and Eliquis. Denies hematemesis, hematuria, or dark stools. Spoke to radiation safety officer who performed stents and recommended aspirin and Brillinta only. However, will hold for today as we will plan for catheter exchange tomorrow. In ED, In ED, vital signs stable. Hemoglobin stable at 8.0, platelets within normal limits. CHEM panel consistent with ESRD, sodium 133, glucose 193, AST 436, ALT 178, ALP 201, T. bili 1.2. Troponin 1.5 -> 1.2, BNP > 3000. CXR showed atelectasis versus mild pneumonia in the right base, EKG showed ventricular paced rhythm. PMHx: multivessel CAD status post stent placement (most recently 12/31/2024 at [facility]), status post pacemaker on 01/01/2025 at [facility], a-fib, ESRD on HD on (follows Dr. Alvarado), type 2 diabetes mellitus, and hypertension Surgical history: status-post multiple stents (2 placed on 12/31/2024), pacemaker 01/01/2025 Social history: smoked 1 ppd for 30 years (quit 20 years ago), denies alcohol or illicit drug use Allergies: amoxicillin (rash) Medications: brillinta 90 mg BID, eliquis 2.5 mg BID, metoprolol ER 25 mg daily, atorvastatin 80 mg daily, lasix 40 mg daily, levothyroxine 50 mcg daily, pantoprazole 40 mg daily, tramadol 50 mg q8h prn, kevin ortega Review of Systems Review of Systems Systems Reviewed: All systems reviewed, normal except as documented Exam Vital Signs Temp Pulse Resp BP Pulse Ox O2 Del Method 98.2 F 96 18 122/68 98 Room Air 01/06/25 11:01/06/25 13:00 01/06/25 11:01/06/25 13:00 01/06/25 11:01/06/25 10:00 Narrative Exam General: AOx3, no acute distress, able to speak full sentences HEENT: NC/AT, mucous membranes moist, bilateral sclera anicteric Cardiovascular: irregular rhythm, S1/S2 present, no murmurs appreciated Pulmonary: clear to auscultation bilaterally, no rales/rhonchi/wheezes Abdominal: soft, non-tender, non-distended, no rebound/guarding, normal bowel sounds present Musculoskeletal: 2+ pitting bilateral lower extremity edema, normal ROM Skin: temporary dialysis catheter in left chest, fistula in LLE, pacemaker in right chest wall, warm and dry, intact, no rashes Neuro: CN II-XII intact, no focal deficits Results: Labs 01/06/25 09:48 01/06/25 09:48 Labs: Short CBC 01/06/25 Range/Units 09:48 WBC 8.6 (3.6-11.0) Thou/mm3 Hgb 8.0 L (12.0-16.0) g/dL Hct 23.6 L (36.0-46.0) % Plt Count 149 (140-440) Thou/mm3 BMP 01/06/25 09:48 Sodium 133 L Potassium 5.1 Chloride 94 L Carbon Dioxide 26.4 BUN 45 H Creatinine 7.0 H* D Glucose 193 H D Calcium 8.4 Cardiac Enzymes 01/06/25 Range/Units 09:48 Troponin I 1.289 H* D (0.0-0.045) ng/mL Liver Function 01/06/25 Range/Units 09:48 Total Bilirubin 1.2 (0.3-1.2) mg/dL AST 436 H (0-34) U/L ALT 178 H (10-49) U/L Alkaline Phosphatase 201 H D (46-116) U/L Albumin 4.2 (3.4-4.8) gm/dL Quality Measures Quality Measures none Advance care planning discussed with:: patient and child Medications Home Medications and Allergies Home Medications ?Medication ?Instructions ?Recorded ?Confirmed ?Type levothyroxine 50 mcg tablet 1 tab PO DAILY 03/21/22 01/06/25 History pantoprazole 40 mg tablet,delayed 40 mg PO HS 05/29/22 01/06/25 History release insulin glargine U-300 conc 300 10 unit subcut QDAY 08/07/22 01/06/25 History unit/mL (3 mL) subcutaneous pen (Toujeo Max U-300 SoloStar) Held on 01/06/25. Instructions: Duplicate albuterol sulfate 90 mcg/actuation 1 puff inhalation Q4HR PRN 08/08/22 01/06/25 History aerosol inhaler BREATHING lactulose 10 gram/15 mL oral 30 ml PO TID PRN Constipation 08/08/22 01/06/25 History solution (Constulose) tramadol 50 mg tablet 50 mg PO Q8H PRN Pain 08/08/22 01/06/25 History docusate sodium 100 mg tablet 100 mg PO DAILY 08/23/22 01/06/25 History dulaglutide 1.5 mg/0.5 mL 0.5 mg subcut QWEEK 07/03/24 01/06/25 History subcutaneous pen injector (Trulicity) galcanezumab-gnlm 120 mg/mL 120 mg subcut Q1M 07/03/24 01/06/25 History subcutaneous pen injector (Emgality Pen) aspirin 81 mg chewable tablet 1 tab PO DAILY 10/14/24 01/06/25 History atorvastatin 80 mg tablet 80 mg PO DAILY 10/14/24 01/06/25 History clopidogrel 75 mg tablet 75 mg PO DAILY 10/14/24 01/06/25 History Held on 10/14/24. Instructions: Resume on 10/19/24. please hold for 5 days. furosemide 40 mg tablet (Lasix) 40 mg PO QDAY 10/14/24 01/06/25 History insulin glargine U-300 conc 300 14 unit subcut Q24H 10/14/24 01/06/25 History unit/mL (3 mL) subcutaneous pen (Toujeo Max U-300 SoloStar) isosorbide mononitrate 60 mg 60 mg PO DAILY 10/14/24 01/06/25 History tablet,extended release 24 hr Held on 01/06/25. Instructions: Doctor's Order nitroglycerin 0.4 mg sublingual See Rx Instructions buccal .COMPLEX 10/14/24 01/06/25 History tablet apixaban 2.5 mg tablet (Eliquis) 2.5 mg PO BID 01/06/25 01/06/25 History metoprolol succinate 25 mg 25 mg PO DAILY 01/06/25 01/06/25 History tablet,extended release 24 hr ondansetron 4 mg disintegrating 4 mg PO BID 01/06/25 01/06/25 History tablet ticagrelor 90 mg tablet (Brilinta) 90 mg PO BID 01/06/25 01/06/25 History Allergies Allergy/AdvReac Type Severity Reaction Status Date / Time amoxicillin Allergy Severe Rash Verified 01/06/25 07:29 Visit Medications Acetaminophen (Acetaminophen 325 Mg Tablet) 650 mg PO Q6H PRN PRN Reason: PAIN 1-3 OR FEVER > 100.4 Stop: 02/05/25 09:04 Albuterol (Albuterol Inh 8 Gm) 2 puff INH Q4HR PRN PRN Reason: SHORTNESS OF BREATH OR WHEEZE Stop: 02/05/25 09:06 Atorvastatin Calcium (Atorvastatin Calcium 20 Mg Tablet) 80 mg PO DAILY ALL Stop: 02/06/25 08:59 Epoetin Juan (Epoetin Juan Inj 1,000 Unit/0.05 Ml Unit) 10,000 unit SC X1 ONE Stop: 01/06/25 14:01 Furosemide (Furosemide 40 Mg Tablet) 40 mg PO QDAY ALL Stop: 02/06/25 08:59 Albumin Human (Albuminar-25 Ivpb) 25 gm in 100 mls @ 100 mls/min IV PRN PRN PRN Reason: DIALYSIS Lactulose (Lactulose Syrup 20 Gm/30 Ml Udc) 20 gm PO TID PRN; Protocol PRN Reason: Constipation Stop: 02/05/25 09:11 Levothyroxine Sodium (Levothyroxine Sodium 25 Mcg Tablet) 50 mcg PO ACBR ALL Stop: 02/06/25 05:59 Metoprolol Succinate (Metoprolol Succinate Xl 25 Mg Tabcr) 25 mg PO DAILY [facility] Stop: 02/06/25 08:59 Nitroglycerin (Nitroglycerin 0.4 Mg Subl Btl #25) 0.4 mg SL Q5M PRN PRN Reason: CHEST PAIN Ondansetron HCl (Ondansetron Inj 2 Mg/Ml Inj 2 Ml) 4 mg IV Q6H PRN; Protocol PRN Reason: NAUSEA OR VOMITING Stop: 02/05/25 09:04 Tramadol HCl (Tramadol Hcl 50 Mg Tablet) 50 mg PO Q6H PRN PRN Reason: Pain 4-10 Stop: 01/11/25 09:12 Discontinued Medications Albuterol (Albuterol Inh 8 Gm) 1 puff INH Q4HR PRN PRN Reason: BREATHING Stop: 02/05/25 09:11 Assessment & Plan Plan Yenni Catalan is an 84-year-old female with past medical history of multivessel CAD status post stent placement (most recently 12/31/2024 at [facility]), status post pacemaker on 01/01/2025 at [facility], a-fib, ESRD on HD on (follows Dr. Alvarado), type 2 diabetes mellitus, hypertension, and hypothyroidism who is admitted for dialysis catheter malfunction and hemoptysis. #Dysfunctional temporary dialysis catheter #ESRD on HD on Presents with nonfunctioning temporary dialysis catheter after going to dialysis on 01/05. Has fistula in left upper extremity that was noted to bleed after dialysis during previous hospitalization for which temporary catheter was placed. Patient was able to undergo dialysis but developed bleeding during and difficult to stop bleeding after HD session. Thus, will have dialysis catheter exchanged tomorrow. Of note, follows Dr. Alvarado for dialysis and Dr. Bravo for fistula maintenance. ? Nephrology consulted, appreciate recommendations ? Plan for temporary dialysis catheter exchange on 01/07 ? Brillinta and aspirin held for above ? PT/INR in AM ? Avoid nephrotoxic agents, renally dose medications ? Lasix 40 mg p.o. daily #Hemoptysis Presents with hemoptysis in setting of being on multiple blood thinners, including Brillinta and Eliquis. Spoke to cardiology who recommended to continue aspirin and Brillinta at this time. However, given pending procedure will start after removal of temporary dialysis catheter tomorrow. ? Holding anticoagulants/antiplatelet agents at this time due to pending procedure ? Will start aspirin and Brilinta afterwards tomorrow #Multivessel CAD status post stents and pacemaker ?Restart aspirin and Brilinta tomorrow after procedure ? Atorvastatin 80 mg p.o. daily ? Sublingual nitro 0.4 mg as needed #Atrial fibrillation ? Previously on Eliquis, recommended to hold per cardiology ? metoprolol succinate 25 mg p.o. daily #Type 2 diabetes mellitus A1c 6.3% on 10/2024. ? SSI, step 2 ? Accu-Chek ACHS ? Hypoglycemic protocol in place #Hypertension ? Metoprolol as above #Hypothyroidism ? Levothyroxine 50 mcg [facility] management: Disposition: pending dialysis catheter exchange tomorrow Diet: Cardiac, n.p.o. after midnight Lines: PIV, dialysis catheter DVT prophylaxis: SCDs GI prophylaxis: pantoprazole 40 mg CODE STATUS: DNR ----- Plan discussed with attending physician Dr. Kaleb Lopez MD PGY-1 Internal Medicine Attending Provider Attestation/Addendum I attest that I was physically present for the evaluation, physical examination, lab and imaging review of the patient with the residents. I discussed the case with the residents and agree with the findings and plans of care as documented above. Patient is an 84 years old female with past medical history of multivessel CAD status post stent placement, status post pacemaker placement, A-fib, ESRD on hemodialysis, diabetes mellitus, hypertension who presented to the ED after being unable to complete her hemodialysis session through her dialysis catheter. On her last admission, patient came in with bleeding AV fistula, which was sutured at that time, patient had complicated hospital stay with NSTEMI and was transferred to other facility for evaluation of CABG. She received hemodialysis catheter at that time which has been in use for her dialysis session while the fistula on her left arm has not been used due to concern of bleeding. Patient also complained of hemoptysis since this morning, bright red blood on coughing. She has been on clopidogrel and Eliquis since discharge from [facility]. Discussed with nephrology, will attempt to use her fistula for hemodialysis session today. If patient does not bleed following hemodialysis, we will discuss with nephrology if we can use it until she sees her intervention bacon skin lifter for her fistula, oncoming appointment on . Discussed with IR, in case patient needs replacement of her hemodialysis catheter tomorrow, asked to hold anticoagulation and antiplatelets, we will hold her anticoagulation and antiplatelet, keep her n.p.o. overnight. Brooke Manuel MD
--- NOTE | 2025-01-06 13:17 | ESCONSULT_ITS ---
HPI Data of Consult Consult date: 01/06/25 Requesting Physician: Brooke Manuel MD Admitting Provider: Brooke Manuel MD Attending Provider: Brooke Manuel MD Primary Care Provider: Fanny Zhou MD Consult Narrative Reason for consult: ESRD, dysfunctional dialysis catheter History of present illness: 84 y/o F with PMHx significant for renal disease on dialysis, recent WI presents to the Emergency Department brought in by the daughter requesting dialysis, patient has mild shortness of breath. Per daughter, last 1-2 weeks the patient had a WI and they transferred her did dialysis there; yesterday they tried to do dialysis but her chest dialysis port was not working. Patient was able to access and use dialysis, however port bleeds after dialysis session. The daughter, states that at 4 AM she had a little shortness of breath and epistaxis with hemoptysis. No fevers or chills. No chest pain or leg swelling. No vomiting, diarrhea, bloody stools, or constipation. Last bowel movement was yesterday, normal. Nephrology consulted for management of dysfunction dialysis catheter and dialysis. Patient seen and examined, resting comfortably. Patient reports mild hemoptysis and epistaxis starting today. Of note patient reports she has been taking Eliquis and Brilinta due to stent placement. Patient denies fever, chills, chest pain, nausea, vomiting. No WBC 8.6, hemoglobin 8.0, sodium 133, potassium 5.1, bicarb 26.4, BUN 45, creatinine 7.0, EGFR 5. LV LFTs: AST 436, ALT 170, ALP 201. Will attempt to have catheter change tomorrow, patient will dialysis today. cc:: cc: Brooke Manuel MD Review of Systems Review of Systems Systems Reviewed: All systems reviewed, normal except as documented Exam Vital Signs Temp Pulse Resp BP Pulse Ox O2 Del Method 98.2 F 91 18 108/67 98 Room Air 01/06/25 11:27 01/06/25 13:15 01/06/25 11:01/06/25 13:15 01/06/25 11:01/06/25 10:00 Narrative Exam PE: Gen: Well-developed and well-nourished. HEENT: NCAT, PERRLA, EOMI, MMM, anicteric conjunctivae. CVS: normal S1 and S2. RRR. No M/R/G. Left dialysis cath. Resp: CTA B/L. No rhonchi, rales, crackles or wheezing. Abd: soft, non-tender, non-distended. MSK: Good ROM in BUE & BLE. No rash. 2+ pitting edema BLE. Neuro: CN II-XII grossly intact. Strength 5/5 in BUE & BLE. Alert and oriented x3. Psych: appropriate mood and affect. Results Labs 01/06/25 09:48 01/06/25 09:48 Labs: Short CBC 01/06/25 Range/Units 09:48 WBC 8.6 (3.6-11.0) Thou/mm3 Hgb 8.0 L (12.0-16.0) g/dL Hct 23.6 L (36.0-46.0) % Plt Count 149 (140-440) Thou/mm3 BMP 01/06/25 09:48 Sodium 133 L Potassium 5.1 Chloride 94 L Carbon Dioxide 26.4 BUN 45 H Creatinine 7.0 H* D Glucose 193 H D Calcium 8.4 Cardiac Enzymes 01/06/25 Range/Units 09:48 Troponin I 1.289 H* D (0.0-0.045) ng/mL Liver Function 01/06/25 Range/Units 09:48 Total Bilirubin 1.2 (0.3-1.2) mg/dL AST 436 H (0-34) U/L ALT 178 H (10-49) U/L Alkaline Phosphatase 201 H D (46-116) U/L Albumin 4.2 (3.4-4.8) gm/dL Quality Measures Quality Measures VTE prophylaxis Advance care planning discussed with:: patient and child Medications Home Medications and Allergies Home Medications ?Medication ?Instructions ?Recorded ?Confirmed ?Type levothyroxine 50 mcg tablet 1 tab PO DAILY 03/21/22 History pantoprazole 40 mg tablet,delayed 40 mg PO HS 05/29/22 01/06/25 History release insulin glargine U-300 conc 300 10 unit subcut QDAY 01/06/25 History unit/mL (3 mL) subcutaneous pen (Toujeo Max U-300 SoloStar) Held on 01/06/25. Instructions: Duplicate albuterol sulfate 90 mcg/actuation 1 puff inhalation Q 4HR PRN 08/08/22 01/06/25 History aerosol inhaler BREATHING lactulose 10 gram/15 mL oral 30 ml PO TID PRN Constipa tion 08/08/22 01/06/25 History solution (Constulose) tramadol 50 mg tablet 50 mg PO Q8H PRN Pain 01/06/25 History docusate sodium 100 mg tablet 100 mg PO DAILY 08/23/22 01/06/25 History dulaglutide 1.5 mg/0.5 mL 0.5 mg subcut QWEEK 07/03/24 01/06/25 History subcutaneous pen injector (Trulicity) galcanezumab-gnlm 120 mg/mL 120 mg subcut Q1M 07/03/24 01/06/25 History subcutaneous pen injector (Emgality Pen) aspirin 81 mg chewable tablet 1 tab PO DAILY 10/14/24 01/06/25 History atorvastatin 80 mg tablet 80 mg PO DAILY 10/14/2412/18 History clopidogrel 75 mg tablet 75 mg PO DAILY 10/14/2412/18 History Held on 10/14/24. Instructions: Resume on 10/19/24. please hold for 5 days. furosemide 40 mg tablet (Lasix) 40 mg PO QDAY 10/14/24 01/06/25 History insulin glargine U-300 conc 300 14 unit subcut Q24H 01/06/25 History unit/mL (3 mL) subcutaneous pen (Toujeo Max U-300 SoloStar) isosorbide mononitrate 60 mg 60 mg PO DAILY 10/14/24 0 01/06/25 History tablet,extended release 24 hr Held on 01/06/25. Instructions: Doctor's Order nitroglycerin 0.4 mg sublingual See Rx Instructions bu ccal .COMPLEX 10/14/24 01/06/25 History tablet apixaban 2.5 mg tablet (Eliquis) 2.5 mg PO BID 01/06/25 History metoprolol succinate 25 mg 25 mg PO DAILY 01/06/25 History tablet,extended release 24 hr ondansetron 4 mg disintegrating 4 mg PO BID 01/06/25 0 01/06/25 History tablet ticagrelor 90 mg tablet (Brilinta) 90 mg PO BID 01/06/25 History Allergies Allergy/AdvReac Type Severity Reaction Status Date / Time amoxicillin Allergy Severe Rash Verified 01/06/25 07:29 Visit Medications Acetaminophen (Acetaminophen 325 Mg Tablet) 650 mg PO Q6H PRN PRN Reason: PAIN 1-3 OR FEVER > 100.4 Stop: 02/05/25 09:04 Albuterol (Albuterol Inh 8 Gm) 2 puff INH Q4HR PRN PRN Reason: SHORTNESS OF BREATH OR WHEEZE Stop: 02/05/25 09:06 Atorvastatin Calcium (Atorvastatin Calcium 20 Mg Tablet) 80 mg PO DAILY [facility] Stop: 02/06/25 08:59 Epoetin Juan (Epoetin Juan Inj 1,000 Unit/0.05 Ml Unit) 10,000 unit SC X1 ONE Stop: 01/06/25 14:01 Furosemide (Furosemide 40 Mg Tablet) 40 mg PO QDAY [facility] Stop: 02/06/25 08:59 Albumin Human (Albuminar-25 Ivpb) 25 gm in 100 mls @ 100 mls/min IV PRN PRN PRN Reason: DIALYSIS Lactulose (Lactulose Syrup 20 Gm/30 Ml Udc) 20 gm PO TID PRN; Protocol PRN Reason: Constipation Stop: 02/05/25 09:11 Levothyroxine Sodium (Levothyroxine Sodium 25 Mcg Tablet) 50 mcg PO ACBR [facility] Stop: 02/06/25 05:59 Metoprolol Succinate (Metoprolol Succinate Xl 25 Mg Tabcr) 25 mg PO DAILY [facility] Stop: 02/06/25 08:59 Nitroglycerin (Nitroglycerin 0.4 Mg Subl Btl #25) 0.4 mg SL Q5M PRN PRN Reason: CHEST PAIN Ondansetron HCl (Ondansetron Inj 2 Mg/Ml Inj 2 Ml) 4 mg IV Q6H PRN; Protocol PRN Reason: NAUSEA OR VOMITING Stop: 02/05/25 09:04 Tramadol HCl (Tramadol Hcl 50 Mg Tablet) 50 mg PO Q6H PRN PRN Reason: Pain 4-10 Stop: 01/11/25 09:12 Discontinued Medications Albuterol (Albuterol Inh 8 Gm) 1 puff INH Q4HR PRN PRN Reason: BREATHING Stop: 02/05/25 09:11 Assessment & Plan Plan 84 y/o F with PMHx significant for renal disease on dialysis, recent WI presents to the Emergency Department brought in by the daughter requesting dialysis, patient has mild shortness of breath. Nephrology consulted for management of dialysis. #ESRD on dialysis #Dysfunctional dialysis catheter Patient has history of ESRD on dialysis. Patient has had recent dysfunctional dialysis catheter, able to use appropriately but catheter bleeds after sessions. Patient recently started on Eliquis and Brilinta. Patient symptomatic plan shortness of breath, notable edema on exam. - Hemodialysis today - Will attempt to exchange dialysis catheter tomorrow - Avoid nephrotoxins - Renally dose medications #History of WI #Diabetes #Hypothyroidism Management as per the primary team Thank you for allowing us to precipitate in the care of this patient. Plan of care discussed with attending Dr. Alvarado. Tye Elizondo MD PGY?1 Attending Provider Attestation/Addendum Patient seen and examined with resident physician Dr. Ma. Note reviewed, agree with findings and recommendations. Patient currently seen in dialysis. Admitted with malfunctioning dialysis catheter. Patient currently seen on dialysis. Tolerating dialysis without any problems. Hemodialysis for 3 hours, 2K, ultrafiltration 1-2 L, Epogen 6000, no heparin ordered. Plan of care discussed with the dialysis nurse. Please see dialysis flowsheet for further details. AV fistula on the left arm was cannulated. Postdialysis patient blood for more than an hour and pressure dressing was applied. Currently the bleeding stopped. At this point fistula cannot be used any more. She needs a left IJ dialysis catheter exchanged tomorrow as it is malfunctioning. Patient had pacemaker placed last week at [facility]. Seems to have hematoma underneath. Had a long conversation with 2 daughters at bedside. For the last few months patient cardiac function has been slowly declining. Goals of care discussed with family. They seem to be in agreement with hospice with dialysis. [facility] was consulted. Will convey the same to primary team. After dialysis catheter exchanged-patient will be discharged home with [facility] and dialysis.
[2025-01-06] MEDS: EPOETIN ALFA INJ 1,000 UNIT/0.05 ML UNIT 10000 UNIT SC (14:11)
--- NOTE | 2025-01-06 16:16 | PC.NURSE ---
Dr. Cooper notified about AV fistula bleeding during and post 1 hour dialysis. Pillow dressing at AV fistula is to be in place for 8 hours. We are moving forward with the catheter exchange tomorrow, 01/07. If fistula bleeding reoccurs, apply pillow dressing and wrap with coban.
--- NOTE | 2025-01-06 19:50 | PC.NURSE ---
Dr. Alvarado to hold all blood thinner (Brilinta, aspirin, and eliquis) today and tomorrow. Dr. Powell made aware of the plan and med rec complete.
[2025-01-06] MEDS: PANTOPRAZOLE 40 MG TABLET PO (20:12)
--- NOTE | 2025-01-06 23:30 | PC.NURSE ---
At 2330 fistula dressing was removed, no sign of bleeding, pt tolerated well. Per patient request proximal fistula site, redressed.
[2025-01-07] VITALS (23 sets, daily range): BP systolic 94–146; BP diastolic 51–82; PULSE 80–116; RESP 16–19; TEMP 36.1–36.9; O2SAT 95–98; BMI 25.1
[2025-01-07 05:53] LABS: Basophils % (Auto) 0 % (0-2.5); Eosinophils # (Auto) 0.1 Thou/mm3 (0.0-0.5); Eosinophils % (Auto) 1 % (0-10); Hematocrit 20.7 % (36.0-46.0); Immature Granulocytes % (Auto) 1 % (0-0); Immature Granulocytes Auto 0.07 Thou/mm3 (0.00-0.00); Lymphocytes # (Auto) 0.8 Thou/mm3 (1.0-4.8); Lymphocytes % (Auto) 13 % (10-50); Mean Corpuscular HGB Conc 33.3 g/dl (31.0-37.0); Mean Corpuscular Hemoglobin 31.4 pg (25.0-35.0); Mean Corpuscular Volume 94 fL (80-100); Monocytes # (Auto) 0.7 Thou/mm3 (0.0-0.8); Monocytes % (Auto) 10 % (0-12); Neutrophils # (Auto) 4.9 Thou/mm3 (1.8-7.7); Neutrophils % (Auto) 75 % (37-80); Nucleated Red Blood Cell # 0.05 Thou/mm3 (0.00-0.00); Nucleated Red Blood Cell % 1 /100 WBC (0); Platelet Count 129 Thou/mm3 (140-440); RDW Standard Deviation 64.1 fL (36.4-46.3); White Blood Count 6.6 Thou/mm3 (3.6-11.0)
[2025-01-07 06:03] LABS: Hemoglobin 6.9 g/dL (12.0-16.0)
[2025-01-07 06:04] LABS: INR 1.3 (0.9-1.3); Partial Thromboplastin Time 31.7 Seconds (22.0-36.0); Prothrombin Time 13.6 Seconds (9.0-12.2)
[2025-01-07 06:23] LABS: Alanine Aminotransferase 133 U/L (10-49); Albumin, Serum 3.6 gm/dL (3.4-4.8); Albumin/Globulin Ratio 1.5 (1.2-2.2); Alkaline Phosphatase 172 U/L (46-116); Anion Gap 12 (7-16); Aspartate Amino Transferase 279 U/L (0-34); BUN/Creatinine Ratio 6 Ratio (12-20); Bilirubin,Total 1.1 mg/dL (0.3-1.2); Blood Urea Nitrogen 28 mg/dL (9-23); Calcium (Corrected) 8.3 mg/dL (8.5-10.1); Carbon Dioxide 26.7 mMol/L (20.0-31.0); Chloride 95 mMol/L (98-107); Creatinine (Component) 4.9 mg/dL (0.6-1.3); Globulin 2.4 gm/dL (2.3-3.5); Glucose 150 mg/dL (74-106); Magnesium 3.2 mg/dL (1.6-2.6); Osmolality,Calculated 276 (275-295); Phosphorous 4.2 mg/dL (2.4-5.1); Potassium 4.4 mMol/L (3.4-5.1); Sodium 134 mMol/L (136-145); eGFR 8 See Note
[2025-01-07 06:41] LABS: Estimated Creatinine Clearance 7.3 mL/min (>60)
--- NOTE | 2025-01-07 08:52 | PC.SS ---
Patient Yenni Catalan is a 84 Year old female admitted for Dysfunctional dialysis catheter. SS met with patient and patient's son Diony who reports patient lives at home with family, he reports his sister Cheryl Catalan is surrogate decision maker [phone]. Patient is a dialysis patient at [facility] in [place] on [address] Patient utilizes a Rollator Walker and has a FWW as well to assist with ambulation. Choice of pharmacy is [facility]. PCP is Fanny Zhou. Prior to initial SS was contacted by Cesia from [facility], reporting that she met with family and family and patient is agreeable to transition patient home hospice once medically cleared. SS notified Dr. Lopez. SS will set up transportation at time of discharge. Discharge plan: Home with [facility] Next of Kin: Daughter, Cheryl Catalan [phone]
--- NOTE | 2025-01-07 09:21 | PD.RESPRO ---
Documentation for date of: 01/07/25 Subjective Subjective Interval history: 84 y/o F with PMHx significant for renal disease on dialysis, recent OK presents to the Emergency Department brought in by the daughter requesting dialysis, patient has mild shortness of breath. Per daughter, last 1-2 weeks the patient had a OK and they transferred her did dialysis there; yesterday they tried to do dialysis but her chest dialysis port was not working. Patient was able to access and use dialysis, however port bleeds after dialysis session. The daughter, states that at 4 AM she had a little shortness of breath and epistaxis with hemoptysis. No fevers or chills. No chest pain or leg swelling. No vomiting, diarrhea, bloody stools, or constipation. Last bowel movement was yesterday, normal. Nephrology consulted for management of dysfunction dialysis catheter and dialysis. Patient seen and examined, resting comfortably. Patient reports mild hemoptysis and epistaxis starting today. Of note patient reports she has been taking Eliquis and Brilinta due to stent placement. Patient denies fever, chills, chest pain, nausea, vomiting. No WBC 8.6, hemoglobin 8.0, sodium 133, potassium 5.1, bicarb 26.4, BUN 45, creatinine 7.0, EGFR 5. LV LFTs: AST 436, ALT 170, ALP 201. Will attempt to have catheter change tomorrow, patient will dialysis today. 01/07/2025: Patient seen and examined at bedside, resting comfortably. Patient seen dialysis yesterday, dialysis access site was bleeding for approximately 1 hour after session completed. Patient does not need additional dialysis session today. Will attempt to exchange dialysis catheter today. Hemoglobin drop significantly, patient received 2 units transfusion. WBC 6.6, hemoglobin 6.9 down from 8.0, sodium 134, potassium 4.4, bicarb 26.7, BUN 28, creatinine 4.9, EGFR 8. Corrected calcium 8.3, phosphorus 4.2, magnesium 2.2, AST 279, ALT 137, ALP 172. Exam Vital Signs Temp Pulse Resp BP Pulse Ox O2 Del Method 97.1 F 87 18 113/54 L 95 Room Air 01/07/25 08:00 01/07/25 08:00 01/07/25 08:00 01/07/25 08:00 01/07/25 08:00 01/07/25 08:00 Narrative Exam PE: Gen: Well-developed and well-nourished. HEENT: NCAT, PERRLA, EOMI, MMM, anicteric conjunctivae. CVS: normal S1 and S2. RRR. No M/R/G. Left dialysis cath. Resp: CTA B/L. No rhonchi, rales, crackles or wheezing. Abd: soft, non-tender, non-distended. MSK: Good ROM in BUE & BLE. No rash. 1+ pitting edema BLE. Neuro: CN II-XII grossly intact. Strength 5/5 in BUE & BLE. Alert and oriented x3. Psych: appropriate mood and affect. Objective Labs 01/08/25 04:58 01/08/25 04:58 Labs: Laboratory Results - last 24 hr 01/06/25 01/07/25 01/07/25 09:48 04:38 06:58 WBC 8.6 6.6 RBC 2.51 L 2.20 L Hgb 8.0 L 6.9 L* Hct 23.6 L 20.7 L* MCV 94 94 MCH 31.9 31.4 MCHC 33.9 33.3 RDW Std Deviation 62.8 H 64.1 H Plt Count 149 129 L Neut % (Auto) 78 75 Lymph % (Auto) 10 13 Bartholomew % (Auto) 10 10 Eos % (Auto) 0 1 Baso % (Auto) 0 0 Neut # (Auto) 6.7 4.9 Lymph # (Auto) 0.9 L 0.8 L Bartholomew # (Auto) 0.9 H 0.7 Eos # (Auto) 0.0 0.1 Baso # (Auto) 0.0 0.0 Immature Gran # (Auto) 0.07 H 0.07 H Absolute Nucleated RBC 0.02 H 0.05 H Immature Gran % 1 H 1 H Nucleated RBC % 0 1 H PT 13.6 H INR 1.3 APTT 31.7 Sodium 133 L 134 L Potassium 5.1 4.4 D Chloride 94 L 95 L Carbon Dioxide 26.4 26.7 Anion Gap 13 12 BUN 45 H 28 H Creatinine 7.0 H* D 4.9 H* D Estim Creat Clear Calc 4.6 L 7.3 L eGFR 5 L* 8 L* BUN/Creatinine Ratio 6 L 6 L Glucose 193 H D 150 H Calculated Osmolality 282 276 Lactic Acid 1.4 Calcium 8.4 8.0 L Corrected Calcium 8.4 L 8.3 L Phosphorus 4.2 Magnesium 3.2 H Total Bilirubin 1.2 1.1 AST 436 H 279 H ALT 178 H 133 H Alkaline Phosphatase 201 H D 172 H D Troponin I 1.289 H* D B-Natriuretic Peptide > 3280 H* Total Protein 6.8 6.0 Albumin 4.2 3.6 D Globulin 2.6 2.4 Albumin/Globulin Ratio 1.6 1.5 Blood Type A Positive Antibody Screen NEGATIVE Crossmatch See Detail Blood Bank Wristband ID Yes Quality Measures Quality Measures VTE prophylaxis Advance care planning discussed with:: patient and child Assessment & Plan Assessment Current Active Medications: Generic Name Dose Route Start Last Admin Trade Name Freq PRN Reason Stop Dose Admin Acetaminophen 650 mg 01/06/25 09:05 Acetaminophen 325 Mg Tablet PO 02/05/25 09:04 Q6H PRN PAIN 1-3 OR FEVER > 100.4 Albuterol 2 puff 01/06/25 09:07 Albuterol Inh 8 Gm INH 02/05/25 09:06 Q4HR PRN SHORTNESS OF BREATH OR WHEEZE Atorvastatin Calcium 80 mg 01/07/25 09:00 Atorvastatin Calcium 20 Mg Tablet PO 02/06/25 08:59 DAILY ALL Dextrose 25 ml 01/06/25 16:44 Dextrose 50%-Water Inj 50 Ml Syringe IV 02/05/25 16:43 Q15MIN PRN BG 50-70 responsive npo pt Dextrose 50 ml 01/06/25 16:44 Dextrose 50%-Water Inj 50 Ml Syringe IV 02/05/25 16:43 Q15MIN PRN BG <50 OR BG <70 & pt unresponsive Furosemide 40 mg 01/07/25 09:00 Furosemide 40 Mg Tablet PO 02/06/25 08:59 QDAY ALL Glucagon 1 mg 01/06/25 16:44 Glucagon Inj 1 Mg Vial IM Q15MIN PRN BG <70, and no IV access Albumin Human 25 gm in 100 mls @ 100 mls/min 01/06/25 08:24 Albuminar-25 Ivpb IV PRN PRN DIALYSIS Insulin Human Lispro 0 unit 01/06/25 17:00 01/06/25 17:51 Insulin Lispro (Admelog) 1 Unit/0.01 Ml Unit SC 02/05/25 16:59 Not Given AC ALL Protocol Lactulose 20 gm 01/06/25 09:12 Lactulose Syrup 20 Gm/30 Ml Udc PO 02/05/25 09:11 TID PRN Constipation Protocol Levothyroxine Sodium 50 mcg 01/07/25 06:00 01/07/25 05:40 Levothyroxine Sodium 25 Mcg Tablet PO 02/06/25 05:59 Not Given ACBR ALL Metoprolol Succinate 25 mg 01/07/25 09:00 Metoprolol Succinate Xl 25 Mg Tabcr PO 02/06/25 08:59 DAILY ALL Nitroglycerin 0.4 mg 01/06/25 09:15 Nitroglycerin 0.4 Mg Subl Btl #25 SL Q5M PRN CHEST PAIN Ondansetron HCl 4 mg 01/06/25 09:05 Ondansetron Inj 2 Mg/Ml Inj 2 Ml IV 02/05/25 09:04 Q6H PRN NAUSEA OR VOMITING Protocol Pantoprazole Sodium 40 mg 01/06/25 21:00 01/06/25 20:12 Pantoprazole 40 Mg Tablet PO 02/05/25 20:59 40 mg HS ALL Administration Tramadol HCl 50 mg 01/06/25 09:13 Tramadol Hcl 50 Mg Tablet PO 01/11/25 09:12 Q6H PRN Pain 4-10 Plan 84 y/o F with PMHx significant for renal disease on dialysis, recent OK presents to the Emergency Department brought in by the daughter requesting dialysis, patient has mild shortness of breath. Nephrology consulted for management of dialysis. #ESRD on dialysis #Dysfunctional dialysis catheter Patient has history of ESRD on dialysis. Patient has had recent dysfunctional dialysis catheter, able to use appropriately but catheter bleeds after sessions. Patient recently started on Eliquis and Brilinta. Patient symptomatic plan shortness of breath, notable edema on exam. Patient had session of hemodialysis which was well-tolerated, however AV fistula bled for an hour after session was completed. Will avoid using AV fistula again. Plan to exchange dialysis catheter today. - Will attempt to exchange dialysis catheter today - Avoid nephrotoxins - Renally dose medications #History of OK #Diabetes #Hypothyroidism Management as per the primary team Thank you for allowing us to participate in the care of this patient. Plan of care discussed with attending Dr. Alvarado. Tye Elizondo MD PGY?1 Attending Provider Attestation/Addendum Patient seen and examined with resident physician Dr. Ma. Note reviewed, agree with findings and recommendations. Patient admitted with fluid overload. 2 PRBC given patient currently seen on dialysis. Tolerating dialysis without any problems. Hemodialysis for 2.5 hours, sequential ultrafiltration 2-2.5 L, Epogen 6000, no heparin ordered. Plan of care discussed with the dialysis nurse. Please see dialysis flowsheet for further details.
--- NOTE | 2025-01-07 10:00 | ESPR_ITS ---
Documentation for date of: 01/07/25 Subjective Subjective Interval history: No acute overnight events. Hemoglobin noted to be low at 6.9 (8.0 yesterday), likely due to her bleeding after hemodialysis. Plan to transfuse 2 units previously but patient currently does not have access. Reached out to nephrology and after exchange of her dialysis catheter, may consider using the new catheter as a potential option. However, also reached out to IR to see if they will be able to get any access and currently awaiting response. In the meantime, currently awaiting for procedure later today pending transfusion. Additionally, hospice was introduced to patient and family and are agreeable to be discharged with home hospice after transfusion and procedure. Edit: temporary dialysis catheter re-checked and was able to be flushed. Thus, procedure to exchange catheter was cancelled and plan to transfuse 2 units pRBC during dialysis today. Exam Vital Signs Temp Pulse Resp BP Pulse Ox O2 Del Method 97.1 F 87 18 113/54 L 95 Room Air 01/07/25 08:00 01/07/25 08:00 01/07/25 08:00 01/07/25 08:00 01/07/25 08:00 01/07/25 08:00 Narrative Exam General: AOx3, no acute distress, able to speak full sentences HEENT: NC/AT, mucous membranes moist, bilateral sclera anicteric Cardiovascular: irregular rhythm, S1/S2 present, no murmurs appreciated Pulmonary: clear to auscultation bilaterally, no rales/rhonchi/wheezes Abdominal: soft, non-tender, non-distended, no rebound/guarding, normal bowel sounds present Musculoskeletal: 2+ pitting bilateral lower extremity edema, normal ROM Skin: temporary dialysis catheter in left chest, fistula in LLE, pacemaker in right chest wall, warm and dry, intact, no rashes Neuro: CN II-XII intact, no focal deficits Objective Labs 01/07/25 04:38 01/07/25 04:38 Labs: Laboratory Results - last 24 hr 01/06/25 01/07/25 01/07/25 09:48 04:38 06:58 WBC 8.6 6.6 RBC 2.51 L 2.20 L Hgb 8.0 L 6.9 L* Hct 23.6 L 20.7 L* MCV 94 94 MCH 31.9 31.4 MCHC 33.9 33.3 RDW Std Deviation 62.8 H 64.1 H Plt Count 149 129 L Neut % (Auto) 78 75 Lymph % (Auto) 10 13 Kings % (Auto) 10 10 Eos % (Auto) 0 1 Baso % (Auto) 0 0 Neut # (Auto) 6.7 4.9 Lymph # (Auto) 0.9 L 0.8 L Kings # (Auto) 0.9 H 0.7 Eos # (Auto) 0.0 0.1 Baso # (Auto) 0.0 0.0 Immature Gran # (Auto) 0.07 H 0.07 H Absolute Nucleated RBC 0.02 H 0.05 H Immature Gran % 1 H 1 H Nucleated RBC % 0 1 H PT 13.6 H INR 1.3 APTT 31.7 Sodium 133 L 134 L Potassium 5.1 4.4 D Chloride 94 L 95 L Carbon Dioxide 26.4 26.7 Anion Gap 13 12 BUN 45 H 28 H Creatinine 7.0 H* D 4.9 H* D Estim Creat Clear Calc 4.6 L 7.3 L eGFR 5 L* 8 L* BUN/Creatinine Ratio 6 L 6 L Glucose 193 H D 150 H Calculated Osmolality 282 276 Lactic Acid 1.4 Calcium 8.4 8.0 L Corrected Calcium 8.4 L 8.3 L Phosphorus 4.2 Magnesium 3.2 H Total Bilirubin 1.2 1.1 AST 436 H 279 H ALT 178 H 133 H Alkaline Phosphatase 201 H D 172 H D Troponin I 1.289 H* D B-Natriuretic Peptide > 3280 H* Total Protein 6.8 6.0 Albumin 4.2 3.6 D Globulin 2.6 2.4 Albumin/Globulin Ratio 1.6 1.5 Blood Type A Positive Antibody Screen NEGATIVE Crossmatch See Detail Blood Bank Wristband ID Yes Quality Measures Quality Measures VTE prophylaxis Advance care planning discussed with:: patient and child Assessment & Plan Assessment Current Active Medications: Generic Name Dose Route Start Last Admin Trade Name Freq PRN Reason Stop Dose Admin Acetaminophen 650 mg 01/06/25 09:05 Acetaminophen 325 Mg Tablet PO 02/05/25 09:04 Q6H PRN PAIN 1-3 OR FEVER > 100.4 Albuterol 2 puff 01/06/25 09:07 Albuterol Inh 8 Gm INH 02/05/25 09:06 Q4HR PRN SHORTNESS OF BREATH OR WHEEZE Atorvastatin Calcium 80 mg 01/07/25 09:00 Atorvastatin Calcium 20 Mg Tablet PO 02/06/25 08:59 DAILY ALL Dextrose 25 ml 01/06/25 16:44 Dextrose 50%-Water Inj 50 Ml Syringe IV 02/05/25 16:43 Q15MIN PRN BG 50-70 responsive npo pt Dextrose 50 ml 01/06/25 16:44 Dextrose 50%-Water Inj 50 Ml Syringe IV 02/05/25 16:43 Q15MIN PRN BG <50 OR BG <70 & pt unresponsive Furosemide 40 mg 01/07/25 09:00 Furosemide 40 Mg Tablet PO 02/06/25 08:59 QDAY ALL Glucagon 1 mg 01/06/25 16:44 Glucagon Inj 1 Mg Vial IM Q15MIN PRN BG <70, and no IV access Albumin Human 25 gm in 100 mls @ 100 mls/min 01/06/25 08:24 Albuminar-25 Ivpb IV PRN PRN DIALYSIS Insulin Human Lispro 0 unit 01/06/25 17:00 01/06/25 17:51 Insulin Lispro (Admelog) 1 Unit/0.01 Ml Unit SC 02/05/25 16:59 Not Given AC ALL Protocol Lactulose 20 gm 01/06/25 09:12 Lactulose Syrup 20 Gm/30 Ml Udc PO 02/05/25 09:11 TID PRN Constipation Protocol Levothyroxine Sodium 50 mcg 01/07/25 06:00 01/07/25 05:40 Levothyroxine Sodium 25 Mcg Tablet PO 02/06/25 05:59 Not Given ACBR ALL Metoprolol Succinate 25 mg 01/07/25 09:00 Metoprolol Succinate Xl 25 Mg Tabcr PO 02/06/25 08:59 DAILY ALL Nitroglycerin 0.4 mg 01/06/25 09:15 Nitroglycerin 0.4 Mg Subl Btl #25 SL Q5M PRN CHEST PAIN Ondansetron HCl 4 mg 01/06/25 09:05 Ondansetron Inj 2 Mg/Ml Inj 2 Ml IV 02/05/25 09:04 Q6H PRN NAUSEA OR VOMITING Protocol Pantoprazole Sodium 40 mg 01/06/25 21:00 01/06/25 20:12 Pantoprazole 40 Mg Tablet PO 02/05/25 20:59 40 mg HS ALL Administration Tramadol HCl 50 mg 01/06/25 09:13 Tramadol Hcl 50 Mg Tablet PO 01/11/25 09:12 Q6H PRN Pain 4-10 Plan Yenni Catalan is an 84-year-old female with past medical history of multivessel CAD status post stent placement (most recently 12/31/2024 at [facility]), status post pacemaker on 01/01/2025 at [facility], a-fib, ESRD on HD on (follows Dr. Alvarado), type 2 diabetes mellitus, hypertension, and hypothyroidism who is admitted for dialysis catheter malfunction and hemoptysis. #Dysfunctional temporary dialysis catheter #ESRD on HD on Presents with nonfunctioning temporary dialysis catheter after going to dialysis on 01/05. Has fistula in left upper extremity that was noted to bleed after dialysis during previous hospitalization for which temporary catheter was placed. Patient was able to undergo dialysis but developed bleeding during and difficult to stop bleeding after HD session. Thus, will have dialysis catheter exchanged tomorrow. Of note, follows Dr. Alvarado for dialysis and Dr. Bravo for fistula maintenance. Temporary dialysis catheter was re-checked and was able to be flushed, thus procedure for exchange was cancelled and will use original temporary catheter. ? Nephrology consulted, appreciate recommendations ? Brillinta and aspirin restarted 01/07 ? Avoid nephrotoxic agents, renally dose medications ? Lasix 40 mg p.o. daily #Hemoptysis #Normocytic anemia, secondary to blood loss Presents with hemoptysis in setting of being on multiple blood thinners, including Brillinta and Eliquis. Spoke to cardiology who recommended to continue aspirin and Brillinta at this time. However, given pending procedure will start after removal of temporary dialysis catheter tomorrow. ? Plan to transfuse 2 units pRBC during dialysis #Multivessel CAD status post stents and pacemaker ? Brillinta and aspirin restarted 01/07 ? Atorvastatin 80 mg p.o. daily ? Sublingual nitro 0.4 mg as needed #Atrial fibrillation ? Previously on Eliquis, recommended to hold per cardiology ? Metoprolol succinate 25 mg p.o. daily #Type 2 diabetes mellitus A1c 6.3% on 10/2024. ? SSI, step 2 ? Accu-Chek ACHS ? Hypoglycemic protocol in place #Hypertension ? Metoprolol as above #Hypothyroidism ? Levothyroxine [address] [facility] Hospital management: Disposition: will monitor hemoglobin today and if stable plan to discharge with home hospice tomorrow Diet: Cardiac, n.p.o. after midnight Lines: PIV, dialysis catheter DVT prophylaxis: SCDs GI prophylaxis: pantoprazole 40 mg CODE STATUS: DNR ----- Plan discussed with attending physician Dr. Kaleb Lopez MD PGY-1 Internal Medicine Attending Provider Attestation/Addendum I attest that I was physically present for the evaluation, physical examination, lab and imaging review of the patient with the residents. I discussed the case with the residents and agree with the findings and plans of care as documented above. At bedside today, patient states she is feeling well and does not have any complaints. Following dialysis yesterday patient had bleeding from her fistula site again. Her hemoglobin level dropped to 6.9 this morning. Vital signs are stable. Extends of the hemodialysis catheter was ordered, but at IR, able to flush the dialysis catheter. We will cancel the exchange, discussed with nephrology, patient will be receiving hemodialysis today and will receive blood transfusion along with hemodialysis. Cardiology on board, recommended continuation of dual antiplatelets, nephrology on agreement, we will start aspirin and Brilinta. We will monitor the patient closely for 1 more day, if her hemoglobin is stable tomorrow, we will plan for discharge. Brooke Manuel MD
--- NOTE | 2025-01-07 10:59 | PC.NURSE ---
At shift change. Pt's IV catheter was mostly out from under the skin and pt stated that it hurt anytime anyone would flush it. Several attempts to place a new IV have been attempted, including while using an ultrasound, no IV access achieved as of yet. Rashmi is aware.
--- NOTE | 2025-01-07 11:57 | PD.IMCONS ---
HPI Data of Consult Requesting Physician: Brooke Manuel MD Primary Care Provider: Fanny Zhou MD Consult Narrative History of present illness: This is an 84-year-old female with past medical history of multivessel CAD status post stent placement (most recently 12/31/2024 at [facility]), status post pacemaker on 01/01/2025 at [facility], a-fib, ESRD on HD pt was recently discharged for [facility] to ER with bleeding from her fistula no chest pain or sob ; pt hemodynamically stable she was discharged from [facility] with aspirin, Brilinta, and Eliquis. hold eliquis cc:: cc: Brooke Manuel MD Meds Home Medications and Allergies Home Medications ?Medication ?Instructions ?Recorded ?Confirmed ?Type levothyroxine 50 mcg tablet 1 tab PO DAILY 03/21/22 01/06/25 History pantoprazole 40 mg tablet,delayed 40 mg PO HS 05/29/22 01/06/25 History release insulin glargine U-300 conc 300 10 unit subcut QDAY 08/07/22 01/06/25 History unit/mL (3 mL) subcutaneous pen (Toujeo Max U-300 SoloStar) Held on 01/06/25. Instructions: Duplicate albuterol sulfate 90 mcg/actuation 1 puff inhalation Q4HR PRN 08/08/22 01/06/25 History aerosol inhaler BREATHING lactulose 10 gram/15 mL oral 30 ml PO TID PRN Constipation 08/08/22 01/06/25 History solution (Constulose) tramadol 50 mg tablet 50 mg PO Q8H PRN Pain 08/08/22 01/06/25 History docusate sodium 100 mg tablet 100 mg PO DAILY 08/23/22 01/06/25 History dulaglutide 1.5 mg/0.5 mL 0.5 mg subcut QWEEK 07/03/24 01/06/25 History subcutaneous pen injector (Trulicity) galcanezumab-gnlm 120 mg/mL 120 mg subcut Q1M 07/03/24 01/06/25 History subcutaneous pen injector (Emgality Pen) aspirin 81 mg chewable tablet 1 tab PO DAILY 10/14/24 01/06/25 History atorvastatin 80 mg tablet 80 mg PO DAILY 10/14/24 01/06/25 History clopidogrel 75 mg tablet 75 mg PO DAILY 10/14/24 01/06/25 History Held on 10/14/24. Instructions: Resume on 10/19/24. please hold for 5 days. furosemide 40 mg tablet (Lasix) 40 mg PO QDAY 10/14/24 01/06/25 History insulin glargine U-300 conc 300 14 unit subcut Q24H 10/14/24 01/06/25 History unit/mL (3 mL) subcutaneous pen (Toujeo Max U-300 SoloStar) isosorbide mononitrate 60 mg 60 mg PO DAILY 10/14/24 01/06/25 History tablet,extended release 24 hr Held on 01/06/25. Instructions: Doctor's Order nitroglycerin 0.4 mg sublingual See Rx Instructions buccal .COMPLEX 10/14/24 01/06/25 History tablet apixaban 2.5 mg tablet (Eliquis) 2.5 mg PO BID 01/06/25 01/06/25 History metoprolol succinate 25 mg 25 mg PO DAILY 01/06/25 01/06/25 History tablet,extended release 24 hr ondansetron 4 mg disintegrating 4 mg PO BID 01/06/25 01/06/25 History tablet ticagrelor 90 mg tablet (Brilinta) 90 mg PO BID 01/06/25 01/06/25 History Allergies Allergy/AdvReac Type Severity Reaction Status Date / Time amoxicillin Allergy Severe Rash Verified 01/06/25 07:29 Exam Vital Signs Temp Pulse Resp BP Pulse Ox O2 Del Method 97.1 F 87 18 113/54 L 95 Room Air 01/07/25 08:00 01/07/25 08:00 01/07/25 08:00 01/07/25 08:00 01/07/25 08:00 01/07/25 08:00 Routine HEENT Exam Head: Present normocephalic and atraumatic Eye: Present EOMI and PERRL ENT: Present mucous membranes moist Routine Neck Exam Neck: Present supple and trachea midline Routine Respiratory Exam Respiratory: Present chest non-tender, lungs clear, normal breath sounds and no resp distress Routine Cardiovascular Exam Cardiovascular: Present RRR Routine Abdominal Exam Abdominal: Present soft and normoactive bowel sounds Routine Extremities Exam Extremities: Present full ROM Routine Skin Exam Skin: Present intact, dry and warm Routine Neurological Exam Neurological: Present alert, oriented X3 and CN II-XII intact Routine Psychiatric Exam Psychiatric: Present normal affect and normal thought process Results Labs 01/07/25 04:38 01/07/25 04:38 Labs: Short CBC 01/07/25 Range/Units 04:38 WBC 6.6 (3.6-11.0) Thou/mm3 Hgb 6.9 L* (12.0-16.0) g/dL Hct 20.7 L* (36.0-46.0) % Plt Count 129 L (140-440) Thou/mm3 BMP 01/07/25 04:38 Sodium 134 L Potassium 4.4 D Chloride 95 L Carbon Dioxide 26.7 BUN 28 H Creatinine 4.9 H* D Glucose 150 H Calcium 8.0 L Liver Function 01/07/25 Range/Units 04:38 Total Bilirubin 1.1 (0.3-1.2) mg/dL AST 279 H (0-34) U/L ALT 133 H (10-49) U/L Alkaline Phosphatase 172 H D (46-116) U/L Albumin 3.6 D (3.4-4.8) gm/dL Assessment and Plan Assessment and plan (1) Peritoneal dialysis catheter dysfunction: Status: Acute (2) Fluid overload: Status: Acute (3) End stage renal failure on dialysis: Status: Acute (4) Hemodialysis catheter dysfunction: Status: Acute (5) Coronary angioplasty status: Status: Acute (6) Pacemaker: Status: Acute Additional Assessment & Plan Additional Plan: agree caroline mendiola pt will need DAP treatment as she has recent stent to her LM/ RCA currently stable
[2025-01-07] MEDS: PANTOPRAZOLE 40 MG TABLET PO (21:39)
[2025-01-07] MEDS: TICAGRELOR 90 MG TABLET PO (21:41)
[2025-01-08] VITALS: BP 112/56; PULSE 78; PULSE 85; RESP 17; TEMP 36.6; O2SAT 99
[2025-01-08 04:00] VITALS: BP 128/63; PULSE 83; PULSE 93; RESP 22; TEMP 36.6; O2SAT 96
[2025-01-08 05:29] LABS: Basophils % (Auto) 0 % (0-2.5); Eosinophils # (Auto) 0.1 Thou/mm3 (0.0-0.5); Eosinophils % (Auto) 1 % (0-10); Hematocrit 31.6 % (36.0-46.0); Hemoglobin 10.6 g/dL (12.0-16.0); Immature Granulocytes % (Auto) 1 % (0-0); Immature Granulocytes Auto 0.04 Thou/mm3 (0.00-0.00); Lymphocytes # (Auto) 0.9 Thou/mm3 (1.0-4.8); Lymphocytes % (Auto) 14 % (10-50); Mean Corpuscular HGB Conc 33.5 g/dl (31.0-37.0); Mean Corpuscular Hemoglobin 31.2 pg (25.0-35.0); Mean Corpuscular Volume 93 fL (80-100); Monocytes # (Auto) 0.7 Thou/mm3 (0.0-0.8); Monocytes % (Auto) 11 % (0-12); Neutrophils # (Auto) 4.8 Thou/mm3 (1.8-7.7); Neutrophils % (Auto) 73 % (37-80); Nucleated Red Blood Cell # 0.04 Thou/mm3 (0.00-0.00); Nucleated Red Blood Cell % 1 /100 WBC (0); Platelet Count 131 Thou/mm3 (140-440); White Blood Count 6.6 Thou/mm3 (3.6-11.0)
[2025-01-08] MEDS: LEVOTHYROXINE SODIUM 25 MCG TABLET 50 MCG PO (05:59)
[2025-01-08 06:00] VITALS: BMI 25.1
[2025-01-08 06:15] LABS: Alanine Aminotransferase 118 U/L (10-49); Albumin, Serum 3.8 gm/dL (3.4-4.8); Albumin/Globulin Ratio 1.6 (1.2-2.2); Alkaline Phosphatase 177 U/L (46-116); Anion Gap 9 (7-16); Aspartate Amino Transferase 190 U/L (0-34); BUN/Creatinine Ratio 6 Ratio (12-20); Bilirubin,Total 1.9 mg/dL (0.3-1.2); Blood Urea Nitrogen 22 mg/dL (9-23); Calcium 7.9 mg/dL (8.3-10.6); Calcium (Corrected) 8.1 mg/dL (8.5-10.1); Carbon Dioxide 29.8 mMol/L (20.0-31.0); Chloride 98 mMol/L (98-107); Estimated Creatinine Clearance 8.9 mL/min (>60); Globulin 2.4 gm/dL (2.3-3.5); Glucose 186 mg/dL (74-106); Magnesium 2.6 mg/dL (1.6-2.6); Osmolality,Calculated 282 (275-295); Phosphorous 3.3 mg/dL (2.4-5.1); Sodium 137 mMol/L (136-145); Total Protein 6.2 gm/dL (5.7-8.2); eGFR 11 See Note
[2025-01-08 06:49] VITALS: PULSE 86; RESP 18; O2SAT 96
[2025-01-08] MEDS: INSULIN LISPRO (AdmeLOG) 1 UNIT/0.01 ML UNIT SC (07:41)
[2025-01-08 08:00] VITALS: BP 110/60; PULSE 77; RESP 15; TEMP 36.4; O2SAT 98
[2025-01-08] MEDS: ASPIRIN 81 MG CHEW PO (08:11)
[2025-01-08 08:12] VITALS: BP 110/60; PULSE 77
[2025-01-08] MEDS: TICAGRELOR 90 MG TABLET PO (08:12)
[2025-01-08] MEDS: METOPROLOL SUCCINATE XL 25 MG TABCR PO (08:12)
[2025-01-08] MEDS: Furosemide 40 MG TABLET PO (08:12)
--- NOTE | 2025-01-08 10:25 | PC.SS ---
SS follow up: patient to d/c home today with [facility] services. Family at bed side confirmed the d/c plan. They inform they will transport the patient via private vehicle. Family confirms home DME has already been delivered by Hospice agency. Bed side nurse Marcelle updated. Patient ready for d/c.
--- NOTE | 2025-01-08 11:37 | ESDS_ITS ---
Planned Discharge Date 01/08/25 DS: Providers Provider Date of admission: 01/06/25 09:05 Primary care physician: Fanny Zhou MD Admitting Provider: Brooke Manuel MD Attending Provider on Admission: Brooke Manuel MD Consults: 01/06/25 09:12 Consult to Nephrology Stat Comment: Dysfunctional dialysis catheter Consulting Provider: José Alvarado 01/06/25 15:48 [facility] Referral - Knowledge Deficit Routine Comment: Positive screening for knowledge deficit needs. 01/07/25 14:21 Referral Hospice Routine Comment: 01/07/25 16:53 Consult to Cardiology Routine Comment: Recent stent Consulting Provider: Iliana Moore Attending Provider on DC: Yovanny Lopez MD Discharging Provider: Yovanny Lopez MD DS: Diagnosis Problem List Completed Was Problem List Reviewed/Reconciled?: Yes Hospital Course Hospital Course Hospital course: Yenni Catalan is an 84-year-old female with past medical history of multivessel CAD status post stent placement (most recently 12/31/2024 at [facility]), status post pacemaker on 01/01/2025 at [facility], a-fib, ESRD on HD on (follows Dr. Alvarado), type 2 diabetes mellitus, and hypertension who presents after she was unable to undergo hemodialysis via temporary dialysis catheter as well as new onset hemoptysis since in AM. During previous hospitalization this month, patient was admitted after having significant bleeding from her fistula and since has had a temporary catheter placed. However, yesterday on 01/05, she was unable to undergo dialysis as her dialysis catheter was nonfunctioning. She was told to come to the ED for further evaluation but was not able to have her catheter exchanged at that time and was told to come back in the morning on day of admission. In the interim, she developed slight hemoptysis and epistaxis as she was discharged from [facility] with aspirin, Brilinta, and Eliquis. Denies hematemesis, hematuria, or dark stools. Spoke to x ray electronics wiring technician who performed stents and recommended aspirin and Brillinta only. Patient underwent dialysis on first day of admission and was noted to have significant bleeding from her fistula afterwards resulting in hemoglobin of 6.9 the following day. 2 units PRBC were ordered but was significantly difficult to obtain IV access. Thus, option at that time was to exchange her current temporary dialysis catheter for another, and then undergo hemodialysis meanwhile being transfused her 2 units PRBC. However, after patient went down to IR found that her temporary dialysis catheter was able to work. Confirm with dialysis nurse and was able to undergo a complete and successful session of hemodialysis, during which she was transfused blood. Additionally, she had no further episodes of hemoptysis and discussed with her x ray electronics wiring technician regarding Brilinta and Eliquis moving forward, and recommended aspirin and Brilinta only. Discussed options with family, including risks and benefits of either option and were okay with aspirin and Brilinta with close follow-up with cardiology outpatient after discharge. Diagnoses during admission: #Dysfunctional temporary dialysis catheter #ESRD on HD on #Hemoptysis #Normocytic anemia, secondary to blood loss #Multivessel CAD status post stents and pacemaker #Atrial fibrillation #Type 2 diabetes mellitus #Hypertension #Hypothyroidism Discharge instructions: ? Take aspirin 81 mg once daily and ticagrelor/Brillinta 90 mg twice daily for your stents ? Hold eliquis, at least until you follow-up with your x ray electronics wiring technician ? Continue taking all other home medications as prescribed ? Follow-up with PCP within 1-2 weeks of discharge ? Follow-up with your x ray electronics wiring technician within 1-2 weeks of discharge ? If you do not have a PCP, you can follow-up at [facility] (you can call [phone] to make an appointment) ? If you wish to follow-up with Dr. Lopez, schedule appointment on Saturday afternoons ? Return to ED if symptoms worsen or recur Time Spent with Patient Time attestation: Total time spent providing and/or coordinating discharge services: Time spent: Less than 30 minutes Exam Vital Signs Temp Pulse Resp BP Pulse Ox O2 Del Method 97.6 F 77 15 110/60 98 Room Air 01/08/25 08:00 01/08/25 08:12 01/08/25 08:00 01/08/25 08:12 01/08/25 08:00 01/08/25 04:00 Narrative Exam General: AOx3, no acute distress, able to speak full sentences HEENT: NC/AT, mucous membranes moist, bilateral sclera anicteric Cardiovascular: irregular rhythm, S1/S2 present, no murmurs appreciated Pulmonary: clear to auscultation bilaterally, no rales/rhonchi/wheezes Abdominal: soft, non-tender, non-distended, no rebound/guarding, normal bowel sounds present Musculoskeletal: 2+ pitting bilateral lower extremity edema, normal ROM Skin: temporary dialysis catheter in left chest, fistula in LLE, pacemaker in right chest wall, warm and dry, intact, no rashes Neuro: CN II-XII intact, no focal deficits Discharge Plan Plan Patient Disposition: Home w/HOSPICE Care Plan Goals: ? Take aspirin 81 mg once daily and ticagrelor/Brillinta 90 mg twice daily for your stents ? Hold eliquis, at least until you follow-up with your x ray electronics wiring technician ? Continue taking all other home medications as prescribed ? Follow-up with PCP within 1-2 weeks of discharge ? Follow-up with your x ray electronics wiring technician within 1-2 weeks of discharge ? If you do not have a PCP, you can follow-up at the [facility] (you can call [phone] to make an appointment) ? If you wish to follow-up with Dr. Lopez, schedule appointment on Saturday afternoons ? Return to ED if symptoms worsen or recur Prescriptions/Referrals Prescriptions/Med Rec: Continued levothyroxine 50 mcg tablet 1 tab PO DAILY pantoprazole 40 mg tablet,delayed release (DR/EC) 40 mg PO HS tramadol 50 mg Tablet 50 mg PO Q8H PRN (Reason: Pain) albuterol sulfate 90 mcg/actuation HFA aerosol inhaler 1 puff INHALATION Q4HR PRN (Reason: BREATHING) Patient Comments: inhale 1 puff by mouth and INTO THE LUNGS every 4 hours if needed lactulose [Constulose] 10 gram/15 mL solution 30 ml PO TID PRN (Reason: Constipation) Rx Instructions: UP TO 3X A DAY NEEDED FOR CONTIPATION Emgality Pen 120 mg/mL pen injector 120 mg SUBCUT Q1M Trulicity 1.5 mg/0.5 mL pen injector 0.5 mg SUBCUT QWEEK Patient Comments: INJECT 1.5MG SUBCUTANEOUSLY ONCE A WEEK ticagrelor [Brilinta] 90 mg tablet 90 mg PO BID metoprolol succinate 25 mg tablet extended release 24 hr 25 mg PO DAILY ondansetron 4 mg tablet,disintegrating 4 mg PO BID docusate sodium 100 mg Tablet 100 mg PO DAILY aspirin 81 mg tablet,chewable 1 tab PO DAILY atorvastatin 80 mg tablet 80 mg PO DAILY Patient Comments: take 1 tablet by mouth once daily furosemide [Lasix] 40 mg tablet 40 mg PO QDAY nitroglycerin 0.4 mg tablet, sublingual See Rx Instructions BUCCAL .COMPLEX Patient Comments: place 1 tablet under the tongue AT FIRST SIGN OF ATTACK; DECEMBER REPE... (REFER TO PRESCRIPTION NOTES). Rx Instructions: buccally; insulin glargine U-300 conc [Toujeo Max U-300 SoloStar] 300 unit/mL (3 mL) insulin pen 14 unit subcut Q24H Held Eliquis 2.5 mg tablet 2.5 mg PO BID Hold Instructions: Resume on 01/22/25. No Action insulin glargine U-300 conc [Toujeo Max U-300 SoloStar] 300 unit/mL (3 mL) Insulin Pen 10 unit SUBCUT QDAY amiodarone 200 mg Tablet 200 mg PO DAILY Qty: 30 0RF clopidogrel 75 mg tablet 75 mg PO DAILY Patient Comments: take 1 tablet by mouth once daily isosorbide mononitrate 60 mg tablet extended release 24 hr 60 mg PO DAILY Patient Comments: take 1 tablet by mouth every morning Referrals: Fanny Zhou MD [Primary Care Provider] - Patient/Caregiver Discharge Instructions Print Language: Pashto Stand Alone Forms: Rachel Award Info., Patient Portal Info Letter Discharge Order Discharge Orders: Discharge (Routine); Ordered 01/08/25 Ordered By: Yovanny Lopez Quality Discharge Quality Measures VTE prophylaxis Attestestation MD Attestation I attest that I was physically present for the evaluation, physical examination, lab and imaging review of the patient with the residents. I discussed the case with the residents and agree with the findings and plans of care as documented above. Brooke Manuel MD
--- NOTE | 2025-01-08 11:48 | PD.NEPHPROG ---
Documentation for date of: 01/08/25 Subjective Subjective Interval history: Ms. Catalan is a 84 y/o F with PMHx significant for renal disease on dialysis, recent NE presents to the Emergency Department brought in by the daughter requesting dialysis, patient has mild shortness of breath. Per daughter, last 1-2 weeks the patient had a NE and they transferred her did dialysis there; yesterday they tried to do dialysis but her chest dialysis port was not working. Patient was able to access and use dialysis, however port bleeds after dialysis session. The daughter, states that at 4 AM she had a little shortness of breath and epistaxis with hemoptysis. No fevers or chills. No chest pain or leg swelling. No vomiting, diarrhea, bloody stools, or constipation. Last bowel movement was yesterday, normal. Nephrology consulted for management of dysfunction dialysis catheter and dialysis. Patient seen and examined, resting comfortably. Patient reports mild hemoptysis and epistaxis starting today. Of note patient reports she has been taking Eliquis and Brilinta due to stent placement. Patient denies fever, chills, chest pain, nausea, vomiting. No WBC 8.6, hemoglobin 8.0, sodium 133, potassium 5.1, bicarb 26.4, BUN 45, creatinine 7.0, EGFR 5. LV LFTs: AST 436, ALT 170, ALP 201. Will attempt to have catheter change tomorrow, patient will dialysis today. 01/07/2025: Patient seen and examined at bedside, resting comfortably. Patient seen dialysis yesterday, dialysis access site was bleeding for approximately 1 hour after session completed. Patient does not need additional dialysis session today. Will attempt to exchange dialysis catheter today. Hemoglobin drop significantly, patient received 2 units transfusion. WBC 6.6, hemoglobin 6.9 down from 8.0, sodium 134, potassium 4.4, bicarb 26.7, BUN 28, creatinine 4.9, EGFR 8. Corrected calcium 8.3, phosphorus 4.2, magnesium 2.2, AST 279, ALT 137, ALP 172. 01/08/2025 patient's hemoglobin dropped yesterday to 6.9 needing blood transfusion. Fortunately dialysis catheter was working. Fistula unable to be used due to significant post dialytic bleeding. Patient received 2 units of blood transfusion yesterday. Today she seems to be feeling much better. Will be discharged today and follow-up tomorrow in the outpatient setting. Had a long conversation with the 2 daughters yesterday. They are requesting home hospice along with dialysis. Review of Systems Review of Systems Narrative Review of Systems: CONSTITUTIONAL: Patient denies any fever, chills. Complaining of fatigue HEENT: Denies any visual disturbances or hearing problems. CARDIOVASCULAR: Patient denies any chest pain, shortness of breath, swelling in the lower extremities. PULMONARY: Patient denies any shortness of breath, cough. GASTROINTESTINAL: Patient denies any abdominal pain, constipation, nausea, vomiting, diarrhea. GENITOURINARY: Patient denies any urinary symptoms of burning or frequency or hematuria, denies any form in the urine. SKIN: AV fistula wrapped. Left IJ dialysis catheter, right pacemaker with hematoma underneath. MUSCULOSKELETAL: Complaining of gait imbalance NEUROLOGICAL: Denies any neurological problems of strokes, seizures or confusion. Denies any memory problems. PSYCHIATRIC: Denies any depression or anxiety. LYMPHATICS : No lymphadenopathy Exam Vital Signs Temp Pulse Resp BP Pulse Ox O2 Del Method 36.4 C 77 15 110/60 98 Room Air 01/08/25 08:00 01/08/25 08:12 01/08/25 08:00 01/08/25 08:12 01/08/25 08:00 01/08/25 04:00 Narrative Exam PE: Gen: Well-developed and well-nourished. HEENT: NCAT, PERRLA, EOMI, MMM, anicteric conjunctivae. CVS: normal S1 and S2. RRR. No M/R/G. Left dialysis cath. Right pacemaker with hematoma underneath Left AV fistula Resp: CTA B/L. No rhonchi, rales, crackles or wheezing. Abd: soft, non-tender, non-distended. MSK: Good ROM in BUE & BLE. No rash. 1+ pitting edema BLE. Neuro: CN II-XII grossly intact. Strength 5/5 in BUE & BLE. Alert and oriented x3. Psych: appropriate mood and affect. Objective Labs 01/08/25 04:58 01/08/25 04:58 Labs: Laboratory Results - last 24 hr 01/07/25 01/08/25 06:58 04:58 WBC 6.6 RBC 3.40 L Hgb 10.6 L D Hct 31.6 L D MCV 93 MCH 31.2 MCHC 33.5 RDW Std Deviation 59.0 H Plt Count 131 L Neut % (Auto) 73 Lymph % (Auto) 14 [place] % (Auto) 11 Eos % (Auto) 1 Baso % (Auto) 0 Neut # (Auto) 4.8 Lymph # (Auto) 0.9 L [place] # (Auto) 0.7 Eos # (Auto) 0.1 Baso # (Auto) 0.0 Immature Gran # (Auto) 0.04 H Absolute Nucleated RBC 0.04 H Immature Gran % 1 H Nucleated RBC % 1 H Sodium 137 Potassium 4.0 Chloride 98 Carbon Dioxide 29.8 Anion Gap 9 BUN 22 Creatinine 4.0 H D Estim Creat Clear Calc 8.9 L eGFR 11 L* BUN/Creatinine Ratio 6 L Glucose 186 H Calculated Osmolality 282 Calcium 7.9 L Corrected Calcium 8.1 L Phosphorus 3.3 Magnesium 2.6 Total Bilirubin 1.9 H D AST 190 H ALT 118 H Alkaline Phosphatase 177 H Total Protein 6.2 Albumin 3.8 Globulin 2.4 Albumin/Globulin Ratio 1.6 Blood Type A Positive Antibody Screen NEGATIVE Crossmatch See Detail Blood Bank Wristband ID Yes Assessment & Plan Assessment and plan (1) Fluid overload: Status: Acute Assessment and plan: Patient got better after dialysis. (2) End stage renal failure on dialysis: Status: Acute Assessment and plan: Next dialysis scheduled for tomorrow (3) Hemodialysis catheter dysfunction: Status: Acute Assessment and plan: Apparently dialysis catheter is working. Did do dialysis with 2 units of blood transfusion yesterday. She has bleeding from the AV fistula. (4) Coronary angioplasty status: Status: Acute Assessment and plan: Stable. Recent stent-Dr. Mcgovern on the case. On aspirin, Brilinta. (5) Pacemaker: Status: Acute Assessment and plan: Status post pacemaker with hematoma Additional Assessment & Plan Additional Plan: Plan of care discussed with the primary team. Quality - progress note Quality Measures Quality Measures: VTE prophylaxis Reason for Continued Stay Reason for Continued Stay: further monitoring
== END 2025-01-08 10:59 | disposition hospice, home (50) ==
LOC: SERX 09:12 → SERHOLD 09:57 → S3NX 11:10
PROVIDERS: Admitting Provider Student in an Organized Health Care Education/Training Program; Emergency Provider Emergency Medicine; PCP Family Medicine; Visit Provider Student in an Organized Health Care Education/Training Program
DX: T82.838A Hemorrhage due to vascular prosthetic devices, implants and grafts, initial encounter (principal); T82.41XA Breakdown (mechanical) of vascular dialysis catheter, initial encounter; R04.0 Epistaxis; N18.6 End stage renal disease; M06.9 Rheumatoid arthritis, unspecified; J45.909 Unspecified asthma, uncomplicated; I48.91 Unspecified atrial fibrillation; I25.2 Old myocardial infarction; Z66 Do not resuscitate; Z82.49 Family history of ischemic heart disease and other diseases of the circulatory system; Z86.73 Personal history of transient ischemic attack (TIA), and cerebral infarction without residual deficits; Z95.1 Presence of aortocoronary bypass graft; Z95.0 Presence of cardiac pacemaker; Z88.8 Allergy status to other drugs, medicaments and biological substances; Z95.5 Presence of coronary angioplasty implant and graft; Z99.2 Dependence on renal dialysis; Z79.899 Other long term (current) drug therapy; Z88.0 Allergy status to penicillin; I25.10 Atherosclerotic heart disease of native coronary artery without angina pectoris; F17.210 Nicotine dependence, cigarettes, uncomplicated; I12.0 Hypertensive chronic kidney disease with stage 5 chronic kidney disease or end stage renal disease; E11.51 Type 2 diabetes mellitus with diabetic peripheral angiopathy without gangrene; E11.22 Type 2 diabetes mellitus with diabetic chronic kidney disease; E03.9 Hypothyroidism, unspecified; D50.0 Iron deficiency anemia secondary to blood loss (chronic); E78.00 Pure hypercholesterolemia, unspecified; Z01.810 Encounter for preprocedural cardiovascular examination; Z79.82 Long term (current) use of aspirin; Z79.01 Long term (current) use of anticoagulants; Z79.4 Long term (current) use of insulin
CPT/HCPCS: 36415; 36430; 71045; 80053; 83605; 83735; 83880; 84100; 84484; 85025; 85610; 85730; 86850; 86900; 86901; 86923; 87040; 87081; 90935; 96372; 99285; G0378; J1815; P9016; Q4081; A9270; G0257

== ENCOUNTER 2025-01-19 18:11 | Emergency (ER) | payer MEDICARE, MEDICAID, SELFPAY ==
[2025-01-19 18:15] VITALS: BP 129/76; PULSE 97; RESP 18; TEMP 37.1; O2SAT 98
[2025-01-19 18:25] VITALS: PULSE 94; RESP 16; O2SAT 98
[2025-01-19 18:33] VITALS: BMI 24.5
--- NOTE | 2025-01-19 18:46 | PD.EDWOUND ---
ED Wound/Laceration-RME/HPI General Chief Complaint: General Adult/Misc Complain Stated Complaint: FISTULA BLEED Time Seen by Provider: 01/19/25 18:38 Arrival date/time: 01/19/25 18:11 RME / HPI RME / HPI narrative: Dr. Hackett?s Main ED Evaluation:?84 y/o female with Hx of Type II Dm and Renal disease presents to ED BIBA from home c/o bleeding from left AV fistula. Patient's doctor placed a stitch on her left arm due to a bleed. Today, stitch was removed but bleeding continued so another stitch was placed. Patient undergoes dialysis Saturday, , and Saturday. Renal care is overseen by Dr. Alvarado. No other concerns or complaints expressed at this time. Related Data Home Medications ?Medication ?Instructions ?Recorded ?Confirmed levothyroxine 50 mcg tablet 1 tab PO DAILY 03/21/22 01/06/25 pantoprazole 40 mg tablet,delayed 40 mg PO HS 05/29/22 01/06/25 release insulin glargine U-300 conc 300 10 unit subcut QDAY 08/07/22 01/06/25 unit/mL (3 mL) subcutaneous pen (Toujeo Max U-300 SoloStar) Held on 01/06/25. Instructions: Duplicate albuterol sulfate 90 mcg/actuation 1 puff inhalation Q4HR PRN 08/08/22 01/06/25 aerosol inhaler BREATHING lactulose 10 gram/15 mL oral 30 ml PO TID PRN Constipation 08/08/22 01/06/25 solution (Constulose) tramadol 50 mg tablet 50 mg PO Q8H PRN Pain 08/08/22 01/06/25 docusate sodium 100 mg tablet 100 mg PO DAILY 08/23/22 01/06/25 dulaglutide 1.5 mg/0.5 mL 0.5 mg subcut QWEEK 07/03/24 01/06/25 subcutaneous pen injector (Trulicity) galcanezumab-gnlm 120 mg/mL 120 mg subcut Q1M 07/03/24 01/06/25 subcutaneous pen injector (Emgality Pen) aspirin 81 mg chewable tablet 1 tab PO DAILY 10/14/24 01/06/25 atorvastatin 80 mg tablet 80 mg PO DAILY 10/14/24 01/06/25 clopidogrel 75 mg tablet 75 mg PO DAILY 10/14/24 01/06/25 Held on 10/14/24. Instructions: Resume on 10/19/24. please hold for 5 days. furosemide 40 mg tablet (Lasix) 40 mg PO QDAY 10/14/24 01/06/25 insulin glargine U-300 conc 300 14 unit subcut Q24H 10/14/24 01/06/25 unit/mL (3 mL) subcutaneous pen (Toujeo Max U-300 SoloStar) isosorbide mononitrate 60 mg 60 mg PO DAILY 10/14/24 01/06/25 tablet,extended release 24 hr Held on 01/06/25. Instructions: Doctor's Order nitroglycerin 0.4 mg sublingual See Rx Instructions buccal .COMPLEX 10/14/24 01/06/25 tablet apixaban 2.5 mg tablet (Eliquis) 2.5 mg PO BID 01/06/25 01/06/25 Held on 01/08/25. Instructions: Resume on 01/22/25. metoprolol succinate 25 mg 25 mg PO DAILY 01/06/25 01/06/25 tablet,extended release 24 hr ondansetron 4 mg disintegrating 4 mg PO BID 01/06/25 01/06/25 tablet ticagrelor 90 mg tablet (Brilinta) 90 mg PO BID 01/06/25 01/06/25 Previous Rx's ?Medication ?Instructions ?Recorded amiodarone 200 mg tablet 200 mg PO DAILY #30 tabs 07/03/24 Held on 01/06/25. Instructions: Doctor's Order Allergies Allergy/AdvReac Type Severity Reaction Status Date / Time amoxicillin Allergy Severe Rash Verified 01/19/25 18:34 Review of Systems Review of Systems Systems Reviewed: All systems reviewed, normal except as documented Past Medical History Past Medical History NEUROLOGIC: Positive Neurological Disorders, Cerebrovascular Accident and Transient Ischemic Attacks (TIA) CARDIAC: Positive Cardiac Disorders, Myocardial Infarction, Cardiac Arrhythmia, Atrial Fibrillation, Angina, Heart Murmur, Coronary Artery Disease, Peripheral Vascular Disease, Hypercholesterolemia, Edema and Hypertension RESPIRATORY: Positive Asthma and Pneumonia GASTROINTESTINAL: Positive Gastrointestinal Disorders and Gastroesophageal Reflux Disease GENITOURINARY: Positive Genitourinary Disorders, Renal Disease and Dialysis REPRODUCTIVE: Positive Previous Pregnancies MUSCULOSKELETAL: Positive Musculoskeletal Disorders, Arthritis, Rheumatoid Arthritis, Degenerative Disk Disease and Gout ENT: Positive Cataracts ENDOCRINE: Positive Endocrine Disorders, Diabetes Mellitus Type 2 and Hypothyroidism HEMATOLOGIC: Positive Clotting Problems OTHER HISTORY: Positive Hospitalization, Blood Transfusions, Chicken Pox, Measles, Mumps and Clostridium Difficile Family History FAMILY HISTORY: Positive Family Cardiac Disorders, Family Cancer and Family Surgery Surgical History SURGICAL: Positive Cardiac Surgery, Coronary Stent, Cardiac Catheterization, Pacemaker, Angiogram and Eye Surgery Social History SMOKING STATUS: Former smoker ED Exam Narrative Physical exam: GENERAL APPEARANCE: alert and oriented x 4, well-developed, well-nourished, no acute distress VITALS: All vitals were reviewed and the pulse ox is 98% on room air, which is normal according to my interpretation. HEENT: Normocephalic, atraumatic; pupils equal, round, reactive to light; EOMI; mucous membranes pink, moist; oropharynx clear NECK: Supple LUNGS: CTABL; no wheezes, no rales, no rhonchi HEART: Regular rate, regular rhythm; normal S1, S2; no murmurs ABDOMEN: non distended; normal BS; soft, no tenderness, no guarding, no rebound; no masses, no organomegaly, no hernia BACK: no CVA tenderness EXTREMITIES: atraumatic; no edema NEUROLOGIC: awake; alert and oriented x4; cranial nerves II-XII grossly intact; no focal sensory or motor deficits PSYCHIATRIC: appropriate mood and affect SKIN: warm, dry, normal color; no rashes. Clear dressing over left AV on left upper extremity with graft and pool of blood. Course Course Course Narrative: 1856: I took down the Tegaderm and there was no active bleeding. We dressed the wound with a new Tegaderm and will discharge the patient. Quality Measures none Orders Category Date Time Status Miscellaneous Nursing Order NOW Care 01/19/25 18:54 Completed Vital Signs Vital signs: Vital Signs Temperature 98.7 F 01/19/25 18:15 Pulse Rate 97 01/19/25 18:15 Respiratory Rate 18 01/19/25 18:15 Blood Pressure 129/76 01/19/25 18:15 Pulse Oximetry (%) 98 01/19/25 18:15 Oxygen Delivery Method Room Air 01/19/25 18:15 Wound / Laceration MDM Narrative MDM Narrative:: Scribe Attestation: Holley Hwang, am scribing for and in the presence of Dr. Hackett. Provider Notation: Although this document has been carefully reviewed, there may still be some phonetic and other typographical errors.? These errors are purely grammatical due to imperfections in the software program and should not be construed in any way to? compromise the substance of the patient's medical care during this visit. Patient data External records reviewed:: [facility] previous records (Reviewed prior ED records from 01/06/25. Patient was seen for End stage renal failure on dialysis.) and EMS form Clinical information provided by:: patient and EMS Social determinants that could affect healthcare access:: none Patient has the following chronic illnesses:: Cerebrovascular Accident, Transient Ischemic Attacks (TIA), Myocardial Infarction, Cardiac Arrhythmia, Atrial Fibrillation, Angina, Heart Murmur, Coronary Artery Disease, Peripheral Vascular Disease, Hypercholesterolemia, Edema, Hypertension, Asthma, Gastroesophageal Reflux Disease, GENITOURINARY: Positive Genitourinary Disorders, Renal Disease and Dialysis, Arthritis, Rheumatoid Arthritis, Degenerative Disk Disease, Gout, Cataracts, Diabetes Mellitus Type 2 and Hypothyroidism How is presenting disease/condition affected by chronic disease/condition?: uneffected by Evaluation data The following diagnostics were reviewed and interpreted by me:: other (specify) (None necessary) Lab and/or radiology exams considered but not ordered:: None Interpretation Summary: N/A Medications / Prescriptions Medications or Prescriptions considered but not ordered:: None Medication administrations:: See above if any Consultations Consultation(s) initiated? (list below): No Diagnosis Wound Differential Diagnosis: laceration, abrasion and other (active bleed) Most likely diagnosis given after review of the tests above:: Refer to clinical impression below Admission Indicated Admission indicated?: not indicated Explain why admission is indicated or not indicated:: Does not meet admission criteria Admission Request Was there a request for admission?: No Disposition Plan Disposition Plan: Discharge Discharge Attestation Discharge Attestation: The patient and all family members were given an opportunity to ask questions and understood the discharge instructions. Discharge instructions specifically effects, indications for sooner follow up or return to the emergency department, and the expected course of current diagnosis. Patient condition: Stable Discharge Plan Plan Patient Disposition: HOME (Self Care) Discharge Disposition comment: Stable for discharge home Patient condition on transfer: Stable Prescriptions/Referrals Prescriptions/Med Rec: No Action levothyroxine 50 mcg tablet 1 tab PO DAILY pantoprazole 40 mg tablet,delayed release (DR/EC) 40 mg PO HS insulin glargine U-300 conc [Toujeo Max U-300 SoloStar] 300 unit/mL (3 mL) Insulin Pen 10 unit SUBCUT QDAY tramadol 50 mg Tablet 50 mg PO Q8H PRN (Reason: Pain) albuterol sulfate 90 mcg/actuation HFA aerosol inhaler 1 puff INHALATION Q4HR PRN (Reason: BREATHING) Patient Comments: inhale 1 puff by mouth and INTO THE LUNGS every 4 hours if needed lactulose [Constulose] 10 gram/15 mL solution 30 ml PO TID PRN (Reason: Constipation) Rx Instructions: UP TO 3X A DAY NEEDED FOR CONTIPATION Emgality Pen 120 mg/mL pen injector 120 mg SUBCUT Q1M Trulicity 1.5 mg/0.5 mL pen injector 0.5 mg SUBCUT QWEEK Patient Comments: INJECT 1.5MG SUBCUTANEOUSLY ONCE A WEEK amiodarone 200 mg Tablet 200 mg PO DAILY Qty: 30 0RF ticagrelor [Brilinta] 90 mg tablet 90 mg PO BID metoprolol succinate 25 mg tablet extended release 24 hr 25 mg PO DAILY ondansetron 4 mg tablet,disintegrating 4 mg PO BID Eliquis 2.5 mg tablet 2.5 mg PO BID docusate sodium 100 mg Tablet 100 mg PO DAILY aspirin 81 mg tablet,chewable 1 tab PO DAILY atorvastatin 80 mg tablet 80 mg PO DAILY Patient Comments: take 1 tablet by mouth once daily clopidogrel 75 mg tablet 75 mg PO DAILY Patient Comments: take 1 tablet by mouth once daily isosorbide mononitrate 60 mg tablet extended release 24 hr 60 mg PO DAILY Patient Comments: take 1 tablet by mouth every morning furosemide [Lasix] 40 mg tablet 40 mg PO QDAY nitroglycerin 0.4 mg tablet, sublingual See Rx Instructions BUCCAL .COMPLEX Patient Comments: place 1 tablet under the tongue AT FIRST SIGN OF ATTACK; DECEMBER REPE... (REFER TO PRESCRIPTION NOTES). Rx Instructions: buccally; insulin glargine U-300 conc [Toujeo Max U-300 SoloStar] 300 unit/mL (3 mL) insulin pen 14 unit subcut Q24H Referrals: [facility] [Provider Group] - In 1 week Problem List Clinical Impression: AV graft malfunction Patient/Caregiver Discharge Instructions Discharge Activity: activity as tolerated Education Materials: ED Hemodialysis Access Bleeding Additional Instructions: Please return to the emergency department if you have any worsening or any further medical problems and we will help you. Otherwise you should follow-up with your primary care doctor or in the family [facility] care clinic within the next several days. Print Language: Slovak Stand Alone Forms: Rachel Award Info., Patient Portal Info Letter
== END 2025-01-19 19:10 | disposition home or self-care (01) ==
PROVIDERS: Emergency Provider Emergency Medicine; PCP Family Medicine
DX: T82.590A Other mechanical complication of surgically created arteriovenous fistula, initial encounter (principal); Y83.2 Surgical operation with anastomosis, bypass or graft as the cause of abnormal reaction of the patient, or of later complication, without mention of misadventure at the time of the procedure
CPT/HCPCS: 99283

== ENCOUNTER 2025-06-02 18:21 | Observation (INO) | payer MEDICARE, MEDICAID, SELFPAY ==
[2025-06-02 19:08] VITALS: BP 114/73; PULSE 93; RESP 18; TEMP 36.8; O2SAT 98
--- NOTE | 2025-06-02 19:08 | XR_ITS ---
EXAMINATION: CT abdomen pelvis with intravenous contrast 2D sagittal coronal reconstructions 3D reconstructions Date and time: June 02, 2025, 2145 hours, comparison March 20, 2022 INDICATIONS: Abdominal pain rectal bleeding beginning 3 days ago TECHNIQUE AND FINDINGS: 3. MM axial sections abdomen and pelvis with intravenous contrast, 60 cc [id number] 3D sagittal coronal reconstructions 3D reconstructions Heavy coronary artery calcification Mild to moderate enlargement cardiac contour Gastric mucosa is thickened Absent gallbladder Enlarged common hepatic common bile duct up to 10 mm, no stones No pancreatic mass Spleen is not enlarged Small kidneys with moderate renal scar formation Normal appendix No bowel obstruction Abdominal aortic calcification Atrophic uterus, possible enlarged right ovary axial image 166, 4.3 cm Thickened urinary bladder wall Pelvic floor prolapse No diverticulitis Prominent osteopenia Moderate narrowing hip joints Rectal wall thickening IMPRESSION: Gastritis pattern Mildly enlarged common hepatic common bile duct, recommend hepatobiliary sonography follow-up Atrophic kidneys with moderate renal scar formation No bowel obstruction Normal appendix Possible enlarged right ovary axial image 166 Rectal wall thickening, proctitis included in the differential, recommend direct inspection
--- NOTE | 2025-06-02 19:10 | PD.EDRME ---
Rapid Medical Screening Exam RME Arrival date/time: 06/02/25 18:21 84-year-old female reports with complaints of abdominal pain and rectal bleeding for several days Chief Complaint: General Adult/Misc Complain Time Seen by Provider: 06/02/25 19:02 Vital signs: Vital Signs Temperature 98.3 F 06/02/25 19:08 Pulse Rate 93 06/02/25 19:08 Respiratory Rate 18 06/02/25 19:08 Blood Pressure 114/73 06/02/25 19:08 Pulse Oximetry (%) 98 06/02/25 19:08 Oxygen Delivery Method Room Air 06/02/25 19:08
[2025-06-02 19:53] LABS: Basophils # (Auto) 0.0 Thou/mm3 (0.0-0.2); Basophils % (Auto) 1 % (0-2.5); Eosinophils # (Auto) 0.1 Thou/mm3 (0.0-0.5); Eosinophils % (Auto) 1 % (0-10); Hematocrit 32.9 % (36.0-46.0); Hemoglobin 10.7 g/dL (12.0-16.0); Immature Granulocytes Auto 0.02 Thou/mm3 (0.00-0.00); Lymphocytes # (Auto) 1.4 Thou/mm3 (1.0-4.8); Lymphocytes % (Auto) 31 % (10-50); Mean Corpuscular HGB Conc 32.5 g/dl (31.0-37.0); Mean Corpuscular Hemoglobin 31.7 pg (25.0-35.0); Mean Corpuscular Volume 97 fL (80-100); Monocytes # (Auto) 0.4 Thou/mm3 (0.0-0.8); Monocytes % (Auto) 10 % (0-12); Neutrophils # (Auto) 2.6 Thou/mm3 (1.8-7.7); Neutrophils % (Auto) 57 % (37-80); Nucleated Red Blood Cell # 0.03 Thou/mm3 (0.00-0.00); Nucleated Red Blood Cell % 1 /100 WBC (0); Platelet Count 87 Thou/mm3 (140-440); RDW Standard Deviation 59.5 fL (36.4-46.3); Red Blood Count 3.38 Miln/mm3 (4.00-5.20); White Blood Count 4.6 Thou/mm3 (3.6-11.0)
[2025-06-02 20:04] LABS: INR 1.1 (0.9-1.3); Prothrombin Time 11.4 Seconds (9.0-12.2)
[2025-06-02 20:09] LABS: Alanine Aminotransferase 40 U/L (10-49); Albumin, Serum 4.2 gm/dL (3.4-4.8); Albumin/Globulin Ratio 1.6 (1.2-2.2); Alkaline Phosphatase 133 U/L (46-116); Anion Gap 12 (7-16); Aspartate Amino Transferase 45 U/L (0-34); BUN/Creatinine Ratio 5 Ratio (12-20); Bilirubin,Total 0.8 mg/dL (0.3-1.2); Blood Urea Nitrogen 17 mg/dL (9-23); Calcium 8.8 mg/dL (8.3-10.6); Calcium (Corrected) 8.8 mg/dL (8.5-10.1); Carbon Dioxide 27.9 mMol/L (20.0-31.0); Chloride 102 mMol/L (98-107); Creatinine (Component) 3.2 mg/dL (0.6-1.3); Globulin 2.7 gm/dL (2.3-3.5); Glucose 166 mg/dL (74-106); Osmolality,Calculated 288 (275-295); Potassium 4.9 mMol/L (3.4-5.1); Sodium 142 mMol/L (136-145); Total Protein 6.9 gm/dL (5.7-8.2); eGFR 14 See Note
[2025-06-02 20:26] LABS: Collection Type, Urine Clean Catch
[2025-06-02 20:41] VITALS: BP 112/71; PULSE 98; RESP 17; TEMP 37.1; O2SAT 97
[2025-06-02 20:41] LABS: Bacteria,Urine Rare; Bilirubin,Urine Negative (Negative); Blood,Urine 1+ (Negative); Clarity,Urine Turbid (Clear/Hazy); Color,Urine Yellow (Lt Yel-Yel); Culture Indicated,Urine Contaminated; Glucose, Urine Negative (Negative); Hyaline Casts,Urine 1 /hpf (0-1); Ketones,Urine Negative (Negative); Leukocyte Esterase,Urine Positive (Negative); Nitrite,Urine Negative (Negative); PH,Urine 5.5 (5.0-7.0); Protein,Urine 1+ (Neg - Trace); RBC,Urine 7 /hpf (0-3); Specific Gravity,Urine 1.019 (1.001-1.035); Squamous Epithelial Cell,Urine 38 /hpf (0-5); Urobilinogen,Urine 3.0 mg/dL (0.0-1.0); WBC,Urine 75 /hpf (0-5)
--- NOTE | 2025-06-02 21:05 | PD.EDADULT ---
ED General RME/HPI General Chief complaint: General Adult/Misc Complain Stated complaint: BLEEDING FROM RECTUM Time Seen by Provider: 06/02/25 19:02 Arrival date/time: 06/02/25 18:21 RME / HPI RME / HPI narrative: 06/02/25 18:21 84-year-old female with past medical history of type 2 diabetes, ESRD on dialysis (Saturday??Saturday), CAD (status post pacemaker and stent placement roughly 5 months ago currently on Brilinta, Aspirin, Metoprolol which was performed at [facility]), HTN, hypothyroidism, anemia (pt was transfused 2/2 acute blood loss from hemoptysis 2 months ago), who presents to ER with daughter c/o BRBPR and lower abd pain x 3 days. Denies N/V/D, fever, CP, SOB. Related Data Home Medications ?Medication ?Instructions ?Recorded ?Confirmed levothyroxine 50 mcg tablet 1 tab PO DAILY 03/21/22 06/02/25 albuterol sulfate 90 mcg/actuation 1 puff inhalation Q4HR PRN 08/08/22 06/02/25 aerosol inhaler BREATHING lactulose 10 gram/15 mL oral 30 ml PO TID PRN Constipation 08/08/22 06/02/25 solution (Constulose) tramadol 50 mg tablet 50 mg PO Q8H PRN Pain 08/08/22 06/02/25 docusate sodium 100 mg tablet 100 mg PO DAILY 08/23/22 06/02/25 dulaglutide 1.5 mg/0.5 mL 0.5 mg subcut QWEEK 07/03/24 06/02/25 subcutaneous pen injector (Trulicity) galcanezumab-gnlm 120 mg/mL 120 mg subcut Q1M 07/03/24 06/02/25 subcutaneous pen injector (Emgality Pen) aspirin 81 mg chewable tablet 1 tab PO DAILY 10/14/24 06/02/25 atorvastatin 80 mg tablet 80 mg PO DAILY 10/14/24 06/02/25 furosemide 40 mg tablet (Lasix) 40 mg PO QDAY 10/14/24 06/02/25 insulin glargine U-300 conc 300 14 unit subcut Q24H 10/14/24 06/02/25 unit/mL (3 mL) subcutaneous pen (Toujeo Max U-300 SoloStar) nitroglycerin 0.4 mg sublingual See Rx Instructions buccal .COMPLEX 10/14/24 06/02/25 tablet apixaban 2.5 mg tablet (Eliquis) 2.5 mg PO BID 01/06/25 06/02/25 Held on 01/08/25. Instructions: Resume on 01/22/25. ticagrelor 90 mg tablet (Brilinta) 90 mg PO BID 01/06/25 06/02/25 lorazepam 0.5 mg tablet 0.5 mg PO [id number] PRN anxiety 06/02/25 06/02/25 metoprolol tartrate 50 mg tablet 50 mg PO Q12H 06/02/25 06/02/25 trazodone 50 mg tablet 50 mg PO .QHS 06/02/25 06/02/25 Previous Rx's ?Medication ?Instructions ?Recorded amiodarone 200 mg tablet 200 mg PO DAILY #30 tabs 07/03/24 Allergies Allergy/AdvReac Type Severity Reaction Status Date / Time amoxicillin Allergy Severe Rash Verified 06/02/25 18:23 ED Exam Narrative Physical exam: Constitutional: Patient alert and oriented. Well appearing. No acute distress. Not toxic appearing. Head: Normocephalic, atraumatic. Eyes: Periorbital regions bilaterally normal to inspection. Conjunctiva clear bilaterally. Sclera anicteric bilaterally. Pupils equal, round, reactive to light bilaterally. Extraocular movements intact bilaterally. Mouth/Throat: Mucous membranes moist. No stridor or muffled voice. No trismus. Handling secretions without difficulty. Airway widely patent. Neck: Supple. Trachea midline. No JVD. No nuchal rigidity. Normal range of motion. Respiratory: Normal effort. No accessory muscle use or respiratory distress. Lungs clear to auscultation bilaterally without rhonchi, wheezes, or crackles. Cardiovascular: Irregular rate and rhythm. Normal S1/S2. No murmurs or rubs. Radial pulses intact bilaterally. Abdomen: Soft. Non-distended. + mild TTP to lower abd. No pulsatile mass. No guarding or rebound. Rectal exam: MADELINE Gibbons present in room as watcher lookout tower brown stool with orange discoloration. Small hemorrhoid noted at 9pm NTTP. Back: No midline tenderness or step-offs. No CVA tenderness to palpation bilaterally. Upper Extremities: No gross deformities. Left arm with AV fistula. Lower Extremities: No gross deformities. No edema or calf tenderness. Neuro: Speech normal. No gross motor or sensory deficits to upper or lower extremities bilaterally. GCS 15. CN II?XII grossly intact. Skin: Warm, dry, normal color. Psych: Normal affect. Cooperative. Normal insight. Course Course Course Narrative: Upon initial evaluation of patient in the room patient was having runs of A-fib with RVR up to 120 therefore I ordered Cardizem 5 mg as needed for rate control as well as pacemaker interrogation 9:15PM Consult appreciated with Dr. Moore Cardiology who reviewed EKG and advised cardizem 5mg push at 9:57 PM Consult appreciated with Dr. Mckenzie 11:15PM who advised 40mg protonix, clear liquid diet Dr. Bean agreeable to evaluate pt for admission 11:45PM Quality Measures none Orders Category Date Time Status CT Screening NOW Care 06/02/25 19:10 Active Continuous EKG monitoring NOW Care 06/02/25 21:23 Active EKG (ED ONLY) *Do not use* NOW Care 06/02/25 21:24 Completed Occult Blood,Stool (Nursing) ONCE Care 06/02/25 19:08 Active Diet Clear Liquid Diet 06/03/[address] abdomen pelvis w con Stat Exams 06/02/25 19:08 Completed EKG (ED Only) Stat Exams 06/02/25 21:23 Draft CBC Stat Lab 06/02/25 19:26 Completed CMP [Comprehensive Metabolic Panel] Stat Lab 06/02/25 19:26 Completed Mag [Magnesium] Stat Lab 06/02/25 21:08 Completed PT [Prothrombin Time with INR] Stat Lab 06/02/25 19:26 Completed Troponin I Stat Lab 06/02/25 21:08 Completed Type and Screen Stat Lab 06/02/25 21:08 Completed UA, C/S IF [Urinalysis, C/S if Indicated] Stat Lab 06/02/25 20:16 Completed Diltiazem Inj [Cardizem Inj] Med 06/02/25 20:59 Discontinued 5 mg IV X1 ONE Pantoprazole Inj [Protonix Inj] Med 06/02/25 23:24 Discontinued 40 mg IVP X1 ONE Reevaluation(s) Reevaluation #1: Patient remains stable and agrees to admission Vital Signs Vital signs: Vital Signs Temperature 98.3 F 06/02/25 19:08 Pulse Rate 93 06/02/25 19:08 Respiratory Rate 18 06/02/25 19:08 Blood Pressure 114/73 06/02/25 19:08 Pulse Oximetry (%) 98 06/02/25 19:08 Oxygen Delivery Method Room Air 06/02/25 19:08 PROCEDURES: EKG Interpretation #1: Date of EK06/02/25 Time of EK:28 Rate: 100 Interpretation: Reviewed by me Additional EKG comment: ST depression in inferior leads. A fib with RVR 100 Discharge Plan Plan Patient Disposition: Admit Acute Care w/in Hospital Prescriptions/Referrals Prescriptions/Med Rec: No Action levothyroxine 50 mcg tablet 1 tab PO DAILY tramadol 50 mg Tablet 50 mg PO Q8H PRN (Reason: Pain) albuterol sulfate 90 mcg/actuation HFA aerosol inhaler 1 puff INHALATION Q4HR PRN (Reason: BREATHING) Patient Comments: inhale 1 puff by mouth and INTO THE LUNGS every 4 hours if needed lactulose [Constulose] 10 gram/15 mL solution 30 ml PO TID PRN (Reason: Constipation) Rx Instructions: UP TO 3X A DAY NEEDED FOR CONTIPATION Emgality Pen 120 mg/mL pen injector 120 mg SUBCUT Q1M Trulicity 1.5 mg/0.5 mL pen injector 0.5 mg SUBCUT QWEEK Patient Comments: INJECT 1.5MG SUBCUTANEOUSLY ONCE A WEEK amiodarone 200 mg Tablet 200 mg PO DAILY Qty: 30 0RF ticagrelor [Brilinta] 90 mg tablet 90 mg PO BID Eliquis 2.5 mg tablet 2.5 mg PO BID metoprolol tartrate 50 mg tablet 50 mg PO Q12H Patient Comments: TAKE 1 TABLET BY MOUTH TWICE A DAY WITH MEALS trazodone 50 mg tablet 50 mg PO .QHS Patient Comments: TAKE 1 TABLET BY MOUTH EVERY EVENING lorazepam 0.5 mg tablet 0.5 mg PO [id number] PRN (Reason: anxiety) Patient Comments: TAKE 1 TABLET (0.5MG) BY MOUTH EVERY 6 HOURS NEEDED FOR ANXIETY docusate sodium 100 mg Tablet 100 mg PO DAILY aspirin 81 mg tablet,chewable 1 tab PO DAILY atorvastatin 80 mg tablet 80 mg PO DAILY Patient Comments: take 1 tablet by mouth once daily furosemide [Lasix] 40 mg tablet 40 mg PO QDAY nitroglycerin 0.4 mg tablet, sublingual See Rx Instructions BUCCAL .COMPLEX Patient Comments: place 1 tablet under the tongue AT FIRST SIGN OF ATTACK; DECEMBER REPE... (REFER TO PRESCRIPTION NOTES). Rx Instructions: buccally; insulin glargine U-300 conc [Toujeo Max U-300 SoloStar] 300 unit/mL (3 mL) insulin pen 14 unit subcut Q24H Referrals: Fanny Zhou MD [Primary Care Provider, [facility]] - In 1 week Problem List Clinical Impression: Acute lower GI bleeding Patient/Caregiver Discharge Instructions Print Language: Uzbek Stand Alone Forms: Rachel Award Info., Patient Portal Info Letter MDM Narrative MDM hospital course (for use when minimal MDM required): MDM 84-year-old female with past medical history of type 2 diabetes, ESRD on dialysis (Saturday??Saturday), CAD (status post pacemaker and stent placement roughly 5 months ago currently on Brilinta, Aspirin, Metoprolol which was performed at [facility]), HTN, hypothyroidism, anemia (pt was transfused 2/2 acute blood loss from hemoptysis 2 months ago), who presents to ER with daughter c/o BRBPR and lower abd pain x 3 days. A-fib with RVR into the 120s-interrogate pacemaker for 5 minutes I ordered a single prn sustained RVR 5mg IV push of Cardizem and consulted cardiology who agrees with plan EKG was notable for ST depression in inferior waves as well concerning for demand ischemia 2/2 lower GI bleed with a negative trop Lower GI bleed with mild anemia with a HB 10.7 on Brilanta and ASA GI Consult appreciated, protonix 40mg, clear liquid diet, admission to medicine team Dr. Bean will evalute pt for admission [place] score 14 admission recommended Case and plan discussed with and agreed upon with Dr. Saldaña Clinical Information Provided by: family Medical Records reviewed [facility] EKG Interpretation EKG #1: EKG Interpretation: EKG notable for right bundle branch block, A-fib with RVR at [address] depression noted in the inferior leads however no ST elevation, pacemaker does not appear to be capturing Labs Lab(s) Interpretation(s): CBC notable for hemoglobin minimally low at 10.7 however it is higher than it has been in the past 5 months she was transfused about 2 months prior to due to acute blood loss from hemoptysis Patient with mild thrombocytopenia with platelets of 87, patient has a history of thrombocytopenia as well Creatinine is 3.2 which is at her baseline for her end-stage renal disease, she does have mild hyperglycemia with a glucose of 166, CO2 within normal limits at 27.9 and anion gap within normal limits at 12 AST is minimally elevated at 45, alk phos minimally elevated 133, ALT within normal limits at 40 and total bilirubin within normal limits at 0.8 remainder of CMP without severe metabolic or electrolyte abnormalities INR within normal limits troponin negative at 0.3 UA notable for 7 RBCs microscopic hematuria, pyuria with 75 WBCs and 38 squamous cells no nitrites this is concerning for contamination pending urine culture Imaging Imaging interpretation: interpreted by me and see narrative above Imaging Interpretation(s): CT notable for gastritis pattern, mildly enlarged CBD 10 mm, rectal wall thickening pre radiology read Medication Administration(s) Medication Administration History Discontinued Medications Diltiazem HCl (Diltiazem Inj 5 Mg/Ml Vial 5 Ml) 5 mg IV X1 ONE Stop: 06/02/25 21:00 Last Admin: 06/02/25 22:23 Dose: 5 mg Documented By: JEISON Pantoprazole Sodium (Pantoprazole Inj 40 Mg Vial) 40 mg IVP X1 ONE Stop: 06/02/25 23:25 Last Admin: 06/02/25 23:55 Dose: 40 mg Documented By: JEISON Diagnosis Differential Diagnosis ED Complaint MDM: Lower GI bleed
--- NOTE | 2025-06-02 21:23 | EKG_ITS ---
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1940 Requested By: Kieran Monroy Order Number: [id number] Reading MD: Kieran Monroy Measurements Intervals [place] Rate: 100 P: MN: QRS: 257 QRSD: 142 T: -18 QT: 374 QTc: 484 Interpretive Statements ATRIAL FIBRILLATION WITH RAPID VENTRICULAR RESPONSE INDETERMINATE AXIS RIGHT BUNDLE BRANCH BLOCK [120+ ms QRS DURATION, UPRIGHT V1, 40+ ms S IN I/aVL/V4/V5/V6] ST DEPRESSION, CONSIDER SUBENDOCARDIAL INJURY [0.1+ mV ST DEPRESSION] Compared to ECG 01/06/2025 09:02:16 Indeterminate axis now present Right bundle-branch block now present ST (T wave) deviation now present Ventricular-paced complex(es) or rhythm no longer present Prolonged QT interval no longer present /store/S0/[id number].pdf
[2025-06-02 22:00] LABS: Magnesium 2.3 mg/dL (1.6-2.6)
--- NOTE | 2025-06-02 22:01 | PC.NURSE ---
contacted [facility] after a pacemaker interrogation to confirm an interrogation and provided them with the pts information. writer technical publications gave edie from [employer] [facility] a new fax number and results should be sent within 20 min
[2025-06-02 22:02] VITALS: BP 119/77; PULSE 98; RESP 19; TEMP 36.7; O2SAT 100
[2025-06-02 22:23] VITALS: BP 119/77; PULSE 99
[2025-06-02] MEDS: DILTIAZEM INJ 5 MG/ML VIAL 5 ML IV (22:23)
[2025-06-02 22:49] LABS: Troponin I 0.030 ng/mL (0.0-0.045)
--- NOTE | 2025-06-02 23:18 | PC.NURSE ---
RECEIVED INTERROGATION REPORT FROM DaisyBill
[2025-06-03] VITALS (31 sets, daily range): BP systolic 111–146; BP diastolic 56–95; PULSE 66–120; RESP 14–20; TEMP 35.9–36.7; O2SAT 95–100
--- NOTE | 2025-06-03 00:23 | ESHP_ITS ---
Documentation for date of: 06/03/25 [facility] History of Present Illness History of present illness: Ms. Catalan is an 84 y/o female with PMH multivessel CAD s/p stent placement (most recently 12/31/2024 at [facility]), status post pacemaker on 01/01/2025 at [facility], a-fib on Brillinta and ASA, ESRD on HD on (follows Dr. Alvarado), type 2 diabetes mellitus, and hypertension who presents to the ED 06/02 with 2 days of blood in stool. Patient had a BM where the noticed a blood clot in the toilet. She also noticed bright red blood per rectum on the tissue paper after wiping and several episodes with red-black stool. She has never has a similar episode in the past. On Brillinta and aspirin but denies taking Eliquis despite hx of afib. Associated with suprapubic abdominal pain, nausea. Denies vomiting, hematemesis, diarrhea. Patient is usually constipated but takes lactulose and docusate for this. Follows with Dr. Alvarado (nephrology) and Dr. Moore (cardiology). ED course: Afebrile, VSS, spO2 100% on 2L O2. Labs significant for hgb 10.7, HCT 32.9, plt 87, Cr 3.2, eGFR 14, AST 45, alk phos 133. EKG showed afib with RVR HR 100, QTc 484. CT a/p showed gastritis, mildly enlarged common bile duct, atrophic kidneys, enlarged R ovary, rectal wall thickening c/w proctitis. Given diltiazem 5 mg IV x1 in ED. ED consulted Dr. Mckenzie. PMHx: multivessel CAD s/p stent placement (most recently 12/31/2024 at [facility]), status post pacemaker on 01/01/2025 at [facility], a-fib on Brillinta and ASA, ESRD on HD on (follows Dr. Alvarado), type 2 diabetes mellitus, and hypertension Allergies: amoxicillin (rash) Home meds: Aspirin 81 mg PO daily Brilinta 90 mg PO BID Amiodarone 200 mg PO daily Trulicity 0.5 mg subQ Qweek Emgality 120 mg subQ [id number] Glargine 14U daily Lorazepam 0.5 mg PO q6h PRN Nitroglycerin 0.4 mg sublingual PRN Atorvastatin 80 mg daily Docusate 100 mg daily Lasix 40 mg daily Lactulose 20 g TID Levothyroxine 50 mcg daily Metoprolol 50 mg BID Trazodone 50 mg QHS SgHx: left arm fistula, status-post multiple stents (2 placed on 12/31/2024), pacemaker 01/01/2025, cholecystectomy SHx: smoked 1 ppd for 30 years (quit 20 years ago), denies alcohol or illicit drug use FHx: heart problems - both parents, all sisters Review of Systems Review of Systems Narrative Review of Systems: 14 point ROS negative other than HPI Exam Vital Signs Temp Pulse Resp BP Pulse Ox O2 Del Method O2 Flow Rate 98.1 F 72 18 142/90 H 98 Room Air 2 06/03/25 00:08 06/03/25 00:08 06/03/25 00:08 06/03/25 00:08 06/03/25 00:08 06/03/25 00:08 06/02/25 22:02 Narrative Exam General: No acute distress, well nourished Eye: PERRL, EOMI, normal conjunctiva, no scleral icterus HENT: Normocephalic, atraumatic, normal hearing, moist oral mucosa Neck: Supple, non-tender, no JVD, no lymphadenopathy Lungs: Clear to auscultation bilaterally, non-labored respirations, symmetric chest rise, no use of accessory muscles Heart: Normal S1 and S2, no S3 or S4 appreciated. Normal rate and regular rhythm, no murmurs, rubs gallops, or edema. Peripheral pulses intact bilaterally, capillary refill brisk distally Abdomen: Soft, TTP of RUQ, midline suprapubic and RLQ, bowel sounds present Musculoskeletal: Normal range of motion and strength, no tenderness or swelling Skin: Skin is warm, dry, no rashes or lesions. Left forearm fistula Neurologic: Alert, awake and oriented x3. CN II-XII grossly intact. No focal neuro deficits. No signs of meningeal irritation noted. Psychiatric: Cooperative, appropriate mood and affect Results: Labs 06/02/25 19:26 06/02/25 19:26 Labs: Short CBC 06/02/25 Range/Units 19:26 WBC 4.6 (3.6-11.0) Thou/mm3 Hgb 10.7 L (12.0-16.0) g/dL Hct 32.9 L (36.0-46.0) % Plt Count 87 L (140-440) Thou/mm3 BMP 06/02/25 19:26 Sodium 142 Potassium 4.9 Chloride 102 Carbon Dioxide 27.9 BUN 17 Creatinine 3.2 H Glucose 166 H Calcium 8.8 Cardiac Enzymes 06/02/25 Range/Units 21:08 Troponin I 0.030 (0.0-0.045) ng/mL Liver Function 06/02/25 Range/Units 19:26 Total Bilirubin 0.8 (0.3-1.2) mg/dL AST 45 H (0-34) U/L ALT 40 (10-49) U/L Alkaline Phosphatase 133 H (46-116) U/L Albumin 4.2 (3.4-4.8) gm/dL Urine 06/02/25 Range/Units 20:16 Urine Color Yellow (Lt Yel-Yel) Urine Clarity Turbid A (Clear/Hazy) Urine pH 5.5 (5.0-7.0) Ur Specific [place] 1.019 (1.001-1.035) Urine Protein 1+ A (Neg - Trace) Urine Glucose (UA) Negative (Negative) Quality Measures Quality Measures none Advance care planning discussed with:: patient and child Medications Home Medications and Allergies Home Medications ?Medication ?Instructions ?Recorded ?Confirmed ?Type levothyroxine 50 mcg tablet 1 tab PO DAILY 03/21/22 History albuterol sulfate 90 mcg/actuation 1 puff inhalation Q 4HR PRN 08/08/22 06/02/25 History aerosol inhaler BREATHING lactulose 10 gram/15 mL oral 30 ml PO TID PRN Constipa tion 08/08/22 06/02/25 History solution (Constulose) tramadol 50 mg tablet 50 mg PO Q8H PRN Pain 06/02/25 History docusate sodium 100 mg tablet 100 mg PO DAILY 08/23/22 06/02/25 History dulaglutide 1.5 mg/0.5 mL 0.5 mg subcut QWEEK 07/03/24 06/02/25 History subcutaneous pen injector (Trulicity) galcanezumab-gnlm 120 mg/mL 120 mg subcut Q1M 07/03/24 06/02/25 History subcutaneous pen injector (Emgality Pen) aspirin 81 mg chewable tablet 1 tab PO DAILY 10/14/24 06/02/25 History atorvastatin 80 mg tablet 80 mg PO DAILY 10/14/2405/19 History furosemide 40 mg tablet (Lasix) 40 mg PO QDAY 10/14/24 06/02/25 History insulin glargine U-300 conc 300 14 unit subcut Q24H 06/02/25 History unit/mL (3 mL) subcutaneous pen (Toujeo Max U-300 SoloStar) nitroglycerin 0.4 mg sublingual See Rx Instructions bu ccal .COMPLEX 10/14/24 06/02/25 History tablet apixaban 2.5 mg tablet (Eliquis) 2.5 mg PO BID 5 06/02/25 History Held on 01/08/25. Instructions: Resume on 01/22/25. ticagrelor 90 mg tablet (Brilinta) 90 mg PO BID 06/02/25 History lorazepam 0.5 mg tablet 0.5 mg PO [id number] PRN anxiet y 06/02/25 06/02/25 History metoprolol tartrate 50 mg tablet 50 mg PO Q12H 5 06/02/25 History trazodone 50 mg tablet 50 mg PO .QHS 06/02/2506/02 History Allergies Allergy/AdvReac Type Severity Reaction Status Date / Time amoxicillin Allergy Severe Rash Verified 06/02/25 18:23 Visit Medications Acetaminophen (Acetaminophen 325 Mg Tablet) 650 mg PO Q6H PRN PRN Reason: Fever >100.3 Stop: 07/03/25 00:07 Acetaminophen (Acetaminophen 325 Mg Tablet) 650 mg PO Q6H PRN PRN Reason: PAIN SCALE 1-3 (mild Stop: 07/03/25 00:07 Amiodarone HCl (Amiodarone Hcl 200 Mg Tablet) 200 mg PO DAILY ALL Stop: 07/03/25 08:59 Atorvastatin Calcium (Atorvastatin Calcium 20 Mg Tablet) 80 mg PO DAILY ALL Stop: 07/03/25 08:59 Dextrose (Dextrose 50%-Water Inj 50 Ml Syringe) 25 ml IV Q15MIN PRN PRN Reason: BG 50-70 responsive npo pt Stop: 07/03/25 00:21 Dextrose (Dextrose 50%-Water Inj 50 Ml Syringe) 50 ml IV Q15MIN PRN PRN Reason: BG <50 OR BG <70 & pt unresponsive Stop: 07/03/25 00:21 Furosemide (Furosemide 40 Mg Tablet) 40 mg PO QDAY ALL Stop: 07/03/25 08:59 Glucagon (Glucagon Inj 1 Mg Vial) 1 mg IM Q15MIN PRN PRN Reason: BG <70, and no IV access Insulin Human Lispro (Insulin Lispro (Admelog) 1 Unit/0.01 Ml Unit) 0 unit SC Q6H ALL; Protocol Stop: 07/03/25 00:29 Lactulose (Lactulose Syrup 20 Gm/30 Ml Udc) 20 gm PO TID PRN; Protocol PRN Reason: CONSTIPATION Stop: 07/03/25 00:18 Levothyroxine Sodium (Levothyroxine Sodium 25 Mcg Tablet) mcg PO DAILY ALL Stop: 07/03/25 08:59 Metoprolol Tartrate (Metoprolol Tartrate 25 Mg Tablet) 50 mg PO Q12H ALL Stop: 07/03/25 00:29 Non-Formulary Medication (Docusate Sodium) 100 mg PO DAILY ALL Stop: 07/03/25 08:59 Trazodone HCl (Trazodone Hcl 50 Mg Tablet) 50 mg PO .QHS ALL Stop: 07/03/25 00:29 Discontinued Medications Diltiazem HCl (Diltiazem Inj 5 Mg/Ml Vial 5 Ml) 5 mg IV X1 ONE Stop: 06/02/25 21:00 Last Admin: 06/02/25 22:23 Dose: 5 mg Pantoprazole Sodium (Pantoprazole Inj 40 Mg Vial) 40 mg IVP X1 ONE Stop: 06/02/25 23:25 Last Admin: 06/02/25 23:55 Dose: 40 mg Assessment & Plan Plan Ms. Catalan is an 84 y/o female with PMH multivessel CAD s/p stent placement (most recently 12/31/2024 at [facility]), status post pacemaker on 01/01/2025 at [facility], a-fib on Brillinta and ASA, ESRD on HD on (follows Dr. Alvarado), type 2 diabetes mellitus, and hypertension who presents to the ED 06/02 with 2 days of blood in stool. Admitted for GI bleed. #GI bleed #Gastritis #Proctitis #Hemorrhoids 2 days of blood in stool - bright red clot, BRBPR on toilet paper, melena Associated with generalized abomdinal pain,TTP of suprapubic/RUQ/RLQ pain FOBT positive, hemorrhoids present on exam CT a/p showed gastritis, mildly enlarged common bile duct, rectal wall thickening/proctitis. Plan: - Consulted GI, apprecite recs - NPO in anticipation of EGD/colonoscopy - Hold Brilinta, ASA. SCD for DVT ppx #Normocytic anemia Chronic, may be contributed by blood loss Hgb 10.7, HCT 32.9 Plan: - CTM with daily CBC - Transfuse if hgb <7 #Multivessel CAD s/p stent 12/31/2024 Home med: ASA, Brilinta, nitroglycerin 0.4 mg sublingual PRN Patient denies chest pain/pressure Plan: - Hold ASA and Brilinta given GI bleed - Atorvastatin 80 mg daily (home med) #Afib s/p pacemaker 01/01/2025 EKG showed afib with RVR HR 100, QTc 484. Currently rate controlled on tele monitor. Denies palpitations Per previous d/c summary, patient's Eliquis was held until / with Dr. Moore. However, she reports that she does not take Eliquis at home still. Plan: - Amiodarone 200 mg PO daily (home med) - Metoprolol 50 mg BID (home med) #ESRD on HD T//Sat Follows with Dr. Alvarado Cr 3.2, eGFR 14, dialysis through left forearm fistula CT a/p shows atrophic kidneys, moderate renal scarring Plan: - Consulted nephrology, appreciate recs - Avoid nephrotoxic agents - Renally dose medications #HFpEF TTE 12/25/24: LVEF 55-60%, diastolic dysfunction II, LVH. Mild MR, TR. Aortic valve sclerosis Home med: Lasix 40 mg daily Has chronic orthopnea. Denies shortness of breath, chest pain/pressure. No LE edema, CTAB Plan: - Hold home lasix given eGFR 14 #Mildly enlarged common bile duct #Elevated AST #Elevated alk phos Hx cholecystectomy AST 45, alk phos 133. Total bili, ALT WNL CT a/p: Enlarged common bile duct up to 10 mm, no stones, no pancreatic mass. Plan: - CTM with daily CMP #Type 2 diabetes mellitus Home med: Trulicity 0.5 mg subQ Qweek, Emgality 120 mg subQ [id number], Glargine 14U daily Plan: - SSI #Hypertension VSS Plan: - CTM with tele #Hypothyroidism Plan: - Levothyroxine 50 mcg daily (home med) #Thrombocytopenia Chronic Plan: - CTM with daily CBC - Transfuse if <10 to avoid spontaneous bleeding #Hx constipation Plan: - Lactulose 20 g TID (home med) - Docusate 100 mg daily (home med) #Insomnia Plan: - Trazodone 50 mg QHS (home med) #Enlarged right ovary Incidental finding on CT Plan: - f/u outpatient Checklist Dispo: Admit to tele, pending EGD/colonoscopy Diet: NPO Bowel Reg: Docuste, Lactulose VTE ppx: SCD GI ppx: n/a Pain mgmt: Tylenol PRN Code status: DNR/DNI Plan discussed with Dr. Alcazar and Dr. Vikas Alva MD PGY1 Attending Provider Attestation/Addendum 86-year-old female with coronary artery disease, end-stage dialysis is being admitted for a GI bleed, this has been going on for 3 days according to her daughter. Patient has mild abdominal pain. She is on Brilinta and aspirin. She has atrial fibrillation. 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 Dr. Mckenzie will perform endoscopic workup on her. She has stable vital signs. I discussed with and supervised the resident physician who took care of this patient. I agree with the assessment and plan as above.
--- NOTE | 2025-06-03 01:21 | PC.NURSE ---
REPORT GIVEN TO NEYDA, FLOOR NURSE
[2025-06-03 05:47] LABS: Basophils # (Auto) 0.0 Thou/mm3 (0.0-0.2); Basophils % (Auto) 1 % (0-2.5); Eosinophils # (Auto) 0.1 Thou/mm3 (0.0-0.5); Eosinophils % (Auto) 2 % (0-10); Hematocrit 29.9 % (36.0-46.0); Hemoglobin 9.9 g/dL (12.0-16.0); Immature Granulocytes Auto 0.01 Thou/mm3 (0.00-0.00); Lymphocytes # (Auto) 1.4 Thou/mm3 (1.0-4.8); Lymphocytes % (Auto) 33 % (10-50); Mean Corpuscular HGB Conc 33.1 g/dl (31.0-37.0); Mean Corpuscular Hemoglobin 32.1 pg (25.0-35.0); Mean Corpuscular Volume 97 fL (80-100); Monocytes # (Auto) 0.4 Thou/mm3 (0.0-0.8); Monocytes % (Auto) 10 % (0-12); Neutrophils # (Auto) 2.3 Thou/mm3 (1.8-7.7); Neutrophils % (Auto) 55 % (37-80); Nucleated Red Blood Cell # 0.00 Thou/mm3 (0.00-0.00); Nucleated Red Blood Cell % 0 /100 WBC (0); Platelet Count 81 Thou/mm3 (140-440); RDW Standard Deviation 59.5 fL (36.4-46.3); Red Blood Count 3.08 Miln/mm3 (4.00-5.20); White Blood Count 4.1 Thou/mm3 (3.6-11.0)
[2025-06-03 06:33] LABS: Alanine Aminotransferase 36 U/L (10-49); Albumin, Serum 3.4 gm/dL (3.4-4.8); Albumin/Globulin Ratio 1.5 (1.2-2.2); Alkaline Phosphatase 111 U/L (46-116); Anion Gap 11 (7-16); Aspartate Amino Transferase 39 U/L (0-34); BUN/Creatinine Ratio 9 Ratio (12-20); Bilirubin,Total 0.8 mg/dL (0.3-1.2); Blood Urea Nitrogen 29 mg/dL (9-23); Calcium 8.1 mg/dL (8.3-10.6); Calcium (Corrected) 8.6 mg/dL (8.5-10.1); Carbon Dioxide 29.0 mMol/L (20.0-31.0); Chloride 102 mMol/L (98-107); Creatinine (Component) 3.1 mg/dL (0.6-1.3); Globulin 2.3 gm/dL (2.3-3.5); Glucose 111 mg/dL (74-106); Magnesium 2.2 mg/dL (1.6-2.6); Osmolality,Calculated 289 (275-295); Potassium 4.0 mMol/L (3.4-5.1); Sodium 142 mMol/L (136-145); Total Protein 5.7 gm/dL (5.7-8.2); eGFR 14 See Note
--- NOTE | 2025-06-03 07:36 | PD.IMCONS ---
HPI Data of Consult Requesting Physician: Armando Bean MD Primary Care Provider: Fanny Zhou MD Consult Narrative History of present illness: This is an 84 y/o female with PMH multivessel CAD s/p stent placement (most recently 12/31/2024 at [facility]), status post pacemaker on 01/01/2025 at [facility], a-fib on Brillinta and ASA, ESRD on HD on , diabetes, hypertension Patient was seen in the emergency room with blood in the stools He has a prior history of GI bleed Cardiology consultation requested for history of recent stent EKG shows atrial fibrillation heart rate was in the 120 range cc:: cc: Armando Bean MD Meds Home Medications and Allergies Home Medications ?Medication ?Instructions ?Recorded ?Confirmed ?Type levothyroxine 50 mcg tablet 1 tab PO DAILY 03/21/22 06/02/25 History albuterol sulfate 90 mcg/actuation 1 puff inhalation Q4HR PRN 08/08/22 06/02/25 History aerosol inhaler BREATHING lactulose 10 gram/15 mL oral 30 ml PO TID PRN Constipation 08/08/22 06/02/25 History solution (Constulose) tramadol 50 mg tablet 50 mg PO Q8H PRN Pain 08/08/22 06/02/25 History docusate sodium 100 mg tablet 100 mg PO DAILY 08/23/22 06/02/25 History dulaglutide 1.5 mg/0.5 mL 0.5 mg subcut QWEEK 07/03/24 06/02/25 History subcutaneous pen injector (Trulicity) galcanezumab-gnlm 120 mg/mL 120 mg subcut Q1M 07/03/24 06/02/25 History subcutaneous pen injector (Emgality Pen) aspirin 81 mg chewable tablet 1 tab PO DAILY 10/14/24 06/02/25 History atorvastatin 80 mg tablet 80 mg PO DAILY 10/14/24 06/02/25 History furosemide 40 mg tablet (Lasix) 40 mg PO QDAY 10/14/24 06/02/25 History insulin glargine U-300 conc 300 14 unit subcut Q24H 10/14/24 06/02/25 History unit/mL (3 mL) subcutaneous pen (Toujeo Max U-300 SoloStar) nitroglycerin 0.4 mg sublingual See Rx Instructions buccal .COMPLEX 10/14/24 06/02/25 History tablet apixaban 2.5 mg tablet (Eliquis) 2.5 mg PO BID 01/06/25 06/02/25 History Held on 01/08/25. Instructions: Resume on 01/22/25. ticagrelor 90 mg tablet (Brilinta) 90 mg PO BID 01/06/25 06/02/25 History lorazepam 0.5 mg tablet 0.5 mg PO [id number] PRN anxiety 06/02/25 06/02/25 History metoprolol tartrate 50 mg tablet 50 mg PO Q12H 06/02/25 06/02/25 History trazodone 50 mg tablet 50 mg PO .QHS 06/02/25 06/02/25 History Allergies Allergy/AdvReac Type Severity Reaction Status Date / Time amoxicillin Allergy Severe Rash Verified 06/02/25 18:23 Exam Vital Signs Temp Pulse Resp BP Pulse Ox O2 Del Method O2 Flow Rate 97.5 F 85 18 139/80 H 100 Nasal Cannula 2 06/03/25 04:00 06/03/25 04:00 06/03/25 04:00 06/03/25 04:00 06/03/25 04:00 06/03/25 04:00 06/03/25 04:00 Routine HEENT Exam Head: Present normocephalic and atraumatic Eye: Present EOMI and PERRL ENT: Present mucous membranes moist Routine Neck Exam Neck: Present supple and trachea midline Routine Respiratory Exam Respiratory: Present chest non-tender, lungs clear, normal breath sounds and no resp distress Routine Cardiovascular Exam Cardiovascular: Present RRR Routine Abdominal Exam Abdominal: Present soft and normoactive bowel sounds Routine Extremities Exam Extremities: Present full ROM Routine Skin Exam Skin: Present intact, dry and warm Routine Neurological Exam Neurological: Present alert, oriented X3 and CN II-XII intact Routine Psychiatric Exam Psychiatric: Present normal affect and normal thought process Results Labs 06/03/25 05:00 06/03/25 05:00 Labs: Short CBC 06/02/25 06/03/25 Range/Units 19:26 05:00 WBC 4.6 4.1 (3.6-11.0) Thou/mm3 Hgb 10.7 L 9.9 L (12.0-16.0) g/dL Hct 32.9 L 29.9 L (36.0-46.0) % Plt Count 87 L 81 L (140-440) Thou/mm3 BMP 06/02/25 06/03/25 19:26 05:00 Sodium 142 142 Potassium 4.9 4.0 D Chloride 102 102 Carbon Dioxide 27.9 29.0 BUN 17 29 H Creatinine 3.2 H 3.1 H Glucose 166 H 111 H D Calcium 8.8 8.1 L Cardiac Enzymes 06/02/25 Range/Units 21:08 Troponin I 0.030 (0.0-0.045) ng/mL Liver Function 06/02/25 06/03/25 Range/Units 19:26 05:00 Total Bilirubin 0.8 0.8 (0.3-1.2) mg/dL AST 45 H 39 H (0-34) U/L ALT 40 36 (10-49) U/L Alkaline Phosphatase 133 H 111 D (46-116) U/L Albumin 4.2 3.4 D (3.4-4.8) gm/dL Urine 06/02/25 Range/Units 20:16 Urine Color Yellow (Lt Yel-Yel) Urine Clarity Turbid A (Clear/Hazy) Urine pH 5.5 (5.0-7.0) Ur Specific [place] 1.019 (1.001-1.035) Urine Protein 1+ A (Neg - Trace) Urine Glucose (UA) Negative (Negative) Assessment and Plan Assessment and plan (1) Acute lower GI bleeding: Status: Acute (2) Pacemaker: Status: Acute (3) Coronary angioplasty status: Status: Acute (4) Peritoneal dialysis catheter dysfunction: Status: Acute (5) End stage renal failure on dialysis: Status: Acute Additional Assessment & Plan Additional Plan: Rapid atrial fibrillation heart rate improved with diltiazem IV bolus Currently the heart rate is 80 to 90 bpm continue patient's medications restart Brilinta in view of patient's recent stent placement
--- NOTE | 2025-06-03 08:19 | XR_ITS ---
Examination: Abdomen sonogram, Limited Date and time of exam: June 03, 2025, 1250 hours INDICATIONS: Mildly enlarged common hepatic common bile duct on CT study June 02, 2025 Technique: Real-time segura scale transabdominal sonographic images of the upper abdomen obtained. Findings: Absent gallbladder Common bile duct 0.6 mm no stones Pancreatic head 2.2 cm Liver 12.7 cm Liver 10.7 cm no liver lesions Normal hepatopetal portal venous flow Patent IVC IMPRESSION: Common bile duct 0.6 cm no common bile duct stones
[2025-06-03 08:33] LABS: Hepatitis A Antibody IgM Non Reactive (Non React); Hepatitis B Core Antibody IgM Non Reactive (Non React); Hepatitis B Surface Ab Reactive (Immune) (Immune); Hepatitis B Surface Antigen Non Reactive (Non React); Hepatitis C Antibody Non Reactive (Non React)
[2025-06-03] MEDS: EPOETIN ALFA-EPBX INJ 10,000 UNIT/ML VIAL (NON-ESRD) 10000 UNIT IV (10:20)
--- NOTE | 2025-06-03 11:07 | PD.RESCONSUL ---
HPI Data of Consult Consult date: 06/03/25 Requesting Physician: Armando Bean MD Admitting Provider: Armando Bean MD Attending Provider: Armando Bean MD Primary Care Provider: Fanny Zhou MD Consult Narrative Reason for consult: ESRD on HD History of present illness: 84-year-old female with a history of multivessel CAD s/p stent placement (most recently 12/31/2024 at [facility]), status post pacemaker on 01/01/2025, atrial fibrillation on Brilinta and ASA, ESRD on hemodialysis (Saturday, , Saturday schedule, follows Dr. Alvarado), type 2 diabetes mellitus, and hypertension. She presented to the ED on 06/02/2025 with 2 days of blood in stool. She reported noticing a blood clot in the toilet, followed by several episodes of bright red blood on tissue paper and dark red/black stools. She denied vomiting, hematemesis, or diarrhea. Associated symptoms included mild suprapubic abdominal pain and nausea without vomiting. CT abdomen/pelvis showed gastritis, mildly enlarged common bile duct, and rectal wall thickening consistent with proctitis. GI was consulted for further evaluation. She remains hemodynamically stable. Nephrology was reconsulted for continuation of dialysis management as she is an established ESRD patient on maintenance hemodialysis. 06/03/2025: Patient was seen today during dialysis. Yesterday was her scheduled session (Saturday//Saturday schedule). She was tolerating dialysis well without any complaints. BP 139/80, HR 85. Labs: WBC 4, Hgb 9.9, Hct 30, Plt 81, Na 142, K 4, Cl 102, CO2 29, BUN 29, Cr 3.1, Ca 8.6, Mg 2.2. She remains stable, denies shortness of breath, chest pain, nausea, or dizziness. cc:: cc: Armando Bean MD Exam Vital Signs Temp Pulse Resp BP Pulse Ox O2 Del Method O2 Flow Rate 97.8 F 82 17 114/75 97 Nasal Cannula 2 06/03/25 08:19 06/03/25 11:00 06/03/25 08:19 06/03/25 11:00 06/03/25 08:19 06/03/25 08:00 06/03/25 08:00 Narrative Exam General: Awake, alert, oriented ?3, no acute distress. HEENT: Normocephalic, atraumatic, moist mucous membranes, no scleral icterus. Neck: Supple, no JVD, no lymphadenopathy. Lungs: Clear to auscultation bilaterally, non-labored respirations. Heart: Regular rate and rhythm, normal S1/S2, no murmurs, rubs, or gallops. Abdomen: Soft, non-distended, mild suprapubic tenderness, bowel sounds present. Extremities: No edema, pulses 2+ bilaterally. Access: Left forearm AV fistula with good thrill and bruit. Neuro: No focal deficits, speech clear, follows commands. Skin: Warm, dry, no rash, no petechiae. Results Labs 06/03/25 05:00 06/03/25 05:00 Labs: Short CBC 06/02/25 06/03/25 Range/Units 19:26 05:00 WBC 4.6 4.1 (3.6-11.0) Thou/mm3 Hgb 10.7 L 9.9 L (12.0-16.0) g/dL Hct 32.9 L 29.9 L (36.0-46.0) % Plt Count 87 L 81 L (140-440) Thou/mm3 BMP 06/02/25 06/03/25 19:26 05:00 Sodium 142 142 Potassium 4.9 4.0 D Chloride 102 102 Carbon Dioxide 27.9 29.0 BUN 17 29 H Creatinine 3.2 H 3.1 H Glucose 166 H 111 H D Calcium 8.8 8.1 L Cardiac Enzymes 06/02/25 Range/Units 21:08 Troponin I 0.030 (0.0-0.045) ng/mL Liver Function 06/02/25 06/03/25 Range/Units 19:26 05:00 Total Bilirubin 0.8 0.8 (0.3-1.2) mg/dL AST 45 H 39 H (0-34) U/L ALT 40 36 (10-49) U/L Alkaline Phosphatase 133 H 111 D (46-116) U/L Albumin 4.2 3.4 D (3.4-4.8) gm/dL Urine 06/02/25 Range/Units 20:16 Urine Color Yellow (Lt Yel-Yel) Urine Clarity Turbid A (Clear/Hazy) Urine pH 5.5 (5.0-7.0) Ur Specific [place] 1.019 (1.001-1.035) Urine Protein 1+ A (Neg - Trace) Urine Glucose (UA) Negative (Negative) Quality Measures Quality Measures none Advance care planning discussed with:: patient and child Medications Home Medications and Allergies Home Medications ?Medication ?Instructions ?Recorded ?Confirmed ?Type levothyroxine 50 mcg tablet 1 tab PO DAILY 03/21/22 06/02/25 History albuterol sulfate 90 mcg/actuation 1 puff inhalation Q4HR PRN 08/08/22 06/02/25 History aerosol inhaler BREATHING lactulose 10 gram/15 mL oral 30 ml PO TID PRN Constipation 08/08/22 06/02/25 History solution (Constulose) tramadol 50 mg tablet 50 mg PO Q8H PRN Pain 08/08/22 06/02/25 History docusate sodium 100 mg tablet 100 mg PO DAILY 08/23/22 06/02/25 History dulaglutide 1.5 mg/0.5 mL 0.5 mg subcut QWEEK 07/03/24 06/02/25 History subcutaneous pen injector (Trulicity) galcanezumab-gnlm 120 mg/mL 120 mg subcut Q1M 07/03/24 06/02/25 History subcutaneous pen injector (Emgality Pen) aspirin 81 mg chewable tablet 1 tab PO DAILY 10/14/24 06/02/25 History atorvastatin 80 mg tablet 80 mg PO DAILY 10/14/24 06/02/25 History furosemide 40 mg tablet (Lasix) 40 mg PO QDAY 10/14/24 06/02/25 History insulin glargine U-300 conc 300 14 unit subcut Q24H 10/14/24 06/02/25 History unit/mL (3 mL) subcutaneous pen (Toujeo Max U-300 SoloStar) nitroglycerin 0.4 mg sublingual See Rx Instructions buccal .COMPLEX 10/14/24 06/02/25 History tablet apixaban 2.5 mg tablet (Eliquis) 2.5 mg PO BID 01/06/25 06/02/25 History Held on 01/08/25. Instructions: Resume on 01/22/25. ticagrelor 90 mg tablet (Brilinta) 90 mg PO BID 01/06/25 06/02/25 History lorazepam 0.5 mg tablet 0.5 mg PO [id number] PRN anxiety 06/02/25 06/02/25 History metoprolol tartrate 50 mg tablet 50 mg PO Q12H 06/02/25 06/02/25 History trazodone 50 mg tablet 50 mg PO .QHS 06/02/25 06/02/25 History Allergies Allergy/AdvReac Type Severity Reaction Status Date / Time amoxicillin Allergy Severe Rash Verified 06/02/25 18:23 Visit Medications Acetaminophen (Acetaminophen 325 Mg Tablet) 650 mg PO Q6H PRN PRN Reason: Fever >100.3 Stop: 07/03/25 00:07 Acetaminophen (Acetaminophen 325 Mg Tablet) 650 mg PO Q6H PRN PRN Reason: PAIN SCALE 1-3 (mild Stop: 07/03/25 00:07 Amiodarone HCl (Amiodarone Hcl 200 Mg Tablet) 200 mg PO DAILY ALL Stop: 07/03/25 08:59 Aspirin (Aspirin 81 Mg Chew) 81 mg PO DAILY [facility] Stop: 07/03/25 10:14 Atorvastatin Calcium (Atorvastatin Calcium 20 Mg Tablet) 80 mg PO DAILY [facility] Stop: 07/03/25 08:59 Dextrose (Dextrose 50%-Water Inj 50 Ml Syringe) 25 ml IV Q15MIN PRN PRN Reason: BG 50-70 responsive npo pt Stop: 07/03/25 00:21 Dextrose (Dextrose 50%-Water Inj 50 Ml Syringe) 50 ml IV Q15MIN PRN PRN Reason: BG <50 OR BG <70 & pt unresponsive Stop: 07/03/25 00:21 Docusate Sodium (Docusate Sod 100 Mg Capsule) 100 mg PO DAILY [facility] Stop: 07/03/25 08:59 Furosemide (Furosemide 40 Mg Tablet) 40 mg PO QDAY ALL On Hold: 06/03/25 09:00 Stop: 07/03/25 08:59 Glucagon (Glucagon Inj 1 Mg Vial) 1 mg IM Q15MIN PRN PRN Reason: BG <70, and no IV access Insulin Human Lispro (Insulin Lispro (Admelog) 1 Unit/0.01 Ml Unit) 0 unit SC Q6H ALL; Protocol Stop: 07/03/25 00:29 Last Admin: 06/03/25 05:25 Dose: Not Given Lactulose (Lactulose Syrup 20 Gm/30 Ml Udc) 20 gm PO TID PRN; Protocol PRN Reason: CONSTIPATION Stop: 07/03/25 00:18 Levothyroxine Sodium (Levothyroxine Sodium 25 Mcg Tablet) 50 mcg PO DAILY ALL Stop: 07/03/25 08:59 Metoprolol Tartrate (Metoprolol Tartrate 25 Mg Tablet) 50 mg PO Q12H ALL Stop: 07/03/25 00:29 Last Admin: 06/03/25 00:49 Dose: Not Given Ticagrelor (Ticagrelor 90 Mg Tablet) 90 mg PO BID ALL Stop: 07/03/25 10:14 Trazodone HCl (Trazodone Hcl 50 Mg Tablet) 50 mg PO .QHS ALL Stop: 07/03/25 00:29 Discontinued Medications Diltiazem HCl (Diltiazem Inj 5 Mg/Ml Vial 5 Ml) 5 mg IV X1 ONE Stop: 06/02/25 21:00 Last Admin: 06/02/25 22:23 Dose: 5 mg Epoetin Juan (Epoetin Juan-Epbx Inj 10,000 Unit/Ml Vial (Non-Esrd)) 10,000 unit IV X1 ONE Stop: 06/03/25 10:31 Last Admin: 06/03/25 10:20 Dose: 10,000 unit Pantoprazole Sodium (Pantoprazole Inj 40 Mg Vial) 40 mg IVP X1 ONE Stop: 06/02/25 23:25 Last Admin: 06/02/25 23:55 Dose: 40 mg Polyethylene Glycol/Electrolytes (Na [place]/Nahco3/Enrico/Peg (Golytely) 4,000 Ml Btl) 4,000 ml PO X1 ONE Stop: 06/03/25 10:11 Assessment & Plan Plan 84-year-old female with ESRD on maintenance hemodialysis (T//Sat) admitted for GI bleed in the setting of CAD, pacemaker, and AFib on Brilinta/ASA. Tolerating dialysis well. Labs and hemodynamics stable. # ESRD on Hemodialysis Patient on maintenance HD T//Sat via left forearm AVF; tolerating well; last HD yesterday. Plan: Continue scheduled hemodialysis sessions (next: Saturday). Maintain AVF care; avoid IV sticks, BP in left arm. Avoid nephrotoxic agents. Monitor daily BMP and volume status. Strict I/O and daily weights. # Normocytic Anemia of CKD Hgb 9.9 g/dL, stable from prior; likely chronic from ESRD and recent GI blood loss. Plan: Monitor H/H trends daily. Transfuse if Hgb <7 or symptomatic anemia. Continue JESUS outpatient if indicated. # Thrombocytopenia Platelets 81; chronic; stable trend. Plan: Continue to monitor platelet count daily. Transfuse if <10 or active bleeding. Coordinate with GI/primary regarding bleeding risk. Other Problems: Management per primary team #GI bleed Managed by GI: hold Brilinta/ASA, plan for EGD/colonoscopy. #Multivessel CAD s/p stent: Continue cardiac meds as per Cardiology. #Atrial fibrillation s/p pacemaker: Rate controlled on amiodarone, metoprolol. #Type 2 Diabetes Mellitus: On basal insulin, SSI as per primary team. #Hypertension: Continue monitoring; currently stable. #Hypothyroidism: Continue levothyroxine. ----- Plan discussed with attending physician Dr. Christiano Hooks MD PGY-1 Internal Medicine Attending Provider Attestation/Addendum Patient seen and examined with resident physician Dr. Hooks. Note reviewed, agree with findings and recommendations. Patient currently seen on dialysis. Tolerating dialysis without any problems. Hemodialysis for 3 hours, 2K, ultrafiltration 1.5 L, Epogen 6000, no heparin ordered. Plan of care discussed with the dialysis nurse. Please see dialysis flowsheet for further details.
--- NOTE | 2025-06-03 12:07 | PD.RESCONSUL ---
HPI Data of Consult Requesting Physician: Armando Bean MD Admitting Provider: Armando Bean MD Attending Provider: Armando Bean MD Primary Care Provider: Fanny Zhou MD Consult Narrative History of present illness: Per HPI Ms. Catalan is an 84 y/o female with PMH multivessel CAD s/p stent placement (most recently 12/31/2024 at [facility]), status post pacemaker on 01/01/2025 at [facility], a-fib on Brillinta and ASA, ESRD on HD on (follows Dr. Alvarado), type 2 diabetes mellitus, and hypertension who presents to the ED 06/02 with 2 days of blood in stool. Patient had a BM where the noticed a blood clot in the toilet. She also noticed bright red blood per rectum on the tissue paper after wiping and several episodes with red-black stool. She has never has a similar episode in the past. On Brillinta and aspirin but denies taking Eliquis despite hx of afib. Associated with suprapubic abdominal pain, nausea. Denies vomiting, hematemesis, diarrhea. Patient is usually constipated but takes lactulose and docusate for this. Follows with Dr. Alvarado (nephrology) and Dr. Moore (cardiology). ED course: Afebrile, VSS, spO2 100% on 2L O2. Labs significant for hgb 10.7, HCT 32.9, plt 87, Cr 3.2, eGFR 14, AST 45, alk phos 133. EKG showed afib with RVR HR 100, QTc 484. CT a/p showed gastritis, mildly enlarged common bile duct, atrophic kidneys, enlarged R ovary, rectal wall thickening c/w proctitis. Given diltiazem 5 mg IV x1 in ED. ED consulted Dr. Mckenzie. PMHx: multivessel CAD s/p stent placement (most recently 12/31/2024 at [facility]), status post pacemaker on 01/01/2025 at [facility], a-fib on Brillinta and ASA, ESRD on HD on (follows Dr. Alvarado), type 2 diabetes mellitus, and hypertension cc:: cc: Armando Bean MD Exam Vital Signs Temp Pulse Resp BP Pulse Ox O2 Del Method O2 Flow Rate 97.5 F 80 17 137/80 H 97 Nasal Cannula 2 06/03/25 11:45 06/03/25 11:45 06/03/25 11:45 06/03/25 11:45 06/03/25 11:45 06/03/25 08:00 06/03/25 08:00 Narrative Exam General: No acute distress, well nourished Eye: PERRL, EOMI, normal conjunctiva, no scleral icterus HENT: Normocephalic, atraumatic, normal hearing, moist oral mucosa Neck: Supple, non-tender, no JVD, no lymphadenopathy Lungs: Clear to auscultation bilaterally, non-labored respirations, symmetric chest rise, no use of accessory muscles Heart: Normal S1 and S2, Normal rate and regular rhythm, no murmurs, rubs gallops, or edema. Peripheral pulses intact bilaterally, capillary refill brisk distally Abdomen: Soft, abdominal cramping (on golytely prep) , bowel sounds present Musculoskeletal: Normal range of motion and strength, no tenderness or swelling Skin: Skin is warm, dry, no rashes or lesions. Left forearm fistula Neurologic: Alert, awake and oriented x3. CN II-XII grossly intact. No focal neuro deficits. No signs of meningeal irritation noted. Psychiatric: Cooperative, appropriate mood and affect Results Labs 06/03/25 05:00 06/03/25 05:00 Labs: Short CBC 06/02/25 06/03/25 Range/Units 19:26 05:00 WBC 4.6 4.1 (3.6-11.0) Thou/mm3 Hgb 10.7 L 9.9 L (12.0-16.0) g/dL Hct 32.9 L 29.9 L (36.0-46.0) % Plt Count 87 L 81 L (140-440) Thou/mm3 BMP 06/02/25 06/03/25 19:26 05:00 Sodium 142 142 Potassium 4.9 4.0 D Chloride 102 102 Carbon Dioxide 27.9 29.0 BUN 17 29 H Creatinine 3.2 H 3.1 H Glucose 166 H 111 H D Calcium 8.8 8.1 L Cardiac Enzymes 06/02/25 Range/Units 21:08 Troponin I 0.030 (0.0-0.045) ng/mL Liver Function 06/02/25 06/03/25 Range/Units 19:26 05:00 Total Bilirubin 0.8 0.8 (0.3-1.2) mg/dL AST 45 H 39 H (0-34) U/L ALT 40 36 (10-49) U/L Alkaline Phosphatase 133 H 111 D (46-116) U/L Albumin 4.2 3.4 D (3.4-4.8) gm/dL Urine 06/02/25 Range/Units 20:16 Urine Color Yellow (Lt Yel-Yel) Urine Clarity Turbid A (Clear/Hazy) Urine pH 5.5 (5.0-7.0) Ur Specific [place] 1.019 (1.001-1.035) Urine Protein 1+ A (Neg - Trace) Urine Glucose (UA) Negative (Negative) Quality Measures Quality Measures VTE prophylaxis Advance care planning discussed with:: patient Medications Home Medications and Allergies Home Medications ?Medication ?Instructions ?Recorded ?Confirmed ?Type levothyroxine 50 mcg tablet 1 tab PO DAILY 03/21/22 06/02/25 History albuterol sulfate 90 mcg/actuation 1 puff inhalation Q4HR PRN 08/08/22 06/02/25 History aerosol inhaler BREATHING lactulose 10 gram/15 mL oral 30 ml PO TID PRN Constipation 08/08/22 06/02/25 History solution (Constulose) tramadol 50 mg tablet 50 mg PO Q8H PRN Pain 08/08/22 06/02/25 History docusate sodium 100 mg tablet 100 mg PO DAILY 08/23/22 06/02/25 History dulaglutide 1.5 mg/0.5 mL 0.5 mg subcut QWEEK 07/03/24 06/02/25 History subcutaneous pen injector (Trulicity) galcanezumab-gnlm 120 mg/mL 120 mg subcut Q1M 07/03/24 06/02/25 History subcutaneous pen injector (Emgality Pen) aspirin 81 mg chewable tablet 1 tab PO DAILY 10/14/24 06/02/25 History atorvastatin 80 mg tablet 80 mg PO DAILY 10/14/24 06/02/25 History furosemide 40 mg tablet (Lasix) 40 mg PO QDAY 10/14/24 06/02/25 History insulin glargine U-300 conc 300 14 unit subcut Q24H 10/14/24 06/02/25 History unit/mL (3 mL) subcutaneous pen (Toujeo Max U-300 SoloStar) nitroglycerin 0.4 mg sublingual See Rx Instructions buccal .COMPLEX 10/14/24 06/02/25 History tablet apixaban 2.5 mg tablet (Eliquis) 2.5 mg PO BID 01/06/25 06/02/25 History Held on 01/08/25. Instructions: Resume on 01/22/25. ticagrelor 90 mg tablet (Brilinta) 90 mg PO BID 01/06/25 06/02/25 History lorazepam 0.5 mg tablet 0.5 mg PO [id number] PRN anxiety 06/02/25 06/02/25 History metoprolol tartrate 50 mg tablet 50 mg PO Q12H 06/02/25 06/02/25 History trazodone 50 mg tablet 50 mg PO .QHS 06/02/25 06/02/25 History Allergies Allergy/AdvReac Type Severity Reaction Status Date / Time amoxicillin Allergy Severe Rash Verified 06/02/25 18:23 Visit Medications Acetaminophen (Acetaminophen 325 Mg Tablet) 650 mg PO Q6H PRN PRN Reason: Fever >100.3 Stop: 07/03/25 00:07 Acetaminophen (Acetaminophen 325 Mg Tablet) 650 mg PO Q6H PRN PRN Reason: PAIN SCALE 1-3 (mild Stop: 07/03/25 00:07 Amiodarone HCl (Amiodarone Hcl 200 Mg Tablet) 200 mg PO DAILY ALL Stop: 07/03/25 08:59 Aspirin (Aspirin 81 Mg Chew) 81 mg PO DAILY ALL Stop: 07/03/25 10:14 Atorvastatin Calcium (Atorvastatin Calcium 20 Mg Tablet) 80 mg PO DAILY ALL Stop: 07/03/25 08:59 Dextrose (Dextrose 50%-Water Inj 50 Ml Syringe) 25 ml IV Q15MIN PRN PRN Reason: BG 50-70 responsive npo pt Stop: 07/03/25 00:21 Dextrose (Dextrose 50%-Water Inj 50 Ml Syringe) 50 ml IV Q15MIN PRN PRN Reason: BG <50 OR BG <70 & pt unresponsive Stop: 07/03/25 00:21 Docusate Sodium (Docusate Sod 100 Mg Capsule) 100 mg PO DAILY ALL Stop: 07/03/25 08:59 Furosemide (Furosemide 40 Mg Tablet) 40 mg PO QDAY ALL On Hold: 06/03/25 09:00 Stop: 07/03/25 08:59 Glucagon (Glucagon Inj 1 Mg Vial) 1 mg IM Q15MIN PRN PRN Reason: BG <70, and no IV access Insulin Human Lispro (Insulin Lispro (Admelog) 1 Unit/0.01 Ml Unit) 0 unit SC Q6H ALL; Protocol Stop: 07/03/25 00:29 Last Admin: 06/03/25 05:25 Dose: Not Given Lactulose (Lactulose Syrup 20 Gm/30 Ml Udc) 20 gm PO TID PRN; Protocol PRN Reason: CONSTIPATION Stop: 07/03/25 00:18 Levothyroxine Sodium (Levothyroxine Sodium 25 Mcg Tablet) 50 mcg PO DAILY ALL Stop: 07/03/25 08:59 Metoprolol Tartrate (Metoprolol Tartrate 25 Mg Tablet) 50 mg PO Q12H ALL Stop: 07/03/25 00:29 Last Admin: 06/03/25 00:49 Dose: Not Given Ticagrelor (Ticagrelor 90 Mg Tablet) 90 mg PO BID ALL Stop: 07/03/25 10:14 Trazodone HCl (Trazodone Hcl 50 Mg Tablet) 50 mg PO .QHS ALL Stop: 07/03/25 00:29 Discontinued Medications Diltiazem HCl (Diltiazem Inj 5 Mg/Ml Vial 5 Ml) 5 mg IV X1 ONE Stop: 06/02/25 21:00 Last Admin: 06/02/25 22:23 Dose: 5 mg Epoetin Juan (Epoetin Juan-Epbx Inj 10,000 Unit/Ml Vial (Non-Esrd)) 10,000 unit IV X1 ONE Stop: 06/03/25 10:31 Last Admin: 06/03/25 10:20 Dose: 10,000 unit Pantoprazole Sodium (Pantoprazole Inj 40 Mg Vial) 40 mg IVP X1 ONE Stop: 06/02/25 23:25 Last Admin: 06/02/25 23:55 Dose: 40 mg Polyethylene Glycol/Electrolytes (Na [place]/Nahco3/Enrico/Peg (Golytely) 4,000 Ml Btl) 4,000 ml PO X1 ONE Stop: 06/03/25 10:11 Assessment & Plan Plan Ms. Catalan is an 84 y/o female with PMH multivessel CAD s/p stent placement (most recently 12/31/2024 at [facility]), status post pacemaker on 01/01/2025 at [facility], a-fib on Brillinta and ASA, ESRD on HD on /Sat (follows Dr. Alvarado), type 2 diabetes mellitus, and hypertension who presents to the ED 06/02 with 2 days of blood in stool. Admitted for suspected lower gi bleed. #Normocytic anemia 2/2 #? lower GI bleed #Gastritis #Proctitis #Hemorrhoids 1 week of of blood in stool - bright red clot, BRBPR on toilet paper, melena Associated with generalized abomdinal pain,TTP of suprapubic/RUQ/RLQ pain FOBT positive, hemorrhoids present on exam CT a/p showed gastritis, mildly enlarged common bile duct, rectal wall thickening/proctitis. Plan: - Golytely prep, plan for colonoscopy - primary team is continuing Brilinta but holding , ASA. - SCD for DVT ppx #Mildly enlarged common bile duct #Elevated AST #Elevated alk phos Hx cholecystectomy #Multivessel CAD s/p stent 12/31/2024 #Normocytic anemia #Afib s/p pacemaker 01/01/2025 #ESRD on HD /- follows with [facility] #HFpEF - follows with casandra TTE 12/25/24: LVEF 55-60%, diastolic dysfunction II, LVH. Mild MR, TR. Aortic valve sclerosis #Type 2 diabetes mellitus #Hypertension #Hypothyroidism #Thrombocytopenia #Insomnia #Enlarged right ovary #constipation holding home meds - Management per primary team Plan discussed with Dr. Jonah Manuel MD PGY1 Attending Provider Attestation/Addendum 84 years old female evaluated by me at the request of the ER physician for episodes of hematochezia in the setting of coronary artery status post PTCA and currently on aspirin and Brilinta After examining the imaging studies which showed proctitis most likely appears to be a case of lower GI bleed although there were some blackish specks in the stool Recommended clear liquid diet GoLytely prep and schedule the patient for a colonoscopy tomorrow for further evaluation management I recommended to the internal medicine team and ER physician to continue Brilinta and aspirin in the setting of recently placed coronary stent Endocarditis prophylaxis with ampicillin 2 g IV piggyback and gentamicin 80 mg IV piggyback prior to the procedure for endocarditis prophylaxis Thank you very much for the opportunity to participate in the care of this patient
[2025-06-03] MEDS: NA SU/NAHCO3/KC/PEG (Golytely) 4,000 ML BTL 4000 ML PO (12:25)
[2025-06-03] MEDS: LEVOTHYROXINE SODIUM 25 MCG TABLET 50 MCG PO (12:26)
[2025-06-03] MEDS: ASPIRIN 81 MG CHEW PO (12:26)
[2025-06-03] MEDS: TICAGRELOR 90 MG TABLET PO ×2 (12:27→20:45)
[2025-06-03] MEDS: ATORVASTATIN CALCIUM 20 MG TABLET 80 MG PO (12:27)
[2025-06-03] MEDS: METOPROLOL TARTRATE 25 MG TABLET 50 MG PO ×2 (12:28→23:51)
[2025-06-03] MEDS: AMIODARONE HCL 200 MG TABLET PO (12:28)
[2025-06-03] MEDS: DOCUSATE SOD 100 MG CAPSULE PO (12:28)
--- NOTE | 2025-06-03 14:55 | PC.SS ---
Rounding Note: GI workup pending. Patient received dialysis today. Next session Saturday. Patient is aligned with outpatient dialysis.
--- NOTE | 2025-06-03 16:30 | ESPR_ITS ---
Documentation for date of: 06/03/25 Subjective Subjective Interval history: Patient seen at bedside. No acute overnight events. Patient denies any chest pain, shortness of breath, abdominal pain, nausea, vomiting, dizziness. Patient to undergo scope today to identify source of bleed. Cardiology and GI both on board to continue Brilinta and ASA for the patient. Exam Vital Signs Temp Pulse Resp BP Pulse Ox O2 Del Method O2 Flow Rate 96.7 F L 109 H 14 129/89 H 98 Nasal Cannula 2 06/03/25 15:48 06/03/25 15:48 06/03/25 15:48 06/03/25 15:48 06/03/25 15:48 06/03/25 15:48 06/03/25 15:48 Narrative Exam General: No acute distress, conversing Eye: PERRL, EOMI, normal conjunctiva, no scleral icterus HENT: Normocephalic, atraumatic, normal hearing, moist oral mucosa Neck: Supple, non-tender, no JVD, no lymphadenopathy Lungs: Clear to auscultation bilaterally, non-labored respirations, symmetric chest rise, no use of accessory muscles Heart: Normal S1 and S2. Tachy, known Afib. No murmurs, rubs gallops, or edema. Peripheral pulses intact bilaterally, capillary refill brisk distally Abdomen: Soft, TTP of RUQ, midline suprapubic and RLQ, bowel sounds present Musculoskeletal: Normal range of motion and strength, no tenderness or swelling Skin: Skin is warm, dry, no rashes or lesions. Left forearm fistula Neurologic: Alert, awake and oriented x3. CN II-XII grossly intact. No focal neuro deficits. No signs of meningeal irritation noted. Psychiatric: Cooperative, appropriate mood and affect Objective Labs 06/04/25 05:04 06/04/25 05:04 Labs: Laboratory Results - last 24 hr 06/02/25 06/02/25 06/02/25 19:26 20:16 21:08 WBC 4.6 RBC 3.38 L Hgb 10.7 L Hct 32.9 L MCV 97 MCH 31.7 MCHC 32.5 RDW Std Deviation 59.5 H Plt Count 87 L Neut % (Auto) 57 Lymph % (Auto) 31 [place] % (Auto) 10 Eos % (Auto) 1 Baso % (Auto) 1 Neut # (Auto) 2.6 Lymph # (Auto) 1.4 [place] # (Auto) 0.4 Eos # (Auto) 0.1 Baso # (Auto) 0.0 Immature Gran # (Auto) 0.02 H Absolute Nucleated RBC 0.03 H Immature Gran % 0 Nucleated RBC % 1 H PT 11.4 INR 1.1 Sodium 142 Potassium 4.9 Chloride 102 Carbon Dioxide 27.9 Anion Gap 12 BUN 17 Creatinine 3.2 H Estim Creat Clear Calc Not Performed. eGFR 14 L* BUN/Creatinine Ratio 5 L Glucose 166 H Calculated Osmolality 288 Calcium 8.8 Corrected Calcium 8.8 Magnesium 2.3 Total Bilirubin 0.8 AST 45 H ALT 40 Alkaline Phosphatase 133 H Troponin I 0.030 Total Protein 6.9 Albumin 4.2 Globulin 2.7 Albumin/Globulin Ratio 1.6 Ur Collection Type Clean Catch Urine Color Yellow Urine Clarity Turbid A Urine pH 5.5 Ur Specific [place] 1.019 Urine Protein 1+ A Urine Glucose (UA) Negative Urine Ketones Negative Urine Blood 1+ A Urine Nitrite Negative Urine Bilirubin Negative Urine Urobilinogen (Auto) 3.0 Ur Leukocyte Esterase Positive Urine RBC 7 H Urine WBC 75 H Ur Squamous Epith Cells 38 H Urine Bacteria Rare Hyaline Casts 1 Ur Culture Indicated? Contaminated Hepatitis A IgM Ab Hep Bs Antigen Hep Bs Antibody Hep B Core IgM Ab Hepatitis C Antibody Blood Type A Positive Antibody Screen NEGATIVE Blood Bank Wristband ID Yes 06/03/25 05:00 WBC 4.1 RBC 3.08 L Hgb 9.9 L Hct 29.9 L MCV 97 MCH 32.1 MCHC 33.1 RDW Std Deviation 59.5 H Plt Count 81 L Neut % (Auto) 55 Lymph % (Auto) 33 [place] % (Auto) 10 Eos % (Auto) 2 Baso % (Auto) 1 Neut # (Auto) 2.3 Lymph # (Auto) 1.4 [place] # (Auto) 0.4 Eos # (Auto) 0.1 Baso # (Auto) 0.0 Immature Gran # (Auto) 0.01 H Absolute Nucleated RBC 0.00 Immature Gran % 0 Nucleated RBC % 0 PT INR Sodium 142 Potassium 4.0 D Chloride 102 Carbon Dioxide 29.0 Anion Gap 11 BUN 29 H Creatinine 3.1 H Estim Creat Clear Calc Not Performed. eGFR 14 L* BUN/Creatinine Ratio 9 L Glucose 111 H D Calculated Osmolality 289 Calcium 8.1 L Corrected Calcium 8.6 Magnesium 2.2 Total Bilirubin 0.8 AST 39 H ALT 36 Alkaline Phosphatase 111 D Troponin I Total Protein 5.7 Albumin 3.4 D Globulin 2.3 Albumin/Globulin Ratio 1.5 Ur Collection Type Urine Color Urine Clarity Urine pH Ur Specific [place] Urine Protein Urine Glucose (UA) Urine Ketones Urine Blood Urine Nitrite Urine Bilirubin Urine Urobilinogen (Auto) Ur Leukocyte Esterase Urine RBC Urine WBC Ur Squamous Epith Cells Urine Bacteria Hyaline Casts Ur Culture Indicated? Hepatitis A IgM Ab Non Reactive Hep Bs Antigen Non Reactive Hep Bs Antibody Reactive (Immune) Hep B Core IgM Ab Non Reactive Hepatitis C Antibody Non Reactive Blood Type Antibody Screen Blood Bank Wristband ID Quality Measures Quality Measures VTE prophylaxis Advance care planning discussed with:: patient Assessment & Plan Assessment Current Active Medications: Generic Name Dose Route Start Last Admin Trade Name Freq PRN Reason Stop Dose Admin Acetaminophen 650 mg 06/03/25 00:08 Acetaminophen 325 Mg Tablet PO 07/03/25 00:07 Q6H PRN Fever >100.3 Acetaminophen 650 mg 06/03/25 00:08 Acetaminophen 325 Mg Tablet PO 07/03/25 00:07 Q6H PRN PAIN SCALE 1-3 (mild Amiodarone HCl 200 mg 06/03/25 09:00 06/03/25 12:28 Amiodarone Hcl 200 Mg Tablet PO 07/03/25 08:59 200 mg DAILY ALL Administration Aspirin 81 mg 06/03/25 10:15 06/03/25 12:26 Aspirin 81 Mg Chew PO 07/03/25 10:14 81 mg DAILY ALL Administration Atorvastatin Calcium 80 mg 06/03/25 09:00 06/03/25 12:27 Atorvastatin Calcium 20 Mg Tablet PO 07/03/25 08:59 80 mg DAILY ALL Administration Dextrose 25 ml 06/03/25 00:22 Dextrose 50%-Water Inj 50 Ml Syringe IV 07/03/25 00:21 Q15MIN PRN BG 50-70 responsive npo pt Dextrose 50 ml 06/03/25 00:22 Dextrose 50%-Water Inj 50 Ml Syringe IV 07/03/25 00:21 Q15MIN PRN BG <50 OR BG <70 & pt unresponsive Docusate Sodium 100 mg 06/03/25 09:00 06/03/25 12:28 Docusate Sod 100 Mg Capsule PO 07/03/25 08:59 100 mg DAILY ALL Administration Furosemide 40 mg 06/03/25 09:00 Furosemide 40 Mg Tablet PO 07/03/25 08:59 On Hold: 06/03/25 09:00 QDAY ALL Glucagon 1 mg 06/03/25 00:22 Glucagon Inj 1 Mg Vial IM Q15MIN PRN BG <70, and no IV access Insulin Human Lispro 0 unit 06/03/25 00:30 06/03/25 12:39 Insulin Lispro (Admelog) 1 Unit/0.01 Ml Unit SC 07/03/25 00:29 Not Given Q6H ALL Protocol Lactulose 20 gm 06/03/25 00:19 Lactulose Syrup 20 Gm/30 Ml Udc PO 07/03/25 00:18 TID PRN CONSTIPATION Protocol Levothyroxine Sodium 50 mcg 06/03/25 09:00 06/03/25 12:26 Levothyroxine Sodium 25 Mcg Tablet PO 07/03/25 08:59 50 mcg DAILY ALL Administration Metoprolol Tartrate 50 mg 06/03/25 00:30 06/03/25 12:28 Metoprolol Tartrate 25 Mg Tablet PO 07/03/25 00:29 50 mg Q12H ALL Administration Ticagrelor 90 mg 06/03/25 10:15 06/03/25 12:27 Ticagrelor 90 Mg Tablet PO 07/03/25 10:14 90 mg BID ALL Administration Trazodone HCl 50 mg 06/03/25 00:30 Trazodone Hcl 50 Mg Tablet PO 07/03/25 00:29 .QHS ALL Plan 84 y/o female with PMH multivessel CAD s/p stent placement (most recently 12/31/2024 at [facility] [place]), status post pacemaker on 01/01/2025 at [facility] [place], a-fib on Brillinta and ASA, ESRD on HD on (follows Dr. Alvarado), type 2 diabetes mellitus, and hypertension who presents to the ED 06/02 with 2 days of blood in stool. Admitted for GI bleed. #GI bleed, Upper vs Lower #Gastritis #Proctitis #Hemorrhoids 2 days of blood in stool - bright red clot, BRBPR on toilet paper, melena Associated with generalized abomdinal pain,TTP of suprapubic/RUQ/RLQ pain FOBT positive, hemorrhoids present on exam CT a/p showed gastritis, mildly enlarged common bile duct, rectal wall thickening/proctitis. Plan: - Consulted GI, apprecite recs - NPO in anticipation of EGD/colonoscopy #Normocytic anemia Chronic, may be contributed by blood loss Hgb 10.7, HCT 32.9 Plan: - CTM with daily CBC - Transfuse if hgb <7 #Multivessel CAD S/p stent 12/31/2024 Home med: ASA, Brilinta, nitroglycerin 0.4 mg sublingual PRN Patient denies chest pain/pressure Plan: - Resumed ASA 81 mg daily and Brilinta 90mg BID (home med) - Resumed Atorvastatin 80 mg daily (home med) #Afib w/ RVR S/p pacemaker 01/01/2025 EKG showed afib with RVR HR 100, QTc 484. Currently rate controlled on tele monitor. Denies palpitations Per previous d/c summary, patient's Eliquis was held until f/u with Dr. Moore. However, she reports that she does not take Eliquis at home still. Plan: - Amiodarone 200 mg PO daily (home med) - Metoprolol 50 mg BID (home med) #ESRD on HD T//Sat Follows with Dr. Alvarado Cr 3.2, eGFR 14, dialysis through left forearm fistula CT a/p shows atrophic kidneys, moderate renal scarring Plan: - Consulted nephrology, appreciate recs - Avoid nephrotoxic agents - Renally dose medications #HFpEF TTE 12/25/24: LVEF 55-60%, diastolic dysfunction II, LVH. Mild MR, TR. Aortic valve sclerosis Home med: Lasix 40 mg daily Has chronic orthopnea. Denies shortness of breath, chest pain/pressure. No LE edema, CTAB Plan: - Resumed lasix 40mg daily #Mildly enlarged common bile duct #Elevated AST #Elevated alk phos Hx cholecystectomy AST 39 (45), alk phos 111 (133). Total bili, ALT WNL CT a/p: Enlarged common bile duct up to 10 mm, no stones, no pancreatic mass. Liver US 06/03: CBD 6mm, no stones Plan: - Monitor LFTs w/ AM labs #Insulin-dependent Type 2 diabetes mellitus Home med: Trulicity 0.5 mg subQ Qweek, Emgality 120 mg subQ [id number], Glargine 14U daily Plan: - SSI #Hypertension VSS Plan: - CTM with tele #Hypothyroidism Plan: - Levothyroxine 50 mcg daily (home med) #Thrombocytopenia Plt 81 Plan: - Monitor daily with CBC - Transfuse if <10 to avoid spontaneous bleeding #Hx constipation Plan: - Lactulose 20 g TID (home med) - Docusate 100 mg daily (home med) #Insomnia Plan: - Trazodone 50 mg QHS (home med) #Enlarged right ovary Incidental finding on CT Plan: - f/u outpatient Health Maintenance: Dispo: Admit to tele, pending EGD/colonoscopy Diet: NPO Bowel Reg: [place], Lactulose VTE ppx: SCD GI ppx: n/a Pain mgmt: Tylenol PRN Code status: DNR/DNI Case discussed with my attending Dr Victoria, and senior resident, Dr. Nile Murphy MD PGY-1 Attending Provider Attestation/Addendum I have examined the patient, reviewed labs and imaging findings, discussed the case with the resident(s), and reviewed entered orders. I agree with the plan of care as outlined in this note, with these additional summaries/recommendations: Patient seen at bedside. Patient admitted for overnight for GI bleed which could become life-threatening. Patient endorses 2 days of melena and some bright red blood. Patient does take anticoagulation Brilinta and aspirin after recent stent placement on 12/31/2024. [place] bleeding score 11 points indicating high risk GI bleed that would require medical intervention and increased risk of mortality. Patient meets inpatient criteria. We will transfuse for hemoglobin less than 7. Continue PPI and IVF. Given that patient recently had a cardiac stent placed and now presenting with GI bleed, we discussed case with patient's registered associate and gastroenterology and in agreement to resume DAPT and monitor closely for worsening bleeding. Patient in agreement. Nephrology following for inpatient hemodialysis. Continue insulin sliding scale for diabetes mellitus type 2 and home oral antihypertensives. Continue home amiodarone for atrial fibrillation. Patient updated on the plan and in agreement. All questions answered to satisfaction. Please see residents note for additional details and management. Dr. Esme MD
--- NOTE | 2025-06-03 17:59 | PC.PT ---
PT eval only. Patient was xI with bed mobility, transfers, and ambulation with an AD which is her baseline. Patient is safe to ambulate to the bathroom and in the halls with a FWW and 1 staff for safety due to her history of falls. RN made aware.
--- NOTE | 2025-06-03 19:59 | PC.NURSE ---
informed Dr. Mckenzie regarding patient's stool is clear, patient currently on golytly in prep for colonoscopy, but patient will need to be NPO for at least 2 hours prior to procedure. Patient states understanding, instructed patient to finish golytly bottle, will have patient on a clear liquid diet until midnight then NPO after midnight in prep for colonoscopy tomorrow. Patient and family states understanding. No other new orders received.
[2025-06-04] VITALS (22 sets, daily range): BP systolic 93–137; BP diastolic 60–88; PULSE 89–118; RESP 15–22; TEMP 36.1–36.7; O2SAT 94–100
[2025-06-04 06:02] LABS: Basophils # (Auto) 0.0 Thou/mm3 (0.0-0.2); Basophils % (Auto) 1 % (0-2.5); Eosinophils # (Auto) 0.1 Thou/mm3 (0.0-0.5); Eosinophils % (Auto) 1 % (0-10); Hematocrit 30.9 % (36.0-46.0); Hemoglobin 10.4 g/dL (12.0-16.0); Immature Granulocytes Auto 0.01 Thou/mm3 (0.00-0.00); Lymphocytes # (Auto) 1.2 Thou/mm3 (1.0-4.8); Lymphocytes % (Auto) 31 % (10-50); Mean Corpuscular HGB Conc 33.7 g/dl (31.0-37.0); Mean Corpuscular Hemoglobin 31.8 pg (25.0-35.0); Mean Corpuscular Volume 95 fL (80-100); Monocytes # (Auto) 0.4 Thou/mm3 (0.0-0.8); Monocytes % (Auto) 11 % (0-12); Neutrophils # (Auto) 2.2 Thou/mm3 (1.8-7.7); Neutrophils % (Auto) 56 % (37-80); Nucleated Red Blood Cell # 0.00 Thou/mm3 (0.00-0.00); Nucleated Red Blood Cell % 0 /100 WBC (0); Platelet Count 80 Thou/mm3 (140-440); RDW Standard Deviation 56.1 fL (36.4-46.3); Red Blood Count 3.27 Miln/mm3 (4.00-5.20); White Blood Count 3.9 Thou/mm3 (3.6-11.0)
[2025-06-04 06:39] LABS: Alanine Aminotransferase 128 U/L (10-49); Albumin, Serum 3.4 gm/dL (3.4-4.8); Albumin/Globulin Ratio 1.5 (1.2-2.2); Alkaline Phosphatase 126 U/L (46-116); Anion Gap 14 (7-16); Aspartate Amino Transferase 163 U/L (0-34); BUN/Creatinine Ratio 6 Ratio (12-20); Bilirubin,Total 1.1 mg/dL (0.3-1.2); Blood Urea Nitrogen 14 mg/dL (9-23); Calcium 8.5 mg/dL (8.3-10.6); Calcium (Corrected) 9.0 mg/dL (8.5-10.1); Carbon Dioxide 28.5 mMol/L (20.0-31.0); Chloride 100 mMol/L (98-107); Creatinine (Component) 2.4 mg/dL (0.6-1.3); Globulin 2.3 gm/dL (2.3-3.5); Glucose 93 mg/dL (74-106); Magnesium 2.0 mg/dL (1.6-2.6); Osmolality,Calculated 283 (275-295); Phosphorous 3.3 mg/dL (2.4-5.1); Potassium 3.7 mMol/L (3.4-5.1); Sodium 142 mMol/L (136-145); Total Protein 5.7 gm/dL (5.7-8.2); eGFR 20 See Note
[2025-06-04] MEDS: TICAGRELOR 90 MG TABLET PO ×2 (08:27→20:12)
[2025-06-04] MEDS: ATORVASTATIN CALCIUM 20 MG TABLET 80 MG PO (08:27)
[2025-06-04] MEDS: ASPIRIN 81 MG CHEW PO (08:27)
[2025-06-04] MEDS: AMIODARONE HCL 200 MG TABLET PO (08:28)
[2025-06-04] MEDS: LEVOTHYROXINE SODIUM 25 MCG TABLET 50 MCG PO (08:29)
--- NOTE | 2025-06-04 11:38 | ESPR_ITS ---
Documentation for date of: 06/04/25 Subjective Subjective Interval history: Reason for consult: ESRD on HD History of present illness: 84-year-old female with a history of multivessel CAD s/p stent placement (most recently 12/31/2024 at [facility]), status post pacemaker on 01/01/2025, atrial fibrillation on Brilinta and ASA, ESRD on hemodialysis (Saturday, , Saturday schedule, follows Dr. Alvarado), type 2 diabetes mellitus, and hypertension. She presented to the ED on 06/02/2025 with 2 days of blood in stool. She reported noticing a blood clot in the toilet, followed by several episodes of bright red blood on tissue paper and dark red/black stools. She denied vomiting, hematemesis, or diarrhea. Associated symptoms included mild suprapubic abdominal pain and nausea without vomiting. CT abdomen/pelvis showed gastritis, mildly enlarged common bile duct, and rectal wall thickening consistent with proctitis. GI was consulted for further evaluation. She remains hemodynamically stable. Nephrology was reconsulted for continuation of dialysis management as she is an established ESRD patient on maintenance hemodialysis. 06/03/2025: Patient was seen today during dialysis. Yesterday was her scheduled session (Saturday//Saturday schedule). She was tolerating dialysis well without any complaints. BP 139/80, HR 85. Labs: WBC 4, Hgb 9.9, Hct 30, Plt 81, Na 142, K 4, Cl 102, CO2 29, BUN 29, Cr 3.1, Ca 8.6, Mg 2.2. She remains stable, denies shortness of breath, chest pain, nausea, or dizziness. 06/04/2025 patient going for colonoscopy today. Denies any chest pain, shortness of breath. Anxious to go home. Dialysis scheduled for tomorrow. Review of Systems Review of Systems Narrative Review of Systems: CONSTITUTIONAL: Patient denies any fever, chills. Complaining of fatigue HEENT: Denies any visual disturbances or hearing problems. CARDIOVASCULAR: Patient denies any chest pain, shortness of breath, swelling in the lower extremities. PULMONARY: Patient denies any shortness of breath, cough. GASTROINTESTINAL: Patient denies any abdominal pain, constipation, nausea, vomiting, diarrhea. No blood in the stools complaining of gait imbalance GENITOURINARY: Patient denies any urinary symptoms of burning or frequency or hematuria, denies any form in the urine. SKIN: Denies any rash. MUSCULOSKELETAL: Denies any muscular skeletal problems of joint pains. NEUROLOGICAL: Denies any neurological problems of strokes, seizures or confusion. Denies any memory problems. PSYCHIATRIC: Denies any depression or anxiety. LYMPHATICS : No lymphadenopathy Exam Vital Signs Temp Pulse Resp BP Pulse Ox O2 Del Method O2 Flow Rate 36.3 C 96 19 135/85 H 96 Room Air 2 06/04/25 08:00 06/04/25 08:28 06/04/25 08:00 06/04/25 08:28 06/04/25 08:00 06/04/25 08:00 06/04/25 06:39 Narrative Exam General: Awake, alert, oriented ?3, no acute distress. HEENT: Normocephalic, atraumatic, moist mucous membranes, no scleral icterus. Neck: Supple, no JVD, no lymphadenopathy. Lungs: Clear to auscultation bilaterally, non-labored respirations. Heart: Regular rate and rhythm, normal S1/S2, no murmurs, rubs, or gallops. Abdomen: Soft, non-distended, mild suprapubic tenderness, bowel sounds present. Extremities: No edema, pulses 2+ bilaterally. Access: Left forearm AV fistula with good thrill and bruit. Neuro: No focal deficits, speech clear, follows commands. Skin: Warm, dry, no rash, no petechiae. Objective Labs 06/04/25 05:04 06/04/25 05:04 Labs: Laboratory Results - last 24 hr 06/04/25 05:04 WBC 3.9 RBC 3.27 L Hgb 10.4 L Hct 30.9 L MCV 95 MCH 31.8 MCHC 33.7 RDW Std Deviation 56.1 H Plt Count 80 L Neut % (Auto) 56 Lymph % (Auto) 31 [place] % (Auto) 11 Eos % (Auto) 1 Baso % (Auto) 1 Neut # (Auto) 2.2 Lymph # (Auto) 1.2 [place] # (Auto) 0.4 Eos # (Auto) 0.1 Baso # (Auto) 0.0 Immature Gran # (Auto) 0.01 H Absolute Nucleated RBC 0.00 Immature Gran % 0 Nucleated RBC % 0 Sodium 142 Potassium 3.7 Chloride 100 Carbon Dioxide 28.5 Anion Gap 14 BUN 14 Creatinine 2.4 H D Estim Creat Clear Calc Not Performed. eGFR 20 L BUN/Creatinine Ratio 6 L Glucose 93 Calculated Osmolality 283 Calcium 8.5 Corrected Calcium 9.0 Phosphorus 3.3 Magnesium 2.0 Total Bilirubin 1.1 AST 163 H ALT 128 H Alkaline Phosphatase 126 H Total Protein 5.7 Albumin 3.4 Globulin 2.3 Albumin/Globulin Ratio 1.5 Assessment & Plan Assessment and plan (1) Acute lower GI bleeding: Status: Acute (2) Pacemaker: Status: Acute (3) Coronary angioplasty status: Status: Acute (4) Peritoneal dialysis catheter dysfunction: Status: Acute (5) End stage renal failure on dialysis: Status: Acute Additional Assessment & Plan Additional Plan: 84-year-old female with ESRD on maintenance hemodialysis (T//Sat) admitted for GI bleed in the setting of CAD, pacemaker, and AFib on Brilinta/ASA. Tolerating dialysis well. Labs and hemodynamics stable. # ESRD on Hemodialysis Patient on maintenance HD T//Sat via left forearm AVF; tolerating well; last HD yesterday. Plan: * Continue scheduled hemodialysis sessions (next: Saturday). * Maintain AVF care; avoid IV sticks, BP in left arm. * Avoid nephrotoxic agents. * Monitor daily BMP and volume status. * Strict I/O and daily weights. # Normocytic Anemia of CKD Hgb 9.9 g/dL, stable from prior; likely chronic from ESRD and recent GI blood loss. Plan: * Monitor H/H trends daily. * Transfuse if Hgb <7 or symptomatic anemia. * Continue JESUS outpatient if indicated. * Colonoscopy today # Thrombocytopenia Platelets 81; chronic; stable trend. Plan: * Continue to monitor platelet count daily. * Transfuse if <10 or active bleeding. * Coordinate with GI/primary regarding bleeding risk. Other Problems: Management per primary team #GI bleed Managed by GI: hold Brilinta/ASA, plan for EGD/colonoscopy. #Multivessel CAD s/p stent: Continue cardiac meds as per Cardiology. #Atrial fibrillation s/p pacemaker: Rate controlled on amiodarone, metoprolol. #Type 2 Diabetes Mellitus: On basal insulin, SSI as per primary team. #Hypertension: Continue monitoring; currently stable. #Hypothyroidism: Continue levothyroxine. Quality - progress note Quality Measures Quality Measures: VTE prophylaxis Reason for Continued Stay Reason for Continued Stay: further monitoring
[2025-06-04] MEDS: METOPROLOL TARTRATE 25 MG TABLET 50 MG PO (12:19)
--- NOTE | 2025-06-04 12:51 | PC.SS ---
PRESCRIPTIONIST conducted bedside contact with the patient conduct initial assessment and to discuss discharge planning.? Patient confirmed demographic information.? Patient resides at home with daughter Cheryl Catalan [phone].? Patient utilizes a walker to assist with ambulation.? Patient possesses home oxygen.? Patient describes ability to complete ADL?s independently.? Patient identified daughter, Cheryl Catalan; as surrogate medical decision maker.? Patient?s PCP is Dr. Zhou.? Patient?s logistics director is Dr. Alvarado.? Patient participates with dialysis: [facility] Sat; schedule.? Patient?s optical instrument specialist is Dr. Gillette.? Patient utilizes [facility] for medication services.? Plan is for the patient to return home at the time of discharge.? Family will provide transportation on behalf of the patient.? No further discharge needs identified by the patient.? No further intervention required at this time, social sciences professor will be available to address any further concerns.? Next of Kin: Cheryl Catalan D/C Plan: Home
--- NOTE | 2025-06-04 12:53 | PC.SS ---
Patient confirmed no longer aligned with [facility].
--- NOTE | 2025-06-04 13:12 | ESPR_ITS ---
Documentation for date of: 06/04/25 Subjective - Hospitalist Subjective Interval history: No acute events overnight, hemoglobin remained stable Denies chest pain, shortness of breath, palpitations, dizziness. Review of Systems Review of Systems Narrative Review of Systems: Negative except as above Exam Vital Signs Temp Pulse Resp BP Pulse Ox O2 Del Method O2 Flow Rate 97.2 F 100 18 117/73 96 Room Air 2 06/04/25 12:00 06/04/25 12:19 06/04/25 12:00 06/04/25 12:19 06/04/25 12:00 06/04/25 12:00 06/04/25 06:39 Additional findings Additional findings: General: No acute distress, conversing Eye: PERRL, EOMI, normal conjunctiva, no scleral icterus HENT: Normocephalic, atraumatic, normal hearing, moist oral mucosa Neck: Supple, non-tender, no JVD, no lymphadenopathy Lungs: Clear to auscultation bilaterally, non-labored respirations, symmetric chest rise, no use of accessory muscles Heart: Normal S1 and S2. Tachy, known Afib. No murmurs, rubs gallops, or edema. Peripheral pulses intact bilaterally, capillary refill brisk distally Abdomen: Soft, TTP of RUQ, midline suprapubic and RLQ, bowel sounds present Musculoskeletal: Normal range of motion and strength, no tenderness or swelling Skin: Skin is warm, dry, no rashes or lesions. Left forearm fistula Neurologic: Alert, awake and oriented x3. No focal neuro deficits. No signs of meningeal irritation noted. Psychiatric: Cooperative, appropriate mood and affect Objective - Hospitalist Labs Diagram: 06/04/25 05:04 06/04/25 05:04 Labs: Laboratory Results - last 24 hr 06/04/25 05:04 WBC 3.9 RBC 3.27 L Hgb 10.4 L Hct 30.9 L MCV 95 MCH 31.8 MCHC 33.7 RDW Std Deviation 56.1 H Plt Count 80 L Neut % (Auto) 56 Lymph % (Auto) 31 [place] % (Auto) 11 Eos % (Auto) 1 Baso % (Auto) 1 Neut # (Auto) 2.2 Lymph # (Auto) 1.2 [place] # (Auto) 0.4 Eos # (Auto) 0.1 Baso # (Auto) 0.0 Immature Gran # (Auto) 0.01 H Absolute Nucleated RBC 0.00 Immature Gran % 0 Nucleated RBC % 0 Sodium 142 Potassium 3.7 Chloride 100 Carbon Dioxide 28.5 Anion Gap 14 BUN 14 Creatinine 2.4 H D Estim Creat Clear Calc Not Performed. eGFR 20 L BUN/Creatinine Ratio 6 L Glucose 93 Calculated Osmolality 283 Calcium 8.5 Corrected Calcium 9.0 Phosphorus 3.3 Magnesium 2.0 Total Bilirubin 1.1 AST 163 H ALT 128 H Alkaline Phosphatase 126 H Total Protein 5.7 Albumin 3.4 Globulin 2.3 Albumin/Globulin Ratio 1.5 Assessment & Plan Plan: An 84 y/o female with PMH multivessel CAD s/p stent placement (most recently 12/31/2024 at [facility]), status post pacemaker on 01/01/2025 at [facility], a-fib on Brillinta and ASA, ESRD on HD on (follows Dr. Alvarado), HFpEF, type 2 diabetes mellitus, and hypertension presented to ED with melena and admitted for lower GI bleed evaluation and management. Hemoglobin stabilized after initial transfusions. Further evaluation did reveal concern for proctitis for which GI scheduled a colonoscopy today. Remained hemodynamically stable, hemoglobin around 10. Scheduled for colonoscopy today -Continue statin therapy, aspirin and Brilinta for recent PCI -Continue amiodarone 200 mg daily, metoprolol 50 mg twice daily, not on anticoagulation due to recent GI bleed - Had dialysis yesterday, continue hemodialysis schedule. - Continue monitoring LFTs, CBD normal size - Consult cardiology regarding switching antiarrhythmic/ CV due to elevated LFTs unable to keep sinus rhythm -Continue SSI, levothyroxine, trazodone - Follow-up outpatient for enlarged ovaries incidentally found on CT Time Spent with Patient Time: Total time spent is greater than 50% in coordination of care (as documented) at patient's floor/unit and/or counseling patient: Time with patient: Greater than 35 minutes Reason for Continued Stay Reason for continued stay: further dx testing Quality Measures Quality Measures VTE prophylaxis Advance care planning discussed with:: patient
--- NOTE | 2025-06-04 14:48 | ESPR_ITS ---
Documentation for date of: 06/04/25 Subjective Subjective Interval history: pt denies cardiac symptoms prior CAD / PCI Exam Vital Signs Temp Pulse Resp BP Pulse Ox O2 Del Method O2 Flow Rate 97.2 F 100 18 117/73 96 Room Air 2 06/04/25 12:00 06/04/25 12:19 06/04/25 12:00 06/04/25 12:19 06/04/25 12:00 06/04/25 12:00 06/04/25 06:39 Routine HEENT Exam Head: Present normocephalic and atraumatic Eye: Present EOMI and PERRL ENT: Present mucous membranes moist Routine Neck Exam Neck: Present supple and trachea midline Routine Respiratory Exam Respiratory: Present chest non-tender, lungs clear, normal breath sounds and no resp distress Routine Cardiovascular Exam Cardiovascular: Present RRR Routine Abdominal Exam Abdominal: Present soft and normoactive bowel sounds Routine Extremities Exam Extremities: Present full ROM Routine Skin Exam Skin: Present intact, dry and warm Routine Neurological Exam Neurological: Present alert, oriented X3 and CN II-XII intact Routine Psychiatric Exam Psychiatric: Present normal affect and normal thought process Objective Labs 06/04/25 05:04 06/04/25 05:04 Labs: Laboratory Results - last 24 hr 06/04/25 05:04 WBC 3.9 RBC 3.27 L Hgb 10.4 L Hct 30.9 L MCV 95 MCH 31.8 MCHC 33.7 RDW Std Deviation 56.1 H Plt Count 80 L Neut % (Auto) 56 Lymph % (Auto) 31 [place] % (Auto) 11 Eos % (Auto) 1 Baso % (Auto) 1 Neut # (Auto) 2.2 Lymph # (Auto) 1.2 [place] # (Auto) 0.4 Eos # (Auto) 0.1 Baso # (Auto) 0.0 Immature Gran # (Auto) 0.01 H Absolute Nucleated RBC 0.00 Immature Gran % 0 Nucleated RBC % 0 Sodium 142 Potassium 3.7 Chloride 100 Carbon Dioxide 28.5 Anion Gap 14 BUN 14 Creatinine 2.4 H D Estim Creat Clear Calc Not Performed. eGFR 20 L BUN/Creatinine Ratio 6 L Glucose 93 Calculated Osmolality 283 Calcium 8.5 Corrected Calcium 9.0 Phosphorus 3.3 Magnesium 2.0 Total Bilirubin 1.1 AST 163 H ALT 128 H Alkaline Phosphatase 126 H Total Protein 5.7 Albumin 3.4 Globulin 2.3 Albumin/Globulin Ratio 1.5 Assessment & Plan A&P Narrative Rapid atrial fibrillation heart rate improved continue metoprolol / amiodarone ASA / Brilinta not on anticoagulation due to GI bleed Time Spent With Patient Time: Total time spent is greater than 50% in coordination of care (as documented) at patient's floor/unit and/or counseling patient:
[2025-06-04] MEDS: VANCOMYCIN/NS 500 MG IVPB 100 ML 120 MG IV (17:23)
[2025-06-04] MEDS: SODIUM CHLORIDE 0.9% 500 ML 500 ML 10 ML IV (18:00)
--- NOTE | 2025-06-04 18:47 | SUR.PHASEI ---
184: received pt from OR via g[facility]. received report from MADELINE Degroot. pt arousable but drifts back to sleep.
--- NOTE | 2025-06-04 19:11 | SUR.PHASEI ---
1910: Report given to MADELINE Patel.
--- NOTE | 2025-06-04 19:17 | SUR.PHASEI ---
1847: no s/s of resp. distress or discomfort. no s/s of pain or discomfort.
--- NOTE | 2025-06-04 19:18 | SUR.PHASEI ---
191: pt transferred back to room 276 via [facility]. pt alert and oriented. no s/s of resp. distress or discomfort. no s/s of pain or discomfort.
[2025-06-05] VITALS (34 sets, daily range): BP systolic 91–153; BP diastolic 55–100; PULSE 57–123; RESP 12–99; TEMP 36.1–36.4; O2SAT 92–100
[2025-06-05] MEDS: METOPROLOL TARTRATE 25 MG TABLET 50 MG PO (00:48)
--- NOTE | 2025-06-05 07:07 | ESPR_ITS ---
Documentation for date of: 06/05/25 Subjective Subjective Interval history: Reason for consult: ESRD on HD History of present illness: 84-year-old female with a history of multivessel CAD s/p stent placement (most recently 12/31/[address] [facility]), status post pacemaker on 01/01/2025, atrial fibrillation on Brilinta and ASA, ESRD on hemodialysis (Saturday, , Saturday schedule, follows Dr. Alvarado), type 2 diabetes mellitus, and hypertension. She presented to the ED on 06/02/2025 with 2 days of blood in stool. She reported noticing a blood clot in the toilet, followed by several episodes of bright red blood on tissue paper and dark red/black stools. She denied vomiting, hematemesis, or diarrhea. Associated symptoms included mild suprapubic abdominal pain and nausea without vomiting. CT abdomen/pelvis showed gastritis, mildly enlarged common bile duct, and rectal wall thickening consistent with proctitis. GI was consulted for further evaluation. She remains hemodynamically stable. Nephrology was reconsulted for continuation of dialysis management as she is an established ESRD patient on maintenance hemodialysis. 06/03/2025: Patient was seen today during dialysis. Yesterday was her scheduled session (Saturday//Saturday schedule). She was tolerating dialysis well without any complaints. BP 139/80, HR 85. Labs: WBC 4, Hgb 9.9, Hct 30, Plt 81, Na 142, K 4, Cl 102, CO2 29, BUN 29, Cr 3.1, Ca 8.6, Mg 2.2. She remains stable, denies shortness of breath, chest pain, nausea, or dizziness. 06/05/2025 patient going for dialysis today. Had colonoscopy. Pending EGD today denies any chest pain, shortness of breath. Anxious to go home. Review of Systems Review of Systems Narrative Review of Systems: CONSTITUTIONAL: Patient denies any fever, chills. Complaining of fatigue HEENT: Denies any visual disturbances or hearing problems. CARDIOVASCULAR: Patient denies any chest pain, shortness of breath, swelling in the lower extremities. PULMONARY: Patient denies any shortness of breath, cough. GASTROINTESTINAL: Patient denies any abdominal pain, constipation, nausea, vomiting, diarrhea. No blood in the stools complaining of gait imbalance GENITOURINARY: Patient denies any urinary symptoms of burning or frequency or hematuria, denies any form in the urine. SKIN: Denies any rash. MUSCULOSKELETAL: Denies any muscular skeletal problems of joint pains. NEUROLOGICAL: Denies any neurological problems of strokes, seizures or confusion. Denies any memory problems. PSYCHIATRIC: Denies any depression or anxiety. LYMPHATICS : No lymphadenopathy Exam Vital Signs Temp Pulse Resp BP Pulse Ox O2 Del Method O2 Flow Rate 36.4 C 95 18 121/77 98 Room Air 2 06/05/25 04:00 06/05/25 04:00 06/05/25 04:00 06/05/25 04:00 06/05/25 04:00 06/05/25 04:00 06/04/25 22:18 Narrative Exam General: Awake, alert, oriented ?3, no acute distress. HEENT: Normocephalic, atraumatic, moist mucous membranes, no scleral icterus. Neck: Supple, no JVD, no lymphadenopathy. Lungs: Clear to auscultation bilaterally, non-labored respirations. Heart: Regular rate and rhythm, normal S1/S2, no murmurs, rubs, or gallops. Abdomen: Soft, non-distended, mild suprapubic tenderness, bowel sounds present. Extremities: No edema, pulses 2+ bilaterally. Access: Left forearm AV fistula with good thrill and bruit. Neuro: No focal deficits, speech clear, follows commands. Skin: Warm, dry, no rash, no petechiae. Objective Labs 06/06/25 08:52 06/06/25 08:52 Assessment & Plan Assessment and plan (1) Acute lower GI bleeding: Status: Acute (2) Pacemaker: Status: Acute (3) Coronary angioplasty status: Status: Acute (4) Peritoneal dialysis catheter dysfunction: Status: Acute (5) End stage renal failure on dialysis: Status: Acute Additional Assessment & Plan Additional Plan: 84-year-old female with ESRD on maintenance hemodialysis (T//Sat) admitted for GI bleed in the setting of CAD, pacemaker, and AFib on Brilinta/ASA. Tolerating dialysis well. Labs and hemodynamics stable. # ESRD on Hemodialysis Patient on maintenance HD T//Sat via left forearm AVF; tolerating well Plan: * Patient currently seen on dialysis. Tolerating dialysis without any problems. Hemodialysis for 3 hours, 2K, ultrafiltration 2-3 L, Epogen 6000, no heparin ordered. Plan of care discussed with the dialysis nurse. Please see dialysis flowsheet for further details. * Maintain AVF care; avoid IV sticks, BP in left arm. * Avoid nephrotoxic agents. * Monitor daily BMP and volume status. * Strict I/O and daily weights. # Normocytic Anemia of CKD Hgb 9.9 g/dL, stable from prior; likely chronic from ESRD and recent GI blood loss. Plan: * Monitor H/H trends daily. * Transfuse if Hgb <7 or symptomatic anemia. * Continue JESUS outpatient if indicated. * Colonoscopy done. An EGD today # Thrombocytopenia Platelets 81; chronic; stable trend. Plan: * Continue to monitor platelet count daily. * Transfuse if <10 or active bleeding. * Coordinate with GI/primary regarding bleeding risk. Other Problems: Management per primary team #GI bleed Managed by GI: hold Brilinta/ASA, plan for EGD. Status post colonoscopy. #Multivessel CAD s/p stent: Continue cardiac meds as per Cardiology. #Atrial fibrillation s/p pacemaker: Rate controlled on amiodarone, metoprolol. #Type 2 Diabetes Mellitus: On basal insulin, SSI as per primary team. #Hypertension: Continue monitoring; currently stable. #Hypothyroidism: Continue levothyroxine. Care discussed with daughter at bedside
[2025-06-05 08:09] LABS: Basophils # (Auto) 0.0 Thou/mm3 (0.0-0.2); Basophils % (Auto) 1 % (0-2.5); Eosinophils # (Auto) 0.0 Thou/mm3 (0.0-0.5); Eosinophils % (Auto) 0 % (0-10); Hematocrit 35.0 % (36.0-46.0); Hemoglobin 11.5 g/dL (12.0-16.0); Immature Granulocytes Auto 0.02 Thou/mm3 (0.00-0.00); Lymphocytes # (Auto) 1.2 Thou/mm3 (1.0-4.8); Lymphocytes % (Auto) 23 % (10-50); Mean Corpuscular HGB Conc 32.9 g/dl (31.0-37.0); Mean Corpuscular Hemoglobin 31.6 pg (25.0-35.0); Mean Corpuscular Volume 96 fL (80-100); Monocytes # (Auto) 0.4 Thou/mm3 (0.0-0.8); Monocytes % (Auto) 7 % (0-12); Neutrophils # (Auto) 3.6 Thou/mm3 (1.8-7.7); Neutrophils % (Auto) 69 % (37-80); Nucleated Red Blood Cell # 0.00 Thou/mm3 (0.00-0.00); Nucleated Red Blood Cell % 0 /100 WBC (0); Platelet Count 98 Thou/mm3 (140-440); RDW Standard Deviation 57.5 fL (36.4-46.3); Red Blood Count 3.64 Miln/mm3 (4.00-5.20); White Blood Count 5.2 Thou/mm3 (3.6-11.0)
[2025-06-05 08:28] LABS: Alanine Aminotransferase 91 U/L (10-49); Albumin, Serum 3.9 gm/dL (3.4-4.8); Albumin/Globulin Ratio 1.5 (1.2-2.2); Alkaline Phosphatase 141 U/L (46-116); Anion Gap 12 (7-16); Aspartate Amino Transferase 78 U/L (0-34); BUN/Creatinine Ratio 6 Ratio (12-20); Bilirubin,Total 1.0 mg/dL (0.3-1.2); Blood Urea Nitrogen 21 mg/dL (9-23); Calcium 9.1 mg/dL (8.3-10.6); Calcium (Corrected) 9.2 mg/dL (8.5-10.1); Carbon Dioxide 27.4 mMol/L (20.0-31.0); Chloride 101 mMol/L (98-107); Creatinine (Component) 3.5 mg/dL (0.6-1.3); Globulin 2.6 gm/dL (2.3-3.5); Glucose 137 mg/dL (74-106); Magnesium 2.2 mg/dL (1.6-2.6); Osmolality,Calculated 284 (275-295); Phosphorous 3.2 mg/dL (2.4-5.1); Potassium 4.4 mMol/L (3.4-5.1); Sodium 140 mMol/L (136-145); Total Protein 6.5 gm/dL (5.7-8.2); eGFR 12 See Note
--- NOTE | 2025-06-05 09:59 | SUR.PHASEI ---
pt received from OR in recovery bay 1. pt asleep but responds to voice, breathing unlabored on room air. v/s stable. report received from Ananya Mckeon.
--- NOTE | 2025-06-05 10:25 | SUR.PHASEI ---
pt awake and alert, breathing unlabored on room air. v/s stable. report called to Esther Mckeon. pt will be transferred back to room at this time.
[2025-06-05] MEDS: ATORVASTATIN CALCIUM 20 MG TABLET 80 MG PO (11:13)
[2025-06-05] MEDS: TICAGRELOR 90 MG TABLET PO ×2 (11:13→20:09)
[2025-06-05] MEDS: ASPIRIN 81 MG CHEW PO (11:13)
[2025-06-05] MEDS: DOCUSATE SOD 100 MG CAPSULE PO (11:15)
[2025-06-05] MEDS: LEVOTHYROXINE SODIUM 25 MCG TABLET 50 MCG PO (11:15)
--- NOTE | 2025-06-05 12:52 | PD.HHPROG ---
Documentation for date of: 06/05/25 Subjective - Hospitalist Subjective Interval history: Remained hemodynamically stable. No complaint of chest pain, abdominal pain, nausea vomiting or diarrhea. Had colonoscopy yesterday no biopsies were taken, mild colonic iatrogenic injury during colonoscopy Review of Systems Review of Systems Narrative Review of Systems: Negative except as above Exam Vital Signs Temp Pulse Resp BP Pulse Ox O2 Del Method O2 Flow Rate 97.6 F 101 H 18 110/56 L 100 Room Air 3 06/05/25 12:13 06/05/25 12:45 06/05/25 12:13 06/05/25 12:45 06/05/25 12:13 06/05/25 12:00 06/05/25 09:50 Additional findings Additional findings: General: No acute distress, conversing Eye: PERRL, EOMI, normal conjunctiva, no scleral icterus HENT: Normocephalic, atraumatic, normal hearing, moist oral mucosa Neck: Supple, non-tender, no JVD, no lymphadenopathy Lungs: Clear to auscultation bilaterally, non-labored respirations, symmetric chest rise, no use of accessory muscles Heart: Normal S1 and S2. Tachy, known Afib. No murmurs, rubs gallops, or edema. Peripheral pulses intact bilaterally, Abdomen: Soft, TTP of RUQ, midline suprapubic and RLQ, bowel sounds present Musculoskeletal: Normal range of motion and strength, no tenderness or swelling Skin: Skin is warm, dry, no rashes or lesions. Left forearm fistula Neurologic: Alert, awake and oriented x3. No focal neuro deficits. No signs of meningeal irritation noted. Psychiatric: Cooperative, appropriate mood and affect Objective - Hospitalist Labs Diagram: 06/05/25 07:45 06/05/25 07:45 Labs: Laboratory Results - last 24 hr 06/05/25 07:45 WBC 5.2 RBC 3.64 L Hgb 11.5 L Hct 35.0 L MCV 96 MCH 31.6 MCHC 32.9 RDW Std Deviation 57.5 H Plt Count 98 L D Neut % (Auto) 69 Lymph % (Auto) 23 [place] % (Auto) 7 Eos % (Auto) 0 Baso % (Auto) 1 Neut # (Auto) 3.6 Lymph # (Auto) 1.2 [place] # (Auto) 0.4 Eos # (Auto) 0.0 Baso # (Auto) 0.0 Immature Gran # (Auto) 0.02 H Absolute Nucleated RBC 0.00 Immature Gran % 0 Nucleated RBC % 0 Sodium 140 Potassium 4.4 D Chloride 101 Carbon Dioxide 27.4 Anion Gap 12 BUN 21 Creatinine 3.5 H D Estim Creat Clear Calc Not Performed. eGFR 12 L* BUN/Creatinine Ratio 6 L Glucose 137 H Calculated Osmolality 284 Calcium 9.1 Corrected Calcium 9.2 Phosphorus 3.2 Magnesium 2.2 Total Bilirubin 1.0 AST 78 H ALT 91 H Alkaline Phosphatase 141 H Total Protein 6.5 Albumin 3.9 D Globulin 2.6 Albumin/Globulin Ratio 1.5 Assessment & Plan Plan: An 84 y/o female with PMH multivessel CAD s/p stent placement (most recently 12/31/2024 at [facility]), status post pacemaker on 01/01/2025 at [facility], a-fib on Brillinta and ASA, ESRD on HD on (follows Dr. Alvarado), HFpEF, type 2 diabetes mellitus, and hypertension presented to ED with melena and admitted for lower GI bleed evaluation and management. Hemoglobin stabilized after initial transfusions. Further evaluation did reveal concern for proctitis for which patient had colonoscopy on 06/04/2025 without any significant findings however a minor traumatic injury to colon during the procedure. Patient is scheduled for endoscopy today for evaluation of upper gastrointestinal blood loss. LFTs slightly improved Remained hemodynamically stable, hemoglobin around 10. Scheduled for EGD today -Continue statin therapy, aspirin and Brilinta for recent PCI -Continue amiodarone 200 mg daily, metoprolol 50 mg twice daily, not on anticoagulation due to recent GI bleed -If EGD and colonoscopy remain unremarkable, and GI is okay, will start on anticoagulation for AF - Scheduled for hemodialysis session today, continue hemodialysis schedule. - Continue monitoring LFTs, CBD normal size - Consult cardiology regarding switching antiarrhythmic/ CV due to elevated LFTs unable to keep sinus rhythm - Continue SSI, levothyroxine, trazodone - Follow-up outpatient for enlarged ovaries incidentally found on CT IPC's for DVT prophylaxis. Time Spent with Patient Time: Total time spent is greater than 50% in coordination of care (as documented) at patient's floor/unit and/or counseling patient: Time with patient: 25 - 35 minutes Reason for Continued Stay Reason for continued stay: further monitoring, further dx testing and surgical intervention Quality Measures Quality Measures VTE prophylaxis Advance care planning discussed with:: patient
[2025-06-06] VITALS (10 sets, daily range): BP systolic 98–134; BP diastolic 58–84; PULSE 80–110; RESP 18–98; TEMP 36.1–36.6; O2SAT 97–100
[2025-06-06] MEDS: METOPROLOL TARTRATE 25 MG TABLET 50 MG PO ×2 (00:54→11:39)
[2025-06-06 06:11] LABS: Phosphorous 3.0 mg/dL (2.4-5.1)
[2025-06-06] MEDS: TICAGRELOR 90 MG TABLET PO (09:36)
[2025-06-06] MEDS: AMIODARONE HCL 200 MG TABLET PO (09:36)
[2025-06-06] MEDS: DOCUSATE SOD 100 MG CAPSULE PO (09:36)
[2025-06-06] MEDS: ATORVASTATIN CALCIUM 20 MG TABLET 80 MG PO (09:36)
[2025-06-06] MEDS: LEVOTHYROXINE SODIUM 25 MCG TABLET 50 MCG PO (09:38)
[2025-06-06] MEDS: ASPIRIN 81 MG CHEW PO (09:38)
[2025-06-06 09:53] LABS: Basophils # (Auto) 0.0 Thou/mm3 (0.0-0.2); Basophils % (Auto) 1 % (0-2.5); Eosinophils # (Auto) 0.1 Thou/mm3 (0.0-0.5); Eosinophils % (Auto) 1 % (0-10); Hematocrit 33.4 % (36.0-46.0); Hemoglobin 11.3 g/dL (12.0-16.0); Immature Granulocytes Auto 0.01 Thou/mm3 (0.00-0.00); Lymphocytes # (Auto) 1.2 Thou/mm3 (1.0-4.8); Lymphocytes % (Auto) 25 % (10-50); Mean Corpuscular HGB Conc 33.8 g/dl (31.0-37.0); Mean Corpuscular Hemoglobin 32.1 pg (25.0-35.0); Mean Corpuscular Volume 95 fL (80-100); Monocytes # (Auto) 0.5 Thou/mm3 (0.0-0.8); Monocytes % (Auto) 9 % (0-12); Neutrophils # (Auto) 3.2 Thou/mm3 (1.8-7.7); Neutrophils % (Auto) 64 % (37-80); Nucleated Red Blood Cell # 0.00 Thou/mm3 (0.00-0.00); Nucleated Red Blood Cell % 0 /100 WBC (0); Platelet Count 106 Thou/mm3 (140-440); RDW Standard Deviation 57.1 fL (36.4-46.3); Red Blood Count 3.52 Miln/mm3 (4.00-5.20); White Blood Count 4.9 Thou/mm3 (3.6-11.0)
[2025-06-06 10:57] LABS: Anion Gap 13 (7-16); Carbon Dioxide 27.3 mMol/L (20.0-31.0); Chloride 100 mMol/L (98-107); Potassium 3.7 mMol/L (3.4-5.1); Sodium 140 mMol/L (136-145)
[2025-06-06 10:58] LABS: Alanine Aminotransferase 60 U/L (10-49); Albumin, Serum 3.7 gm/dL (3.4-4.8); Albumin/Globulin Ratio 1.4 (1.2-2.2); Alkaline Phosphatase 133 U/L (46-116); Aspartate Amino Transferase 48 U/L (0-34); BUN/Creatinine Ratio 4 Ratio (12-20); Bilirubin,Total 1.0 mg/dL (0.3-1.2); Blood Urea Nitrogen 12 mg/dL (9-23); Calcium 8.7 mg/dL (8.3-10.6); Calcium (Corrected) 8.9 mg/dL (8.5-10.1); Creatinine (Component) 3.2 mg/dL (0.6-1.3); Globulin 2.6 gm/dL (2.3-3.5); Glucose 194 mg/dL (74-106); Osmolality,Calculated 284 (275-295); Total Protein 6.3 gm/dL (5.7-8.2); eGFR 14 See Note
--- NOTE | 2025-06-06 11:02 | PC.SS ---
follow up note: left mss with daughter, Janet, to clarify d/c with HH services. Previous notes indicate patient is no longer with [facility]. D/c orders placed for HH
--- NOTE | 2025-06-06 11:05 | ESDS_ITS ---
<Statement entered by Wilma Zarate DO - 06/07/25 08:55> I, Wilma Zarate DO, attest that I was physically present for the croft portions of the service and evaluated the patient with the resident and I reviewed and discussed the case with the resident and agree with the resident's findings and plans of care as documented above Case discussed with cardiology and recommends continuation of DAPT as patient was unable to tolerate eliquis due to GIB. Discussed with daughter and patient at bedside regarding risks of bleeding with use of both DAPT and anticoagulation, with which they verbalized understanding and stated that they had discussed this with cardiology in the past as well. Patient states she is feeling well and tolerating PO intake. Results of both EGD and colonoscopy were reviewed with patient and daughter at bedside. H/H is stable and patient has been hemodynamically stable. She is to continue with DAPT due to recent stent placement. Patient is stable to be discharged home and f/u with PCP in 1 week. All questions and concerns addressed at bedside. <Statement entered by Paige Cabrera MD - 06/06/25 15:46> Patient is 84-year-old female with past medical history of coronary artery disease status post stent placement (most recently 12/31/2024 at [facility]), status post pacemaker on 01/01/2025 at [facility], a-fib on Brillinta and ASA, ESRD on HD on (follows Dr. Alvarado), HFpEF, type 2 diabetes mellitus, and hypertension presented to ED with melena and admitted for GI bleed evaluation and management. Hemoglobin was stable on initial presentation, however patient was complaining of melena and was admitted for further workup. GI was consulted, patient had a colonoscopy which revealed internal hemorrhoids, 2 bleeding colonic angiodysplastic lesions, treated with bipolar cautery. To assess further GI tract bleeding EGD was performed which revealed esophagitis, gastritis, erythematous duodenopathy, no active bleeding was noted. GI cleared from his standpoint patient to be discharged. Cardiology was contacted, given the history of recent PCI and history of A-fib on Eliquis, decision was made to hold Eliquis, and continue Brilinta and aspirin only given the high risk of rebleeding. Patient will be discharged home today, continue the rest of the home medication as prescribed, follow-up with cardiology for further recs. Follow-up with GI doctor in 1 to 2 weeks after discharge. Follow-up with PCP 1 to 2 weeks after discharge. Follow-up with the discharge instruction below. All the questions and concerns were addressed. Patient verbalized understanding. I discussed with and supervised the recording studio internship physician who took care of this patient. I personally saw and examined the patient and discussed the assessment and plan with the entire medicine team, including my attending , I agree with the assessment and plan as documented below Paige Cabrera M.D. PGY-3 Disclaimer: Despite multiple revisions, due to the dictation software being used, the document bellow may not be free of grammatical errors including phonetic/typographic errors. However, this does not deter from our commitment to providing health care in the patient's best interest in mind. Planned Discharge Date 06/06/25 DS: Providers Provider Date of admission: 06/03/25 00:08 Primary care physician: Fanny Zhou MD Admitting Provider: Armando Bean MD Attending Provider on Admission: Cassidy Molina MD Consults: 06/03/25 00:18 Consult to Cardiology Stat Comment: Consulting Provider: Iliana Moore Consult to Nephrology Stat Comment: Consulting Provider: José Alvarado 06/03/25 00:19 Consult to Gastroenterology Stat Comment: Consulting Provider: May Mckenzie 06/03/25 14:11 Referral Physical Therapy Routine Comment: Physician Instructions: Attending Provider on DC: Wilma Zarate MD Discharging Provider: Wilma Zarate MD DS: Diagnosis Problem List Completed Was Problem List Reviewed/Reconciled?: Yes Hospital Course Hospital Course Hospital course: 84-year-old female with a past medical history significant for coronary artery disease status post PCI with stent placement (most recently 12/31/2024 at [facility]), status post pacemaker placement (01/01/2025 at [facility]), atrial fibrillation on Brilinta and aspirin, ESRD on hemodialysis (//Sat, follows Dr. Alvarado), HFpEF, type 2 diabetes mellitus, and hypertension, presented with melena and was admitted for GI bleed evaluation and management. Hemoglobin was stable on admission; however, due to ongoing melena, she underwent GI workup. Colonoscopy revealed internal hemorrhoids and two actively bleeding colonic angiodysplastic lesions, which were successfully treated with bipolar cautery. EGD showed esophagitis, gastritis, and erythematous duodenopathy without evidence of active bleeding. GI cleared the patient for discharge once clinically stable. Cardiology was consulted due to the history of recent PCI and atrial fibrillation on dual antiplatelet therapy plus Eliquis; given the high risk of rebleeding, the decision was made to hold Eliquis and continue Brilinta and aspirin. The patient remained hemodynamically stable during hospitalization, tolerated diet, and had no further bleeding episodes. She was discharged home with instructions to continue home medications except Eliquis, follow up with cardiology in 1?2 weeks for reassessment of anticoagulation, GI in 1?2 weeks, and PCP within 1?2 weeks. She was advised to monitor for any recurrent bleeding and to return to the ED if symptoms worsen. All questions and concerns were addressed, and the patient verbalized understanding of the discharge plan. Admission diagnoses: #GI bleed, upper (erythematous duadenopathy) and lower (bleeding angiodysplasia) #Normocytic anemia #Multivessel CAD S/p stent #Afib w/ RVR S/p pacemaker #ESRD on HD T//Sat #HFpEF #Mildly enlarged common bile duct #Insulin-dependent Type 2 diabetes mellitus #Hypertension #Hypothyroidism #Thrombocytopenia #Constipation #Insomnia #Enlarged right ovary Case discussed with my attending Dr. Zarate, and senior resident, Dr. Deborah Murphy MD PGY-1 Status at Discharge Overall status at discharge: patient is progressing back to baseline Time Spent with Patient Time attestation: Total time spent providing and/or coordinating discharge services: Time spent: Greater than 30 minutes Exam Vital Signs Temp Pulse Resp BP Pulse Ox O2 Del Method O2 Flow Rate 97.0 F 90 19 100/58 L 97 Room Air 3 06/06/25 08:00 06/06/25 09:36 06/06/25 08:00 06/06/25 09:36 06/06/25 08:00 06/06/25 08:00 06/05/25 09:50 Narrative Exam General: No acute distress, conversing Eye: PERRL, EOMI, normal conjunctiva, no scleral icterus HENT: Normocephalic, atraumatic, normal hearing, moist oral mucosa Neck: Supple, non-tender, no JVD, no lymphadenopathy Lungs: Clear to auscultation bilaterally, non-labored respirations, symmetric chest rise, no use of accessory muscles Heart: Known Afib. Peripheral pulses intact bilaterally, capillary refill brisk distally Abdomen: Soft, non-tender, bowel sounds present Musculoskeletal: Normal range of motion and strength, no tenderness or swelling Skin: Skin is warm, dry, no rashes or lesions. Left forearm fistula Neurologic: Alert, awake and oriented x3. CN II-XII grossly intact. No focal neuro deficits. No signs of meningeal irritation noted. Psychiatric: Cooperative, appropriate mood and affect Discharge Plan Plan Patient Disposition: Home w/HOME HEALTH Patient condition on transfer: Stable Care Plan Goals: You were admitted for a suspected gastrointestinal (GI) bleed, but no active bleeding source was found on your tests (endoscopy, colonoscopy, labs). You are now stable for discharge and will resume your home medications under close monitoring. Aspirin: Resume your usual dose( 81mg daily) Brilinta: Resume your usual dose Eliquis (Apixaban):discontinue due to GI bleed Stomach Protection: Consider Protonix (Pantoprazole) or similar if prescribed, to reduce future GI risk. Do not stop or adjust any medications without talking to your doctor. Resume your regular diet. To reduce GI irritation:Limit caffeine, spicy foods, and alcohol.Do not use NSAIDs like ibuprofen or naproxen Continue your dialysis schedule as normal Follow your fluid and sodium restrictions Monitor your weight daily and report: Weight gain >2 kg in 24 hours.Swelling or shortness of breath Returne to ED anytime Black or tarry stools Vomiting blood or material that looks like coffee grounds Dizziness or fainting Chest pain or shortness of breath Bleeding from your dialysis access site Follow up: With Gastroenterology in 1-2 weeks after discharge nephrology/dialysis: as per scheduled cardiology/nephrology: follow up in 1-2 weeks follow up with PCP in 1-2 weeks Prescriptions/Referrals Prescriptions/Med Rec: Continued levothyroxine 50 mcg tablet 1 tab PO DAILY tramadol 50 mg Tablet 50 mg PO Q8H PRN (Reason: Pain) albuterol sulfate 90 mcg/actuation HFA aerosol inhaler 1 puff INHALATION Q4HR PRN (Reason: BREATHING) Patient Comments: inhale 1 puff by mouth and INTO THE LUNGS every 4 hours if needed lactulose [Constulose] 10 gram/15 mL solution 30 ml PO TID PRN (Reason: Constipation) Rx Instructions: UP TO 3X A DAY NEEDED FOR CONTIPATION Emgality Pen 120 mg/mL pen injector 120 mg SUBCUT Q1M Trulicity 1.5 mg/0.5 mL pen injector 0.5 mg SUBCUT QWEEK Patient Comments: INJECT 1.5MG SUBCUTANEOUSLY ONCE A WEEK amiodarone 200 mg Tablet 200 mg PO DAILY Qty: 30 0RF ticagrelor [Brilinta] 90 mg tablet 90 mg PO BID metoprolol tartrate 50 mg tablet 50 mg PO Q12H Patient Comments: TAKE 1 TABLET BY MOUTH TWICE A DAY WITH MEALS trazodone 50 mg tablet 50 mg PO .QHS Patient Comments: TAKE 1 TABLET BY MOUTH EVERY EVENING lorazepam 0.5 mg tablet 0.5 mg PO [id number] PRN (Reason: anxiety) Patient Comments: TAKE 1 TABLET (0.5MG) BY MOUTH EVERY 6 HOURS NEEDED FOR ANXIETY docusate sodium 100 mg Tablet 100 mg PO DAILY aspirin 81 mg tablet,chewable 1 tab PO DAILY atorvastatin 80 mg tablet 80 mg PO DAILY Patient Comments: take 1 tablet by mouth once daily furosemide [Lasix] 40 mg tablet 40 mg PO QDAY nitroglycerin 0.4 mg tablet, sublingual See Rx Instructions BUCCAL .COMPLEX Patient Comments: place 1 tablet under the tongue AT FIRST SIGN OF ATTACK; DECEMBER REPE... (REFER TO PRESCRIPTION NOTES). Rx Instructions: buccally; insulin glargine U-300 conc [Toujeo Max U-300 SoloStar] 300 unit/mL (3 mL) insulin pen 14 unit subcut Q24H Discontinued Eliquis 2.5 mg tablet 2.5 mg PO BID Referrals: May Mckenzie MD [Physician, Gastroenterology] Fanny Zhou MD [Primary Care Provider, Family Practice] Iliana Moore MD [Physician, Cardiology] Patient/Caregiver Discharge Instructions Education Materials: Bleeding Gastrointestinal Print Language: Albanian Stand Alone Forms: Rachel Award Info., Patient Portal Info Letter, Work/Release Restrictions Discharge Order Discharge Orders: Discharge (Routine); Ordered 06/06/25 Ordered By: Paige Cabrera Quality Discharge Quality Measures VTE prophylaxis
[2025-06-06] MEDS: INSULIN LISPRO (AdmeLOG) 1 UNIT/0.01 ML UNIT SC (11:39)
--- NOTE | 2025-06-06 12:13 | ESPR_ITS ---
Documentation for date of: 06/06/25 Subjective Subjective Interval history: Reason for consult: ESRD on HD History of present illness: 84-year-old female with a history of multivessel CAD s/p stent placement (most recently 12/31/2024 at [facility]), status post pacemaker on 01/01/2025, atrial fibrillation on Brilinta and ASA, ESRD on hemodialysis (Saturday, , Saturday schedule, follows Dr. Alvarado), type 2 diabetes mellitus, and hypertension. She presented to the ED on 06/02/2025 with 2 days of blood in stool. She reported noticing a blood clot in the toilet, followed by several episodes of bright red blood on tissue paper and dark red/black stools. She denied vomiting, hematemesis, or diarrhea. Associated symptoms included mild suprapubic abdominal pain and nausea without vomiting. CT abdomen/pelvis showed gastritis, mildly enlarged common bile duct, and rectal wall thickening consistent with proctitis. GI was consulted for further evaluation. She remains hemodynamically stable. Nephrology was reconsulted for continuation of dialysis management as she is an established ESRD patient on maintenance hemodialysis. 06/03/2025: Patient was seen today during dialysis. Yesterday was her scheduled session (Saturday//Saturday schedule). She was tolerating dialysis well without any complaints. BP 139/80, HR 85. Labs: WBC 4, Hgb 9.9, Hct 30, Plt 81, Na 142, K 4, Cl 102, CO2 29, BUN 29, Cr 3.1, Ca 8.6, Mg 2.2. She remains stable, denies shortness of breath, chest pain, nausea, or dizziness. 06/04/2025 patient going for colonoscopy today. Denies any chest pain, shortness of breath. Anxious to go home. Dialysis scheduled for tomorrow. 06/06/2025: Patient seen and examined today. She is doing well, denies any complaints. Reports urinating multiple times yesterday with good urine output. No shortness of breath, chest pain, abdominal pain, or dizziness. She is planned for discharge today by the primary team. Labs: Hgb 11.3, Hct 33.4, Plt 106, Na 140, K 3.7, CO2 27.3, BUN 12, Cr 3.2 (from 3.5 yesterday), GFR 14. LFTs trending downward over the past few days. She continues to tolerate hemodialysis well; last session yesterday (Saturday). Exam Vital Signs Temp Pulse Resp BP Pulse Ox O2 Del Method O2 Flow Rate 97.8 F 98 18 126/75 97 Room Air 3 06/06/25 11:58 06/06/25 11:58 06/06/25 11:58 06/06/25 11:58 06/06/25 11:58 06/06/25 11:58 06/05/25 09:50 Narrative Exam General: Awake, alert, oriented ?3, no acute distress. HEENT: Normocephalic, moist mucous membranes, no scleral icterus. Neck: Supple, no JVD. Lungs: Clear to auscultation bilaterally, no crackles or wheezes. Heart: Regular rate and rhythm, normal S1/S2, no murmurs or rubs. Abdomen: Soft, non-tender, non-distended, bowel sounds present. Extremities: No edema; pulses palpable bilaterally. Access: Left forearm AV fistula with good thrill and bruit. Neuro: No focal deficits, follows commands appropriately. Skin: Warm, dry, no rash or bruising. Objective Labs 06/06/25 08:52 06/06/25 08:52 Labs: Laboratory Results - last 24 hr 06/06/25 06/06/25 04:53 08:52 WBC 4.9 RBC 3.52 L Hgb 11.3 L Hct 33.4 L MCV 95 MCH 32.1 MCHC 33.8 RDW Std Deviation 57.1 H Plt Count 106 L Neut % (Auto) 64 Lymph % (Auto) 25 [place] % (Auto) 9 Eos % (Auto) 1 Baso % (Auto) 1 Neut # (Auto) 3.2 Lymph # (Auto) 1.2 [place] # (Auto) 0.5 Eos # (Auto) 0.1 Baso # (Auto) 0.0 Immature Gran # (Auto) 0.01 H Absolute Nucleated RBC 0.00 Immature Gran % 0 Nucleated RBC % 0 Sodium 140 Potassium 3.7 D Chloride 100 Carbon Dioxide 27.3 Anion Gap 13 BUN 12 Creatinine 3.2 H Estim Creat Clear Calc Not Performed. eGFR 14 L* BUN/Creatinine Ratio 4 L Glucose 194 H D Calculated Osmolality 284 Calcium 8.7 Corrected Calcium 8.9 Phosphorus 3.0 Total Bilirubin 1.0 AST 48 H ALT 60 H Alkaline Phosphatase 133 H Total Protein 6.3 Albumin 3.7 Globulin 2.6 Albumin/Globulin Ratio 1.4 Quality Measures Quality Measures VTE prophylaxis Advance care planning discussed with:: patient Assessment & Plan Assessment Current Active Medications: Generic Name Dose Route Start Last Admin Trade Name Freq PRN Reason Stop Dose Admin Acetaminophen 650 mg 06/03/25 00:08 Acetaminophen 325 Mg Tablet PO 07/03/25 00:07 Q6H PRN Fever >100.3 Acetaminophen 650 mg 06/03/25 00:08 Acetaminophen 325 Mg Tablet PO 07/03/25 00:07 Q6H PRN PAIN SCALE 1-3 (mild Amiodarone HCl 200 mg 06/03/25 09:00 06/06/25 09:36 Amiodarone Hcl 200 Mg Tablet PO 07/03/25 08:59 200 mg DAILY ALL Administration Aspirin 81 mg 06/03/25 10:15 06/06/25 09:38 Aspirin 81 Mg Chew PO 07/03/25 10:14 81 mg DAILY ALL Administration Atorvastatin Calcium 80 mg 06/03/25 09:00 06/06/25 09:36 Atorvastatin Calcium 20 Mg Tablet PO 07/03/25 08:59 80 mg DAILY ALL Administration Dextrose 25 ml 06/03/25 00:22 Dextrose 50%-Water Inj 50 Ml Syringe IV 07/03/25 00:21 Q15MIN PRN BG 50-70 responsive npo pt Dextrose 50 ml 06/03/25 00:22 Dextrose 50%-Water Inj 50 Ml Syringe IV 07/03/25 00:21 Q15MIN PRN BG <50 OR BG <70 & pt unresponsive Docusate Sodium 100 mg 06/03/25 09:00 06/06/25 09:36 Docusate Sod 100 Mg Capsule PO 07/03/25 08:59 100 mg DAILY ALL Administration Furosemide 40 mg 06/03/25 09:00 Furosemide 40 Mg Tablet PO 07/03/25 08:59 On Hold: 06/03/25 09:00 QDAY ALL Glucagon 1 mg 06/03/25 00:22 Glucagon Inj 1 Mg Vial IM Q15MIN PRN BG <70, and no IV access Insulin Human Lispro 0 unit 06/05/25 12:00 06/06/25 11:39 Insulin Lispro (Admelog) 1 Unit/0.01 Ml Unit SC 07/03/25 00:29 2 unit ACHS ALL Administration Protocol Lactulose 20 gm 06/03/25 00:19 Lactulose Syrup 20 Gm/30 Ml Udc PO 07/03/25 00:18 TID PRN CONSTIPATION Protocol Levothyroxine Sodium 50 mcg 06/03/25 09:00 06/06/25 09:38 Levothyroxine Sodium 25 Mcg Tablet PO 07/03/25 08:59 50 mcg DAILY ALL Administration Metoprolol Tartrate 50 mg 06/03/25 00:30 06/06/25 11:39 Metoprolol Tartrate 25 Mg Tablet PO 07/03/25 00:29 50 mg Q12H ALL Administration Ticagrelor 90 mg 06/03/25 10:15 06/06/25 09:36 Ticagrelor 90 Mg Tablet PO 07/03/25 10:14 90 mg BID ALL Administration Trazodone HCl 50 mg 06/03/25 00:30 Trazodone Hcl 50 Mg Tablet PO 07/03/25 00:29 .Q ALL Plan 84-year-old female with ESRD on maintenance hemodialysis (), CAD s/p stent, AFib with pacemaker, HFpEF, and recent GI bleed. Now hemodynamically stable, post-colonoscopy/EGD, and tolerating dialysis well. Renal function improving; planned discharge today. # ESRD on Hemodialysis Stable on routine dialysis schedule () via left AV fistula. Last dialysis yesterday; tolerated well. Cr improved from 3.5 -> 3.2, patient reports increased urine output yesterday. Plan: * Continue outpatient dialysis as scheduled. * Maintain AVF care; avoid IV sticks or BP in left arm. * Avoid nephrotoxic agents. * Continue monitoring renal function as outpatient. * Encourage adequate oral intake, low-sodium renal diet. # Normocytic Anemia of CKD Hgb improved to 11.3 from 9.9 previously; stable after GI bleed. Plan: * Continue to monitor H/H. * No transfusion indicated. # Thrombocytopenia Platelets 106 today, improved from prior 81. Plan: * Continue trending CBC daily while inpatient. * Monitor for bleeding signs. # Electrolyte imbalance (resolved) Na 140, K 3.7, CO2 27.3 Stable post-dialysis. Plan: * No acute correction needed. * Recheck on next dialysis session. Other Problems: Management per primary team #GI bleed Managed by GI: S/p EGD and colonoscopy; no active source; stable H/H. #Multivessel CAD s/p stent: Continue cardiac meds as per Cardiology. #Atrial fibrillation s/p pacemaker: Rate controlled on amiodarone, metoprolol. #Type 2 Diabetes Mellitus: On basal insulin, SSI as per primary team. #Hypertension: Continue monitoring; currently stable. #Hypothyroidism: Continue levothyroxine. ----- Plan discussed with attending physician Dr. Christiano Hooks MD PGY-1 Internal Medicine Attending Provider Attestation/Addendum Patient seen and examined with resident physician Dr. Hooks. Note reviewed, agree with findings and recommendations. Renal bethea stable for discharge
--- NOTE | 2025-06-07 07:32 | PC.CM ---
Addendum entered by Kumar Tee RN 06/07/25 13:40: [facility]tagrac[facility] accepted and booked, soc 06/09 Original Note: [facility] ref sent out, waiting for response
== END 2025-06-06 13:00 | disposition home health service (06) ==
LOC: SERX 23:31 → S2NX 06-03 06:14 → SERHOLD 06-07 10:22 → S2NX 06-07 10:23
PROVIDERS: Internal Medicine; Physician Assistant; Specialist; Admitting Provider Internal Medicine; Emergency Provider Emergency Medicine; PCP Family Medicine; Visit Provider Student in an Organized Health Care Education/Training Program
PROC: 0DJD8ZZ Inspection of Lower Intestinal Tract, Via Natural or Artificial Opening Endoscopic (ICD-10-PCS; CPT 45378; principal; 2025-06-04 16:30)
PROC: (CPT 43239; principal; 2025-06-05 09:00)
DX: K55.21 Angiodysplasia of colon with hemorrhage (principal); K64.1 Second degree hemorrhoids; K29.70 Gastritis, unspecified, without bleeding; K31.89 Other diseases of stomach and duodenum; K20.90 Esophagitis, unspecified without bleeding; I25.10 Atherosclerotic heart disease of native coronary artery without angina pectoris; Z95.5 Presence of coronary angioplasty implant and graft; E11.22 Type 2 diabetes mellitus with diabetic chronic kidney disease; N18.6 End stage renal disease; Z99.2 Dependence on renal dialysis; I48.91 Unspecified atrial fibrillation; I50.32 Chronic diastolic (congestive) heart failure; I13.2 Hypertensive heart and chronic kidney disease with heart failure and with stage 5 chronic kidney disease, or end stage renal disease; Z79.02 Long term (current) use of antithrombotics/antiplatelets; Z79.82 Long term (current) use of aspirin; Z79.01 Long term (current) use of anticoagulants; E03.9 Hypothyroidism, unspecified; D69.6 Thrombocytopenia, unspecified; K59.00 Constipation, unspecified; G47.00 Insomnia, unspecified; D63.1 Anemia in chronic kidney disease; Z66 Do not resuscitate; Z95.0 Presence of cardiac pacemaker; T85.611A Breakdown (mechanical) of intraperitoneal dialysis catheter, initial encounter; Y81.2 Prosthetic and other implants, materials and accessory general- and plastic-surgery devices associated with adverse incidents
CPT/HCPCS: 45382; 43235; 36415; 74177; 76705; 80053; 80074; 81001; 83735; 84100; 84484; 85025; 85610; 86706; 86850; 86900; 86901; 87081; 93005; 96374; 97162; A4649; G0378; J1815; J2250; J2470; J3010; J3373; J3490; J7999; Q5106; Q9967; A9270

== ENCOUNTER → 2025-07-30 | Outpatient (CLI) | payer MEDICARE, MEDICAID, SELFPAY ==
[2025-07-30 10:08] LABS: Basophils # (Auto) 0.0 Thou/mm3 (0.0-0.2); Basophils % (Auto) 1 % (0-2.5); Eosinophils # (Auto) 0.1 Thou/mm3 (0.0-0.5); Eosinophils % (Auto) 1 % (0-10); Hematocrit 27.3 % (36.0-46.0); Hemoglobin 8.9 g/dL (12.0-16.0); Immature Granulocytes Auto 0.01 Thou/mm3 (0.00-0.00); Lymphocytes # (Auto) 1.2 Thou/mm3 (1.0-4.8); Lymphocytes % (Auto) 28 % (10-50); Mean Corpuscular HGB Conc 32.6 g/dl (31.0-37.0); Mean Corpuscular Hemoglobin 32.7 pg (25.0-35.0); Mean Corpuscular Volume 100 fL (80-100); Monocytes # (Auto) 0.4 Thou/mm3 (0.0-0.8); Monocytes % (Auto) 9 % (0-12); Neutrophils # (Auto) 2.6 Thou/mm3 (1.8-7.7); Neutrophils % (Auto) 61 % (37-80); Nucleated Red Blood Cell # 0.00 Thou/mm3 (0.00-0.00); Nucleated Red Blood Cell % 0 /100 WBC (0); Platelet Count 79 Thou/mm3 (140-440); RDW Standard Deviation 60.9 fL (36.4-46.3); Red Blood Count 2.72 Miln/mm3 (4.00-5.20); White Blood Count 4.2 Thou/mm3 (3.6-11.0)
[2025-07-30 10:10] LABS: INR 1.1 (0.9-1.3); Partial Thromboplastin Time 30.6 Seconds (22.0-36.0); Prothrombin Time 12.1 Seconds (9.0-12.2)
[2025-07-30 10:19] LABS: Anion Gap 11 (7-16); BUN/Creatinine Ratio 6 Ratio (12-20); Blood Urea Nitrogen 21 mg/dL (9-23); Calcium 8.1 mg/dL (8.3-10.6); Carbon Dioxide 30.2 mMol/L (20.0-31.0); Chloride 99 mMol/L (98-107); Creatinine (Component) 3.4 mg/dL (0.6-1.3); Glucose 275 mg/dL (74-106); Osmolality,Calculated 292 (275-295); Potassium 4.2 mMol/L (3.4-5.1); Sodium 140 mMol/L (136-145); eGFR 13 See Note
[2025-07-30 11:49] LABS: Slide Review Platelets confirmed
== END | disposition home or self-care (01) ==
PROVIDERS: PCP Internal Medicine; Referring Provider Internal Medicine; Visit Provider Internal Medicine
DX: I25.10 Atherosclerotic heart disease of native coronary artery without angina pectoris (principal); I48.91 Unspecified atrial fibrillation
CPT/HCPCS: 36415; 80048; 85025; 85610; 85730